=== PATIENT | female | born 1955 | race Caucasian/White ===

== ENCOUNTER 2017-06-10 12:46 | Inpatient (IN) | payer MEDICARE, MEDICAID ==
[2017-06-10 13:24] LABS: % BASOPHILS 0.3 % (0.0-2.0); % EOSINOPHILS 0.3 % (0.0-5.0); % LYMPHOCYTES 15.9 % (20.0-50.0); % MONOCYTES 6.5 % (2.0-10.0); HEMATOCRIT 45.1 % (41.0-60); HEMOGLOBIN 15.2 gm/dL (12-16); MEAN CELL VOLUME 88.8 fl (81-100); MEAN CORPUSCULAR HEMOGLOBIN 29.9 pg (27.0-31.0); MEAN CORPUSCULAR HGB CONC 33.7 pg (28.0-36.0); MEAN PLATELET VOLUME 7.8 fl; PLATELET COUNT 277 Th/cmm (150-400); RED BLOOD COUNT 5.08 Mil/cmm (3.80-5.10)
[2017-06-10 13:33] LABS: WHITE BLOOD COUNT 6.4 Th/cmm (4.8-10.8)
[2017-06-10 13:45] LABS: AMYLASE SERUM 26 U/L (29-103); LIPASE 6 U/L (11-82)
[2017-06-10 13:47] LABS: ALB/GLOB RATIO 1.3 (1.0-1.8); ANION GAP 13.8 (7.0-16.0); BILIRUBIN,TOTAL 0.8 mg/dL (0.3-1.0); CALCIUM SERUM 10.2 mg/dL (8.6-10.3); CARBON DIOXIDE 22.4 mEq/L (21.0-31.0); CREATININE - SERUM 1.5 mg/dL (0.6-1.2); POTASSIUM SERUM 4.2 mEq/L (3.5-5.1)
[2017-06-10] MEDS ORDERED: Haloperidol Lactate 5 mg/mL 1mL Vial IM STA (13:47)
[2017-06-10] MEDS ORDERED: Haloperidol Lactate 5 mg/mL 1mL Vial ONE ×2 (13:48→15:31)
--- NOTE | 2017-06-10 14:02 | Diagnostic Imaging Report ---
CHEST X-RAY: AP view INDICATION: Fatigue, nausea and vomiting COMPARISON: Chest x-ray on 08/03/2015 FINDINGS: There is elevation of the right hemidiaphragm limiting evaluation right lung base. Left basal subsegmental atelectasis versus scarring is noted. No focal consolidation or effusions. Mild cardiomegaly is noted. Gas-filled stomach is seen along left upper quadrant. Degenerative changes of the spine are noted. IMPRESSION: Left basal subsegmental atelectasis versus scarring. No focal consolidation identified. Mild cardiomegaly.
--- NOTE | 2017-06-10 14:03 | Diagnostic Imaging Report ---
KUB single view HISTORY: Nausea and vomiting COMPARISON: CT abdomen and pelvis on 07/27/2015 and small bowel follow-through procedure on 07/30/2015 FINDINGS: Distended loops of bowel are noted including multiple distended small bowel loops. There is positive gas within the distal colon. Distended stomach is noted. IMPRESSION: Multiple distended small bowel loops and distended stomach. Findings may be due to small bowel obstruction. Clinical correlation and follow-up is recommended.
--- NOTE | 2017-06-10 14:29 | ED Physician Chart ---
ED Chief Complaint/HPI - Patient Information Date Seen:: 06/10/17 Time Seen:: 13:00 Chief Complaint:: Nausea and vomiting History of Present Illness:: 62 yo female who is a long-term resident with schizoaffective disorder with psychosis, developed nausea and vomiting for 2 days. She was reported to have abdominal pain with minimal ileostomy output. She was brought to the ER for further evaluation. The patient was screaming and getting out of bed in the ER. The patient has history of SBO treated with colectomy and ileostomy. Allergies:: Allergies Allergy/AdvReac Type Severity Reaction Status Date / Time meperidine [From Demerol] Allergy Verified 06/10/17 13:04 Vitals:: Vital Signs - 8 hr 06/10/17 13:05 Temp 98.8 F HR 83 RR 17 BP 140/77 O2 Sat % 94 ED Review of Systems - Review of Systems General/Constitutional: No fever, No chills Skin: No skin lesions Head: No headache Eyes: No loss of vision Neck: No neck pain Cardio Vascular: No chest pain Pulmonary: No SOB GI: Nausea, Vomiting Musculoskeletal: No bone or joint pain Psychiatric: Auditory hallucination ED Past Medical History - Past Medical History Past Medical History: Other (Schizoaffective with psychosis, Diverticulitis, SBO ) Social History: Non Smoker, No Alcohol, No Drug Use Surgical History: other (S/P colectomy & ileostomy) Family Medical History - Family Member Mother History Unknown: Yes Ethnicity: Unknown Living Status: Still Living Hx Family Cancer: (unknown) ED Physical Exam - Physical Examination General/Constitutional: Awake, Alert Other Gen/Cons comments:: yelling and screaming, not following command Head: Atraumatic Eyes: PERRL, EOMI Skin: No skin lesions Neck: Full ROM w/o pain Respiratory: Clear to Auscultation Cardio Vascular: RRR, No murmur, gallop, rubs, NL S1 S2 Other GI comments:: Distended, hypoactive bowel sound Extremities: No tenderness or effusion Other Neuro/Psych comments:: altered insight ED Labs/Radiology/EKG Results - Lab Results Results: Laboratory Tests 06/10/17 06/10/17 06/10/17 13:19 13:19 13:19 WBC 6.4 D RBC 5.08 Hgb 15.2 Hct 45.1 MCV 88.8 MCH 29.9 MCHC Differential 33.7 RDW 13.0 Plt Count 277 MPV 7.8 Neutrophils % 77.0 Lymphocytes % 15.9 L Monocytes % 6.5 Eosinophils % 0.3 Basophils % 0.3 Sodium 133 L Potassium 4.2 Chloride 101 Carbon Dioxide 22.4 Anion Gap 13.8 BUN 36 H Creatinine 1.5 H Est GFR ( Amer) 45.6 Est GFR (Non-Af Amer) 37.6 BUN/Creatinine Ratio 24.0 Glucose 156 H Calcium 10.2 Total Bilirubin 0.8 AST 25 ALT 23 Alkaline Phosphatase 76 Troponin I B-Natriuretic Peptide 22.8 Total Protein 7.9 Albumin 4.5 Globulin 3.4 Albumin/Globulin Ratio 1.3 Amylase Lipase 06/10/17 06/10/17 13:19 13:19 WBC RBC Hgb Hct MCV MCH MCHC Differential RDW Plt Count MPV Neutrophils % Lymphocytes % Monocytes % Eosinophils % Basophils % Sodium Potassium Chloride Carbon Dioxide Anion Gap BUN Creatinine Est GFR ( Amer) Est GFR (Non-Af Amer) BUN/Creatinine Ratio Glucose Calcium Total Bilirubin AST ALT Alkaline Phosphatase Troponin I < 0.01 L B-Natriuretic Peptide Total Protein Albumin Globulin Albumin/Globulin Ratio Amylase 26 L Lipase 6 L - Radiology Results Results: KUB: SBO ED Assessment - Assessment General Assessment: 62 yo female has nausea and vomiting due to small bowel obstruction. She is dehydrated. She has schizoaffective disorder with psychosis. Critical Care Time: 45 min Excludes all billable procedures: Yes This condition life threatening/high prob of deterioration: No ED Septic Shock - . Is Septic Shock (SBP<90, OR Lactate>4 mmol\L) present?: No - <6hrs of presentation: Vital Signs: Vital Signs - 8 hr 06/10/17 13:05 Temp 98.8 F HR 83 RR 17 BP 140/77 O2 Sat % 94 ED Reassessment (Disposition) - Reassessment Reassessment Condition:: Improved - Patient Disposition Discharge/Transfer:: Acute Care w/in this hosp Admitting Psych Physician:: Ganga Richards ED Discharge Plan - Patient Disposition Admit/Discharge/Transfer: Other Care w/in this hosp Condition at Disposition: Stable
[2017-06-10] MEDS ORDERED: Lactulose 10 Gm/15 mL 30mL UDC PO PRN (14:58)
[2017-06-10] MEDS ORDERED: Magnesium Hydroxide (MOM) 30 mL UDC PO PRN (14:58)
[2017-06-10] MEDS ORDERED: Hydrocodone/APAP 5mg/325mg Tab PO PRN (14:58)
[2017-06-10] MEDS ORDERED: Ipratropium Neb 0.5 mg/2.5 mL UD IH PRN (15:01)
[2017-06-10] MEDS ORDERED: Albuterol Nebulizer 2.5mg/3mL HHN PRN (15:01)
[2017-06-10] MEDS ORDERED: Morphine Sulfate 2 mg/mL 1mL Syr IVP PRN (15:01)
[2017-06-10] MEDS ORDERED: Maalox 30 mL Cup PO PRN (15:02)
[2017-06-10] MEDS ORDERED: D5-0.45NS 1,000 ML IV SCH (15:15)
[2017-06-10] MEDS ORDERED: Haloperidol Lactate 5 mg/mL 1mL Vial IM ONE (15:32)
--- NOTE | 2017-06-10 15:45 | History & Physical ---
ADMIT DATE: 06/10/2017 CHIEF COMPLAINT: Abdominal pain, intractable vomiting. HISTORY OF PRESENT ILLNESS: This is a 62-year-old female with history of morbid obesity, schizoaffective disorder, GERD, chronic constipation, hypertension, was admitted from nursing facility secondary to intractable vomiting and nausea. The patient had episode of fall yesterday on the floor. The patient is a poor historian. Denies chest pain, shortness of breath at this time. PAST MEDICAL HISTORY: As mentioned in the history of present illness. PAST SURGICAL HISTORY: Status post colostomy secondary to bowel obstruction in the past. ALLERGIES: MEPERIDINE. MEDICATIONS: Zofran, omeprazole, Nuedexta, ____, Colace, Centuria, lactulose, lidocaine patch, ____, midodrine, multivitamin. FAMILY HISTORY: Noncontributory. SOCIAL HISTORY: The patient lives in [facility]. The patient requiring 24-hour total care. Nonsmoker, nondrinker. REVIEW OF SYSTEMS: This is limited secondary to the patient's current mental state. We will try to obtain more detailed review of systems at a later date by talking to family members; ____ [phone]. Also we will try to get information from nursing staff at [facility] at [phone]. PHYSICAL EXAMINATION: VITAL SIGNS: Blood pressure 140/77, respirations 17, pulse 94, temperature 98.4. GENERAL: Elderly female, morbidly obese. NECK: Supple. No mass. LUNGS: Equal breath sounds, few rhonchi. HEART: Regular rate and rhythm without appreciable murmurs. ABDOMEN: Soft, globular. Positive colostomy. EXTREMITIES: Positive excoriation. NEUROLOGIC: Limited. LABORATORY DATA: WBC 6.4, hemoglobin 15, platelets 277. Sodium 133, potassium 4.2, BUN 36, creatinine 1.5, glucose 156. Troponin 0.01. Lipase 26 and 6 respectively. X-rays are pending. ASSESSMENT AND PLAN: Abdominal pain, intractable vomiting, possible small-bowel obstruction, acute renal failure, hyponatremia, morbid obesity, schizoaffective disorder, status post fall, constipation, and hypertension. We will start patient on IV fluids. We will correct patient's electrolyte abnormalities. We will check the hemoglobin A1c. We will perform CT abdomen and pelvis without contrast. We will refer the patient to GI. Continue with current care with followup consult and recommendations. JOB# [id number]
[2017-06-10] MEDS: Lidocaine 5% Patch TD SCH (18:08)
[2017-06-10] MEDS ORDERED: Diatrizoate Meglumine/Diatri 30 mL Sol ONE (18:24)
[2017-06-10] MEDS: D5-0.9%NS 1,000 ML IV SCH (19:00)
[2017-06-10] MEDS: Dextromethorphan/Quinidine 20mg/10mg Cap PO SCH (22:15)
--- NOTE | 2017-06-10 22:46 | Consultation ---
DATE OF CONSULTATION: 06/10/2017 REASON FOR CONSULTATION: Abdominal pain with vomiting. HISTORY OF PRESENT ILLNESS: This consult was obtained through the courtesy of Dr. Richards for this 62-year-old who has schizoaffective disorder, morbid obesity, GERD, hypertension, and a history of bowel obstruction, status post colostomy, presenting to the hospital because of abdominal pain and persistent vomiting. When she came in she had an x-ray, which showed possible obstruction. The patient was admitted. A GI consult was called in for further recommendations. The patient is not offering any insight into her condition. She is communicative and responsive, but is not able to answer any questions. PAST MEDICAL HISTORY: Obesity, schizoaffective disorder, GERD, constipation, and hypertension. PAST SURGICAL HISTORY: Colostomy. SOCIAL HISTORY: Nonsmoker, nonalcoholic, and no IV drug abuser. FAMILY HISTORY: Noncontributory. REVIEW OF SYSTEMS: Unobtainable. ALLERGIES: Meperidine. MEDICATIONS: The patient is on [place], Maalox, albuterol, valium, Colace, Atrovent, lactulose, lidocaine, mag hydroxide , midodrine, morphine, Theragran, Zofran and Protonix. PHYSICAL EXAMINATION: GENERAL: The patient is awake and responsive. VITAL SIGNS: Blood pressure is 126/57, heart rate 85, respiratory rate 18, temperature is 98.2. HEAD AND NECK: Pupils reactive to light. Extraocular muscles could not be tested. Oral cavity, no lesion. NECK: Supple. No jugular venous distention. No carotid bruit or lymph nodes. CHEST: Good respiratory movements. LUNGS: Clear to auscultation. CARDIOVASCULAR: Regular rate and rhythm. No murmur or gallop. ABDOMEN: Soft, distended, mildly tender. Decreased bowel sounds. Abdomen also showed the colostomy bag in the right upper extremity. EXTREMITIES: No edema. CENTRAL NERVOUS SYSTEM: Grossly nonfocal. LABORATORY DATA: CBC was unremarkable. Chemistry showed BUN and creatinine are 36 and 1.5, lipase 6. KUB showed distended loops of small bowel. IMPRESSION: A 62-year-old with multiple medical problems, now with possible bowel obstruction. ASSESSMENT AND PLAN: Abdominal distention, rule out bowel obstruction, whether partial or complete versus ileus due to adhesions. RECOMMENDATIONS: 1. Keep the patient n.p.o. 2. IV fluids. 3. Small-bowel follow through. It seems that the patient already has received a CT scan, so we will have to wait for the results. If not, then will do a small-bowel follow through, then further recommendations to follow. Other medical problems such as schizoaffective disorder, obesity, hypertension, etc., are as per Dr. Richards. Thank you, Dr. Richards, for allowing me to participate in the care of the patient. If you have any further questions, please let me know. JOB# [id number] MTDD
[2017-06-11 05:44] LABS: URINE BILIRUBIN SMALL (NEGATIVE); URINE BLOOD MODERATE (NEGATIVE); URINE GLUCOSE (UA) NEGATIVE (NEGATIVE); URINE KETONE TRACE mg/dL (NEGATIVE); URINE PROTEIN 100 mg/dL (NEGATIVE); URINE UROBILINOGEN 0.2 E.U./dL (0.2 - 1.0)
[2017-06-11 05:54] LABS: URINE COLOR ORANGE
[2017-06-11 05:57] LABS: URINE BACTERIA MANY /hpf (NONE SEEN); URINE EPITHELIAL CELLS FEW /lpf (FEW)
[2017-06-11 06:12] LABS: % BASOPHILS 0.1 % (0.0-2.0); % EOSINOPHILS 0.4 % (0.0-5.0); % LYMPHOCYTES 17.6 % (20.0-50.0); % MONOCYTES 10.4 % (2.0-10.0); % NEUTROPHILS 71.5 % (40.0-80.0); HEMATOCRIT 43.4 % (41.0-60); HEMOGLOBIN 14.5 gm/dL (12-16); MEAN CELL VOLUME 87.7 fl (81-100); MEAN CORPUSCULAR HEMOGLOBIN 29.3 pg (27.0-31.0); MEAN CORPUSCULAR HGB CONC 33.4 pg (28.0-36.0); MEAN PLATELET VOLUME 7.8 fl; NEUTROPHILE ABSOLUTE 4.5 Th/cmm (1.8-8.0); PLATELET COUNT 272 Th/cmm (150-400); RED BLOOD COUNT 4.94 Mil/cmm (3.80-5.10); WHITE BLOOD COUNT 6.2 Th/cmm (4.8-10.8)
[2017-06-11 06:23] LABS: ANION GAP 11.9 (7.0-16.0); BUN/CREATININE RATIO 26.9; CALCIUM SERUM 9.6 mg/dL (8.6-10.3); CREATININE - SERUM 1.3 mg/dL (0.6-1.2); MAGNESIUM 2.4 mg/dL (1.9-2.7); POTASSIUM SERUM 3.9 mEq/L (3.5-5.1)
[2017-06-11 07:03] LABS: TSH 4.22 uIU/ml (0.34-5.60)
[2017-06-11] MEDS: D5-0.9%NS 1,000 ML IV SCH ×2 (08:04→20:42)
[2017-06-11] MEDS ORDERED: Diatrizoate Meglumine/Diatri 30 mL Sol PO ONE ×2 (09:00→10:00)
--- NOTE | 2017-06-11 09:09 | Diagnostic Imaging Report ---
CHEST X-RAY: AP view INDICATION: NG tube placement COMPARISON: 06/10/2017 FINDINGS: NG tube is visualized to the stomach with distal tip not well visualized. The tip may be within the proximal stomach. The gaseous distention of the stomach is noted. There is elevation of the right hemidiaphragm. No focal consolidation identified. Increased bibasilar lung markings are noted. Heart size is normal. IMPRESSION: NG tube visualized the proximal stomach. The tip may be at the proximal stomach. Gaseous distended stomach is also noted. Bibasal atelectatic changes with no focal consolidation identified.
[2017-06-11] MEDS: Multivitamin Tab PO SCH (09:39)
[2017-06-11] MEDS: Dextromethorphan/Quinidine 20mg/10mg Cap PO SCH ×2 (09:39→21:00)
[2017-06-11] MEDS: Lidocaine 5% Patch TD SCH (09:39)
--- NOTE | 2017-06-11 11:19 | Diagnostic Imaging Report ---
Exam: Chest x-ray HISTORY: NG tube placement. Findings: Portable examination of chest at 1100 hours reviewed. The study demonstrates NG tube passes stomach. Right basilar atelectasis is noted. IMPRESSION: NG tube in the stomach.
--- NOTE | 2017-06-11 14:01 | Internal Medicine Prog Note ---
Internal Medicine Subjective - Subjective Service Date: 06/11/17 Patient seen and examined:: with staff Patient is:: awake, confused Per staff patient has:: tolerating meds Internal Medicine Objective - Results Result Diagrams: 06/11/17 05:30 06/11/17 05:30 Recent Labs: Laboratory Last Values WBC 6.2 Th/cmm (4.8-10.8) 06/11/17 05:30 RBC 4.94 Mil/cmm (3.80-5.10) 06/11/17 05:30 Hgb 14.5 gm/dL (12-16) 06/11/17 05:30 Hct 43.4 % (41.0-60) 06/11/17 05:30 MCV 87.7 fl (81-100) 06/11/17 05:30 MCH 29.3 pg (27.0-31.0) 06/11/17 05:30 MCHC Differential 33.4 pg (28.0-36.0) 06/11/17 05:30 RDW 13.0 % (11.5-20.0) 06/11/17 05:30 Plt Count 272 Th/cmm (150-400) 06/11/17 05:30 MPV 7.8 fl 06/11/17 05:30 Neutrophils % 71.5 % (40.0-80.0) 06/11/17 05:30 Lymphocytes % 17.6 % (20.0-50.0) L 06/11/17 05:30 Monocytes % 10.4 % (2.0-10.0) H 06/11/17 05:30 Eosinophils % 0.4 % (0.0-5.0) 06/11/17 05:30 Basophils % 0.1 % (0.0-2.0) 06/11/17 05:30 Sodium 138 mEq/L (136-145) 06/11/17 05:30 Potassium 3.9 mEq/L (3.5-5.1) 06/11/17 05:30 Chloride 104 mEq/L (98-107) 06/11/17 05:30 Carbon Dioxide 26.0 mEq/L (21.0-31.0) 06/11/17 05:30 Anion Gap 11.9 (7.0-16.0) 06/11/17 05:30 BUN 35 mg/dL (7-25) H 06/11/17 05:30 Creatinine 1.3 mg/dL (0.6-1.2) H 06/11/17 05:30 Est GFR ( Amer) 53.7 ml/min (>90) 06/11/17 05:30 Est GFR (Non-Af Amer) 44.4 ml/min 06/11/17 05:30 BUN/Creatinine Ratio 26.9 06/11/17 05:30 Glucose 156 mg/dL (70-105) H 06/11/17 05:30 Hemoglobin A1c % 6.0 % (4.0-6.0) 06/11/17 05:30 Calcium 9.6 mg/dL (8.6-10.3) 06/11/17 05:30 Magnesium 2.4 mg/dL (1.9-2.7) 06/11/17 05:30 Total Bilirubin 0.8 mg/dL (0.3-1.0) 06/10/17 13:19 AST 25 U/L (13-39) 06/10/17 13:19 ALT 23 U/L (7-52) 06/10/17 13:19 Alkaline Phosphatase 76 U/L (34-104) 06/10/17 13:19 Ammonia 50 umol/L (16-53) 06/11/17 05:30 Troponin I < 0.01 ng/mL (0.01-0.05) L 06/10/17 13:19 B-Natriuretic Peptide 22.8 pg/mL (5.0-100.0) 06/10/17 13:19 Total Protein 7.9 gm/dL (6.0-8.3) 06/10/17 13:19 Albumin 4.5 gm/dL (3.7-5.3) 06/10/17 13:19 Globulin 3.4 gm/dL 06/10/17 13:19 Albumin/Globulin Ratio 1.3 (1.0-1.8) 06/10/17 13:19 Amylase 26 U/L (29-103) L 06/10/17 13:19 Lipase 6 U/L (11-82) L 06/10/17 13:19 TSH 4.22 uIU/ml (0.34-5.60) 06/11/17 05:30 Urine Source CATH 06/11/17 05:30 Urine Color ORANGE 06/11/17 05:30 Urine Clarity HAZY (CLEAR) 06/11/17 05:30 Urine pH 6.0 (4.6 - 8.0) 06/11/17 05:30 Ur Specific [place] >= 1.030 (1.005-1.030) 06/11/17 05:30 Urine Protein 100 mg/dL (NEGATIVE) H 06/11/17 05:30 Urine Glucose (UA) NEGATIVE mg/dL (NEGATIVE) 06/11/17 05:30 Urine Ketones TRACE mg/dL (NEGATIVE) 06/11/17 05:30 Urine Blood MODERATE (NEGATIVE) H 06/11/17 05:30 Urine Nitrate POSITIVE (NEGATIVE) H 06/11/17 05:30 Urine Bilirubin SMALL (NEGATIVE) H 06/11/17 05:30 Urine Urobilinogen 0.2 E.U./dL (0.2 - 1.0) 06/11/17 05:30 Ur Leukocyte Esterase NEGATIVE (NEGATIVE) 06/11/17 05:30 Urine RBC 2-5 /hpf (0-5) 06/11/17 05:30 Urine WBC 10-25 /hpf (0-5) H 06/11/17 05:30 Ur Epithelial Cells FEW /lpf (FEW) 06/11/17 05:30 Urine Bacteria MANY /hpf (NONE SEEN) 06/11/17 05:30 - Physical Exam Vitals and I&O: Vital Signs Temp 98.2 F 06/11/17 08:00 Pulse 87 06/11/17 08:00 Resp 17 06/11/17 08:00 BP 122/67 06/11/17 08:00 Pulse Ox 92 06/11/17 08:00 Intake & Output 06/10/17 06/11/17 06/11/17 18:59 06:59 18:59 Intake Total 0 1000 Output Total 700 Balance -700 1000 Weight (lbs) 230 lb 9 oz Intake: Intake, IV Amount 1000 D5-0.9%Ns 1,000 ml @ 80 1000 mls/hr IV .[id number] CECILIA Rx #:[id number] Oral 0 Output: Gastric Drainage 700 Other: # Bowel Movements 0 Active Medications: Current Medications Acetaminophen/Hydrocodone Bitart (Arlee 5mg/325mg) 1 tab PO Q6H PRN PRN Reason: Pain (Moderate) Stop: 08/09/17 14:57 Al Hydrox/Mg Hydrox/Simethicone (Maalox) 30 ml PO Q6H PRN PRN Reason: Dyspepsia Stop: 08/09/17 15:01 Albuterol Sulfate (Albuterol 2.5mg/3ml Neb Ud) 2.5 mg HHN Q2HRT PRN PRN Reason: Shortness of Breath or Wheeze Stop: 08/09/17 15:00 Dextromethorphan/Quinidine (Nuedexta 20mg-10mg) 1 cap PO Q12HR [facility] Stop: 08/09/17 20:59 Last Admin: 06/11/17 09:39 Dose: Not Given Diazepam (Valium) 2 mg PO BID [facility] PRN Reason: Protocol Stop: 08/09/17 16:59 Last Admin: 06/11/17 09:39 Dose: Not Given Docusate Sodium (Colace) 100 mg PO BID [facility] Stop: 08/09/17 16:59 Last Admin: 06/11/17 09:39 Dose: Not Given Dextrose/Sodium Chloride (D5-0.9%Ns) 1,000 mls @ 100 mls/hr IV .Q10H [facility] Stop: 08/09/17 15:14 Ipratropium [place] (Atrovent Neb 0.5mg/2.5ml) 0.5 mg IH Q2HRT PRN PRN Reason: Shortness of Breath or Wheeze Stop: 08/09/17 15:00 Lactulose (Cephulac) 20 gm PO BID PRN PRN Reason: Constipation Stop: 08/09/17 14:57 Lidocaine (Lidoderm 5% Patch) 1 patch TD Q24HR@0900 [facility] Stop: 08/09/17 14:59 Last Admin: 06/11/17 09:39 Dose: Not Given Magnesium Hydroxide (Milk Of Magnesia) 30 ml PO HS PRN PRN Reason: Constipation Stop: 08/09/17 14:57 Midodrine (Proamatine) 10 mg PO TID [facility] Stop: 08/09/17 20:59 Last Admin: 06/11/17 09:39 Dose: Not Given Morphine Sulfate (Morphine) 2 mg IVP Q4H PRN PRN Reason: Pain (Severe) Stop: 08/09/17 15:00 Last Admin: 06/11/17 09:55 Dose: 2 mg Multivitamins/Vitamin C (Theragran) 1 tab PO DAILY [facility] Stop: 08/10/17 08:59 Last Admin: 06/11/17 09:39 Dose: Not Given Ondansetron HCl (Zofran) 4 mg IV Q8H PRN PRN Reason: Nausea / Vomiting Stop: 08/09/17 15:01 Last Admin: 06/10/17 18:57 Dose: 4 mg Pantoprazole Sodium (Protonix) 40 mg IVP BID [facility] Stop: 08/09/17 16:59 Last Admin: 06/11/17 09:39 Dose: Not Given Promethazine HCl (Phenergan) 25 mg IM Q8HR PRN PRN Reason: Nausea / Vomiting Stop: 08/10/17 12:52 General: weak, alert HEENT: NC/AT, PERRLA Neck: Supple Lungs: CTAB Cardiovascular: RRR, Normal S1, Normal S2, without murmur Abdomen: soft, non-tender, non-distended, positive bowel sound Extremities: excoriation Neurological: alert - Procedures Procedures: Procedures Procedure Code Date CONTINUOUS INVASIVE MECHANICAL VENTILATION =/>96 CONSEC HRS 96.72 01/08/15 EGD BIOPSY SINGLE/MULTIPLE 37436 07/27/15 EXCISION OF DUODENUM, ENDO, DIAGN [id number] 07/27/15 EXCISION OF STOMACH, PYLORUS, ENDO, DIAGN [id number] 07/27/15 GROUP PSYCHOTHERAPY 53027 08/02/15 GROUP PSYCHOTHERAPY [id number] 08/02/15 INSERT EMERGENCY AIRWAY 16320 01/08/15 INSERT ENDOTRACHEAL TUBE 96.04 01/08/15 INTRAOP COLON LAVAGE ADD-ON 90192 01/08/15 OPEN TOTAL INTRA-ABDOMINAL COLECTOMY 45.82 01/08/15 OTHER GROUP THERAPY 94.44 03/16/15 REMOVAL OF COLON 20842 01/08/15 TEMPORARY ILEOSTOMY 46.21 01/08/15 VENT MGMT INPAT INIT DAY 96124 01/08/15 VENT MGMT INPAT SUBQ DAY 67538 01/08/15 Internal Medicine Assmt/Plan - Assessment Assessment: abdominal pain intractable vomiting possible sbo acute renal failure hyponatremia morbid obesity schizoaffective s/p fall constipation - Plan Plan: continue ivf for hydration am labs monitor glucose fall precautions gi f/u continue current plan of care
[2017-06-11] MEDS ORDERED: VTE Chemical Prophylaxis Screen/Admission MC PRN (17:07)
--- NOTE | 2017-06-12 00:44 | Consultation ---
DATE OF CONSULTATION: Covering for Dr. Wick. IDENTIFYING INFORMATION: The patient is a 62-year-old female ____ who is a well-known case to me and Dr. Wick as he has multiple admissions to [facility]. She is confused, unable to make safe plan for self-care. She is unpredictable and impulsive. She was admitted because of abdominal pain, unable to participate in a conversation. She has a NG tube. She is unable to give the information about her sleep, appetite, suicide, homicide ideation or orientation. PAST PSYCHIATRIC HISTORY: Schizophrenia, bipolar disorder. MEDICAL HISTORY: Deferred to Dr. Richards. MEDICATIONS: See medication list. The staff is trying to get out of the computer and has been unsuccessful so far. We will get to it. The patient has been on Nuedexta. ALLERGIES: SHE IS ALLERGIC TO MEPERIDINE. She is not on any other psychotropic medications. FAMILY AND SOCIAL HISTORY: Unobtainable. MENTAL STATUS EXAMINATION: The patient is appropriately dressed, not very groomed. She has a NG tube. She was mumbling to herself, unable to make safe plan for self-care or participate in a meaningful conversation, ____ memory with a history of psychosis, unable to test her memory. Her insight and judgment is impaired. IMPRESSION: AXIS I: Psychosis, not otherwise specified. MEDICAL DIAGNOSIS: Refer to the medical doctor. I would recommend to continue Nuedexta and may transfer to [facility] when medically cleared. Thank you very much for allowing me to participate in the care of this most interesting lady. [facility]# [id number]
[2017-06-12 05:20] LABS: % BASOPHILS 0.5 % (0.0-2.0); % EOSINOPHILS 1.6 % (0.0-5.0); % LYMPHOCYTES 36.7 % (20.0-50.0); % MONOCYTES 8.7 % (2.0-10.0); % NEUTROPHILS 52.5 % (40.0-80.0); HEMATOCRIT 41.6 % (41.0-60); MEAN CELL VOLUME 88.3 fl (81-100); MEAN CORPUSCULAR HEMOGLOBIN 29.7 pg (27.0-31.0); MEAN CORPUSCULAR HGB CONC 33.6 pg (28.0-36.0); MEAN PLATELET VOLUME 7.7 fl; NEUTROPHILE ABSOLUTE 2.7 Th/cmm (1.8-8.0); PLATELET COUNT 259 Th/cmm (150-400); RED BLOOD COUNT 4.72 Mil/cmm (3.80-5.10); WHITE BLOOD COUNT 5.1 Th/cmm (4.8-10.8)
[2017-06-12 05:45] LABS: ALB/GLOB RATIO 1.2 (1.0-1.8); ALKALINE PHOSPHATASE 60 U/L (34-104); ANION GAP 9.9 (7.0-16.0); BILIRUBIN,TOTAL 0.6 mg/dL (0.3-1.0); BUN - UREA NITROGEN 31 mg/dL (7-25); BUN/CREATININE RATIO 28.2; CALCIUM SERUM 8.9 mg/dL (8.6-10.3); CARBON DIOXIDE 24.8 mEq/L (21.0-31.0); CHLORIDE 110 mEq/L (98-107); CREATININE - SERUM 1.1 mg/dL (0.6-1.2); GLUCOSE 128 mg/dL (70-105); MAGNESIUM 2.5 mg/dL (1.9-2.7); POTASSIUM SERUM 3.7 mEq/L (3.5-5.1); SGOT 18 U/L (13-39); SGPT/ALT 20 U/L (7-52); SODIUM SERUM 141 mEq/L (136-145)
--- NOTE | 2017-06-12 07:11 | Diagnostic Imaging Report ---
Exam: Small bowel follow-through. HISTORY: Small bowel obstruction. Findings: . The study demonstrates severely distended small bowel loops throughout the abdomen. NG tube in stomach Upon introduction of contrast material into the NG tube there is normal opacification of stomach. There is evidence. Progression of contrast material throughout distended small bowel loops with mild small bowel wall edema. The 6 hour interval film demonstrates progression of contrast material into the right colostomy. There is no evidence of small bowel obstruction. IMPRESSION: Distended small bowel loops throughout. There is no evidence for small bowel obstruction. The findings may related to paralytic ileus.
[2017-06-12] MEDS: D5-0.9%NS 1,000 ML IV SCH (07:12)
[2017-06-12] MEDS: Dextromethorphan/Quinidine 20mg/10mg Cap PO SCH ×2 (09:06→20:13)
[2017-06-12] MEDS: Multivitamin Tab PO SCH (09:06)
--- NOTE | 2017-06-12 11:24 | Internal Medicine Prog Note ---
Internal Medicine Subjective - Subjective Service Date: 06/12/17 Patient is:: awake, confused Per staff patient has:: tolerating meds Internal Medicine Objective - Results Result Diagrams: 06/12/17 05:05 06/12/17 05:05 Recent Labs: Laboratory Last Values WBC 5.1 Th/cmm (4.8-10.8) 06/12/17 05:05 RBC 4.72 Mil/cmm (3.80-5.10) 06/12/17 05:05 Hgb 14.0 gm/dL (12-16) 06/12/17 05:05 Hct 41.6 % (41.0-60) 06/12/17 05:05 MCV 88.3 fl (81-100) 06/12/17 05:05 MCH 29.7 pg (27.0-31.0) 06/12/17 05:05 MCHC Differential 33.6 pg (28.0-36.0) 06/12/17 05:05 RDW 13.0 % (11.5-20.0) 06/12/17 05:05 Plt Count 259 Th/cmm (150-400) 06/12/17 05:05 MPV 7.7 fl 06/12/17 05:05 Neutrophils % 52.5 % (40.0-80.0) 06/12/17 05:05 Lymphocytes % 36.7 % (20.0-50.0) 06/12/17 05:05 Monocytes % 8.7 % (2.0-10.0) 06/12/17 05:05 Eosinophils % 1.6 % (0.0-5.0) 06/12/17 05:05 Basophils % 0.5 % (0.0-2.0) 06/12/17 05:05 Sodium 141 mEq/L (136-145) 06/12/17 05:05 Potassium 3.7 mEq/L (3.5-5.1) 06/12/17 05:05 Chloride 110 mEq/L (98-107) H 06/12/17 05:05 Carbon Dioxide 24.8 mEq/L (21.0-31.0) 06/12/17 05:05 Anion Gap 9.9 (7.0-16.0) 06/12/17 05:05 BUN 31 mg/dL (7-25) H 06/12/17 05:05 Creatinine 1.1 mg/dL (0.6-1.2) 06/12/17 05:05 Est GFR ( Amer) > 60.0 ml/min (>90) 06/12/17 05:05 Est GFR (Non-Af Amer) 53.8 ml/min 06/12/17 05:05 BUN/Creatinine Ratio 28.2 06/12/17 05:05 Glucose 128 mg/dL (70-105) H 06/12/17 05:05 Hemoglobin A1c % 6.0 % (4.0-6.0) 06/11/17 05:30 Calcium 8.9 mg/dL (8.6-10.3) 06/12/17 05:05 Magnesium 2.5 mg/dL (1.9-2.7) 06/12/17 05:05 Total Bilirubin 0.6 mg/dL (0.3-1.0) 06/12/17 05:05 AST 18 U/L (13-39) 06/12/17 05:05 ALT 20 U/L (7-52) 06/12/17 05:05 Alkaline Phosphatase 60 U/L (34-104) 06/12/17 05:05 Ammonia 50 umol/L (16-53) 06/11/17 05:30 Troponin I < 0.01 ng/mL (0.01-0.05) L 06/10/17 13:19 B-Natriuretic Peptide 22.8 pg/mL (5.0-100.0) 06/10/17 13:19 Total Protein 6.7 gm/dL (6.0-8.3) 06/12/17 05:05 Albumin 3.7 gm/dL (3.7-5.3) 06/12/17 05:05 Globulin 3.0 gm/dL 06/12/17 05:05 Albumin/Globulin Ratio 1.2 (1.0-1.8) 06/12/17 05:05 Amylase 26 U/L (29-103) L 06/10/17 13:19 Lipase 6 U/L (11-82) L 06/10/17 13:19 TSH 4.22 uIU/ml (0.34-5.60) 06/11/17 05:30 Urine Source CATH 06/11/17 05:30 Urine Color ORANGE 06/11/17 05:30 Urine Clarity HAZY (CLEAR) 06/11/17 05:30 Urine pH 6.0 (4.6 - 8.0) 06/11/17 05:30 Ur Specific [place] >= 1.030 (1.005-1.030) 06/11/17 05:30 Urine Protein 100 mg/dL (NEGATIVE) H 06/11/17 05:30 Urine Glucose (UA) NEGATIVE mg/dL (NEGATIVE) 06/11/17 05:30 Urine Ketones TRACE mg/dL (NEGATIVE) 06/11/17 05:30 Urine Blood MODERATE (NEGATIVE) H 06/11/17 05:30 Urine Nitrate POSITIVE (NEGATIVE) H 06/11/17 05:30 Urine Bilirubin SMALL (NEGATIVE) H 06/11/17 05:30 Urine Urobilinogen 0.2 E.U./dL (0.2 - 1.0) 06/11/17 05:30 Ur Leukocyte Esterase NEGATIVE (NEGATIVE) 06/11/17 05:30 Urine RBC 2-5 /hpf (0-5) 06/11/17 05:30 Urine WBC 10-25 /hpf (0-5) H 06/11/17 05:30 Ur Epithelial Cells FEW /lpf (FEW) 06/11/17 05:30 Urine Bacteria MANY /hpf (NONE SEEN) 06/11/17 05:30 - Physical Exam Vitals and I&O: Vital Signs Temp 99.2 F 06/12/17 08:00 Pulse 76 06/12/17 08:00 Resp 18 06/12/17 08:00 BP 110/46 06/12/17 08:00 Pulse Ox 92 06/12/17 08:00 Intake & Output 06/11/17 06/12/17 06/12/17 18:59 06:59 18:59 Intake Total 1000 1000 Output Total 800 200 Balance 200 800 Weight (lbs) 230 lb 9 oz 230 lb Intake: Intake, IV Amount 1000 1000 D5-0.9%Ns 1,000 ml @ 100 1000 mls/hr IV .Q10H [facility] Rx#: [id number] D5-0.9%Ns 1,000 ml @ 80 1000 mls/hr IV .[id number] [facility] Rx #:[id number] Oral 0 Output: Stool 800 0 Emesis 200 Other: # Voids 4 Active Medications: Current Medications Acetaminophen/Hydrocodone Bitart ([place] 5mg/325mg) 1 tab PO Q6H PRN PRN Reason: Pain (Moderate) Stop: 08/09/17 14:57 Al Hydrox/Mg Hydrox/Simethicone (Maalox) 30 ml PO Q6H PRN PRN Reason: Dyspepsia Stop: 08/09/17 15:01 Albuterol Sulfate (Albuterol 2.5mg/3ml Neb Ud) 2.5 mg HHN Q2HRT PRN PRN Reason: Shortness of Breath or Wheeze Stop: 08/09/17 15:00 Dextromethorphan/Quinidine (Nuedexta 20mg-10mg) 1 cap PO Q12HR [facility] Stop: 08/09/17 20:59 Last Admin: 06/12/17 09:06 Dose: Not Given Diazepam (Valium) 2 mg PO BID [facility] PRN Reason: Protocol Stop: 08/09/17 16:59 Last Admin: 06/12/17 09:06 Dose: Not Given Docusate Sodium (Colace) 100 mg PO BID [facility] Stop: 08/09/17 16:59 Last Admin: 06/12/17 09:06 Dose: Not Given Dextrose/Sodium Chloride (D5-0.9%Ns) 1,000 mls @ 100 mls/hr IV .Q10H [facility] Stop: 08/09/17 15:14 Last Admin: 06/12/17 07:12 Dose: 100 mls/hr Ipratropium [place] (Atrovent Neb 0.5mg/2.5ml) 0.5 mg IH Q2HRT PRN PRN Reason: Shortness of Breath or Wheeze Stop: 08/09/17 15:00 Lactulose (Cephulac) 20 gm PO BID PRN PRN Reason: Constipation Stop: 08/09/17 14:57 Lidocaine (Lidoderm 5% Patch) 1 patch TD Q24HR@0900 [facility] Stop: 08/09/17 14:59 Last Admin: 06/11/17 09:39 Dose: Not Given Magnesium Hydroxide (Milk Of Magnesia) 30 ml PO HS PRN PRN Reason: Constipation Stop: 08/09/17 14:57 Midodrine (Proamatine) 10 mg PO TID [facility] Stop: 08/09/17 20:59 Last Admin: 06/12/17 09:06 Dose: Not Given Miscellaneous (Vte Chemical Prophylaxis Screen/ Admission) 1 ea [facility] PRN PRN PRN Reason: PROTOCOL Stop: 08/10/17 17:06 Morphine Sulfate (Morphine) 2 mg IVP Q4H PRN PRN Reason: Pain (Severe) Stop: 08/09/17 15:00 Last Admin: 06/11/17 09:55 Dose: 2 mg Multivitamins/Vitamin C (Theragran) 1 tab PO DAILY [facility] Stop: 08/10/17 08:59 Last Admin: 06/12/17 09:06 Dose: Not Given Ondansetron HCl (Zofran) 4 mg IV Q8H PRN PRN Reason: Nausea / Vomiting Stop: 08/09/17 15:01 Last Admin: 06/10/17 18:57 Dose: 4 mg Pantoprazole Sodium (Protonix) 40 mg IVP BID [facility] Stop: 08/09/17 16:59 Last Admin: 06/12/17 09:06 Dose: Not Given Promethazine HCl (Phenergan) 25 mg IM Q8HR PRN PRN Reason: Nausea / Vomiting Stop: 08/10/17 12:52 General: weak, alert HEENT: NC/AT, PERRLA Neck: Supple Lungs: CTAB Cardiovascular: RRR, Normal S1, Normal S2, without murmur Abdomen: soft, non-tender, non-distended, positive bowel sound Extremities: excoriation Neurological: alert - Procedures Procedures: Procedures Procedure Code Date CONTINUOUS INVASIVE MECHANICAL VENTILATION =/>96 CONSEC HRS 96.72 01/08/15 EGD BIOPSY SINGLE/MULTIPLE 42031 07/27/15 EXCISION OF DUODENUM, ENDO, DIAGN [id number] 07/27/15 EXCISION OF STOMACH, PYLORUS, ENDO, DIAGN [id number] 07/27/15 GROUP PSYCHOTHERAPY 06290 08/02/15 GROUP PSYCHOTHERAPY [id number] 08/02/15 INSERT EMERGENCY AIRWAY 57361 01/08/15 INSERT ENDOTRACHEAL TUBE 96.04 01/08/15 INTRAOP COLON LAVAGE ADD-ON 83908 01/08/15 OPEN TOTAL INTRA-ABDOMINAL COLECTOMY 45.82 01/08/15 OTHER GROUP THERAPY 94.44 03/16/15 REMOVAL OF COLON 38216 01/08/15 TEMPORARY ILEOSTOMY 46.21 01/08/15 VENT MGMT INPAT INIT DAY 01/08/15 VENT MGMT INPAT SUBQ DAY 01/08/15 Internal Medicine Assmt/Plan - Assessment Assessment: abdominal pain intractable vomiting possible sbo acute renal failure hyponatremia morbid obesity schizoaffective s/p fall constipation - Plan Plan: continue ivf for hydration am labs monitor glucose fall precautions continue current plan of care
[2017-06-12] MEDS: Lidocaine 5% Patch TD SCH (12:31)
[2017-06-12 14:17] LABS: FOLIC ACID >20.0 ng/mL (>3.0)
[2017-06-12] MEDS ORDERED: D5-0.9%NS 1,000 ML IV SCH (15:44)
[2017-06-12] MEDS ORDERED: cefTRIAXone 1 GM in Sodium Chloride 0.9% 50 ML IV SCH (17:00)
[2017-06-13 05:48] LABS: % BASOPHILS 0.4 % (0.0-2.0); % EOSINOPHILS 1.8 % (0.0-5.0); % MONOCYTES 7.5 % (2.0-10.0); % NEUTROPHILS 61.3 % (40.0-80.0); HEMATOCRIT 41.8 % (41.0-60); HEMOGLOBIN 13.9 gm/dL (12-16); MEAN CELL VOLUME 88.8 fl (81-100); MEAN CORPUSCULAR HEMOGLOBIN 29.5 pg (27.0-31.0); MEAN CORPUSCULAR HGB CONC 33.2 pg (28.0-36.0); NEUTROPHILE ABSOLUTE 3.9 Th/cmm (1.8-8.0); PLATELET COUNT 267 Th/cmm (150-400); RED BLOOD COUNT 4.71 Mil/cmm (3.80-5.10); RED CELL DISTRIBUTION WIDTH 12.5 % (11.5-20.0)
[2017-06-13 05:58] LABS: WHITE BLOOD COUNT 6.4 Th/cmm (4.8-10.8)
[2017-06-13 06:10] LABS: ANION GAP 9.6 (7.0-16.0); BUN - UREA NITROGEN 21 mg/dL (7-25); CALCIUM SERUM 8.9 mg/dL (8.6-10.3); CHLORIDE 113 mEq/L (98-107); GLUCOSE 109 mg/dL (70-105); POTASSIUM SERUM 3.6 mEq/L (3.5-5.1); SODIUM SERUM 144 mEq/L (136-145)
[2017-06-13] MEDS: Dextromethorphan/Quinidine 20mg/10mg Cap PO SCH (09:05)
[2017-06-13] MEDS: Multivitamin Tab PO SCH (09:05)
--- NOTE | 2017-06-13 14:19 | Consultation ---
DATE OF CONSULTATION: SUBJECTIVE: Chart reviewed and patient interviewed. Also discussed the patient's condition with the staff and reviewed records and labs. The patient continued to be confused and restless and easily agitated. The patient also is in irritable and in angry mood. The patient also still needs lots of redirections. Otherwise, the patient is compliant with taking her medications with no side effects of medications. ASSESSMENT: The patient is still psychotic and is still agitated, and needs lots of redirections. TREATMENT PLAN: We will continue monitoring her behavior and her condition closely. Also, start the patient on Seroquel and we will adjust the dose. The patient also is a candidate for [facility]. JOB# [id number]
--- NOTE | 2017-06-13 14:20 | Discharge Summary ---
DATE OF DISCHARGE: 06/13/2017 CHIEF COMPLAINT: Abdominal pain, intractable vomiting. FINAL DIAGNOSES: Abdominal pain, intractable vomiting, small-bowel obstruction, which was resolved, urinary tract infection, acute renal failure, hyponatremia, morbidly obese, schizoaffective disorder, status post fall once, patient with hypertension. HISTORY: This is a 62-year-old female with history of mild obesity, schizoaffective disorder, previous bowel obstruction status post colostomy, hypertension, was admitted from nursing facility secondary to intractable vomiting and diarrhea and intractable nausea and vomiting. The patient also had an episode of fall. The patient admitted for further management. PHYSICAL EXAMINATION: VITAL SIGNS: Blood pressure 137/66, respirations 19, pulse 64, temperature 99.6. GENERAL: Elderly female, morbidly obese. NECK: Supple. No mass. LUNGS: Equal breath sounds, few rhonchi. HEART: Regular rate and rhythm without systolic ejection murmur. ABDOMEN: Soft, nontender. EXTREMITIES: Positive excoriations. NEUROLOGIC: Limited, positive colostomy. HOSPITAL COURSE: The patient was admitted to medical floor. Continued on IV antibiotic and IV hydration. Electrolytes were corrected. Patient's urine grew E. coli. The patient's antibiotic switched to oral. The patient cleared for discharge to [facility] to address the declining mental status. The patient's ____ by a psychiatrist. DISCHARGE INSTRUCTIONS: The patient to continue on p.o. antibiotic under the service of Dr. Wick. JOB# [id number]
[2017-06-13] MEDS ORDERED: Sulfamethoxazole/TMP 800/160mg Tab PO SCH (17:00)
[2017-06-14] MEDS ORDERED: Pantoprazole 40 mg EC Tab PO SCH (09:00)
== END 2017-06-13 13:33 | DRG 682 ==
LOC: ER 12:46 → MSI 13:52
PROVIDERS: ADMIT Internal Medicine; ATTEND Internal Medicine
DX: N17.9 Acute kidney failure, unspecified (principal); G93.41 Metabolic encephalopathy; E87.1 Hypo-osmolality and hyponatremia; E66.01 Morbid (severe) obesity due to excess calories; N39.0 Urinary tract infection, site not specified; I10 Essential (primary) hypertension; R14.0 Abdominal distension (gaseous); F25.9 Schizoaffective disorder, unspecified; K59.00 Constipation, unspecified; F29 Unspecified psychosis not due to a substance or known physiological condition; E86.0 Dehydration; K21.9 Gastro-esophageal reflux disease without esophagitis; W18.30XA Fall on same level, unspecified, initial encounter; Y93.89 Activity, other specified; Y92.89 Other specified places as the place of occurrence of the external cause; Y99.8 Other external cause status; B96.20 Unspecified Escherichia coli [E. coli] as the cause of diseases classified elsewhere; Z88.8 Allergy status to other drugs, medicaments and biological substances; Z90.49 Acquired absence of other specified parts of digestive tract; Z68.33 Body mass index [BMI] 33.0-33.9, adult; Z93.2 Ileostomy status
CPT/HCPCS: 36415-UA; 71010-TC; 74000-TC; 74250-TC; 80048-TC; 80053-TC; 81001-TC; 82140-TC; 82150-TC; 82607-90; 82746-90; 83036-90; 83690-TC; 83735-TC; 83880-TC; 84443-TC; 84484-TC; 85025-TC; 87086-90; 93005; 96374; C9113; J0696; J1630; J2060; J2270; J2405; J7042; Z7502; Z7610

== ENCOUNTER 2017-06-13 13:35 | Inpatient (IN) | payer MEDICARE, MEDICAID ==
[2017-06-13 15:53] VITALS: BP 155/75
[2017-06-13] MEDS ORDERED: Maalox 30 mL Cup PO PRN ×2 (15:55)
[2017-06-13] MEDS ORDERED: Magnesium Hydroxide (MOM) 30 mL UDC PO PRN ×2 (15:55)
[2017-06-13] MEDS ORDERED: Haloperidol Lactate 5 mg/mL 1mL Vial ONE ×2 (16:07)
[2017-06-13] MEDS ORDERED: Haloperidol Lactate 5 mg/mL 1mL Vial IM ONE ×2 (16:10)
[2017-06-13] MEDS ORDERED: Albuterol Nebulizer 2.5mg/3mL HHN PRN ×2 (16:15)
[2017-06-13] MEDS ORDERED: Lactulose 10 Gm/15 mL 30mL UDC PO PRN ×2 (16:16)
[2017-06-13] MEDS ORDERED: Ipratropium Neb 0.5 mg/2.5 mL UD HHN PRN ×2 (16:16)
[2017-06-13] MEDS ORDERED: Hydrocodone/APAP 5mg/325mg Tab PO PRN ×2 (16:16)
[2017-06-13] MEDS: Sulfamethoxazole/TMP 800/160mg Tab PO SCH ×2 (17:29)
[2017-06-13] MEDS: Dextromethorphan/Quinidine 20mg/10mg Cap PO SCH ×2 (20:49)
[2017-06-14] MEDS: Dextromethorphan/Quinidine 20mg/10mg Cap PO SCH ×4 (08:22→21:22)
[2017-06-14] MEDS: Sulfamethoxazole/TMP 800/160mg Tab PO SCH ×4 (08:22→16:38)
[2017-06-14] MEDS: Multivitamin Tab PO SCH ×2 (08:22)
[2017-06-14] MEDS ORDERED: Haloperidol Lactate 5 mg/mL 1mL Vial ONE ×2 (10:32)
[2017-06-14] MEDS ORDERED: Haloperidol Lactate 5 mg/mL 1mL Vial IM STA ×2 (10:32)
[2017-06-14] MEDS ORDERED: Magnesium Hydroxide (MOM) 30 mL UDC PO PRN ×2 (12:55)
[2017-06-14] MEDS ORDERED: Maalox 30 mL Cup PO PRN ×2 (12:55)
[2017-06-14] MEDS ORDERED: Albuterol Nebulizer 2.5mg/3mL HHN PRN ×2 (12:55)
--- NOTE | 2017-06-14 12:58 | Internal Medicine Prog Note ---
Internal Medicine Subjective - Subjective Patient seen and examined:: with staff, chart reviewed Patient is:: awake, verbal, interactive Per staff patient has:: no adverse event, poor appetite, agitated, noncompliant , tolerating meds Internal Medicine Objective - Physical Exam Vitals and I&O: Vital Signs Temp 97.5 F 06/14/17 07:12 Pulse 68 06/14/17 07:12 Resp 18 06/14/17 07:12 BP 116/75 06/14/17 07:12 Pulse Ox 98 06/14/17 07:12 Intake & Output 06/13/17 06/14/17 06/14/17 18:59 06:59 18:59 Intake Total 400 120 Balance 400 120 Weight (lbs) 100.244 kg Intake: Oral 400 120 Other: # Voids 1 3 Stool Characteristics Soft Active Medications: Current Medications Acetaminophen (Tylenol) 650 mg PO Q6H PRN PRN Reason: Mild Pain / Temp above 100 Stop: 08/12/17 15:54 Acetaminophen (Tylenol) 650 mg PO Q6H PRN PRN Reason: fever Stop: 08/13/17 12:54 Acetaminophen/Hydrocodone Bitart ([place] 5mg/325mg) 1 tab PO Q6H PRN PRN Reason: Pain (Moderate) Stop: 08/12/17 16:15 Al Hydrox/Mg Hydrox/Simethicone (Maalox) 30 ml PO Q4HR PRN PRN Reason: GI DISTRESS Stop: 08/12/17 15:54 Al Hydrox/Mg Hydrox/Simethicone (Maalox) 30 ml PO Q6H PRN PRN Reason: Dyspepsia Stop: 08/13/17 12:54 Albuterol Sulfate (Albuterol 2.5mg/3ml Neb Ud) 2.5 mg HHN Q2HRT PRN PRN Reason: Shortness of Breath or Wheeze Stop: 08/12/17 16:14 Albuterol Sulfate (Albuterol 2.5mg/3ml Neb Ud) 2.5 mg HHN Q2HRT PRN PRN Reason: Shortness of Breath or Wheeze Stop: 08/13/17 12:54 Dextromethorphan/Quinidine (Nuedexta 20mg-10mg) 1 cap PO Q12HR [facility] Stop: 08/12/17 20:59 Last Admin: 06/14/17 08:22 Dose: 1 cap Diazepam (Valium) 2 mg PO BID [facility] PRN Reason: Protocol Stop: 08/13/17 16:59 Docusate Sodium (Colace) 100 mg PO BID [facility] Stop: 08/12/17 16:59 Last Admin: 06/14/17 08:22 Dose: 100 mg Ipratropium [place] (Atrovent Neb 0.5mg/2.5ml) 0.5 mg HHN Q2HRT PRN PRN Reason: Shortness of Breath or Wheeze Stop: 08/12/17 16:15 Lactulose (Cephulac) 20 gm PO BID PRN PRN Reason: Constipation Stop: 08/12/17 16:15 Lidocaine (Lidoderm 5% Patch) 1 patch TD Q24HR@0900 [facility] Stop: 08/13/17 08:59 Lorazepam (Ativan) 0.5 mg PO Q4HR PRN; Protocol PRN Reason: Anxiety Stop: 07/13/17 15:54 Last Admin: 06/14/17 08:23 Dose: 0.5 mg Magnesium Hydroxide (Milk Of Magnesia) 30 ml PO HS PRN PRN Reason: Constipation Magnesium Hydroxide (Milk Of Magnesia) 30 ml PO HS PRN PRN Reason: Constipation Stop: 08/13/17 12:54 Midodrine (Proamatine) 10 mg PO TID [facility] Stop: 08/12/17 20:59 Last Admin: 06/14/17 08:23 Dose: 10 mg Mineral Oil (Mineral Oil 30 Ml) 30 ml PO BID [facility] Stop: 08/12/17 16:59 Last Admin: 06/13/17 17:30 Dose: 30 ml Multivitamins/Vitamin C (Theragran) 1 tab PO DAILY [facility] Stop: 08/13/17 08:59 Last Admin: 06/14/17 08:22 Dose: 1 tab Multivitamins/Vitamin C (Theragran) 1 tab PO DAILY [facility] Stop: 08/14/17 08:59 Quetiapine Fumarate (Seroquel) 25 mg PO TID [facility] PRN Reason: Protocol Stop: 08/12/17 20:59 Last Admin: 06/14/17 08:23 Dose: 25 mg Trimethoprim/Sulfamethoxazole (Bactrim Ds) 1 tab PO BID [facility] Stop: 06/18/17 16:59 Last Admin: 06/14/17 08:22 Dose: 1 tab Zolpidem Tartrate (Ambien) 5 mg PO HS PRN PRN Reason: Insomnia Stop: 08/12/17 15:54 General: demented, obese, appears older HEENT: NC/AT, PERRLA, EOMI Neck: Supple, No JVD, No LAD Lungs: CTAB Cardiovascular: RRR, Normal S1, Normal S2, without murmur Abdomen: soft, non-tender, globular Extremities: excoriation, contracture Neurological: no change, disorganized, bedbound - Procedures Procedures: Procedures Procedure Code Date CONTINUOUS INVASIVE MECHANICAL VENTILATION =/>96 CONSEC HRS 96.72 01/08/15 EGD BIOPSY SINGLE/MULTIPLE 54762 07/27/15 EXCISION OF DUODENUM, ENDO, DIAGN [id number] 07/27/15 EXCISION OF STOMACH, PYLORUS, ENDO, DIAGN [id number] 07/27/15 GROUP PSYCHOTHERAPY 79297 08/02/15 GROUP PSYCHOTHERAPY [id number] 08/02/15 INSERT EMERGENCY AIRWAY 06391 01/08/15 INSERT ENDOTRACHEAL TUBE 96.04 01/08/15 INTRAOP COLON LAVAGE ADD-ON 47268 01/08/15 OPEN TOTAL INTRA-ABDOMINAL COLECTOMY 45.82 01/08/15 OTHER GROUP THERAPY 94.44 03/16/15 REMOVAL OF COLON 20544 01/08/15 TEMPORARY ILEOSTOMY 46.21 01/08/15 VENT MGMT INPAT INIT DAY 84545 01/08/15 VENT MGMT INPAT SUBQ DAY 91247 01/08/15 Internal Medicine Assmt/Plan - Assessment Assessment: abdominal pain intractable vomiting possible sbo acute renal failure hyponatremia morbid obesity schizoaffective s/p fall constipation - Plan Plan: - Plan Plan: continue ivf for hydration am labs monitor glucose fall precautions continue current plan of care
--- NOTE | 2017-06-14 12:58 | Internal Medicine Prog Note ---
Internal Medicine Subjective - Subjective Patient seen and examined:: with staff, chart reviewed Patient is:: awake, verbal, interactive Per staff patient has:: no adverse event, poor appetite, agitated, noncompliant , tolerating meds Internal Medicine Objective - Physical Exam Vitals and I&O: Vital Signs Temp 97.5 F 06/14/17 07:12 Pulse 68 06/14/17 07:12 Resp 18 06/14/17 07:12 BP 116/75 06/14/17 07:12 Pulse Ox 98 06/14/17 07:12 Intake & Output 06/13/17 06/14/17 06/14/17 18:59 06:59 18:59 Intake Total 400 120 Balance 400 120 Weight (lbs) 100.244 kg Intake: Oral 400 120 Other: # Voids 1 3 Stool Characteristics Soft Active Medications: Current Medications Acetaminophen (Tylenol) 650 mg PO Q6H PRN PRN Reason: Mild Pain / Temp above 100 Stop: 08/12/17 15:54 Acetaminophen (Tylenol) 650 mg PO Q6H PRN PRN Reason: fever Stop: 08/13/17 12:54 Acetaminophen/Hydrocodone Bitart ([place] 5mg/325mg) 1 tab PO Q6H PRN PRN Reason: Pain (Moderate) Stop: 08/12/17 16:15 Al Hydrox/Mg Hydrox/Simethicone (Maalox) 30 ml PO Q4HR PRN PRN Reason: GI DISTRESS Stop: 08/12/17 15:54 Al Hydrox/Mg Hydrox/Simethicone (Maalox) 30 ml PO Q6H PRN PRN Reason: Dyspepsia Stop: 08/13/17 12:54 Albuterol Sulfate (Albuterol 2.5mg/3ml Neb Ud) 2.5 mg HHN Q2HRT PRN PRN Reason: Shortness of Breath or Wheeze Stop: 08/12/17 16:14 Albuterol Sulfate (Albuterol 2.5mg/3ml Neb Ud) 2.5 mg HHN Q2HRT PRN PRN Reason: Shortness of Breath or Wheeze Stop: 08/13/17 12:54 Dextromethorphan/Quinidine (Nuedexta 20mg-10mg) 1 cap PO Q12HR [facility] Stop: 08/12/17 20:59 Last Admin: 06/14/17 08:22 Dose: 1 cap Diazepam (Valium) 2 mg PO BID [facility]IA PRN Reason: Protocol Stop: 08/13/17 16:59 Docusate Sodium (Colace) 100 mg PO BID [facility] Stop: 08/12/17 16:59 Last Admin: 06/14/17 08:22 Dose: 100 mg Ipratropium [place] (Atrovent Neb 0.5mg/2.5ml) 0.5 mg HHN Q2HRT PRN PRN Reason: Shortness of Breath or Wheeze Stop: 08/12/17 16:15 Lactulose (Cephulac) 20 gm PO BID PRN PRN Reason: Constipation Stop: 08/12/17 16:15 Lidocaine (Lidoderm 5% Patch) 1 patch TD Q24HR@0900 [facility] Stop: 08/13/17 08:59 Lorazepam (Ativan) 0.5 mg PO Q4HR PRN; Protocol PRN Reason: Anxiety Stop: 07/13/17 15:54 Last Admin: 06/14/17 08:23 Dose: 0.5 mg Magnesium Hydroxide (Milk Of Magnesia) 30 ml PO HS PRN PRN Reason: Constipation Magnesium Hydroxide (Milk Of Magnesia) 30 ml PO HS PRN PRN Reason: Constipation Stop: 08/13/17 12:54 Midodrine (Proamatine) 10 mg PO TID [facility] Stop: 08/12/17 20:59 Last Admin: 06/14/17 08:23 Dose: 10 mg Mineral Oil (Mineral Oil 30 Ml) 30 ml PO BID [facility] Stop: 08/12/17 16:59 Last Admin: 06/13/17 17:30 Dose: 30 ml Multivitamins/Vitamin C (Theragran) 1 tab PO DAILY [facility] Stop: 08/13/17 08:59 Last Admin: 06/14/17 08:22 Dose: 1 tab Multivitamins/Vitamin C (Theragran) 1 tab PO DAILY [facility] Stop: 08/14/17 08:59 Quetiapine Fumarate (Seroquel) 25 mg PO TID [facility]IA PRN Reason: Protocol Stop: 08/12/17 20:59 Last Admin: 06/14/17 08:23 Dose: 25 mg Trimethoprim/Sulfamethoxazole (Bactrim Ds) 1 tab PO BID [facility] Stop: 06/18/17 16:59 Last Admin: 06/14/17 08:22 Dose: 1 tab Zolpidem Tartrate (Ambien) 5 mg PO HS PRN PRN Reason: Insomnia Stop: 08/12/17 15:54 General: demented, obese, appears older HEENT: NC/AT, PERRLA, EOMI Neck: Supple, No JVD, No LAD Lungs: CTAB Cardiovascular: RRR, Normal S1, Normal S2, without murmur Abdomen: soft, non-tender, globular Extremities: excoriation, contracture Neurological: no change, disorganized, bedbound - Procedures Procedures: Procedures Procedure Code Date CONTINUOUS INVASIVE MECHANICAL VENTILATION =/>96 CONSEC HRS 96.72 01/08/15 EGD BIOPSY SINGLE/MULTIPLE 31483 07/27/15 EXCISION OF DUODENUM, ENDO, DIAGN [id number] 07/27/15 EXCISION OF STOMACH, PYLORUS, ENDO, DIAGN [id number] 07/27/15 GROUP PSYCHOTHERAPY 69420 08/02/15 GROUP PSYCHOTHERAPY [id number] 08/02/15 INSERT EMERGENCY AIRWAY 27452 01/08/15 INSERT ENDOTRACHEAL TUBE 96.04 01/08/15 INTRAOP COLON LAVAGE ADD-ON 00631 01/08/15 OPEN TOTAL INTRA-ABDOMINAL COLECTOMY 45.82 01/08/15 OTHER GROUP THERAPY 94.44 03/16/15 REMOVAL OF COLON 05762 01/08/15 TEMPORARY ILEOSTOMY 46.21 01/08/15 VENT MGMT INPAT INIT DAY 34720 01/08/15 VENT MGMT INPAT SUBQ DAY 27779 01/08/15 Internal Medicine Assmt/Plan - Assessment Assessment: abdominal pain intractable vomiting possible sbo acute renal failure hyponatremia morbid obesity schizoaffective s/p fall constipation - Plan Plan: - Plan Plan: continue ivf for hydration am labs monitor glucose fall precautions continue current plan of care
--- NOTE | 2017-06-14 12:58 | Internal Medicine Prog Note ---
Internal Medicine Subjective - Subjective Patient seen and examined:: with staff, chart reviewed Patient is:: awake, verbal, interactive Per staff patient has:: no adverse event, poor appetite, agitated, noncompliant , tolerating meds Internal Medicine Objective - Physical Exam Vitals and I&O: Vital Signs Temp 97.5 F 06/14/17 07:12 Pulse 68 06/14/17 07:12 Resp 18 06/14/17 07:12 BP 116/75 06/14/17 07:12 Pulse Ox 98 06/14/17 07:12 Intake & Output 06/13/17 06/14/17 06/14/17 18:59 06:59 18:59 Intake Total 400 120 Balance 400 120 Weight (lbs) 100.244 kg Intake: Oral 400 120 Other: # Voids 1 3 Stool Characteristics Soft Active Medications: Current Medications Acetaminophen (Tylenol) 650 mg PO Q6H PRN PRN Reason: Mild Pain / Temp above 100 Stop: 08/12/17 15:54 Acetaminophen (Tylenol) 650 mg PO Q6H PRN PRN Reason: fever Stop: 08/13/17 12:54 Acetaminophen/Hydrocodone Bitart ([place] 5mg/325mg) 1 tab PO Q6H PRN PRN Reason: Pain (Moderate) Stop: 08/12/17 16:15 Al Hydrox/Mg Hydrox/Simethicone (Maalox) 30 ml PO Q4HR PRN PRN Reason: GI DISTRESS Stop: 08/12/17 15:54 Al Hydrox/Mg Hydrox/Simethicone (Maalox) 30 ml PO Q6H PRN PRN Reason: Dyspepsia Stop: 08/13/17 12:54 Albuterol Sulfate (Albuterol 2.5mg/3ml Neb Ud) 2.5 mg HHN Q2HRT PRN PRN Reason: Shortness of Breath or Wheeze Stop: 08/12/17 16:14 Albuterol Sulfate (Albuterol 2.5mg/3ml Neb Ud) 2.5 mg HHN Q2HRT PRN PRN Reason: Shortness of Breath or Wheeze Stop: 08/13/17 12:54 Dextromethorphan/Quinidine (Nuedexta 20mg-10mg) 1 cap PO Q12HR [facility] Stop: 08/12/17 20:59 Last Admin: 06/14/17 08:22 Dose: 1 cap Diazepam (Valium) 2 mg PO BID [facility]IA PRN Reason: Protocol Stop: 08/13/17 16:59 Docusate Sodium (Colace) 100 mg PO BID [facility] Stop: 08/12/17 16:59 Last Admin: 06/14/17 08:22 Dose: 100 mg Ipratropium [place] (Atrovent Neb 0.5mg/2.5ml) 0.5 mg HHN Q2HRT PRN PRN Reason: Shortness of Breath or Wheeze Stop: 08/12/17 16:15 Lactulose (Cephulac) 20 gm PO BID PRN PRN Reason: Constipation Stop: 08/12/17 16:15 Lidocaine (Lidoderm 5% Patch) 1 patch TD Q24HR@0900 [facility] Stop: 08/13/17 08:59 Lorazepam (Ativan) 0.5 mg PO Q4HR PRN; Protocol PRN Reason: Anxiety Stop: 07/13/17 15:54 Last Admin: 06/14/17 08:23 Dose: 0.5 mg Magnesium Hydroxide (Milk Of Magnesia) 30 ml PO HS PRN PRN Reason: Constipation Magnesium Hydroxide (Milk Of Magnesia) 30 ml PO HS PRN PRN Reason: Constipation Stop: 08/13/17 12:54 Midodrine (Proamatine) 10 mg PO TID [facility] Stop: 08/12/17 20:59 Last Admin: 06/14/17 08:23 Dose: 10 mg Mineral Oil (Mineral Oil 30 Ml) 30 ml PO BID [facility] Stop: 08/12/17 16:59 Last Admin: 06/13/17 17:30 Dose: 30 ml Multivitamins/Vitamin C (Theragran) 1 tab PO DAILY [facility] Stop: 08/13/17 08:59 Last Admin: 06/14/17 08:22 Dose: 1 tab Multivitamins/Vitamin C (Theragran) 1 tab PO DAILY [facility] Stop: 08/14/17 08:59 Quetiapine Fumarate (Seroquel) 25 mg PO TID [facility] PRN Reason: Protocol Stop: 08/12/17 20:59 Last Admin: 06/14/17 08:23 Dose: 25 mg Trimethoprim/Sulfamethoxazole (Bactrim Ds) 1 tab PO BID [facility] Stop: 06/18/17 16:59 Last Admin: 06/14/17 08:22 Dose: 1 tab Zolpidem Tartrate (Ambien) 5 mg PO HS PRN PRN Reason: Insomnia Stop: 08/12/17 15:54 General: demented, obese, appears older HEENT: NC/AT, PERRLA, EOMI Neck: Supple, No JVD, No LAD Lungs: CTAB Cardiovascular: RRR, Normal S1, Normal S2, without murmur Abdomen: soft, non-tender, globular Extremities: excoriation, contracture Neurological: no change, disorganized, bedbound - Procedures Procedures: Procedures Procedure Code Date CONTINUOUS INVASIVE MECHANICAL VENTILATION =/>96 CONSEC HRS 96.72 01/08/15 EGD BIOPSY SINGLE/MULTIPLE 93635 07/27/15 EXCISION OF DUODENUM, ENDO, DIAGN [id number] 07/27/15 EXCISION OF STOMACH, PYLORUS, ENDO, DIAGN [id number] 07/27/15 GROUP PSYCHOTHERAPY 54752 08/02/15 GROUP PSYCHOTHERAPY [id number] 08/02/15 INSERT EMERGENCY AIRWAY 28803 01/08/15 INSERT ENDOTRACHEAL TUBE 96.04 01/08/15 INTRAOP COLON LAVAGE ADD-ON 01744 01/08/15 OPEN TOTAL INTRA-ABDOMINAL COLECTOMY 45.82 01/08/15 OTHER GROUP THERAPY 94.44 03/16/15 REMOVAL OF COLON 35125 01/08/15 TEMPORARY ILEOSTOMY 46.21 01/08/15 VENT MGMT INPAT INIT DAY 62346 01/08/15 VENT MGMT INPAT SUBQ DAY 07974 01/08/15 Internal Medicine Assmt/Plan - Assessment Assessment: abdominal pain intractable vomiting possible sbo acute renal failure hyponatremia morbid obesity schizoaffective s/p fall constipation - Plan Plan: - Plan Plan: continue ivf for hydration am labs monitor glucose fall precautions continue current plan of care
[2017-06-14] MEDS: Lidocaine 5% Patch TD SCH ×2 (13:59)
[2017-06-14] MEDS ORDERED: Probiotic Screen MC PRN ×2 (14:04)
[2017-06-15] MEDS: Sulfamethoxazole/TMP 800/160mg Tab PO SCH ×4 (08:04→16:47)
[2017-06-15] MEDS: Multivitamin Tab PO SCH ×2 (08:05)
[2017-06-15] MEDS: Dextromethorphan/Quinidine 20mg/10mg Cap PO SCH ×4 (08:06→20:59)
[2017-06-15] MEDS ORDERED: Multivitamin Tab PO SCH ×2 (09:00)
[2017-06-15] MEDS: Lactobacillus Rhamnosus 10 Billion CFU Capsule PO SCH ×2 (09:47)
[2017-06-15] MEDS: Lidocaine 5% Patch TD SCH ×2 (09:47)
--- NOTE | 2017-06-15 15:27 | Internal Medicine Prog Note ---
Internal Medicine Subjective - Subjective Service Date: 06/15/17 Patient is:: awake, verbal, interactive Per staff patient has:: no adverse event, poor appetite, agitated, noncompliant , tolerating meds Internal Medicine Objective - Physical Exam Vitals and I&O: Vital Signs Temp 98.1 F 06/15/17 14:00 Pulse 79 06/15/17 14:00 Resp 20 06/15/17 14:00 BP 122/76 06/15/17 14:00 Pulse Ox 96 06/15/17 14:00 Intake & Output 06/14/17 06/15/17 06/15/17 18:59 06:59 18:59 Intake Total 120 Balance 120 Intake: Oral 120 Other: # Voids 3 3 # Bowel Movements 0 Stool Characteristics Soft Soft Active Medications: Current Medications Acetaminophen (Tylenol) 650 mg PO Q6H PRN PRN Reason: Mild Pain / Temp above 100 Stop: 08/12/17 15:54 Acetaminophen/Hydrocodone Bitart ([place] 5mg/325mg) 1 tab PO Q6H PRN PRN Reason: Pain (Moderate) Stop: 08/12/17 16:15 Al Hydrox/Mg Hydrox/Simethicone (Maalox) 30 ml PO Q4HR PRN PRN Reason: GI DISTRESS Stop: 08/12/17 15:54 Albuterol Sulfate (Albuterol 2.5mg/3ml Neb Ud) 2.5 mg HHN Q2HRT PRN PRN Reason: Shortness of Breath or Wheeze Stop: 08/12/17 16:14 Dextromethorphan/Quinidine (Nuedexta 20mg-10mg) 1 cap PO Q12HR CECILIA Stop: 08/12/17 20:59 Last Admin: 06/15/17 08:06 Dose: 1 cap Diazepam (Valium) 2 mg PO BID CECILIA PRN Reason: Protocol Stop: 08/13/17 16:59 Last Admin: 06/15/17 08:06 Dose: 2 mg Diphenhydramine HCl (Benadryl) 50 mg PO BID PRN PRN Reason: Agitation Stop: 08/13/17 14:34 Docusate Sodium (Colace) 100 mg PO BID CECILIA Stop: 08/12/17 16:59 Last Admin: 06/15/17 08:06 Dose: 100 mg Haloperidol (Haldol) 5 mg PO BID PRN; Protocol PRN Reason: Agitation Stop: 08/13/17 16:59 Ipratropium [place] (Atrovent Neb 0.5mg/2.5ml) 0.5 mg HHN Q2HRT PRN PRN Reason: Shortness of Breath or Wheeze Stop: 08/12/17 16:15 Lactobacillus Rhamnosus (Culturelle) 1 each PO DAILY CECILIA Stop: 08/14/17 08:59 Last Admin: 06/15/17 09:47 Dose: 1 each Lactulose (Cephulac) 20 gm PO BID PRN PRN Reason: Constipation Stop: 08/12/17 16:15 Last Admin: 06/15/17 08:04 Dose: 20 gm Lidocaine (Lidoderm 5% Patch) 1 patch TD Q24HR@0900 CECILIA Stop: 08/13/17 08:59 Last Admin: 06/15/17 09:47 Dose: 1 patch Lorazepam (Ativan) 2 mg PO BID PRN; Protocol PRN Reason: Agitation Stop: 08/13/17 14:32 Magnesium Hydroxide (Milk Of Magnesia) 30 ml PO HS PRN PRN Reason: Constipation Midodrine (Proamatine) 10 mg PO TID CECILIA Stop: 08/12/17 20:59 Last Admin: 06/15/17 10:20 Dose: 10 mg Mineral Oil (Mineral Oil 30 Ml) 30 ml PO BID CECILIA Stop: 08/12/17 16:59 Last Admin: 06/15/17 09:47 Dose: 30 ml Miscellaneous (Probiotic Screen) 1 ea MC PRN PRN PRN Reason: PROTOCOL Stop: 08/13/17 14:03 Multivitamins/Vitamin C (Theragran) 1 tab PO DAILY CECILIA Stop: 08/13/17 08:59 Last Admin: 06/15/17 08:05 Dose: 1 tab Quetiapine Fumarate (Seroquel) 25 mg PO BID CECILIA PRN Reason: Protocol Stop: 08/14/17 08:59 Quetiapine Fumarate (Seroquel) 75 mg PO HS CECILIA PRN Reason: Protocol Stop: 08/14/17 20:59 Trimethoprim/Sulfamethoxazole (Bactrim Ds) 1 tab PO BID CECILIA Stop: 06/18/17 16:59 Last Admin: 06/15/17 08:04 Dose: 1 tab Zolpidem Tartrate (Ambien) 5 mg PO HS PRN PRN Reason: Insomnia Stop: 08/12/17 15:54 Last Admin: 06/14/17 21:22 Dose: 5 mg General: demented, obese, appears older HEENT: NC/AT, PERRLA, EOMI Neck: Supple, No JVD, No LAD Lungs: CTAB Cardiovascular: RRR, Normal S1, Normal S2, without murmur Abdomen: soft, non-tender, globular Extremities: excoriation, contracture Neurological: no change, disorganized, bedbound - Procedures Procedures: Procedures Procedure Code Date CONTINUOUS INVASIVE MECHANICAL VENTILATION =/>96 CONSEC HRS 96.72 01/08/15 EGD BIOPSY SINGLE/MULTIPLE 79032 07/27/15 EXCISION OF DUODENUM, ENDO, DIAGN [id number] 07/27/15 EXCISION OF STOMACH, PYLORUS, ENDO, DIAGN [id number] 07/27/15 GROUP PSYCHOTHERAPY 57735 08/02/15 GROUP PSYCHOTHERAPY [id number] 08/02/15 INSERT EMERGENCY AIRWAY 46166 01/08/15 INSERT ENDOTRACHEAL TUBE 96.04 01/08/15 INTRAOP COLON LAVAGE ADD-ON 09032 01/08/15 OPEN TOTAL INTRA-ABDOMINAL COLECTOMY 45.82 01/08/15 OTHER GROUP THERAPY 94.44 03/16/15 REMOVAL OF COLON 03453 01/08/15 TEMPORARY ILEOSTOMY 46.21 01/08/15 VENT MGMT INPAT INIT DAY 13416 01/08/15 VENT MGMT INPAT SUBQ DAY 49900 01/08/15 Internal Medicine Assmt/Plan - Assessment Assessment: abdominal pain intractable vomiting possible sbo acute renal failure hyponatremia morbid obesity schizoaffective s/p fall constipation - Plan Plan: prn laxatives fall precautions daily stool softner increase fluid intake continue current plan of care
--- NOTE | 2017-06-15 15:27 | Internal Medicine Prog Note ---
Internal Medicine Subjective - Subjective Service Date: 06/15/17 Patient is:: awake, verbal, interactive Per staff patient has:: no adverse event, poor appetite, agitated, noncompliant , tolerating meds Internal Medicine Objective - Physical Exam Vitals and I&O: Vital Signs Temp 98.1 F 06/15/17 14:00 Pulse 79 06/15/17 14:00 Resp 20 06/15/17 14:00 BP 122/76 06/15/17 14:00 Pulse Ox 96 06/15/17 14:00 Intake & Output 06/14/17 06/15/17 06/15/17 18:59 06:59 18:59 Intake Total 120 Balance 120 Intake: Oral 120 Other: # Voids 3 3 # Bowel Movements 0 Stool Characteristics Soft Soft Active Medications: Current Medications Acetaminophen (Tylenol) 650 mg PO Q6H PRN PRN Reason: Mild Pain / Temp above 100 Stop: 08/12/17 15:54 Acetaminophen/Hydrocodone Bitart ([place] 5mg/325mg) 1 tab PO Q6H PRN PRN Reason: Pain (Moderate) Stop: 08/12/17 16:15 Al Hydrox/Mg Hydrox/Simethicone (Maalox) 30 ml PO Q4HR PRN PRN Reason: GI DISTRESS Stop: 08/12/17 15:54 Albuterol Sulfate (Albuterol 2.5mg/3ml Neb Ud) 2.5 mg HHN Q2HRT PRN PRN Reason: Shortness of Breath or Wheeze Stop: 08/12/17 16:14 Dextromethorphan/Quinidine (Nuedexta 20mg-10mg) 1 cap PO Q12HR CECILIA Stop: 08/12/17 20:59 Last Admin: 06/15/17 08:06 Dose: 1 cap Diazepam (Valium) 2 mg PO BID CECILIA PRN Reason: Protocol Stop: 08/13/17 16:59 Last Admin: 06/15/17 08:06 Dose: 2 mg Diphenhydramine HCl (Benadryl) 50 mg PO BID PRN PRN Reason: Agitation Stop: 08/13/17 14:34 Docusate Sodium (Colace) 100 mg PO BID CECILIA Stop: 08/12/17 16:59 Last Admin: 06/15/17 08:06 Dose: 100 mg Haloperidol (Haldol) 5 mg PO BID PRN; Protocol PRN Reason: Agitation Stop: 08/13/17 16:59 Ipratropium [place] (Atrovent Neb 0.5mg/2.5ml) 0.5 mg HHN Q2HRT PRN PRN Reason: Shortness of Breath or Wheeze Stop: 08/12/17 16:15 Lactobacillus Rhamnosus (Culturelle) 1 each PO DAILY CECILIA Stop: 08/14/17 08:59 Last Admin: 06/15/17 09:47 Dose: 1 each Lactulose (Cephulac) 20 gm PO BID PRN PRN Reason: Constipation Stop: 08/12/17 16:15 Last Admin: 06/15/17 08:04 Dose: 20 gm Lidocaine (Lidoderm 5% Patch) 1 patch TD Q24HR@0900 CECILIA Stop: 08/13/17 08:59 Last Admin: 06/15/17 09:47 Dose: 1 patch Lorazepam (Ativan) 2 mg PO BID PRN; Protocol PRN Reason: Agitation Stop: 08/13/17 14:32 Magnesium Hydroxide (Milk Of Magnesia) 30 ml PO HS PRN PRN Reason: Constipation Midodrine (Proamatine) 10 mg PO TID CECILIA Stop: 08/12/17 20:59 Last Admin: 06/15/17 10:20 Dose: 10 mg Mineral Oil (Mineral Oil 30 Ml) 30 ml PO BID CECILIA Stop: 08/12/17 16:59 Last Admin: 06/15/17 09:47 Dose: 30 ml Miscellaneous (Probiotic Screen) 1 ea MC PRN PRN PRN Reason: PROTOCOL Stop: 08/13/17 14:03 Multivitamins/Vitamin C (Theragran) 1 tab PO DAILY CECILIA Stop: 08/13/17 08:59 Last Admin: 06/15/17 08:05 Dose: 1 tab Quetiapine Fumarate (Seroquel) 25 mg PO BID CECILIA PRN Reason: Protocol Stop: 08/14/17 08:59 Quetiapine Fumarate (Seroquel) 75 mg PO HS CECILIA PRN Reason: Protocol Stop: 08/14/17 20:59 Trimethoprim/Sulfamethoxazole (Bactrim Ds) 1 tab PO BID CECILIA Stop: 06/18/17 16:59 Last Admin: 06/15/17 08:04 Dose: 1 tab Zolpidem Tartrate (Ambien) 5 mg PO HS PRN PRN Reason: Insomnia Stop: 08/12/17 15:54 Last Admin: 06/14/17 21:22 Dose: 5 mg General: demented, obese, appears older HEENT: NC/AT, PERRLA, EOMI Neck: Supple, No JVD, No LAD Lungs: CTAB Cardiovascular: RRR, Normal S1, Normal S2, without murmur Abdomen: soft, non-tender, globular Extremities: excoriation, contracture Neurological: no change, disorganized, bedbound - Procedures Procedures: Procedures Procedure Code Date CONTINUOUS INVASIVE MECHANICAL VENTILATION =/>96 CONSEC HRS 96.72 01/08/15 EGD BIOPSY SINGLE/MULTIPLE 99802 07/27/15 EXCISION OF DUODENUM, ENDO, DIAGN [id number] 07/27/15 EXCISION OF STOMACH, PYLORUS, ENDO, DIAGN [id number] 07/27/15 GROUP PSYCHOTHERAPY 07799 08/02/15 GROUP PSYCHOTHERAPY [id number] 08/02/15 INSERT EMERGENCY AIRWAY 66392 01/08/15 INSERT ENDOTRACHEAL TUBE 96.04 01/08/15 INTRAOP COLON LAVAGE ADD-ON 30276 01/08/15 OPEN TOTAL INTRA-ABDOMINAL COLECTOMY 45.82 01/08/15 OTHER GROUP THERAPY 94.44 03/16/15 REMOVAL OF COLON 31103 01/08/15 TEMPORARY ILEOSTOMY 46.21 01/08/15 VENT MGMT INPAT INIT DAY 12493 01/08/15 VENT MGMT INPAT SUBQ DAY 63836 01/08/15 Internal Medicine Assmt/Plan - Assessment Assessment: abdominal pain intractable vomiting possible sbo acute renal failure hyponatremia morbid obesity schizoaffective s/p fall constipation - Plan Plan: prn laxatives fall precautions daily stool softner increase fluid intake continue current plan of care
--- NOTE | 2017-06-15 15:27 | Internal Medicine Prog Note ---
Internal Medicine Subjective - Subjective Service Date: 06/15/17 Patient is:: awake, verbal, interactive Per staff patient has:: no adverse event, poor appetite, agitated, noncompliant , tolerating meds Internal Medicine Objective - Physical Exam Vitals and I&O: Vital Signs Temp 98.1 F 06/15/17 14:00 Pulse 79 06/15/17 14:00 Resp 20 06/15/17 14:00 BP 122/76 06/15/17 14:00 Pulse Ox 96 06/15/17 14:00 Intake & Output 06/14/17 06/15/17 06/15/17 18:59 06:59 18:59 Intake Total 120 Balance 120 Intake: Oral 120 Other: # Voids 3 3 # Bowel Movements 0 Stool Characteristics Soft Soft Active Medications: Current Medications Acetaminophen (Tylenol) 650 mg PO Q6H PRN PRN Reason: Mild Pain / Temp above 100 Stop: 08/12/17 15:54 Acetaminophen/Hydrocodone Bitart ([place] 5mg/325mg) 1 tab PO Q6H PRN PRN Reason: Pain (Moderate) Stop: 08/12/17 16:15 Al Hydrox/Mg Hydrox/Simethicone (Maalox) 30 ml PO Q4HR PRN PRN Reason: GI DISTRESS Stop: 08/12/17 15:54 Albuterol Sulfate (Albuterol 2.5mg/3ml Neb Ud) 2.5 mg HHN Q2HRT PRN PRN Reason: Shortness of Breath or Wheeze Stop: 08/12/17 16:14 Dextromethorphan/Quinidine (Nuedexta 20mg-10mg) 1 cap PO Q12HR CECILIA Stop: 08/12/17 20:59 Last Admin: 06/15/17 08:06 Dose: 1 cap Diazepam (Valium) 2 mg PO BID CECILIA PRN Reason: Protocol Stop: 08/13/17 16:59 Last Admin: 06/15/17 08:06 Dose: 2 mg Diphenhydramine HCl (Benadryl) 50 mg PO BID PRN PRN Reason: Agitation Stop: 08/13/17 14:34 Docusate Sodium (Colace) 100 mg PO BID CECILIA Stop: 08/12/17 16:59 Last Admin: 06/15/17 08:06 Dose: 100 mg Haloperidol (Haldol) 5 mg PO BID PRN; Protocol PRN Reason: Agitation Stop: 08/13/17 16:59 Ipratropium [place] (Atrovent Neb 0.5mg/2.5ml) 0.5 mg HHN Q2HRT PRN PRN Reason: Shortness of Breath or Wheeze Stop: 08/12/17 16:15 Lactobacillus Rhamnosus (Culturelle) 1 each PO DAILY CECILIA Stop: 08/14/17 08:59 Last Admin: 06/15/17 09:47 Dose: 1 each Lactulose (Cephulac) 20 gm PO BID PRN PRN Reason: Constipation Stop: 08/12/17 16:15 Last Admin: 06/15/17 08:04 Dose: 20 gm Lidocaine (Lidoderm 5% Patch) 1 patch TD Q24HR@0900 CECILIA Stop: 08/13/17 08:59 Last Admin: 06/15/17 09:47 Dose: 1 patch Lorazepam (Ativan) 2 mg PO BID PRN; Protocol PRN Reason: Agitation Stop: 08/13/17 14:32 Magnesium Hydroxide (Milk Of Magnesia) 30 ml PO HS PRN PRN Reason: Constipation Midodrine (Proamatine) 10 mg PO TID CECILIA Stop: 08/12/17 20:59 Last Admin: 06/15/17 10:20 Dose: 10 mg Mineral Oil (Mineral Oil 30 Ml) 30 ml PO BID CECILIA Stop: 08/12/17 16:59 Last Admin: 06/15/17 09:47 Dose: 30 ml Miscellaneous (Probiotic Screen) 1 ea MC PRN PRN PRN Reason: PROTOCOL Stop: 08/13/17 14:03 Multivitamins/Vitamin C (Theragran) 1 tab PO DAILY CECILIA Stop: 08/13/17 08:59 Last Admin: 06/15/17 08:05 Dose: 1 tab Quetiapine Fumarate (Seroquel) 25 mg PO BID CECILIA PRN Reason: Protocol Stop: 08/14/17 08:59 Quetiapine Fumarate (Seroquel) 75 mg PO HS CECILIA PRN Reason: Protocol Stop: 08/14/17 20:59 Trimethoprim/Sulfamethoxazole (Bactrim Ds) 1 tab PO BID CECILIA Stop: 06/18/17 16:59 Last Admin: 06/15/17 08:04 Dose: 1 tab Zolpidem Tartrate (Ambien) 5 mg PO HS PRN PRN Reason: Insomnia Stop: 08/12/17 15:54 Last Admin: 06/14/17 21:22 Dose: 5 mg General: demented, obese, appears older HEENT: NC/AT, PERRLA, EOMI Neck: Supple, No JVD, No LAD Lungs: CTAB Cardiovascular: RRR, Normal S1, Normal S2, without murmur Abdomen: soft, non-tender, globular Extremities: excoriation, contracture Neurological: no change, disorganized, bedbound - Procedures Procedures: Procedures Procedure Code Date CONTINUOUS INVASIVE MECHANICAL VENTILATION =/>96 CONSEC HRS 96.72 01/08/15 EGD BIOPSY SINGLE/MULTIPLE 07907 07/27/15 EXCISION OF DUODENUM, ENDO, DIAGN [id number] 07/27/15 EXCISION OF STOMACH, PYLORUS, ENDO, DIAGN [id number] 07/27/15 GROUP PSYCHOTHERAPY 22180 08/02/15 GROUP PSYCHOTHERAPY [id number] 08/02/15 INSERT EMERGENCY AIRWAY 68827 01/08/15 INSERT ENDOTRACHEAL TUBE 96.04 01/08/15 INTRAOP COLON LAVAGE ADD-ON 43267 01/08/15 OPEN TOTAL INTRA-ABDOMINAL COLECTOMY 45.82 01/08/15 OTHER GROUP THERAPY 94.44 03/16/15 REMOVAL OF COLON 98221 01/08/15 TEMPORARY ILEOSTOMY 46.21 01/08/15 VENT MGMT INPAT INIT DAY 55344 01/08/15 VENT MGMT INPAT SUBQ DAY 36626 01/08/15 Internal Medicine Assmt/Plan - Assessment Assessment: abdominal pain intractable vomiting possible sbo acute renal failure hyponatremia morbid obesity schizoaffective s/p fall constipation - Plan Plan: prn laxatives fall precautions daily stool softner increase fluid intake continue current plan of care
--- NOTE | 2017-06-15 18:53 | Psychosocial Evaluation ---
DATE OF SERVICE: Age: 62. Sex: Female. CHIEF COMPLAINT: Agitation and confusion. HISTORY OF PRESENT ILLNESS: The patient is a 62-year-old female who was admitted to the hospital because of increased agitation and irritability in the nursing facility where she lives. The patient was extremely angry and irritable and with the staff. The patient was admitted to the medical floor and after she was medically stable, patient was transferred to the hospital to continue her treatment. The patient was started on Seroquel 25 mg 3 times a day while on the medical floor. PAST PSYCHIATRIC HISTORY: History of dementia with psychosis. PAST MEDICAL HISTORY: As per Dr. Murillo. SOCIAL HISTORY: The patient lives in a nursing facility. No known alcohol or drug use. ALLERGIES: No known allergies. MENTAL STATUS EXAMINATION: The patient appears her stated age. Anxious. . Thought processes are with poverty of speech and with confusion. The patient did not answer question regarding hallucinations or delusions. She is actively responding. The patient did not answer questions regarding suicide or homicide. The patient is alert, but seems to be disoriented to time, place, person, and situation. Unable to assess her memory because the patient is agitated and not answering much of the questions. Poor insight and poor judgment. ASSESSMENT: PRIMARY DIAGNOSIS: Unspecified psychosis. SECONDARY DIAGNOSIS: Dementia, moderate to severe, with psychotic features. TREATMENT PLAN: We will monitor the patient's behavior and condition closely. We will work on behavioral modification. We will monitor psychotropic medications. ESTIMATED LENGTH OF STAY: 7-10 days. PATIENT'S STRENGTHS AND WEAKNESSES: The patient's strength is not clear at this time. Weaknesses is her ineffective coping and poor impulse control. AFTER DISCHARGE PLAN: The patient will return to the nursing facility with plans for outpatient treatment and follow up as an outpatient. CRITERIA FOR DISCHARGE: The patient will not be psychotic or agitated and will stabilize psychotropic medications and will establish outpatient treatment plans. [facility]# [id number]
--- NOTE | 2017-06-16 00:08 | Progress Notes ---
DATE: SUBJECTIVE: The patient seen, chart reviewed, discussed with staff. The patient remains confused, restless, agitated. I am familiar with this patient. She is coming from [facility], noted to be agitated and restless, trying to remove her colostomy, disorganized, nonsensical, severely mentally ill, and incapacitated. The patient mumbling, not saying anything. ASSESSMENT: The patient still psychotic, agitated, needs quite a bit of redirection, not safe for a lower level of care at this time. Medications were reviewed. No overt side effects noted. She may need an adjustment over the next few days. JOB# [id number]
--- NOTE | 2017-06-16 00:08 | Progress Notes ---
DATE: SUBJECTIVE: The patient seen, chart reviewed, discussed with staff. The patient remains confused, restless, agitated. I am familiar with this patient. She is coming from [facility], noted to be agitated and restless, trying to remove her colostomy, disorganized, nonsensical, severely mentally ill, and incapacitated. The patient mumbling, not saying anything. ASSESSMENT: The patient still psychotic, agitated, needs quite a bit of redirection, not safe for a lower level of care at this time. Medications were reviewed. No overt side effects noted. She may need an adjustment over the next few days. JOB# [id number]
--- NOTE | 2017-06-16 00:08 | Progress Notes ---
DATE: SUBJECTIVE: The patient seen, chart reviewed, discussed with staff. The patient remains confused, restless, agitated. I am familiar with this patient. She is coming from [facility], noted to be agitated and restless, trying to remove her colostomy, disorganized, nonsensical, severely mentally ill, and incapacitated. The patient mumbling, not saying anything. ASSESSMENT: The patient still psychotic, agitated, needs quite a bit of redirection, not safe for a lower level of care at this time. Medications were reviewed. No overt side effects noted. She may need an adjustment over the next few days. JOB# [id number]
[2017-06-16] MEDS: Dextromethorphan/Quinidine 20mg/10mg Cap PO SCH ×4 (09:29→20:50)
[2017-06-16] MEDS: Lactobacillus Rhamnosus 10 Billion CFU Capsule PO SCH ×2 (09:29)
[2017-06-16] MEDS: Sulfamethoxazole/TMP 800/160mg Tab PO SCH ×4 (09:30→16:09)
[2017-06-16] MEDS: Multivitamin Tab PO SCH ×2 (09:30)
[2017-06-16] MEDS: Lidocaine 5% Patch TD SCH ×2 (09:40)
--- NOTE | 2017-06-16 13:10 | Internal Medicine Prog Note ---
Internal Medicine Subjective - Subjective Service Date: 06/16/17 Patient is:: awake, verbal, interactive Per staff patient has:: no adverse event, poor appetite, agitated, noncompliant , tolerating meds Internal Medicine Objective - Physical Exam Vitals and I&O: Vital Signs Temp 98.8 F 06/16/17 06:40 Pulse 81 06/16/17 07:00 Resp 12 06/16/17 07:00 BP 119/65 06/16/17 06:40 Pulse Ox 94 06/16/17 07:00 Intake & Output 06/15/17 06/16/17 06/16/17 18:59 06:59 18:59 Intake Total 1200 120 Balance 1200 120 Intake: Oral 1200 120 Other: # Voids 1 # Bowel Movements 1 Stool Characteristics Soft Soft Active Medications: Current Medications Acetaminophen (Tylenol) 650 mg PO Q6H PRN PRN Reason: Mild Pain / Temp above 100 Stop: 08/12/17 15:54 Acetaminophen/Hydrocodone Bitart ([place] 5mg/325mg) 1 tab PO Q6H PRN PRN Reason: Pain (Moderate) Stop: 08/12/17 16:15 Al Hydrox/Mg Hydrox/Simethicone (Maalox) 30 ml PO Q4HR PRN PRN Reason: GI DISTRESS Stop: 08/12/17 15:54 Albuterol Sulfate (Albuterol 2.5mg/3ml Neb Ud) 2.5 mg HHN Q2HRT PRN PRN Reason: Shortness of Breath or Wheeze Stop: 08/12/17 16:14 Dextromethorphan/Quinidine (Nuedexta 20mg-10mg) 1 cap PO Q12HR CECILIA Stop: 08/12/17 20:59 Last Admin: 06/16/17 09:29 Dose: 1 cap Diazepam (Valium) 2 mg PO BID CECILIA PRN Reason: Protocol Stop: 08/13/17 16:59 Last Admin: 06/16/17 09:30 Dose: 2 mg Diphenhydramine HCl (Benadryl) 50 mg PO BID PRN PRN Reason: Agitation Stop: 08/13/17 14:34 Last Admin: 06/16/17 09:29 Dose: 50 mg Docusate Sodium (Colace) 100 mg PO BID CECILIA Stop: 08/12/17 16:59 Last Admin: 06/16/17 09:30 Dose: 100 mg Haloperidol (Haldol) 5 mg PO BID PRN; Protocol PRN Reason: Agitation Stop: 08/13/17 16:59 Last Admin: 06/16/17 09:30 Dose: 5 mg Ipratropium [place] (Atrovent Neb 0.5mg/2.5ml) 0.5 mg HHN Q2HRT PRN PRN Reason: Shortness of Breath or Wheeze Stop: 08/12/17 16:15 Lactobacillus Rhamnosus (Culturelle) 1 each PO DAILY CECILIA Stop: 08/14/17 08:59 Last Admin: 06/16/17 09:29 Dose: 1 each Lactulose (Cephulac) 20 gm PO BID PRN PRN Reason: Constipation Stop: 08/12/17 16:15 Last Admin: 06/15/17 08:04 Dose: 20 gm Lidocaine (Lidoderm 5% Patch) 1 patch TD Q24HR@0900 CECILIA Stop: 08/13/17 08:59 Last Admin: 06/16/17 09:40 Dose: 1 patch Lorazepam (Ativan) 2 mg PO BID PRN; Protocol PRN Reason: Agitation Stop: 08/13/17 14:32 Last Admin: 06/16/17 09:30 Dose: 2 mg Magnesium Hydroxide (Milk Of Magnesia) 30 ml PO HS PRN PRN Reason: Constipation Midodrine (Proamatine) 10 mg PO TID CECILIA Stop: 08/12/17 20:59 Last Admin: 06/16/17 09:30 Dose: 10 mg Mineral Oil (Mineral Oil 30 Ml) 30 ml PO BID CECILIA Stop: 08/12/17 16:59 Last Admin: 06/16/17 09:40 Dose: 30 ml Miscellaneous (Probiotic Screen) 1 ea MC PRN PRN PRN Reason: PROTOCOL Stop: 08/13/17 14:03 Multivitamins/Vitamin C (Theragran) 1 tab PO DAILY CECILIA Stop: 08/13/17 08:59 Last Admin: 06/16/17 09:30 Dose: 1 tab Quetiapine Fumarate (Seroquel) 25 mg PO BID CECILIA PRN Reason: Protocol Stop: 08/14/17 08:59 Last Admin: 06/16/17 09:30 Dose: 25 mg Quetiapine Fumarate (Seroquel) 75 mg PO HS CECILIA PRN Reason: Protocol Stop: 08/14/17 20:59 Last Admin: 06/15/17 21:00 Dose: 75 mg Trimethoprim/Sulfamethoxazole (Bactrim Ds) 1 tab PO BID CECILIA Stop: 06/18/17 16:59 Last Admin: 06/16/17 09:30 Dose: 1 tab Zolpidem Tartrate (Ambien) 5 mg PO HS PRN PRN Reason: Insomnia Stop: 08/12/17 15:54 Last Admin: 06/14/17 21:22 Dose: 5 mg General: demented, obese, appears older HEENT: NC/AT, PERRLA, EOMI Neck: Supple, No JVD, No LAD Lungs: CTAB Cardiovascular: RRR, Normal S1, Normal S2, without murmur Abdomen: soft, non-tender, globular Extremities: excoriation, contracture Neurological: no change, disorganized, bedbound - Procedures Procedures: Procedures Procedure Code Date CONTINUOUS INVASIVE MECHANICAL VENTILATION =/>96 CONSEC HRS 96.72 01/08/15 EGD BIOPSY SINGLE/MULTIPLE 58848 07/27/15 EXCISION OF DUODENUM, ENDO, DIAGN [id number] 07/27/15 EXCISION OF STOMACH, PYLORUS, ENDO, DIAGN [id number] 07/27/15 GROUP PSYCHOTHERAPY 98314 08/02/15 GROUP PSYCHOTHERAPY [id number] 08/02/15 INSERT EMERGENCY AIRWAY 33583 01/08/15 INSERT ENDOTRACHEAL TUBE 96.04 01/08/15 INTRAOP COLON LAVAGE ADD-ON 77728 01/08/15 OPEN TOTAL INTRA-ABDOMINAL COLECTOMY 45.82 01/08/15 OTHER GROUP THERAPY 94.44 03/16/15 REMOVAL OF COLON 57698 01/08/15 TEMPORARY ILEOSTOMY 46.21 01/08/15 VENT MGMT INPAT INIT DAY 42562 01/08/15 VENT MGMT INPAT SUBQ DAY 07293 01/08/15 Internal Medicine Assmt/Plan - Assessment Assessment: abdominal pain intractable vomiting possible sbo acute renal failure hyponatremia morbid obesity schizoaffective s/p fall constipation - Plan Plan: prn laxatives fall precautions daily stool softner increase fluid intake continue current plan of care
--- NOTE | 2017-06-16 13:10 | Internal Medicine Prog Note ---
Internal Medicine Subjective - Subjective Service Date: 06/16/17 Patient is:: awake, verbal, interactive Per staff patient has:: no adverse event, poor appetite, agitated, noncompliant , tolerating meds Internal Medicine Objective - Physical Exam Vitals and I&O: Vital Signs Temp 98.8 F 06/16/17 06:40 Pulse 81 06/16/17 07:00 Resp 12 06/16/17 07:00 BP 119/65 06/16/17 06:40 Pulse Ox 94 06/16/17 07:00 Intake & Output 06/15/17 06/16/17 06/16/17 18:59 06:59 18:59 Intake Total 1200 120 Balance 1200 120 Intake: Oral 1200 120 Other: # Voids 1 # Bowel Movements 1 Stool Characteristics Soft Soft Active Medications: Current Medications Acetaminophen (Tylenol) 650 mg PO Q6H PRN PRN Reason: Mild Pain / Temp above 100 Stop: 08/12/17 15:54 Acetaminophen/Hydrocodone Bitart ([place] 5mg/325mg) 1 tab PO Q6H PRN PRN Reason: Pain (Moderate) Stop: 08/12/17 16:15 Al Hydrox/Mg Hydrox/Simethicone (Maalox) 30 ml PO Q4HR PRN PRN Reason: GI DISTRESS Stop: 08/12/17 15:54 Albuterol Sulfate (Albuterol 2.5mg/3ml Neb Ud) 2.5 mg HHN Q2HRT PRN PRN Reason: Shortness of Breath or Wheeze Stop: 08/12/17 16:14 Dextromethorphan/Quinidine (Nuedexta 20mg-10mg) 1 cap PO Q12HR CECILIA Stop: 08/12/17 20:59 Last Admin: 06/16/17 09:29 Dose: 1 cap Diazepam (Valium) 2 mg PO BID CECILIA PRN Reason: Protocol Stop: 08/13/17 16:59 Last Admin: 06/16/17 09:30 Dose: 2 mg Diphenhydramine HCl (Benadryl) 50 mg PO BID PRN PRN Reason: Agitation Stop: 08/13/17 14:34 Last Admin: 06/16/17 09:29 Dose: 50 mg Docusate Sodium (Colace) 100 mg PO BID CECILIA Stop: 08/12/17 16:59 Last Admin: 06/16/17 09:30 Dose: 100 mg Haloperidol (Haldol) 5 mg PO BID PRN; Protocol PRN Reason: Agitation Stop: 08/13/17 16:59 Last Admin: 06/16/17 09:30 Dose: 5 mg Ipratropium [place] (Atrovent Neb 0.5mg/2.5ml) 0.5 mg HHN Q2HRT PRN PRN Reason: Shortness of Breath or Wheeze Stop: 08/12/17 16:15 Lactobacillus Rhamnosus (Culturelle) 1 each PO DAILY CECILIA Stop: 08/14/17 08:59 Last Admin: 06/16/17 09:29 Dose: 1 each Lactulose (Cephulac) 20 gm PO BID PRN PRN Reason: Constipation Stop: 08/12/17 16:15 Last Admin: 06/15/17 08:04 Dose: 20 gm Lidocaine (Lidoderm 5% Patch) 1 patch TD Q24HR@0900 CECILIA Stop: 08/13/17 08:59 Last Admin: 06/16/17 09:40 Dose: 1 patch Lorazepam (Ativan) 2 mg PO BID PRN; Protocol PRN Reason: Agitation Stop: 08/13/17 14:32 Last Admin: 06/16/17 09:30 Dose: 2 mg Magnesium Hydroxide (Milk Of Magnesia) 30 ml PO HS PRN PRN Reason: Constipation Midodrine (Proamatine) 10 mg PO TID CECILIA Stop: 08/12/17 20:59 Last Admin: 06/16/17 09:30 Dose: 10 mg Mineral Oil (Mineral Oil 30 Ml) 30 ml PO BID CECILIA Stop: 08/12/17 16:59 Last Admin: 06/16/17 09:40 Dose: 30 ml Miscellaneous (Probiotic Screen) 1 ea MC PRN PRN PRN Reason: PROTOCOL Stop: 08/13/17 14:03 Multivitamins/Vitamin C (Theragran) 1 tab PO DAILY CECILIA Stop: 08/13/17 08:59 Last Admin: 06/16/17 09:30 Dose: 1 tab Quetiapine Fumarate (Seroquel) 25 mg PO BID CECILIA PRN Reason: Protocol Stop: 08/14/17 08:59 Last Admin: 06/16/17 09:30 Dose: 25 mg Quetiapine Fumarate (Seroquel) 75 mg PO HS CECILIA PRN Reason: Protocol Stop: 08/14/17 20:59 Last Admin: 06/15/17 21:00 Dose: 75 mg Trimethoprim/Sulfamethoxazole (Bactrim Ds) 1 tab PO BID CECILIA Stop: 06/18/17 16:59 Last Admin: 06/16/17 09:30 Dose: 1 tab Zolpidem Tartrate (Ambien) 5 mg PO HS PRN PRN Reason: Insomnia Stop: 08/12/17 15:54 Last Admin: 06/14/17 21:22 Dose: 5 mg General: demented, obese, appears older HEENT: NC/AT, PERRLA, EOMI Neck: Supple, No JVD, No LAD Lungs: CTAB Cardiovascular: RRR, Normal S1, Normal S2, without murmur Abdomen: soft, non-tender, globular Extremities: excoriation, contracture Neurological: no change, disorganized, bedbound - Procedures Procedures: Procedures Procedure Code Date CONTINUOUS INVASIVE MECHANICAL VENTILATION =/>96 CONSEC HRS 96.72 01/08/15 EGD BIOPSY SINGLE/MULTIPLE 26343 07/27/15 EXCISION OF DUODENUM, ENDO, DIAGN [id number] 07/27/15 EXCISION OF STOMACH, PYLORUS, ENDO, DIAGN [id number] 07/27/15 GROUP PSYCHOTHERAPY 80245 08/02/15 GROUP PSYCHOTHERAPY [id number] 08/02/15 INSERT EMERGENCY AIRWAY 82755 01/08/15 INSERT ENDOTRACHEAL TUBE 96.04 01/08/15 INTRAOP COLON LAVAGE ADD-ON 84502 01/08/15 OPEN TOTAL INTRA-ABDOMINAL COLECTOMY 45.82 01/08/15 OTHER GROUP THERAPY 94.44 03/16/15 REMOVAL OF COLON 13169 01/08/15 TEMPORARY ILEOSTOMY 46.21 01/08/15 VENT MGMT INPAT INIT DAY 01247 01/08/15 VENT MGMT INPAT SUBQ DAY 62833 01/08/15 Internal Medicine Assmt/Plan - Assessment Assessment: abdominal pain intractable vomiting possible sbo acute renal failure hyponatremia morbid obesity schizoaffective s/p fall constipation - Plan Plan: prn laxatives fall precautions daily stool softner increase fluid intake continue current plan of care
--- NOTE | 2017-06-16 13:10 | Internal Medicine Prog Note ---
Internal Medicine Subjective - Subjective Service Date: 06/16/17 Patient is:: awake, verbal, interactive Per staff patient has:: no adverse event, poor appetite, agitated, noncompliant , tolerating meds Internal Medicine Objective - Physical Exam Vitals and I&O: Vital Signs Temp 98.8 F 06/16/17 06:40 Pulse 81 06/16/17 07:00 Resp 12 06/16/17 07:00 BP 119/65 06/16/17 06:40 Pulse Ox 94 06/16/17 07:00 Intake & Output 06/15/17 06/16/17 06/16/17 18:59 06:59 18:59 Intake Total 1200 120 Balance 1200 120 Intake: Oral 1200 120 Other: # Voids 1 # Bowel Movements 1 Stool Characteristics Soft Soft Active Medications: Current Medications Acetaminophen (Tylenol) 650 mg PO Q6H PRN PRN Reason: Mild Pain / Temp above 100 Stop: 08/12/17 15:54 Acetaminophen/Hydrocodone Bitart ([place] 5mg/325mg) 1 tab PO Q6H PRN PRN Reason: Pain (Moderate) Stop: 08/12/17 16:15 Al Hydrox/Mg Hydrox/Simethicone (Maalox) 30 ml PO Q4HR PRN PRN Reason: GI DISTRESS Stop: 08/12/17 15:54 Albuterol Sulfate (Albuterol 2.5mg/3ml Neb Ud) 2.5 mg HHN Q2HRT PRN PRN Reason: Shortness of Breath or Wheeze Stop: 08/12/17 16:14 Dextromethorphan/Quinidine (Nuedexta 20mg-10mg) 1 cap PO Q12HR CECILIA Stop: 08/12/17 20:59 Last Admin: 06/16/17 09:29 Dose: 1 cap Diazepam (Valium) 2 mg PO BID CECILIA PRN Reason: Protocol Stop: 08/13/17 16:59 Last Admin: 06/16/17 09:30 Dose: 2 mg Diphenhydramine HCl (Benadryl) 50 mg PO BID PRN PRN Reason: Agitation Stop: 08/13/17 14:34 Last Admin: 06/16/17 09:29 Dose: 50 mg Docusate Sodium (Colace) 100 mg PO BID CECILIA Stop: 08/12/17 16:59 Last Admin: 06/16/17 09:30 Dose: 100 mg Haloperidol (Haldol) 5 mg PO BID PRN; Protocol PRN Reason: Agitation Stop: 08/13/17 16:59 Last Admin: 06/16/17 09:30 Dose: 5 mg Ipratropium [place] (Atrovent Neb 0.5mg/2.5ml) 0.5 mg HHN Q2HRT PRN PRN Reason: Shortness of Breath or Wheeze Stop: 08/12/17 16:15 Lactobacillus Rhamnosus (Culturelle) 1 each PO DAILY CECILIA Stop: 08/14/17 08:59 Last Admin: 06/16/17 09:29 Dose: 1 each Lactulose (Cephulac) 20 gm PO BID PRN PRN Reason: Constipation Stop: 08/12/17 16:15 Last Admin: 06/15/17 08:04 Dose: 20 gm Lidocaine (Lidoderm 5% Patch) 1 patch TD Q24HR@0900 CECILIA Stop: 08/13/17 08:59 Last Admin: 06/16/17 09:40 Dose: 1 patch Lorazepam (Ativan) 2 mg PO BID PRN; Protocol PRN Reason: Agitation Stop: 08/13/17 14:32 Last Admin: 06/16/17 09:30 Dose: 2 mg Magnesium Hydroxide (Milk Of Magnesia) 30 ml PO HS PRN PRN Reason: Constipation Midodrine (Proamatine) 10 mg PO TID CECILIA Stop: 08/12/17 20:59 Last Admin: 06/16/17 09:30 Dose: 10 mg Mineral Oil (Mineral Oil 30 Ml) 30 ml PO BID CECILIA Stop: 08/12/17 16:59 Last Admin: 06/16/17 09:40 Dose: 30 ml Miscellaneous (Probiotic Screen) 1 ea MC PRN PRN PRN Reason: PROTOCOL Stop: 08/13/17 14:03 Multivitamins/Vitamin C (Theragran) 1 tab PO DAILY CECILIA Stop: 08/13/17 08:59 Last Admin: 06/16/17 09:30 Dose: 1 tab Quetiapine Fumarate (Seroquel) 25 mg PO BID CECILIA PRN Reason: Protocol Stop: 08/14/17 08:59 Last Admin: 06/16/17 09:30 Dose: 25 mg Quetiapine Fumarate (Seroquel) 75 mg PO HS CECILIA PRN Reason: Protocol Stop: 08/14/17 20:59 Last Admin: 06/15/17 21:00 Dose: 75 mg Trimethoprim/Sulfamethoxazole (Bactrim Ds) 1 tab PO BID CECILIA Stop: 06/18/17 16:59 Last Admin: 06/16/17 09:30 Dose: 1 tab Zolpidem Tartrate (Ambien) 5 mg PO HS PRN PRN Reason: Insomnia Stop: 08/12/17 15:54 Last Admin: 06/14/17 21:22 Dose: 5 mg General: demented, obese, appears older HEENT: NC/AT, PERRLA, EOMI Neck: Supple, No JVD, No LAD Lungs: CTAB Cardiovascular: RRR, Normal S1, Normal S2, without murmur Abdomen: soft, non-tender, globular Extremities: excoriation, contracture Neurological: no change, disorganized, bedbound - Procedures Procedures: Procedures Procedure Code Date CONTINUOUS INVASIVE MECHANICAL VENTILATION =/>96 CONSEC HRS 96.72 01/08/15 EGD BIOPSY SINGLE/MULTIPLE 14816 07/27/15 EXCISION OF DUODENUM, ENDO, DIAGN [id number] 07/27/15 EXCISION OF STOMACH, PYLORUS, ENDO, DIAGN [id number] 07/27/15 GROUP PSYCHOTHERAPY 86798 08/02/15 GROUP PSYCHOTHERAPY [id number] 08/02/15 INSERT EMERGENCY AIRWAY 18317 01/08/15 INSERT ENDOTRACHEAL TUBE 96.04 01/08/15 INTRAOP COLON LAVAGE ADD-ON 32906 01/08/15 OPEN TOTAL INTRA-ABDOMINAL COLECTOMY 45.82 01/08/15 OTHER GROUP THERAPY 94.44 03/16/15 REMOVAL OF COLON 77168 01/08/15 TEMPORARY ILEOSTOMY 46.21 01/08/15 VENT MGMT INPAT INIT DAY 39684 01/08/15 VENT MGMT INPAT SUBQ DAY 77540 01/08/15 Internal Medicine Assmt/Plan - Assessment Assessment: abdominal pain intractable vomiting possible sbo acute renal failure hyponatremia morbid obesity schizoaffective s/p fall constipation - Plan Plan: prn laxatives fall precautions daily stool softner increase fluid intake continue current plan of care
[2017-06-17] MEDS: Lidocaine 5% Patch TD SCH ×2 (09:26)
[2017-06-17] MEDS: Multivitamin Tab PO SCH ×2 (09:27)
[2017-06-17] MEDS: Sulfamethoxazole/TMP 800/160mg Tab PO SCH ×4 (09:27→16:38)
[2017-06-17] MEDS: Dextromethorphan/Quinidine 20mg/10mg Cap PO SCH ×4 (09:27→20:56)
[2017-06-17] MEDS: Lactobacillus Rhamnosus 10 Billion CFU Capsule PO SCH ×2 (09:28)
--- NOTE | 2017-06-17 12:10 | Progress Notes ---
DATE: 06/16/2017 SUBJECTIVE: The patient was seen, chart reviewed, discussed with staff. The patient remains confused in a Tanya chair, still aggressive, agitated, trying to remove her colostomy and mittens, nonsensical, impoverished. Thought processes, mumbling, psychotic. Medications were noted. ASSESSMENT: The patient remains psychotic, agitated, still needing quite a lot of redirection in a Tanya chair. PLAN: We will continue to monitor. Titrate medications as tolerated. JOB# [id number]
--- NOTE | 2017-06-17 12:54 | Internal Medicine Prog Note ---
Internal Medicine Subjective - Subjective Service Date: 06/17/17 Patient is:: awake, verbal, interactive Per staff patient has:: no adverse event, poor appetite, agitated, noncompliant , tolerating meds Internal Medicine Objective - Physical Exam Vitals and I&O: Vital Signs Temp 97.8 F 06/17/17 06:13 Pulse 80 06/17/17 07:12 Resp 16 06/17/17 10:42 BP 135/53 06/17/17 06:13 Pulse Ox 97 06/17/17 07:12 Intake & Output 06/16/17 06/17/17 06/17/17 18:59 06:59 18:59 Intake Total 900 180 Output Total 400 Balance 500 180 Intake: Oral 900 180 Output: Stool 400 Other: # Voids 2 1 # Bowel Movements 0 Stool Characteristics Soft Soft Soft Active Medications: Current Medications Acetaminophen (Tylenol) 650 mg PO Q6H PRN PRN Reason: Mild Pain / Temp above 100 Stop: 08/12/17 15:54 Acetaminophen/Hydrocodone Bitart ([place] 5mg/325mg) 1 tab PO Q6H PRN PRN Reason: Pain (Moderate) Stop: 08/12/17 16:15 Al Hydrox/Mg Hydrox/Simethicone (Maalox) 30 ml PO Q4HR PRN PRN Reason: GI DISTRESS Stop: 08/12/17 15:54 Albuterol Sulfate (Albuterol 2.5mg/3ml Neb Ud) 2.5 mg HHN Q2HRT PRN PRN Reason: Shortness of Breath or Wheeze Stop: 08/12/17 16:14 Dextromethorphan/Quinidine (Nuedexta 20mg-10mg) 1 cap PO Q12HR CECILIA Stop: 08/12/17 20:59 Last Admin: 06/17/17 09:27 Dose: 1 cap Diazepam (Valium) 2 mg PO BID CECILIA PRN Reason: Protocol Stop: 08/13/17 16:59 Last Admin: 06/17/17 09:27 Dose: 2 mg Diphenhydramine HCl (Benadryl) 50 mg PO BID PRN PRN Reason: Agitation Stop: 08/13/17 14:34 Last Admin: 06/16/17 16:09 Dose: 50 mg Docusate Sodium (Colace) 100 mg PO BID CECILIA Stop: 08/12/17 16:59 Last Admin: 06/17/17 09:28 Dose: 100 mg Haloperidol (Haldol) 5 mg PO BID PRN; Protocol PRN Reason: Agitation Stop: 08/13/17 16:59 Last Admin: 06/17/17 09:28 Dose: 5 mg Ipratropium [place] (Atrovent Neb 0.5mg/2.5ml) 0.5 mg HHN Q2HRT PRN PRN Reason: Shortness of Breath or Wheeze Stop: 08/12/17 16:15 Lactobacillus Rhamnosus (Culturelle) 1 each PO DAILY CECILIA Stop: 08/14/17 08:59 Last Admin: 06/17/17 09:28 Dose: 1 each Lactulose (Cephulac) 20 gm PO BID PRN PRN Reason: Constipation Stop: 08/12/17 16:15 Last Admin: 06/15/17 08:04 Dose: 20 gm Lidocaine (Lidoderm 5% Patch) 1 patch TD Q24HR@0900 CECILIA Stop: 08/13/17 08:59 Last Admin: 06/17/17 09:26 Dose: 1 patch Lorazepam (Ativan) 2 mg PO BID PRN; Protocol PRN Reason: Agitation Stop: 08/13/17 14:32 Last Admin: 06/17/17 09:27 Dose: 2 mg Magnesium Hydroxide (Milk Of Magnesia) 30 ml PO HS PRN PRN Reason: Constipation Midodrine (Proamatine) 10 mg PO TID CECILIA Stop: 08/12/17 20:59 Last Admin: 06/17/17 09:27 Dose: 10 mg Mineral Oil (Mineral Oil 30 Ml) 30 ml PO BID CECILIA Stop: 08/12/17 16:59 Last Admin: 06/17/17 09:27 Dose: 30 ml Miscellaneous (Probiotic Screen) 1 ea MC PRN PRN PRN Reason: PROTOCOL Stop: 08/13/17 14:03 Multivitamins/Vitamin C (Theragran) 1 tab PO DAILY CECILIA Stop: 08/13/17 08:59 Last Admin: 06/17/17 09:27 Dose: 1 tab Quetiapine Fumarate (Seroquel) 25 mg PO BID CECILIA PRN Reason: Protocol Stop: 08/14/17 08:59 Last Admin: 06/17/17 09:27 Dose: 25 mg Quetiapine Fumarate (Seroquel) 75 mg PO HS CECILIA PRN Reason: Protocol Stop: 08/14/17 20:59 Last Admin: 06/16/17 20:51 Dose: 75 mg Trimethoprim/Sulfamethoxazole (Bactrim Ds) 1 tab PO BID CECILIA Stop: 06/18/17 16:59 Last Admin: 06/17/17 09:27 Dose: 1 tab Zolpidem Tartrate (Ambien) 5 mg PO HS PRN PRN Reason: Insomnia Stop: 08/12/17 15:54 Last Admin: 06/14/17 21:22 Dose: 5 mg General: demented, obese, appears older HEENT: NC/AT, PERRLA, EOMI Neck: Supple, No JVD, No LAD Lungs: CTAB Cardiovascular: RRR, Normal S1, Normal S2, without murmur Abdomen: soft, non-tender, globular Extremities: excoriation, contracture Neurological: no change, disorganized, bedbound - Procedures Procedures: Procedures Procedure Code Date CONTINUOUS INVASIVE MECHANICAL VENTILATION =/>96 CONSEC HRS 96.72 01/08/15 EGD BIOPSY SINGLE/MULTIPLE 56376 07/27/15 EXCISION OF DUODENUM, ENDO, DIAGN [id number] 07/27/15 EXCISION OF STOMACH, PYLORUS, ENDO, DIAGN [id number] 07/27/15 GROUP PSYCHOTHERAPY 81259 08/02/15 GROUP PSYCHOTHERAPY [id number] 08/02/15 INSERT EMERGENCY AIRWAY 05524 01/08/15 INSERT ENDOTRACHEAL TUBE 96.04 01/08/15 INTRAOP COLON LAV[place] ADD-ON 40919 01/08/15 OPEN TOTAL INTRA-ABDOMINAL COLECTOMY 45.82 01/08/15 OTHER GROUP THERAPY 94.44 03/16/15 REMOVAL OF COLON 46210 01/08/15 TEMPORARY ILEOSTOMY 46.21 01/08/15 VENT MGMT INPAT INIT DAY 92646 01/08/15 VENT MGMT INPAT SUBQ DAY 44835 01/08/15 Internal Medicine Assmt/Plan - Assessment Assessment: abdominal pain intractable vomiting possible sbo acute renal failure hyponatremia morbid obesity schizoaffective s/p fall constipation - Plan Plan: prn laxatives fall precautions daily stool softner increase fluid intake continue current plan of care
--- NOTE | 2017-06-17 12:54 | Internal Medicine Prog Note ---
Internal Medicine Subjective - Subjective Service Date: 06/17/17 Patient is:: awake, verbal, interactive Per staff patient has:: no adverse event, poor appetite, agitated, noncompliant , tolerating meds Internal Medicine Objective - Physical Exam Vitals and I&O: Vital Signs Temp 97.8 F 06/17/17 06:13 Pulse 80 06/17/17 07:12 Resp 16 06/17/17 10:42 BP 135/53 06/17/17 06:13 Pulse Ox 97 06/17/17 07:12 Intake & Output 06/16/17 06/17/17 06/17/17 18:59 06:59 18:59 Intake Total 900 180 Output Total 400 Balance 500 180 Intake: Oral 900 180 Output: Stool 400 Other: # Voids 2 1 # Bowel Movements 0 Stool Characteristics Soft Soft Soft Active Medications: Current Medications Acetaminophen (Tylenol) 650 mg PO Q6H PRN PRN Reason: Mild Pain / Temp above 100 Stop: 08/12/17 15:54 Acetaminophen/Hydrocodone Bitart ([place] 5mg/325mg) 1 tab PO Q6H PRN PRN Reason: Pain (Moderate) Stop: 08/12/17 16:15 Al Hydrox/Mg Hydrox/Simethicone (Maalox) 30 ml PO Q4HR PRN PRN Reason: GI DISTRESS Stop: 08/12/17 15:54 Albuterol Sulfate (Albuterol 2.5mg/3ml Neb Ud) 2.5 mg HHN Q2HRT PRN PRN Reason: Shortness of Breath or Wheeze Stop: 08/12/17 16:14 Dextromethorphan/Quinidine (Nuedexta 20mg-10mg) 1 cap PO Q12HR CECILIA Stop: 08/12/17 20:59 Last Admin: 06/17/17 09:27 Dose: 1 cap Diazepam (Valium) 2 mg PO BID CECILIA PRN Reason: Protocol Stop: 08/13/17 16:59 Last Admin: 06/17/17 09:27 Dose: 2 mg Diphenhydramine HCl (Benadryl) 50 mg PO BID PRN PRN Reason: Agitation Stop: 08/13/17 14:34 Last Admin: 06/16/17 16:09 Dose: 50 mg Docusate Sodium (Colace) 100 mg PO BID CECILIA Stop: 08/12/17 16:59 Last Admin: 06/17/17 09:28 Dose: 100 mg Haloperidol (Haldol) 5 mg PO BID PRN; Protocol PRN Reason: Agitation Stop: 08/13/17 16:59 Last Admin: 06/17/17 09:28 Dose: 5 mg Ipratropium [place] (Atrovent Neb 0.5mg/2.5ml) 0.5 mg HHN Q2HRT PRN PRN Reason: Shortness of Breath or Wheeze Stop: 08/12/17 16:15 Lactobacillus Rhamnosus (Culturelle) 1 each PO DAILY CECILIA Stop: 08/14/17 08:59 Last Admin: 06/17/17 09:28 Dose: 1 each Lactulose (Cephulac) 20 gm PO BID PRN PRN Reason: Constipation Stop: 08/12/17 16:15 Last Admin: 06/15/17 08:04 Dose: 20 gm Lidocaine (Lidoderm 5% Patch) 1 patch TD Q24HR@0900 CECILIA Stop: 08/13/17 08:59 Last Admin: 06/17/17 09:26 Dose: 1 patch Lorazepam (Ativan) 2 mg PO BID PRN; Protocol PRN Reason: Agitation Stop: 08/13/17 14:32 Last Admin: 06/17/17 09:27 Dose: 2 mg Magnesium Hydroxide (Milk Of Magnesia) 30 ml PO HS PRN PRN Reason: Constipation Midodrine (Proamatine) 10 mg PO TID CECILIA Stop: 08/12/17 20:59 Last Admin: 06/17/17 09:27 Dose: 10 mg Mineral Oil (Mineral Oil 30 Ml) 30 ml PO BID CECILIA Stop: 08/12/17 16:59 Last Admin: 06/17/17 09:27 Dose: 30 ml Miscellaneous (Probiotic Screen) 1 ea MC PRN PRN PRN Reason: PROTOCOL Stop: 08/13/17 14:03 Multivitamins/Vitamin C (Theragran) 1 tab PO DAILY CECILIA Stop: 08/13/17 08:59 Last Admin: 06/17/17 09:27 Dose: 1 tab Quetiapine Fumarate (Seroquel) 25 mg PO BID CECILIA PRN Reason: Protocol Stop: 08/14/17 08:59 Last Admin: 06/17/17 09:27 Dose: 25 mg Quetiapine Fumarate (Seroquel) 75 mg PO HS CECILIA PRN Reason: Protocol Stop: 08/14/17 20:59 Last Admin: 06/16/17 20:51 Dose: 75 mg Trimethoprim/Sulfamethoxazole (Bactrim Ds) 1 tab PO BID CECILIA Stop: 06/18/17 16:59 Last Admin: 06/17/17 09:27 Dose: 1 tab Zolpidem Tartrate (Ambien) 5 mg PO HS PRN PRN Reason: Insomnia Stop: 08/12/17 15:54 Last Admin: 06/14/17 21:22 Dose: 5 mg General: demented, obese, appears older HEENT: NC/AT, PERRLA, EOMI Neck: Supple, No JVD, No LAD Lungs: CTAB Cardiovascular: RRR, Normal S1, Normal S2, without murmur Abdomen: soft, non-tender, globular Extremities: excoriation, contracture Neurological: no change, disorganized, bedbound - Procedures Procedures: Procedures Procedure Code Date CONTINUOUS INVASIVE MECHANICAL VENTILATION =/>96 CONSEC HRS 96.72 01/08/15 EGD BIOPSY SINGLE/MULTIPLE 11226 07/27/15 EXCISION OF DUODENUM, ENDO, DIAGN [id number] 07/27/15 EXCISION OF STOMACH, PYLORUS, ENDO, DIAGN [id number] 07/27/15 GROUP PSYCHOTHERAPY 81051 08/02/15 GROUP PSYCHOTHERAPY [id number] 08/02/15 INSERT EMERGENCY AIRWAY 72837 01/08/15 INSERT ENDOTRACHEAL TUBE 96.04 01/08/15 INTRAOP COLON LAVAGE ADD-ON 61162 01/08/15 OPEN TOTAL INTRA-ABDOMINAL COLECTOMY 45.82 01/08/15 OTHER GROUP THERAPY 94.44 03/16/15 REMOVAL OF COLON 54507 01/08/15 TEMPORARY ILEOSTOMY 46.21 01/08/15 VENT MGMT INPAT INIT DAY 64954 01/08/15 VENT MGMT INPAT SUBQ DAY 75872 01/08/15 Internal Medicine Assmt/Plan - Assessment Assessment: abdominal pain intractable vomiting possible sbo acute renal failure hyponatremia morbid obesity schizoaffective s/p fall constipation - Plan Plan: prn laxatives fall precautions daily stool softner increase fluid intake continue current plan of care
--- NOTE | 2017-06-17 12:54 | Internal Medicine Prog Note ---
Internal Medicine Subjective - Subjective Service Date: 06/17/17 Patient is:: awake, verbal, interactive Per staff patient has:: no adverse event, poor appetite, agitated, noncompliant , tolerating meds Internal Medicine Objective - Physical Exam Vitals and I&O: Vital Signs Temp 97.8 F 06/17/17 06:13 Pulse 80 06/17/17 07:12 Resp 16 06/17/17 10:42 BP 135/53 06/17/17 06:13 Pulse Ox 97 06/17/17 07:12 Intake & Output 06/16/17 06/17/17 06/17/17 18:59 06:59 18:59 Intake Total 900 180 Output Total 400 Balance 500 180 Intake: Oral 900 180 Output: Stool 400 Other: # Voids 2 1 # Bowel Movements 0 Stool Characteristics Soft Soft Soft Active Medications: Current Medications Acetaminophen (Tylenol) 650 mg PO Q6H PRN PRN Reason: Mild Pain / Temp above 100 Stop: 08/12/17 15:54 Acetaminophen/Hydrocodone Bitart ([place] 5mg/325mg) 1 tab PO Q6H PRN PRN Reason: Pain (Moderate) Stop: 08/12/17 16:15 Al Hydrox/Mg Hydrox/Simethicone (Maalox) 30 ml PO Q4HR PRN PRN Reason: GI DISTRESS Stop: 08/12/17 15:54 Albuterol Sulfate (Albuterol 2.5mg/3ml Neb Ud) 2.5 mg HHN Q2HRT PRN PRN Reason: Shortness of Breath or Wheeze Stop: 08/12/17 16:14 Dextromethorphan/Quinidine (Nuedexta 20mg-10mg) 1 cap PO Q12HR CECILIA Stop: 08/12/17 20:59 Last Admin: 06/17/17 09:27 Dose: 1 cap Diazepam (Valium) 2 mg PO BID CECILIA PRN Reason: Protocol Stop: 08/13/17 16:59 Last Admin: 06/17/17 09:27 Dose: 2 mg Diphenhydramine HCl (Benadryl) 50 mg PO BID PRN PRN Reason: Agitation Stop: 08/13/17 14:34 Last Admin: 06/16/17 16:09 Dose: 50 mg Docusate Sodium (Colace) 100 mg PO BID CECILIA Stop: 08/12/17 16:59 Last Admin: 06/17/17 09:28 Dose: 100 mg Haloperidol (Haldol) 5 mg PO BID PRN; Protocol PRN Reason: Agitation Stop: 08/13/17 16:59 Last Admin: 06/17/17 09:28 Dose: 5 mg Ipratropium [place] (Atrovent Neb 0.5mg/2.5ml) 0.5 mg HHN Q2HRT PRN PRN Reason: Shortness of Breath or Wheeze Stop: 08/12/17 16:15 Lactobacillus Rhamnosus (Culturelle) 1 each PO DAILY CECILIA Stop: 08/14/17 08:59 Last Admin: 06/17/17 09:28 Dose: 1 each Lactulose (Cephulac) 20 gm PO BID PRN PRN Reason: Constipation Stop: 08/12/17 16:15 Last Admin: 06/15/17 08:04 Dose: 20 gm Lidocaine (Lidoderm 5% Patch) 1 patch TD Q24HR@0900 CECILIA Stop: 08/13/17 08:59 Last Admin: 06/17/17 09:26 Dose: 1 patch Lorazepam (Ativan) 2 mg PO BID PRN; Protocol PRN Reason: Agitation Stop: 08/13/17 14:32 Last Admin: 06/17/17 09:27 Dose: 2 mg Magnesium Hydroxide (Milk Of Magnesia) 30 ml PO HS PRN PRN Reason: Constipation Midodrine (Proamatine) 10 mg PO TID CECILIA Stop: 08/12/17 20:59 Last Admin: 06/17/17 09:27 Dose: 10 mg Mineral Oil (Mineral Oil 30 Ml) 30 ml PO BID CECILIA Stop: 08/12/17 16:59 Last Admin: 06/17/17 09:27 Dose: 30 ml Miscellaneous (Probiotic Screen) 1 ea MC PRN PRN PRN Reason: PROTOCOL Stop: 08/13/17 14:03 Multivitamins/Vitamin C (Theragran) 1 tab PO DAILY CECILIA Stop: 08/13/17 08:59 Last Admin: 06/17/17 09:27 Dose: 1 tab Quetiapine Fumarate (Seroquel) 25 mg PO BID CECILIA PRN Reason: Protocol Stop: 08/14/17 08:59 Last Admin: 06/17/17 09:27 Dose: 25 mg Quetiapine Fumarate (Seroquel) 75 mg PO HS CECILIA PRN Reason: Protocol Stop: 08/14/17 20:59 Last Admin: 06/16/17 20:51 Dose: 75 mg Trimethoprim/Sulfamethoxazole (Bactrim Ds) 1 tab PO BID CECILIA Stop: 06/18/17 16:59 Last Admin: 06/17/17 09:27 Dose: 1 tab Zolpidem Tartrate (Ambien) 5 mg PO HS PRN PRN Reason: Insomnia Stop: 08/12/17 15:54 Last Admin: 06/14/17 21:22 Dose: 5 mg General: demented, obese, appears older HEENT: NC/AT, PERRLA, EOMI Neck: Supple, No JVD, No LAD Lungs: CTAB Cardiovascular: RRR, Normal S1, Normal S2, without murmur Abdomen: soft, non-tender, globular Extremities: excoriation, contracture Neurological: no change, disorganized, bedbound - Procedures Procedures: Procedures Procedure Code Date CONTINUOUS INVASIVE MECHANICAL VENTILATION =/>96 CONSEC HRS 96.72 01/08/15 EGD BIOPSY SINGLE/MULTIPLE 27158 07/27/15 EXCISION OF DUODENUM, ENDO, DIAGN [id number] 07/27/15 EXCISION OF STOMACH, PYLORUS, ENDO, DIAGN [id number] 07/27/15 GROUP PSYCHOTHERAPY 40911 08/02/15 GROUP PSYCHOTHERAPY [id number] 08/02/15 INSERT EMERGENCY AIRWAY 98305 01/08/15 INSERT ENDOTRACHEAL TUBE 96.04 01/08/15 INTRAOP COLON LAVAGE ADD-ON 71348 01/08/15 OPEN TOTAL INTRA-ABDOMINAL COLECTOMY 45.82 01/08/15 OTHER GROUP THERAPY 94.44 03/16/15 REMOVAL OF COLON 43377 01/08/15 TEMPORARY ILEOSTOMY 46.21 01/08/15 VENT MGMT INPAT INIT DAY 82481 01/08/15 VENT MGMT INPAT SUBQ DAY 01609 01/08/15 Internal Medicine Assmt/Plan - Assessment Assessment: abdominal pain intractable vomiting possible sbo acute renal failure hyponatremia morbid obesity schizoaffective s/p fall constipation - Plan Plan: prn laxatives fall precautions daily stool softner increase fluid intake continue current plan of care
[2017-06-18] MEDS: Sulfamethoxazole/TMP 800/160mg Tab PO SCH ×2 (08:29)
[2017-06-18] MEDS: Lactobacillus Rhamnosus 10 Billion CFU Capsule PO SCH ×2 (08:29)
[2017-06-18] MEDS: Multivitamin Tab PO SCH ×2 (08:29)
[2017-06-18] MEDS: Lidocaine 5% Patch TD SCH ×2 (08:30)
[2017-06-18] MEDS: Dextromethorphan/Quinidine 20mg/10mg Cap PO SCH ×4 (08:30→20:41)
--- NOTE | 2017-06-18 12:58 | Internal Medicine Prog Note ---
Internal Medicine Subjective - Subjective Service Date: 06/18/17 Patient is:: awake, verbal, interactive Per staff patient has:: no adverse event, poor appetite, agitated, noncompliant , tolerating meds Internal Medicine Objective - Physical Exam Vitals and I&O: Vital Signs Temp 97.8 F 06/18/17 05:47 Pulse 83 06/18/17 07:30 Resp 18 06/18/17 07:30 BP 111/57 06/18/17 05:47 Pulse Ox 95 06/18/17 07:30 Intake & Output 06/17/17 06/18/17 06/18/17 18:59 06:59 18:59 Intake Total 180 Balance 180 Intake: Oral 180 Other: # Voids 1 # Bowel Movements 1 Stool Characteristics Soft Soft Active Medications: Current Medications Acetaminophen (Tylenol) 650 mg PO Q6H PRN PRN Reason: Mild Pain / Temp above 100 Stop: 08/12/17 15:54 Acetaminophen/Hydrocodone Bitart ([place] 5mg/325mg) 1 tab PO Q6H PRN PRN Reason: Pain (Moderate) Stop: 08/12/17 16:15 Al Hydrox/Mg Hydrox/Simethicone (Maalox) 30 ml PO Q4HR PRN PRN Reason: GI DISTRESS Stop: 08/12/17 15:54 Albuterol Sulfate (Albuterol 2.5mg/3ml Neb Ud) 2.5 mg HHN Q2HRT PRN PRN Reason: Shortness of Breath or Wheeze Stop: 08/12/17 16:14 Dextromethorphan/Quinidine (Nuedexta 20mg-10mg) 1 cap PO Q12HR CECILIA Stop: 08/12/17 20:59 Last Admin: 06/18/17 08:30 Dose: 1 cap Diazepam (Valium) 2 mg PO BID CECILIA PRN Reason: Protocol Stop: 08/13/17 16:59 Last Admin: 06/18/17 08:29 Dose: 2 mg Diphenhydramine HCl (Benadryl) 50 mg PO BID PRN PRN Reason: Agitation Stop: 08/13/17 14:34 Last Admin: 06/18/17 09:50 Dose: 50 mg Docusate Sodium (Colace) 100 mg PO BID CECILIA Stop: 08/12/17 16:59 Last Admin: 06/18/17 08:29 Dose: 100 mg Haloperidol (Haldol) 5 mg PO BID PRN; Protocol PRN Reason: Agitation Stop: 08/13/17 16:59 Last Admin: 06/18/17 09:50 Dose: 5 mg Ipratropium [place] (Atrovent Neb 0.5mg/2.5ml) 0.5 mg HHN Q2HRT PRN PRN Reason: Shortness of Breath or Wheeze Stop: 08/12/17 16:15 Lactobacillus Rhamnosus (Culturelle) 1 each PO DAILY CECILIA Stop: 08/14/17 08:59 Last Admin: 06/18/17 08:29 Dose: 1 each Lactulose (Cephulac) 20 gm PO BID PRN PRN Reason: Constipation Stop: 08/12/17 16:15 Last Admin: 06/15/17 08:04 Dose: 20 gm Lidocaine (Lidoderm 5% Patch) 1 patch TD Q24HR@0900 CECILIA Stop: 08/13/17 08:59 Last Admin: 06/18/17 08:30 Dose: 1 patch Lorazepam (Ativan) 2 mg PO BID PRN; Protocol PRN Reason: Agitation Stop: 08/13/17 14:32 Last Admin: 06/18/17 09:50 Dose: 2 mg Magnesium Hydroxide (Milk Of Magnesia) 30 ml PO HS PRN PRN Reason: Constipation Midodrine (Proamatine) 10 mg PO TID CECILIA Stop: 08/12/17 20:59 Last Admin: 06/18/17 08:29 Dose: 10 mg Mineral Oil (Mineral Oil 30 Ml) 30 ml PO BID CECILIA Stop: 08/12/17 16:59 Last Admin: 06/18/17 08:32 Dose: 30 ml Miscellaneous (Probiotic Screen) 1 ea MC PRN PRN PRN Reason: PROTOCOL Stop: 08/13/17 14:03 Multivitamins/Vitamin C (Theragran) 1 tab PO DAILY CECILIA Stop: 08/13/17 08:59 Last Admin: 06/18/17 08:29 Dose: 1 tab Quetiapine Fumarate (Seroquel) 25 mg PO BID CECILIA PRN Reason: Protocol Stop: 08/14/17 08:59 Last Admin: 06/18/17 08:29 Dose: 25 mg Quetiapine Fumarate (Seroquel) 100 mg PO HS CECILIA PRN Reason: Protocol Stop: 08/14/17 20:59 Trimethoprim/Sulfamethoxazole (Bactrim Ds) 1 tab PO BID CECILIA Stop: 06/18/17 16:59 Last Admin: 06/18/17 08:29 Dose: 1 tab Zolpidem Tartrate (Ambien) 5 mg PO HS PRN PRN Reason: Insomnia Stop: 08/12/17 15:54 Last Admin: 06/14/17 21:22 Dose: 5 mg General: demented, obese, appears older HEENT: NC/AT, PERRLA, EOMI Neck: Supple, No JVD, No LAD Lungs: CTAB Cardiovascular: RRR, Normal S1, Normal S2, without murmur Abdomen: soft, non-tender, globular Extremities: excoriation, contracture Neurological: no change, disorganized, bedbound - Procedures Procedures: Procedures Procedure Code Date CONTINUOUS INVASIVE MECHANICAL VENTILATION =/>96 CONSEC HRS 96.72 01/08/15 EGD BIOPSY SINGLE/MULTIPLE 59177 07/27/15 EXCISION OF DUODENUM, ENDO, DIAGN [id number] 07/27/15 EXCISION OF STOMACH, PYLORUS, ENDO, DIAGN [id number] 07/27/15 GROUP PSYCHOTHERAPY 55712 08/02/15 GROUP PSYCHOTHERAPY [id number] 08/02/15 INSERT EMERGENCY AIRWAY 00386 01/08/15 INSERT ENDOTRACHEAL TUBE 96.04 01/08/15 INTRAOP COLON LAVAGE ADD-ON 48406 01/08/15 OPEN TOTAL INTRA-ABDOMINAL COLECTOMY 45.82 01/08/15 OTHER GROUP THERAPY 94.44 03/16/15 REMOVAL OF COLON 31025 01/08/15 TEMPORARY ILEOSTOMY 46.21 01/08/15 VENT MGMT INPAT INIT DAY 50810 01/08/15 VENT MGMT INPAT SUBQ DAY 06216 01/08/15 Internal Medicine Assmt/Plan - Assessment Assessment: abdominal pain intractable vomiting possible sbo acute renal failure hyponatremia morbid obesity schizoaffective s/p fall constipation - Plan Plan: prn laxatives fall precautions daily stool softner increase fluid intake continue current plan of care
--- NOTE | 2017-06-18 12:58 | Internal Medicine Prog Note ---
Internal Medicine Subjective - Subjective Service Date: 06/18/17 Patient is:: awake, verbal, interactive Per staff patient has:: no adverse event, poor appetite, agitated, noncompliant , tolerating meds Internal Medicine Objective - Physical Exam Vitals and I&O: Vital Signs Temp 97.8 F 06/18/17 05:47 Pulse 83 06/18/17 07:30 Resp 18 06/18/17 07:30 BP 111/57 06/18/17 05:47 Pulse Ox 95 06/18/17 07:30 Intake & Output 06/17/17 06/18/17 06/18/17 18:59 06:59 18:59 Intake Total 180 Balance 180 Intake: Oral 180 Other: # Voids 1 # Bowel Movements 1 Stool Characteristics Soft Soft Active Medications: Current Medications Acetaminophen (Tylenol) 650 mg PO Q6H PRN PRN Reason: Mild Pain / Temp above 100 Stop: 08/12/17 15:54 Acetaminophen/Hydrocodone Bitart ([place] 5mg/325mg) 1 tab PO Q6H PRN PRN Reason: Pain (Moderate) Stop: 08/12/17 16:15 Al Hydrox/Mg Hydrox/Simethicone (Maalox) 30 ml PO Q4HR PRN PRN Reason: GI DISTRESS Stop: 08/12/17 15:54 Albuterol Sulfate (Albuterol 2.5mg/3ml Neb Ud) 2.5 mg HHN Q2HRT PRN PRN Reason: Shortness of Breath or Wheeze Stop: 08/12/17 16:14 Dextromethorphan/Quinidine (Nuedexta 20mg-10mg) 1 cap PO Q12HR CECILIA Stop: 08/12/17 20:59 Last Admin: 06/18/17 08:30 Dose: 1 cap Diazepam (Valium) 2 mg PO BID CECILIA PRN Reason: Protocol Stop: 08/13/17 16:59 Last Admin: 06/18/17 08:29 Dose: 2 mg Diphenhydramine HCl (Benadryl) 50 mg PO BID PRN PRN Reason: Agitation Stop: 08/13/17 14:34 Last Admin: 06/18/17 09:50 Dose: 50 mg Docusate Sodium (Colace) 100 mg PO BID CECILIA Stop: 08/12/17 16:59 Last Admin: 06/18/17 08:29 Dose: 100 mg Haloperidol (Haldol) 5 mg PO BID PRN; Protocol PRN Reason: Agitation Stop: 08/13/17 16:59 Last Admin: 06/18/17 09:50 Dose: 5 mg Ipratropium [place] (Atrovent Neb 0.5mg/2.5ml) 0.5 mg HHN Q2HRT PRN PRN Reason: Shortness of Breath or Wheeze Stop: 08/12/17 16:15 Lactobacillus Rhamnosus (Culturelle) 1 each PO DAILY CECILIA Stop: 08/14/17 08:59 Last Admin: 06/18/17 08:29 Dose: 1 each Lactulose (Cephulac) 20 gm PO BID PRN PRN Reason: Constipation Stop: 08/12/17 16:15 Last Admin: 06/15/17 08:04 Dose: 20 gm Lidocaine (Lidoderm 5% Patch) 1 patch TD Q24HR@0900 CECILIA Stop: 08/13/17 08:59 Last Admin: 06/18/17 08:30 Dose: 1 patch Lorazepam (Ativan) 2 mg PO BID PRN; Protocol PRN Reason: Agitation Stop: 08/13/17 14:32 Last Admin: 06/18/17 09:50 Dose: 2 mg Magnesium Hydroxide (Milk Of Magnesia) 30 ml PO HS PRN PRN Reason: Constipation Midodrine (Proamatine) 10 mg PO TID CECILIA Stop: 08/12/17 20:59 Last Admin: 06/18/17 08:29 Dose: 10 mg Mineral Oil (Mineral Oil 30 Ml) 30 ml PO BID CECILIA Stop: 08/12/17 16:59 Last Admin: 06/18/17 08:32 Dose: 30 ml Miscellaneous (Probiotic Screen) 1 ea MC PRN PRN PRN Reason: PROTOCOL Stop: 08/13/17 14:03 Multivitamins/Vitamin C (Theragran) 1 tab PO DAILY CECILIA Stop: 08/13/17 08:59 Last Admin: 06/18/17 08:29 Dose: 1 tab Quetiapine Fumarate (Seroquel) 25 mg PO BID CECILIA PRN Reason: Protocol Stop: 08/14/17 08:59 Last Admin: 06/18/17 08:29 Dose: 25 mg Quetiapine Fumarate (Seroquel) 100 mg PO HS CECILIA PRN Reason: Protocol Stop: 08/14/17 20:59 Trimethoprim/Sulfamethoxazole (Bactrim Ds) 1 tab PO BID CECILIA Stop: 06/18/17 16:59 Last Admin: 06/18/17 08:29 Dose: 1 tab Zolpidem Tartrate (Ambien) 5 mg PO HS PRN PRN Reason: Insomnia Stop: 08/12/17 15:54 Last Admin: 06/14/17 21:22 Dose: 5 mg General: demented, obese, appears older HEENT: NC/AT, PERRLA, EOMI Neck: Supple, No JVD, No LAD Lungs: CTAB Cardiovascular: RRR, Normal S1, Normal S2, without murmur Abdomen: soft, non-tender, globular Extremities: excoriation, contracture Neurological: no change, disorganized, bedbound - Procedures Procedures: Procedures Procedure Code Date CONTINUOUS INVASIVE MECHANICAL VENTILATION =/>96 CONSEC HRS 96.72 01/08/15 EGD BIOPSY SINGLE/MULTIPLE 58424 07/27/15 EXCISION OF DUODENUM, ENDO, DIAGN [id number] 07/27/15 EXCISION OF STOMACH, PYLORUS, ENDO, DIAGN [id number] 07/27/15 GROUP PSYCHOTHERAPY 02456 08/02/15 GROUP PSYCHOTHERAPY [id number] 08/02/15 INSERT EMERGENCY AIRWAY 93234 01/08/15 INSERT ENDOTRACHEAL TUBE 96.04 01/08/15 INTRAOP COLON LAVAGE ADD-ON 91480 01/08/15 OPEN TOTAL INTRA-ABDOMINAL COLECTOMY 45.82 01/08/15 OTHER GROUP THERAPY 94.44 03/16/15 REMOVAL OF COLON 54925 01/08/15 TEMPORARY ILEOSTOMY 46.21 01/08/15 VENT MGMT INPAT INIT DAY 31606 01/08/15 VENT MGMT INPAT SUBQ DAY 70448 01/08/15 Internal Medicine Assmt/Plan - Assessment Assessment: abdominal pain intractable vomiting possible sbo acute renal failure hyponatremia morbid obesity schizoaffective s/p fall constipation - Plan Plan: prn laxatives fall precautions daily stool softner increase fluid intake continue current plan of care
--- NOTE | 2017-06-18 12:58 | Internal Medicine Prog Note ---
Internal Medicine Subjective - Subjective Service Date: 06/18/17 Patient is:: awake, verbal, interactive Per staff patient has:: no adverse event, poor appetite, agitated, noncompliant , tolerating meds Internal Medicine Objective - Physical Exam Vitals and I&O: Vital Signs Temp 97.8 F 06/18/17 05:47 Pulse 83 06/18/17 07:30 Resp 18 06/18/17 07:30 BP 111/57 06/18/17 05:47 Pulse Ox 95 06/18/17 07:30 Intake & Output 06/17/17 06/18/17 06/18/17 18:59 06:59 18:59 Intake Total 180 Balance 180 Intake: Oral 180 Other: # Voids 1 # Bowel Movements 1 Stool Characteristics Soft Soft Active Medications: Current Medications Acetaminophen (Tylenol) 650 mg PO Q6H PRN PRN Reason: Mild Pain / Temp above 100 Stop: 08/12/17 15:54 Acetaminophen/Hydrocodone Bitart ([place] 5mg/325mg) 1 tab PO Q6H PRN PRN Reason: Pain (Moderate) Stop: 08/12/17 16:15 Al Hydrox/Mg Hydrox/Simethicone (Maalox) 30 ml PO Q4HR PRN PRN Reason: GI DISTRESS Stop: 08/12/17 15:54 Albuterol Sulfate (Albuterol 2.5mg/3ml Neb Ud) 2.5 mg HHN Q2HRT PRN PRN Reason: Shortness of Breath or Wheeze Stop: 08/12/17 16:14 Dextromethorphan/Quinidine (Nuedexta 20mg-10mg) 1 cap PO Q12HR CECILIA Stop: 08/12/17 20:59 Last Admin: 06/18/17 08:30 Dose: 1 cap Diazepam (Valium) 2 mg PO BID CECILIA PRN Reason: Protocol Stop: 08/13/17 16:59 Last Admin: 06/18/17 08:29 Dose: 2 mg Diphenhydramine HCl (Benadryl) 50 mg PO BID PRN PRN Reason: Agitation Stop: 08/13/17 14:34 Last Admin: 06/18/17 09:50 Dose: 50 mg Docusate Sodium (Colace) 100 mg PO BID CECILIA Stop: 08/12/17 16:59 Last Admin: 06/18/17 08:29 Dose: 100 mg Haloperidol (Haldol) 5 mg PO BID PRN; Protocol PRN Reason: Agitation Stop: 08/13/17 16:59 Last Admin: 06/18/17 09:50 Dose: 5 mg Ipratropium [place] (Atrovent Neb 0.5mg/2.5ml) 0.5 mg HHN Q2HRT PRN PRN Reason: Shortness of Breath or Wheeze Stop: 08/12/17 16:15 Lactobacillus Rhamnosus (Culturelle) 1 each PO DAILY CECILIA Stop: 08/14/17 08:59 Last Admin: 06/18/17 08:29 Dose: 1 each Lactulose (Cephulac) 20 gm PO BID PRN PRN Reason: Constipation Stop: 08/12/17 16:15 Last Admin: 06/15/17 08:04 Dose: 20 gm Lidocaine (Lidoderm 5% Patch) 1 patch TD Q24HR@0900 CECILIA Stop: 08/13/17 08:59 Last Admin: 06/18/17 08:30 Dose: 1 patch Lorazepam (Ativan) 2 mg PO BID PRN; Protocol PRN Reason: Agitation Stop: 08/13/17 14:32 Last Admin: 06/18/17 09:50 Dose: 2 mg Magnesium Hydroxide (Milk Of Magnesia) 30 ml PO HS PRN PRN Reason: Constipation Midodrine (Proamatine) 10 mg PO TID CECILIA Stop: 08/12/17 20:59 Last Admin: 06/18/17 08:29 Dose: 10 mg Mineral Oil (Mineral Oil 30 Ml) 30 ml PO BID CECILIA Stop: 08/12/17 16:59 Last Admin: 06/18/17 08:32 Dose: 30 ml Miscellaneous (Probiotic Screen) 1 ea MC PRN PRN PRN Reason: PROTOCOL Stop: 08/13/17 14:03 Multivitamins/Vitamin C (Theragran) 1 tab PO DAILY CECILIA Stop: 08/13/17 08:59 Last Admin: 06/18/17 08:29 Dose: 1 tab Quetiapine Fumarate (Seroquel) 25 mg PO BID CECILIA PRN Reason: Protocol Stop: 08/14/17 08:59 Last Admin: 06/18/17 08:29 Dose: 25 mg Quetiapine Fumarate (Seroquel) 100 mg PO HS CECILIA PRN Reason: Protocol Stop: 08/14/17 20:59 Trimethoprim/Sulfamethoxazole (Bactrim Ds) 1 tab PO BID CECILIA Stop: 06/18/17 16:59 Last Admin: 06/18/17 08:29 Dose: 1 tab Zolpidem Tartrate (Ambien) 5 mg PO HS PRN PRN Reason: Insomnia Stop: 08/12/17 15:54 Last Admin: 06/14/17 21:22 Dose: 5 mg General: demented, obese, appears older HEENT: NC/AT, PERRLA, EOMI Neck: Supple, No JVD, No LAD Lungs: CTAB Cardiovascular: RRR, Normal S1, Normal S2, without murmur Abdomen: soft, non-tender, globular Extremities: excoriation, contracture Neurological: no change, disorganized, bedbound - Procedures Procedures: Procedures Procedure Code Date CONTINUOUS INVASIVE MECHANICAL VENTILATION =/>96 CONSEC HRS 96.72 01/08/15 EGD BIOPSY SINGLE/MULTIPLE 19882 07/27/15 EXCISION OF DUODENUM, ENDO, DIAGN [id number] 07/27/15 EXCISION OF STOMACH, PYLORUS, ENDO, DIAGN [id number] 07/27/15 GROUP PSYCHOTHERAPY 52096 08/02/15 GROUP PSYCHOTHERAPY [id number] 08/02/15 INSERT EMERGENCY AIRWAY 23763 01/08/15 INSERT ENDOTRACHEAL TUBE 96.04 01/08/15 INTRAOP COLON LAVAGE ADD-ON 13261 01/08/15 OPEN TOTAL INTRA-ABDOMINAL COLECTOMY 45.82 01/08/15 OTHER GROUP THERAPY 94.44 03/16/15 REMOVAL OF COLON 74270 01/08/15 TEMPORARY ILEOSTOMY 46.21 01/08/15 VENT MGMT INPAT INIT DAY 47973 01/08/15 VENT MGMT INPAT SUBQ DAY 15898 01/08/15 Internal Medicine Assmt/Plan - Assessment Assessment: abdominal pain intractable vomiting possible sbo acute renal failure hyponatremia morbid obesity schizoaffective s/p fall constipation - Plan Plan: prn laxatives fall precautions daily stool softner increase fluid intake continue current plan of care
--- NOTE | 2017-06-18 19:02 | Progress Notes ---
DATE: SUBJECTIVE: Chart reviewed and the patient interviewed. Also, discussed the patient's condition with the staff and reviewed records and labs. The patient is still confused and agitated. The patient also is still in angry and in irritable mood. She also is still feeling restless and she is still demanding. The patient also is still trying to grab anything she can get ahold of. Otherwise, the patient is compliant with taking her medications. ASSESSMENT: The patient is still psychotic and still can be dangerous to others. TREATMENT PLAN: We will continue to monitor her behavior and her condition closely. Also, continue to work on her poor impulse control and her agitation and adjusting psychotropic medications. JOB# [id number]
--- NOTE | 2017-06-19 03:42 | Progress Notes ---
DATE: SUBJECTIVE: Chart reviewed and the patient interviewed. Also discussed the patient's condition with the staff and reviewed records and labs. The patient continued to be confused and agitated. The patient also is still trying to pull her colostomy tube and she is still having mittens on her hands. She also is still having difficulty following any of the staff directions although seems to be slightly easier to redirect her. She also is still restless and she is still in angry mood and she needs close monitoring. On the other hand, the patient is compliant with taking her medications with no side effects of medications. ASSESSMENT: The patient is still agitated and psychotic and danger to self. TREATMENT PLAN: We will continue monitoring her behavior closely. Also we would increase Seroquel to 25 mg twice a day and 100 mg at bedtime. Also continue to monitor her irritability and her agitation closely. Also we will continue to consider decreasing the diazepam that she is taking. JOB# [id number]
[2017-06-19] MEDS: Multivitamin Tab PO SCH ×2 (10:42)
[2017-06-19] MEDS: Dextromethorphan/Quinidine 20mg/10mg Cap PO SCH ×6 (10:42→21:36)
[2017-06-19] MEDS: Lactobacillus Rhamnosus 10 Billion CFU Capsule PO SCH ×2 (10:42)
[2017-06-19] MEDS: Lidocaine 5% Patch TD SCH ×2 (11:10)
--- NOTE | 2017-06-19 12:15 | Internal Medicine Prog Note ---
Internal Medicine Subjective - Subjective Service Date: 06/19/17 Patient is:: awake, verbal, interactive Per staff patient has:: no adverse event, poor appetite, agitated, noncompliant , tolerating meds Internal Medicine Objective - Physical Exam Vitals and I&O: Vital Signs Temp 98.2 F 06/19/17 06:00 Pulse 81 06/19/17 07:10 Resp 18 06/19/17 07:10 BP 155/66 06/19/17 06:00 Pulse Ox 96 06/19/17 07:10 Intake & Output 06/18/17 06/19/17 06/19/17 18:59 06:59 18:59 Intake Total 800 Balance 800 Intake: Oral 800 Other: # Voids 3 # Bowel Movements 1 Stool Characteristics Soft Soft Liquid Liquid Active Medications: Current Medications Acetaminophen (Tylenol) 650 mg PO Q6H PRN PRN Reason: Mild Pain / Temp above 100 Stop: 08/12/17 15:54 Acetaminophen/Hydrocodone Bitart ([place] 5mg/325mg) 1 tab PO Q6H PRN PRN Reason: Pain (Moderate) Stop: 08/12/17 16:15 Al Hydrox/Mg Hydrox/Simethicone (Maalox) 30 ml PO Q4HR PRN PRN Reason: GI DISTRESS Stop: 08/12/17 15:54 Albuterol Sulfate (Albuterol 2.5mg/3ml Neb Ud) 2.5 mg HHN Q2HRT PRN PRN Reason: Shortness of Breath or Wheeze Stop: 08/12/17 16:14 Dextromethorphan/Quinidine (Nuedexta 20mg-10mg) 1 cap PO Q12HR CECILIA Stop: 08/12/17 20:59 Last Admin: 06/19/17 10:42 Dose: 1 cap Diazepam (Valium) 2 mg PO BID CECILIA PRN Reason: Protocol Stop: 08/13/17 16:59 Last Admin: 06/19/17 10:42 Dose: 2 mg Diphenhydramine HCl (Benadryl) 50 mg PO BID PRN PRN Reason: Agitation Stop: 08/13/17 14:34 Last Admin: 06/18/17 20:41 Dose: 50 mg Docusate Sodium (Colace) 100 mg PO BID CECILIA Stop: 08/12/17 16:59 Last Admin: 06/19/17 10:42 Dose: Not Given Haloperidol (Haldol) 5 mg PO BID PRN; Protocol PRN Reason: Agitation Stop: 08/13/17 16:59 Last Admin: 06/18/17 09:50 Dose: 5 mg Ipratropium [place] (Atrovent Neb 0.5mg/2.5ml) 0.5 mg HHN Q2HRT PRN PRN Reason: Shortness of Breath or Wheeze Stop: 08/12/17 16:15 Lactobacillus Rhamnosus (Culturelle) 1 each PO DAILY CECILIA Stop: 08/14/17 08:59 Last Admin: 06/19/17 10:42 Dose: 1 each Lactulose (Cephulac) 20 gm PO BID PRN PRN Reason: Constipation Stop: 08/12/17 16:15 Last Admin: 06/15/17 08:04 Dose: 20 gm Lidocaine (Lidoderm 5% Patch) 1 patch TD Q24HR@0900 CECILIA Stop: 08/13/17 08:59 Last Admin: 06/19/17 11:10 Dose: 1 patch Lorazepam (Ativan) 2 mg PO BID PRN; Protocol PRN Reason: Agitation Stop: 08/13/17 14:32 Last Admin: 06/18/17 20:41 Dose: 2 mg Magnesium Hydroxide (Milk Of Magnesia) 30 ml PO HS PRN PRN Reason: Constipation Midodrine (Proamatine) 10 mg PO TID CECILIA Stop: 08/12/17 20:59 Last Admin: 06/19/17 10:42 Dose: Not Given Mineral Oil (Mineral Oil 30 Ml) 30 ml PO BID CECILIA Stop: 08/12/17 16:59 Last Admin: 06/19/17 11:11 Dose: 30 ml Miscellaneous (Probiotic Screen) 1 ea MC PRN PRN PRN Reason: PROTOCOL Stop: 08/13/17 14:03 Multivitamins/Vitamin C (Theragran) 1 tab PO DAILY CECILIA Stop: 08/13/17 08:59 Last Admin: 06/19/17 10:42 Dose: 1 tab Quetiapine Fumarate (Seroquel) 25 mg PO BID CECILIA PRN Reason: Protocol Stop: 08/14/17 08:59 Last Admin: 06/19/17 10:41 Dose: 25 mg Quetiapine Fumarate (Seroquel) 100 mg PO HS CECILIA PRN Reason: Protocol Stop: 08/14/17 20:59 Last Admin: 06/18/17 20:41 Dose: 100 mg Zolpidem Tartrate (Ambien) 5 mg PO HS PRN PRN Reason: Insomnia Stop: 08/12/17 15:54 Last Admin: 06/14/17 21:22 Dose: 5 mg General: demented, obese, appears older HEENT: NC/AT, PERRLA, EOMI Neck: Supple, No JVD, No LAD Lungs: CTAB Cardiovascular: RRR, Normal S1, Normal S2, without murmur Abdomen: soft, non-tender, globular Extremities: excoriation, contracture Neurological: no change, disorganized, bedbound - Procedures Procedures: Procedures Procedure Code Date CONTINUOUS INVASIVE MECHANICAL VENTILATION =/>96 CONSEC HRS 96.72 01/08/15 EGD BIOPSY SINGLE/MULTIPLE 01435 07/27/15 EXCISION OF DUODENUM, ENDO, DIAGN [id number] 07/27/15 EXCISION OF STOMACH, PYLORUS, ENDO, DIAGN [id number] 07/27/15 GROUP PSYCHOTHERAPY 99172 08/02/15 GROUP PSYCHOTHERAPY [id number] 08/02/15 INSERT EMERGENCY AIRWAY 50447 01/08/15 INSERT ENDOTRACHEAL TUBE 96.04 01/08/15 INTRAOP COLON LAVAGE ADD-ON 35917 01/08/15 OPEN TOTAL INTRA-ABDOMINAL COLECTOMY 45.82 01/08/15 OTHER GROUP THERAPY 94.44 03/16/15 REMOVAL OF COLON 20207 01/08/15 TEMPORARY ILEOSTOMY 46.21 01/08/15 VENT MGMT INPAT INIT DAY 21267 01/08/15 VENT MGMT INPAT SUBQ DAY 73718 01/08/15 Internal Medicine Assmt/Plan - Assessment Assessment: abdominal pain-resolved intractable vomiting-resolved possible sbo- on prn laxatives acute renal failure hyponatremia morbid obesity schizoaffective s/p fall constipation-improved - Plan Plan: prn laxatives fall precautions daily stool softner increase fluid intake continue current plan of care Nutritional Asmnt/Malnutr-PDOC - Dietary Evaluation Malnutrition Findings (Please click <Entered> for more info): Nutritional Asmnt/Malnutrition Start: 06/18/17 14: 08 Text: Status: Complete Freq: Document 06/18/17 14:08 [email or web address] (Rec: 06/18/17 14:12 [email or web address]) Nutritional Asmnt/Malnutrition Patient General Information Nutritional Screening Moderate Risk Screening Diagnosis psychosis Pertinent Medical Hx/Surgical Hx HLD, dementia Subjective Information Pt is A&O x 1. Per nursing has poor PO intake, but has been eating 75-100% of meals. Reports of constipation but pt has 2 BMs yesterday, 06/17, has bowel regimen ordered. Current Diet Order/ Nutrition Support fat controlled (50 gm) Patient / S.O Not Indicated Pertinent Medications colace, lactulose, culturelle, MOM, mineral oil, MVI Pertinent Labs no labs this admit. Labs from 06/13 WNL Nutritional Hx/Data Height 5 ft 4 in Height (Calculated Centimeters) 162.6 Current Weight (lbs) 221 lb Weight (Calculated Kilograms) 100.2 Weight (Calculated Grams) 123059.9 [place] Body Weight 140 lbs % [place] Body Weight 158 Weight Status Obese GI Symptoms GI Symptoms Constipation Food Allergies No Usual diet at home unable to obtain Skin Integrity/Comment: intact, caitlin: 16, no edema Current %PO Good (75-100%) Estimated Nutritional Goals BEE in Kcals: Adj wt of IBW Calories/Kcals/Kg 25-30 Kcals Calculated 0595-3223 kcals (maintenace) Protein: Adj wt of IBW Protein g/k Protein Calculated 73 g Fluid: ml 1131-7201 mL (1 mL/kcal) Nutritional Problem No current Nutrition Prob Problem n/a Etiology n/a Signs/Symptoms: n/a Malnutrition Alert Protein-Calorie Malnutrition N/A Is there a minimum of two criteria No selected? Query Text:Check all the applicable criteria. A minimum of two criteria are recommended for diagnosis of either severe or non-severe malnutrition. Malnutrition Related to Morbid Obesity Malnutrition related to morbid obesity No Intervention/Recommendation Comments 1. Change diet to regular as low fat diet not therapeutically beneficial for patient. Expected Outcomes/Goals Expected Outcomes/Goals goals: PO intake>75%, wt maintenance, labs: WNL, skin to remain intact, pt to have BM every 1-2 days
--- NOTE | 2017-06-19 12:15 | Internal Medicine Prog Note ---
Internal Medicine Subjective - Subjective Service Date: 06/19/17 Patient is:: awake, verbal, interactive Per staff patient has:: no adverse event, poor appetite, agitated, noncompliant , tolerating meds Internal Medicine Objective - Physical Exam Vitals and I&O: Vital Signs Temp 98.2 F 06/19/17 06:00 Pulse 81 06/19/17 07:10 Resp 18 06/19/17 07:10 BP 155/66 06/19/17 06:00 Pulse Ox 96 06/19/17 07:10 Intake & Output 06/18/17 06/19/17 06/19/17 18:59 06:59 18:59 Intake Total 800 Balance 800 Intake: Oral 800 Other: # Voids 3 # Bowel Movements 1 Stool Characteristics Soft Soft Liquid Liquid Active Medications: Current Medications Acetaminophen (Tylenol) 650 mg PO Q6H PRN PRN Reason: Mild Pain / Temp above 100 Stop: 08/12/17 15:54 Acetaminophen/Hydrocodone Bitart ([place] 5mg/325mg) 1 tab PO Q6H PRN PRN Reason: Pain (Moderate) Stop: 08/12/17 16:15 Al Hydrox/Mg Hydrox/Simethicone (Maalox) 30 ml PO Q4HR PRN PRN Reason: GI DISTRESS Stop: 08/12/17 15:54 Albuterol Sulfate (Albuterol 2.5mg/3ml Neb Ud) 2.5 mg HHN Q2HRT PRN PRN Reason: Shortness of Breath or Wheeze Stop: 08/12/17 16:14 Dextromethorphan/Quinidine (Nuedexta 20mg-10mg) 1 cap PO Q12HR CECILIA Stop: 08/12/17 20:59 Last Admin: 06/19/17 10:42 Dose: 1 cap Diazepam (Valium) 2 mg PO BID CECILIA PRN Reason: Protocol Stop: 08/13/17 16:59 Last Admin: 06/19/17 10:42 Dose: 2 mg Diphenhydramine HCl (Benadryl) 50 mg PO BID PRN PRN Reason: Agitation Stop: 08/13/17 14:34 Last Admin: 06/18/17 20:41 Dose: 50 mg Docusate Sodium (Colace) 100 mg PO BID CECILIA Stop: 08/12/17 16:59 Last Admin: 06/19/17 10:42 Dose: Not Given Haloperidol (Haldol) 5 mg PO BID PRN; Protocol PRN Reason: Agitation Stop: 08/13/17 16:59 Last Admin: 06/18/17 09:50 Dose: 5 mg Ipratropium [place] (Atrovent Neb 0.5mg/2.5ml) 0.5 mg HHN Q2HRT PRN PRN Reason: Shortness of Breath or Wheeze Stop: 08/12/17 16:15 Lactobacillus Rhamnosus (Culturelle) 1 each PO DAILY CECILIA Stop: 08/14/17 08:59 Last Admin: 06/19/17 10:42 Dose: 1 each Lactulose (Cephulac) 20 gm PO BID PRN PRN Reason: Constipation Stop: 08/12/17 16:15 Last Admin: 06/15/17 08:04 Dose: 20 gm Lidocaine (Lidoderm 5% Patch) 1 patch TD Q24HR@0900 CECILIA Stop: 08/13/17 08:59 Last Admin: 06/19/17 11:10 Dose: 1 patch Lorazepam (Ativan) 2 mg PO BID PRN; Protocol PRN Reason: Agitation Stop: 08/13/17 14:32 Last Admin: 06/18/17 20:41 Dose: 2 mg Magnesium Hydroxide (Milk Of Magnesia) 30 ml PO HS PRN PRN Reason: Constipation Midodrine (Proamatine) 10 mg PO TID CECILIA Stop: 08/12/17 20:59 Last Admin: 06/19/17 10:42 Dose: Not Given Mineral Oil (Mineral Oil 30 Ml) 30 ml PO BID CECILIA Stop: 08/12/17 16:59 Last Admin: 06/19/17 11:11 Dose: 30 ml Miscellaneous (Probiotic Screen) 1 ea MC PRN PRN PRN Reason: PROTOCOL Stop: 08/13/17 14:03 Multivitamins/Vitamin C (Theragran) 1 tab PO DAILY CECILIA Stop: 08/13/17 08:59 Last Admin: 06/19/17 10:42 Dose: 1 tab Quetiapine Fumarate (Seroquel) 25 mg PO BID CECILIA PRN Reason: Protocol Stop: 08/14/17 08:59 Last Admin: 06/19/17 10:41 Dose: 25 mg Quetiapine Fumarate (Seroquel) 100 mg PO HS CECILIA PRN Reason: Protocol Stop: 08/14/17 20:59 Last Admin: 06/18/17 20:41 Dose: 100 mg Zolpidem Tartrate (Ambien) 5 mg PO HS PRN PRN Reason: Insomnia Stop: 08/12/17 15:54 Last Admin: 06/14/17 21:22 Dose: 5 mg General: demented, obese, appears older HEENT: NC/AT, PERRLA, EOMI Neck: Supple, No JVD, No LAD Lungs: CTAB Cardiovascular: RRR, Normal S1, Normal S2, without murmur Abdomen: soft, non-tender, globular Extremities: excoriation, contracture Neurological: no change, disorganized, bedbound - Procedures Procedures: Procedures Procedure Code Date CONTINUOUS INVASIVE MECHANICAL VENTILATION =/>96 CONSEC HRS 96.72 01/08/15 EGD BIOPSY SINGLE/MULTIPLE 79562 07/27/15 EXCISION OF DUODENUM, ENDO, DIAGN [id number] 07/27/15 EXCISION OF STOMACH, PYLORUS, ENDO, DIAGN [id number] 07/27/15 GROUP PSYCHOTHERAPY 58263 08/02/15 GROUP PSYCHOTHERAPY [id number] 08/02/15 INSERT EMERGENCY AIRWAY 10341 01/08/15 INSERT ENDOTRACHEAL TUBE 96.04 01/08/15 INTRAOP COLON LAVAGE ADD-ON 53311 01/08/15 OPEN TOTAL INTRA-ABDOMINAL COLECTOMY 45.82 01/08/15 OTHER GROUP THERAPY 94.44 03/16/15 REMOVAL OF COLON 42646 01/08/15 TEMPORARY ILEOSTOMY 46.21 01/08/15 VENT MGMT INPAT INIT DAY 66529 01/08/15 VENT MGMT INPAT SUBQ DAY 31373 01/08/15 Internal Medicine Assmt/Plan - Assessment Assessment: abdominal pain-resolved intractable vomiting-resolved possible sbo- on prn laxatives acute renal failure hyponatremia morbid obesity schizoaffective s/p fall constipation-improved - Plan Plan: prn laxatives fall precautions daily stool softner increase fluid intake continue current plan of care Nutritional Asmnt/Malnutr-PDOC - Dietary Evaluation Malnutrition Findings (Please click <Entered> for more info): Nutritional Asmnt/Malnutrition Start: 06/18/17 14: 08 Text: Status: Complete Freq: Document 06/18/17 14:08 [email or web address] (Rec: 06/18/17 14:12 [email or web address]) Nutritional Asmnt/Malnutrition Patient General Information Nutritional Screening Moderate Risk Screening Diagnosis psychosis Pertinent Medical Hx/Surgical Hx HLD, dementia Subjective Information Pt is A&O x 1. Per nursing has poor PO intake, but has been eating 75-100% of meals. Reports of constipation but pt has 2 BMs yesterday, 06/17, has bowel regimen ordered. Current Diet Order/ Nutrition Support fat controlled (50 gm) Patient / S.O Not Indicated Pertinent Medications colace, lactulose, culturelle, MOM, mineral oil, MVI Pertinent Labs no labs this admit. Labs from 06/13 WNL Nutritional Hx/Data Height 5 ft 4 in Height (Calculated Centimeters) 162.6 Current Weight (lbs) 221 lb Weight (Calculated Kilograms) 100.2 Weight (Calculated Grams) 352238.9 [place] Body Weight 140 lbs % [place] Body Weight 158 Weight Status Obese GI Symptoms GI Symptoms Constipation Food Allergies No Usual diet at home unable to obtain Skin Integrity/Comment: intact, caitlin: 16, no edema Current %PO Good (75-100%) Estimated Nutritional Goals BEE in Kcals: Adj wt of IBW Calories/Kcals/Kg 25-30 Kcals Calculated 8257-8569 kcals (maintenace) Protein: Adj wt of IBW Protein g/k Protein Calculated 73 g Fluid: ml 5555-4757 mL (1 mL/kcal) Nutritional Problem No current Nutrition Prob Problem n/a Etiology n/a Signs/Symptoms: n/a Malnutrition Alert Protein-Calorie Malnutrition N/A Is there a minimum of two criteria No selected? Query Text:Check all the applicable criteria. A minimum of two criteria are recommended for diagnosis of either severe or non-severe malnutrition. Malnutrition Related to Morbid Obesity Malnutrition related to morbid obesity No Intervention/Recommendation Comments 1. Change diet to regular as low fat diet not therapeutically beneficial for patient. Expected Outcomes/Goals Expected Outcomes/Goals goals: PO intake>75%, wt maintenance, labs: WNL, skin to remain intact, pt to have BM every 1-2 days
--- NOTE | 2017-06-19 12:15 | Internal Medicine Prog Note ---
Internal Medicine Subjective - Subjective Service Date: 06/19/17 Patient is:: awake, verbal, interactive Per staff patient has:: no adverse event, poor appetite, agitated, noncompliant , tolerating meds Internal Medicine Objective - Physical Exam Vitals and I&O: Vital Signs Temp 98.2 F 06/19/17 06:00 Pulse 81 06/19/17 07:10 Resp 18 06/19/17 07:10 BP 155/66 06/19/17 06:00 Pulse Ox 96 06/19/17 07:10 Intake & Output 06/18/17 06/19/17 06/19/17 18:59 06:59 18:59 Intake Total 800 Balance 800 Intake: Oral 800 Other: # Voids 3 # Bowel Movements 1 Stool Characteristics Soft Soft Liquid Liquid Active Medications: Current Medications Acetaminophen (Tylenol) 650 mg PO Q6H PRN PRN Reason: Mild Pain / Temp above 100 Stop: 08/12/17 15:54 Acetaminophen/Hydrocodone Bitart ([place] 5mg/325mg) 1 tab PO Q6H PRN PRN Reason: Pain (Moderate) Stop: 08/12/17 16:15 Al Hydrox/Mg Hydrox/Simethicone (Maalox) 30 ml PO Q4HR PRN PRN Reason: GI DISTRESS Stop: 08/12/17 15:54 Albuterol Sulfate (Albuterol 2.5mg/3ml Neb Ud) 2.5 mg HHN Q2HRT PRN PRN Reason: Shortness of Breath or Wheeze Stop: 08/12/17 16:14 Dextromethorphan/Quinidine (Nuedexta 20mg-10mg) 1 cap PO Q12HR CECILIA Stop: 08/12/17 20:59 Last Admin: 06/19/17 10:42 Dose: 1 cap Diazepam (Valium) 2 mg PO BID CECILIA PRN Reason: Protocol Stop: 08/13/17 16:59 Last Admin: 06/19/17 10:42 Dose: 2 mg Diphenhydramine HCl (Benadryl) 50 mg PO BID PRN PRN Reason: Agitation Stop: 08/13/17 14:34 Last Admin: 06/18/17 20:41 Dose: 50 mg Docusate Sodium (Colace) 100 mg PO BID CECILIA Stop: 08/12/17 16:59 Last Admin: 06/19/17 10:42 Dose: Not Given Haloperidol (Haldol) 5 mg PO BID PRN; Protocol PRN Reason: Agitation Stop: 08/13/17 16:59 Last Admin: 06/18/17 09:50 Dose: 5 mg Ipratropium [place] (Atrovent Neb 0.5mg/2.5ml) 0.5 mg HHN Q2HRT PRN PRN Reason: Shortness of Breath or Wheeze Stop: 08/12/17 16:15 Lactobacillus Rhamnosus (Culturelle) 1 each PO DAILY CECILIA Stop: 08/14/17 08:59 Last Admin: 06/19/17 10:42 Dose: 1 each Lactulose (Cephulac) 20 gm PO BID PRN PRN Reason: Constipation Stop: 08/12/17 16:15 Last Admin: 06/15/17 08:04 Dose: 20 gm Lidocaine (Lidoderm 5% Patch) 1 patch TD Q24HR@0900 CECILIA Stop: 08/13/17 08:59 Last Admin: 06/19/17 11:10 Dose: 1 patch Lorazepam (Ativan) 2 mg PO BID PRN; Protocol PRN Reason: Agitation Stop: 08/13/17 14:32 Last Admin: 06/18/17 20:41 Dose: 2 mg Magnesium Hydroxide (Milk Of Magnesia) 30 ml PO HS PRN PRN Reason: Constipation Midodrine (Proamatine) 10 mg PO TID CECILIA Stop: 08/12/17 20:59 Last Admin: 06/19/17 10:42 Dose: Not Given Mineral Oil (Mineral Oil 30 Ml) 30 ml PO BID CECILIA Stop: 08/12/17 16:59 Last Admin: 06/19/17 11:11 Dose: 30 ml Miscellaneous (Probiotic Screen) 1 ea MC PRN PRN PRN Reason: PROTOCOL Stop: 08/13/17 14:03 Multivitamins/Vitamin C (Theragran) 1 tab PO DAILY CECILIA Stop: 08/13/17 08:59 Last Admin: 06/19/17 10:42 Dose: 1 tab Quetiapine Fumarate (Seroquel) 25 mg PO BID CECILIA PRN Reason: Protocol Stop: 08/14/17 08:59 Last Admin: 06/19/17 10:41 Dose: 25 mg Quetiapine Fumarate (Seroquel) 100 mg PO HS CECILIA PRN Reason: Protocol Stop: 08/14/17 20:59 Last Admin: 06/18/17 20:41 Dose: 100 mg Zolpidem Tartrate (Ambien) 5 mg PO HS PRN PRN Reason: Insomnia Stop: 08/12/17 15:54 Last Admin: 06/14/17 21:22 Dose: 5 mg General: demented, obese, appears older HEENT: NC/AT, PERRLA, EOMI Neck: Supple, No JVD, No LAD Lungs: CTAB Cardiovascular: RRR, Normal S1, Normal S2, without murmur Abdomen: soft, non-tender, globular Extremities: excoriation, contracture Neurological: no change, disorganized, bedbound - Procedures Procedures: Procedures Procedure Code Date CONTINUOUS INVASIVE MECHANICAL VENTILATION =/>96 CONSEC HRS 96.72 01/08/15 EGD BIOPSY SINGLE/MULTIPLE 11992 07/27/15 EXCISION OF DUODENUM, ENDO, DIAGN [id number] 07/27/15 EXCISION OF STOMACH, PYLORUS, ENDO, DIAGN [id number] 07/27/15 GROUP PSYCHOTHERAPY 78670 08/02/15 GROUP PSYCHOTHERAPY [id number] 08/02/15 INSERT EMERGENCY AIRWAY 09581 01/08/15 INSERT ENDOTRACHEAL TUBE 96.04 01/08/15 INTRAOP COLON LAVAGE ADD-ON 86160 01/08/15 OPEN TOTAL INTRA-ABDOMINAL COLECTOMY 45.82 01/08/15 OTHER GROUP THERAPY 94.44 03/16/15 REMOVAL OF COLON 27924 01/08/15 TEMPORARY ILEOSTOMY 46.21 01/08/15 VENT MGMT INPAT INIT DAY 29266 01/08/15 VENT MGMT INPAT SUBQ DAY 76911 01/08/15 Internal Medicine Assmt/Plan - Assessment Assessment: abdominal pain-resolved intractable vomiting-resolved possible sbo- on prn laxatives acute renal failure hyponatremia morbid obesity schizoaffective s/p fall constipation-improved - Plan Plan: prn laxatives fall precautions daily stool softner increase fluid intake continue current plan of care Nutritional Asmnt/Malnutr-PDOC - Dietary Evaluation Malnutrition Findings (Please click <Entered> for more info): Nutritional Asmnt/Malnutrition Start: 06/18/17 14: 08 Text: Status: Complete Freq: Document 06/18/17 14:08 [email or web address] (Rec: 06/18/17 14:12 [email or web address]) Nutritional Asmnt/Malnutrition Patient General Information Nutritional Screening Moderate Risk Screening Diagnosis psychosis Pertinent Medical Hx/Surgical Hx HLD, dementia Subjective Information Pt is A&O x 1. Per nursing has poor PO intake, but has been eating 75-100% of meals. Reports of constipation but pt has 2 BMs yesterday, 06/17, has bowel regimen ordered. Current Diet Order/ Nutrition Support fat controlled (50 gm) Patient / S.O Not Indicated Pertinent Medications colace, lactulose, culturelle, MOM, mineral oil, MVI Pertinent Labs no labs this admit. Labs from 06/13 WNL Nutritional Hx/Data Height 5 ft 4 in Height (Calculated Centimeters) 162.6 Current Weight (lbs) 221 lb Weight (Calculated Kilograms) 100.2 Weight (Calculated Grams) 356344.9 [place] Body Weight 140 lbs % [place] Body Weight 158 Weight Status Obese GI Symptoms GI Symptoms Constipation Food Allergies No Usual diet at home unable to obtain Skin Integrity/Comment: intact, caitlin: 16, no edema Current %PO Good (75-100%) Estimated Nutritional Goals BEE in Kcals: Adj wt of IBW Calories/Kcals/Kg 25-30 Kcals Calculated 4413-6951 kcals (maintenace) Protein: Adj wt of IBW Protein g/k Protein Calculated 73 g Fluid: ml 9691-7142 mL (1 mL/kcal) Nutritional Problem No current Nutrition Prob Problem n/a Etiology n/a Signs/Symptoms: n/a Malnutrition Alert Protein-Calorie Malnutrition N/A Is there a minimum of two criteria No selected? Query Text:Check all the applicable criteria. A minimum of two criteria are recommended for diagnosis of either severe or non-severe malnutrition. Malnutrition Related to Morbid Obesity Malnutrition related to morbid obesity No Intervention/Recommendation Comments 1. Change diet to regular as low fat diet not therapeutically beneficial for patient. Expected Outcomes/Goals Expected Outcomes/Goals goals: PO intake>75%, wt maintenance, labs: WNL, skin to remain intact, pt to have BM every 1-2 days
--- NOTE | 2017-06-20 06:10 | Progress Notes ---
DATE: 06/19/2017 SUBJECTIVE: Chart reviewed and the patient interviewed. Also discussed the patient's condition with the staff and reviewed records and labs. The patient is still easily agitated and she still needs monitored but closely. The patient also needs lots of redirection. The patient also still needs to be monitored closely, especially that she is still resisting taking medications, but she does take her medications. The patient also seems to be calmer than before. Otherwise, no side effects of medications. ASSESSMENT: The patient is still psychotic and confused. TREATMENT PLAN: We will continue monitoring her behavior and her condition closely. Also, continue Seroquel in a dose of 25 mg twice a day and 100 mg at bedtime and we will continue to follow up closely. [facility]# [id number]
[2017-06-20] MEDS: Lidocaine 5% Patch TD SCH ×2 (08:08)
[2017-06-20] MEDS: Multivitamin Tab PO SCH ×2 (08:09)
[2017-06-20] MEDS: Lactobacillus Rhamnosus 10 Billion CFU Capsule PO SCH ×2 (08:10)
[2017-06-20] MEDS: Dextromethorphan/Quinidine 20mg/10mg Cap PO SCH ×4 (08:10→20:28)
--- NOTE | 2017-06-20 11:18 | Internal Medicine Prog Note ---
Internal Medicine Subjective - Subjective Service Date: 06/20/17 Patient is:: awake, verbal, interactive Per staff patient has:: no adverse event, poor appetite, agitated, noncompliant , tolerating meds Internal Medicine Objective - Physical Exam Vitals and I&O: Vital Signs Temp 97.6 F 06/20/17 06:27 Pulse 69 06/20/17 06:27 Resp 18 06/20/17 06:27 BP 108/67 06/20/17 06:27 Pulse Ox 97 06/20/17 06:27 Intake & Output 06/19/17 06/20/17 06/20/17 18:59 06:59 18:59 Intake Total 1200 120 Balance 1200 120 Intake: Oral 1200 120 Other: # Voids 3 # Bowel Movements 1 Stool Characteristics Soft Soft Soft Liquid Liquid Liquid Active Medications: Current Medications Acetaminophen (Tylenol) 650 mg PO Q6H PRN PRN Reason: Mild Pain / Temp above 100 Stop: 08/12/17 15:54 Acetaminophen/Hydrocodone Bitart ([place] 5mg/325mg) 1 tab PO Q6H PRN PRN Reason: Pain (Moderate) Stop: 08/12/17 16:15 Al Hydrox/Mg Hydrox/Simethicone (Maalox) 30 ml PO Q4HR PRN PRN Reason: GI DISTRESS Stop: 08/12/17 15:54 Albuterol Sulfate (Albuterol 2.5mg/3ml Neb Ud) 2.5 mg HHN Q2HRT PRN PRN Reason: Shortness of Breath or Wheeze Stop: 08/12/17 16:14 Dextromethorphan/Quinidine (Nuedexta 20mg-10mg) 1 cap PO Q12HR CECILIA Stop: 08/12/17 20:59 Last Admin: 06/20/17 08:10 Dose: 1 cap Diazepam (Valium) 2 mg PO BID CECILIA PRN Reason: Protocol Stop: 08/13/17 16:59 Last Admin: 06/20/17 08:10 Dose: 2 mg Diphenhydramine HCl (Benadryl) 50 mg PO BID PRN PRN Reason: Agitation Stop: 08/13/17 14:34 Last Admin: 06/20/17 08:10 Dose: 50 mg Docusate Sodium (Colace) 100 mg PO BID CECILIA Stop: 08/12/17 16:59 Last Admin: 06/20/17 08:10 Dose: 100 mg Haloperidol (Haldol) 5 mg PO BID PRN; Protocol PRN Reason: Agitation Stop: 08/13/17 16:59 Last Admin: 06/20/17 08:09 Dose: 5 mg Ipratropium [place] (Atrovent Neb 0.5mg/2.5ml) 0.5 mg HHN Q2HRT PRN PRN Reason: Shortness of Breath or Wheeze Stop: 08/12/17 16:15 Lactobacillus Rhamnosus (Culturelle) 1 each PO DAILY CECILIA Stop: 08/14/17 08:59 Last Admin: 06/20/17 08:10 Dose: 1 each Lactulose (Cephulac) 20 gm PO BID PRN PRN Reason: Constipation Stop: 08/12/17 16:15 Last Admin: 06/15/17 08:04 Dose: 20 gm Lidocaine (Lidoderm 5% Patch) 1 patch TD Q24HR@0900 CECILIA Stop: 08/13/17 08:59 Last Admin: 06/20/17 08:08 Dose: 1 patch Lorazepam (Ativan) 2 mg PO BID PRN; Protocol PRN Reason: Agitation Stop: 08/13/17 14:32 Last Admin: 06/20/17 08:09 Dose: 2 mg Magnesium Hydroxide (Milk Of Magnesia) 30 ml PO HS PRN PRN Reason: Constipation Midodrine (Proamatine) 10 mg PO TID CECILIA Stop: 08/12/17 20:59 Last Admin: 06/20/17 08:09 Dose: 10 mg Mineral Oil (Mineral Oil 30 Ml) 30 ml PO BID CECILIA Stop: 08/12/17 16:59 Last Admin: 06/20/17 08:08 Dose: 30 ml Miscellaneous (Probiotic Screen) 1 ea MC PRN PRN PRN Reason: PROTOCOL Stop: 08/13/17 14:03 Multivitamins/Vitamin C (Theragran) 1 tab PO DAILY CECILIA Stop: 08/13/17 08:59 Last Admin: 06/20/17 08:09 Dose: 1 tab Quetiapine Fumarate (Seroquel) 25 mg PO BID CECILIA PRN Reason: Protocol Stop: 08/14/17 08:59 Last Admin: 06/20/17 08:09 Dose: 25 mg Quetiapine Fumarate (Seroquel) 100 mg PO HS CECILAI PRN Reason: Protocol Stop: 08/14/17 20:59 Last Admin: 06/19/17 21:44 Dose: Not Given Zolpidem Tartrate (Ambien) 5 mg PO HS PRN PRN Reason: Insomnia Stop: 08/12/17 15:54 Last Admin: 06/14/17 21:22 Dose: 5 mg General: demented, obese, appears older HEENT: NC/AT, PERRLA, EOMI Neck: Supple, No JVD, No LAD Lungs: CTAB Cardiovascular: RRR, Normal S1, Normal S2, without murmur Abdomen: soft, non-tender, globular Extremities: excoriation, contracture Neurological: no change, disorganized, bedbound - Procedures Procedures: Procedures Procedure Code Date CONTINUOUS INVASIVE MECHANICAL VENTILATION =/>96 CONSEC HRS 96.72 01/08/15 EGD BIOPSY SINGLE/MULTIPLE 71836 07/27/15 EXCISION OF DUODENUM, ENDO, DIAGN [id number] 07/27/15 EXCISION OF STOMACH, PYLORUS, ENDO, DIAGN [id number] 07/27/15 GROUP PSYCHOTHERAPY 84045 08/02/15 GROUP PSYCHOTHERAPY [id number] 08/02/15 INSERT EMERGENCY AIRWAY 14409 01/08/15 INSERT ENDOTRACHEAL TUBE 96.04 01/08/15 INTRAOP COLON LAVAGE ADD-ON 27019 01/08/15 OPEN TOTAL INTRA-ABDOMINAL COLECTOMY 45.82 01/08/15 OTHER GROUP THERAPY 94.44 03/16/15 REMOVAL OF COLON 42937 01/08/15 TEMPORARY ILEOSTOMY 46.21 01/08/15 VENT MGMT INPAT INIT DAY 20369 01/08/15 VENT MGMT INPAT SUBQ DAY 12461 01/08/15 Internal Medicine Assmt/Plan - Assessment Assessment: abdominal pain-resolved intractable vomiting-resolved possible sbo- on prn laxatives acute renal failure hyponatremia morbid obesity schizoaffective s/p fall constipation-improved - Plan Plan: prn laxatives fall precautions daily stool softner increase fluid intake continue current plan of care Nutritional Asmnt/Malnutr-PDOC - Dietary Evaluation Malnutrition Findings (Please click <Entered> for more info): Nutritional Asmnt/Malnutrition Start: 06/18/17 14: 08 Text: Status: Complete Freq: Document 06/18/17 14:08 [email or web address] (Rec: 06/18/17 14:12 [email or web address]) Nutritional Asmnt/Malnutrition Patient General Information Nutritional Screening Moderate Risk Screening Diagnosis psychosis Pertinent Medical Hx/Surgical Hx HLD, dementia Subjective Information Pt is A&O x 1. Per nursing has poor PO intake, but has been eating 75-100% of meals. Reports of constipation but pt has 2 BMs yesterday, 06/17, has bowel regimen ordered. Current Diet Order/ Nutrition Support fat controlled (50 gm) Patient / S.O Not Indicated Pertinent Medications colace, lactulose, culturelle, MOM, mineral oil, MVI Pertinent Labs no labs this admit. Labs from 06/13 WNL Nutritional Hx/Data Height 5 ft 4 in Height (Calculated Centimeters) 162.6 Current Weight (lbs) 221 lb Weight (Calculated Kilograms) 100.2 Weight (Calculated Grams) 864950.9 [place] Body Weight 140 lbs % [place] Body Weight 158 Weight Status Obese GI Symptoms GI Symptoms Constipation Food Allergies No Usual diet at home unable to obtain Skin Integrity/Comment: intact, caitlin: 16, no edema Current %PO Good (75-100%) Estimated Nutritional Goals BEE in Kcals: Adj wt of IBW Calories/Kcals/Kg 25-30 Kcals Calculated 1974-0796 kcals (maintenace) Protein: Adj wt of IBW Protein g/k Protein Calculated 73 g Fluid: ml 6484-8881 mL (1 mL/kcal) Nutritional Problem No current Nutrition Prob Problem n/a Etiology n/a Signs/Symptoms: n/a Malnutrition Alert Protein-Calorie Malnutrition N/A Is there a minimum of two criteria No selected? Query Text:Check all the applicable criteria. A minimum of two criteria are recommended for diagnosis of either severe or non-severe malnutrition. Malnutrition Related to Morbid Obesity Malnutrition related to morbid obesity No Intervention/Recommendation Comments 1. Change diet to regular as low fat diet not therapeutically beneficial for patient. Expected Outcomes/Goals Expected Outcomes/Goals goals: PO intake>75%, wt maintenance, labs: WNL, skin to remain intact, pt to have BM every 1-2 days
--- NOTE | 2017-06-20 11:18 | Internal Medicine Prog Note ---
Internal Medicine Subjective - Subjective Service Date: 06/20/17 Patient is:: awake, verbal, interactive Per staff patient has:: no adverse event, poor appetite, agitated, noncompliant , tolerating meds Internal Medicine Objective - Physical Exam Vitals and I&O: Vital Signs Temp 97.6 F 06/20/17 06:27 Pulse 69 06/20/17 06:27 Resp 18 06/20/17 06:27 BP 108/67 06/20/17 06:27 Pulse Ox 97 06/20/17 06:27 Intake & Output 06/19/17 06/20/17 06/20/17 18:59 06:59 18:59 Intake Total 1200 120 Balance 1200 120 Intake: Oral 1200 120 Other: # Voids 3 # Bowel Movements 1 Stool Characteristics Soft Soft Soft Liquid Liquid Liquid Active Medications: Current Medications Acetaminophen (Tylenol) 650 mg PO Q6H PRN PRN Reason: Mild Pain / Temp above 100 Stop: 08/12/17 15:54 Acetaminophen/Hydrocodone Bitart ([place] 5mg/325mg) 1 tab PO Q6H PRN PRN Reason: Pain (Moderate) Stop: 08/12/17 16:15 Al Hydrox/Mg Hydrox/Simethicone (Maalox) 30 ml PO Q4HR PRN PRN Reason: GI DISTRESS Stop: 08/12/17 15:54 Albuterol Sulfate (Albuterol 2.5mg/3ml Neb Ud) 2.5 mg HHN Q2HRT PRN PRN Reason: Shortness of Breath or Wheeze Stop: 08/12/17 16:14 Dextromethorphan/Quinidine (Nuedexta 20mg-10mg) 1 cap PO Q12HR CECILIA Stop: 08/12/17 20:59 Last Admin: 06/20/17 08:10 Dose: 1 cap Diazepam (Valium) 2 mg PO BID CECILIA PRN Reason: Protocol Stop: 08/13/17 16:59 Last Admin: 06/20/17 08:10 Dose: 2 mg Diphenhydramine HCl (Benadryl) 50 mg PO BID PRN PRN Reason: Agitation Stop: 08/13/17 14:34 Last Admin: 06/20/17 08:10 Dose: 50 mg Docusate Sodium (Colace) 100 mg PO BID CECILIA Stop: 08/12/17 16:59 Last Admin: 06/20/17 08:10 Dose: 100 mg Haloperidol (Haldol) 5 mg PO BID PRN; Protocol PRN Reason: Agitation Stop: 08/13/17 16:59 Last Admin: 06/20/17 08:09 Dose: 5 mg Ipratropium [place] (Atrovent Neb 0.5mg/2.5ml) 0.5 mg HHN Q2HRT PRN PRN Reason: Shortness of Breath or Wheeze Stop: 08/12/17 16:15 Lactobacillus Rhamnosus (Culturelle) 1 each PO DAILY CECILIA Stop: 08/14/17 08:59 Last Admin: 06/20/17 08:10 Dose: 1 each Lactulose (Cephulac) 20 gm PO BID PRN PRN Reason: Constipation Stop: 08/12/17 16:15 Last Admin: 06/15/17 08:04 Dose: 20 gm Lidocaine (Lidoderm 5% Patch) 1 patch TD Q24HR@0900 CECILIA Stop: 08/13/17 08:59 Last Admin: 06/20/17 08:08 Dose: 1 patch Lorazepam (Ativan) 2 mg PO BID PRN; Protocol PRN Reason: Agitation Stop: 08/13/17 14:32 Last Admin: 06/20/17 08:09 Dose: 2 mg Magnesium Hydroxide (Milk Of Magnesia) 30 ml PO HS PRN PRN Reason: Constipation Midodrine (Proamatine) 10 mg PO TID CECILIA Stop: 08/12/17 20:59 Last Admin: 06/20/17 08:09 Dose: 10 mg Mineral Oil (Mineral Oil 30 Ml) 30 ml PO BID CECILIA Stop: 08/12/17 16:59 Last Admin: 06/20/17 08:08 Dose: 30 ml Miscellaneous (Probiotic Screen) 1 ea MC PRN PRN PRN Reason: PROTOCOL Stop: 08/13/17 14:03 Multivitamins/Vitamin C (Theragran) 1 tab PO DAILY CECILIA Stop: 08/13/17 08:59 Last Admin: 06/20/17 08:09 Dose: 1 tab Quetiapine Fumarate (Seroquel) 25 mg PO BID CECILIA PRN Reason: Protocol Stop: 08/14/17 08:59 Last Admin: 06/20/17 08:09 Dose: 25 mg Quetiapine Fumarate (Seroquel) 100 mg PO HS CECILIA PRN Reason: Protocol Stop: 08/14/17 20:59 Last Admin: 06/19/17 21:44 Dose: Not Given Zolpidem Tartrate (Ambien) 5 mg PO HS PRN PRN Reason: Insomnia Stop: 08/12/17 15:54 Last Admin: 06/14/17 21:22 Dose: 5 mg General: demented, obese, appears older HEENT: NC/AT, PERRLA, EOMI Neck: Supple, No JVD, No LAD Lungs: CTAB Cardiovascular: RRR, Normal S1, Normal S2, without murmur Abdomen: soft, non-tender, globular Extremities: excoriation, contracture Neurological: no change, disorganized, bedbound - Procedures Procedures: Procedures Procedure Code Date CONTINUOUS INVASIVE MECHANICAL VENTILATION =/>96 CONSEC HRS 96.72 01/08/15 EGD BIOPSY SINGLE/MULTIPLE 69260 07/27/15 EXCISION OF DUODENUM, ENDO, DIAGN [id number] 07/27/15 EXCISION OF STOMACH, PYLORUS, ENDO, DIAGN [id number] 07/27/15 GROUP PSYCHOTHERAPY 25186 08/02/15 GROUP PSYCHOTHERAPY [id number] 08/02/15 INSERT EMERGENCY AIRWAY 38029 01/08/15 INSERT ENDOTRACHEAL TUBE 96.04 01/08/15 INTRAOP COLON LAV[place] ADD-ON 81214 01/08/15 OPEN TOTAL INTRA-ABDOMINAL COLECTOMY 45.82 01/08/15 OTHER GROUP THERAPY 94.44 03/16/15 REMOVAL OF COLON 40218 01/08/15 TEMPORARY ILEOSTOMY 46.21 01/08/15 VENT MGMT INPAT INIT DAY 60079 01/08/15 VENT MGMT INPAT SUBQ DAY 08280 01/08/15 Internal Medicine Assmt/Plan - Assessment Assessment: abdominal pain-resolved intractable vomiting-resolved possible sbo- on prn laxatives acute renal failure hyponatremia morbid obesity schizoaffective s/p fall constipation-improved - Plan Plan: prn laxatives fall precautions daily stool softner increase fluid intake continue current plan of care Nutritional Asmnt/Malnutr-PDOC - Dietary Evaluation Malnutrition Findings (Please click <Entered> for more info): Nutritional Asmnt/Malnutrition Start: 06/18/17 14: 08 Text: Status: Complete Freq: Document 06/18/17 14:08 [email or web address] (Rec: 06/18/17 14:12 [email or web address]) Nutritional Asmnt/Malnutrition Patient General Information Nutritional Screening Moderate Risk Screening Diagnosis psychosis Pertinent Medical Hx/Surgical Hx HLD, dementia Subjective Information Pt is A&O x 1. Per nursing has poor PO intake, but has been eating 75-100% of meals. Reports of constipation but pt has 2 BMs yesterday, 06/17, has bowel regimen ordered. Current Diet Order/ Nutrition Support fat controlled (50 gm) Patient / S.O Not Indicated Pertinent Medications colace, lactulose, culturelle, MOM, mineral oil, MVI Pertinent Labs no labs this admit. Labs from 06/13 WNL Nutritional Hx/Data Height 5 ft 4 in Height (Calculated Centimeters) 162.6 Current Weight (lbs) 221 lb Weight (Calculated Kilograms) 100.2 Weight (Calculated Grams) 664794.9 [place] Body Weight 140 lbs % [place] Body Weight 158 Weight Status Obese GI Symptoms GI Symptoms Constipation Food Allergies No Usual diet at home unable to obtain Skin Integrity/Comment: intact, caitlin: 16, no edema Current %PO Good (75-100%) Estimated Nutritional Goals BEE in Kcals: Adj wt of IBW Calories/Kcals/Kg 25-30 Kcals Calculated 2595-8220 kcals (maintenace) Protein: Adj wt of IBW Protein g/k Protein Calculated 73 g Fluid: ml 4547-5977 mL (1 mL/kcal) Nutritional Problem No current Nutrition Prob Problem n/a Etiology n/a Signs/Symptoms: n/a Malnutrition Alert Protein-Calorie Malnutrition N/A Is there a minimum of two criteria No selected? Query Text:Check all the applicable criteria. A minimum of two criteria are recommended for diagnosis of either severe or non-severe malnutrition. Malnutrition Related to Morbid Obesity Malnutrition related to morbid obesity No Intervention/Recommendation Comments 1. Change diet to regular as low fat diet not therapeutically beneficial for patient. Expected Outcomes/Goals Expected Outcomes/Goals goals: PO intake>75%, wt maintenance, labs: WNL, skin to remain intact, pt to have BM every 1-2 days
--- NOTE | 2017-06-20 11:18 | Internal Medicine Prog Note ---
Internal Medicine Subjective - Subjective Service Date: 06/20/17 Patient is:: awake, verbal, interactive Per staff patient has:: no adverse event, poor appetite, agitated, noncompliant , tolerating meds Internal Medicine Objective - Physical Exam Vitals and I&O: Vital Signs Temp 97.6 F 06/20/17 06:27 Pulse 69 06/20/17 06:27 Resp 18 06/20/17 06:27 BP 108/67 06/20/17 06:27 Pulse Ox 97 06/20/17 06:27 Intake & Output 06/19/17 06/20/17 06/20/17 18:59 06:59 18:59 Intake Total 1200 120 Balance 1200 120 Intake: Oral 1200 120 Other: # Voids 3 # Bowel Movements 1 Stool Characteristics Soft Soft Soft Liquid Liquid Liquid Active Medications: Current Medications Acetaminophen (Tylenol) 650 mg PO Q6H PRN PRN Reason: Mild Pain / Temp above 100 Stop: 08/12/17 15:54 Acetaminophen/Hydrocodone Bitart ([place] 5mg/325mg) 1 tab PO Q6H PRN PRN Reason: Pain (Moderate) Stop: 08/12/17 16:15 Al Hydrox/Mg Hydrox/Simethicone (Maalox) 30 ml PO Q4HR PRN PRN Reason: GI DISTRESS Stop: 08/12/17 15:54 Albuterol Sulfate (Albuterol 2.5mg/3ml Neb Ud) 2.5 mg HHN Q2HRT PRN PRN Reason: Shortness of Breath or Wheeze Stop: 08/12/17 16:14 Dextromethorphan/Quinidine (Nuedexta 20mg-10mg) 1 cap PO Q12HR CECILIA Stop: 08/12/17 20:59 Last Admin: 06/20/17 08:10 Dose: 1 cap Diazepam (Valium) 2 mg PO BID CECILIA PRN Reason: Protocol Stop: 08/13/17 16:59 Last Admin: 06/20/17 08:10 Dose: 2 mg Diphenhydramine HCl (Benadryl) 50 mg PO BID PRN PRN Reason: Agitation Stop: 08/13/17 14:34 Last Admin: 06/20/17 08:10 Dose: 50 mg Docusate Sodium (Colace) 100 mg PO BID CECILIA Stop: 08/12/17 16:59 Last Admin: 06/20/17 08:10 Dose: 100 mg Haloperidol (Haldol) 5 mg PO BID PRN; Protocol PRN Reason: Agitation Stop: 08/13/17 16:59 Last Admin: 06/20/17 08:09 Dose: 5 mg Ipratropium [place] (Atrovent Neb 0.5mg/2.5ml) 0.5 mg HHN Q2HRT PRN PRN Reason: Shortness of Breath or Wheeze Stop: 08/12/17 16:15 Lactobacillus Rhamnosus (Culturelle) 1 each PO DAILY CECILIA Stop: 08/14/17 08:59 Last Admin: 06/20/17 08:10 Dose: 1 each Lactulose (Cephulac) 20 gm PO BID PRN PRN Reason: Constipation Stop: 08/12/17 16:15 Last Admin: 06/15/17 08:04 Dose: 20 gm Lidocaine (Lidoderm 5% Patch) 1 patch TD Q24HR@0900 CECILIA Stop: 08/13/17 08:59 Last Admin: 06/20/17 08:08 Dose: 1 patch Lorazepam (Ativan) 2 mg PO BID PRN; Protocol PRN Reason: Agitation Stop: 08/13/17 14:32 Last Admin: 06/20/17 08:09 Dose: 2 mg Magnesium Hydroxide (Milk Of Magnesia) 30 ml PO HS PRN PRN Reason: Constipation Midodrine (Proamatine) 10 mg PO TID CECILIA Stop: 08/12/17 20:59 Last Admin: 06/20/17 08:09 Dose: 10 mg Mineral Oil (Mineral Oil 30 Ml) 30 ml PO BID CECILIA Stop: 08/12/17 16:59 Last Admin: 06/20/17 08:08 Dose: 30 ml Miscellaneous (Probiotic Screen) 1 ea MC PRN PRN PRN Reason: PROTOCOL Stop: 08/13/17 14:03 Multivitamins/Vitamin C (Theragran) 1 tab PO DAILY CECILIA Stop: 08/13/17 08:59 Last Admin: 06/20/17 08:09 Dose: 1 tab Quetiapine Fumarate (Seroquel) 25 mg PO BID CECILIA PRN Reason: Protocol Stop: 08/14/17 08:59 Last Admin: 06/20/17 08:09 Dose: 25 mg Quetiapine Fumarate (Seroquel) 100 mg PO HS CECILIA PRN Reason: Protocol Stop: 08/14/17 20:59 Last Admin: 06/19/17 21:44 Dose: Not Given Zolpidem Tartrate (Ambien) 5 mg PO HS PRN PRN Reason: Insomnia Stop: 08/12/17 15:54 Last Admin: 06/14/17 21:22 Dose: 5 mg General: demented, obese, appears older HEENT: NC/AT, PERRLA, EOMI Neck: Supple, No JVD, No LAD Lungs: CTAB Cardiovascular: RRR, Normal S1, Normal S2, without murmur Abdomen: soft, non-tender, globular Extremities: excoriation, contracture Neurological: no change, disorganized, bedbound - Procedures Procedures: Procedures Procedure Code Date CONTINUOUS INVASIVE MECHANICAL VENTILATION =/>96 CONSEC HRS 96.72 01/08/15 EGD BIOPSY SINGLE/MULTIPLE 98214 07/27/15 EXCISION OF DUODENUM, ENDO, DIAGN [id number] 07/27/15 EXCISION OF STOMACH, PYLORUS, ENDO, DIAGN [id number] 07/27/15 GROUP PSYCHOTHERAPY 17318 08/02/15 GROUP PSYCHOTHERAPY [id number] 08/02/15 INSERT EMERGENCY AIRWAY 70687 01/08/15 INSERT ENDOTRACHEAL TUBE 96.04 01/08/15 INTRAOP COLON LAVAGE ADD-ON 31922 01/08/15 OPEN TOTAL INTRA-ABDOMINAL COLECTOMY 45.82 01/08/15 OTHER GROUP THERAPY 94.44 03/16/15 REMOVAL OF COLON 62767 01/08/15 TEMPORARY ILEOSTOMY 46.21 01/08/15 VENT MGMT INPAT INIT DAY 53783 01/08/15 VENT MGMT INPAT SUBQ DAY 00678 01/08/15 Internal Medicine Assmt/Plan - Assessment Assessment: abdominal pain-resolved intractable vomiting-resolved possible sbo- on prn laxatives acute renal failure hyponatremia morbid obesity schizoaffective s/p fall constipation-improved - Plan Plan: prn laxatives fall precautions daily stool softner increase fluid intake continue current plan of care Nutritional Asmnt/Malnutr-PDOC - Dietary Evaluation Malnutrition Findings (Please click <Entered> for more info): Nutritional Asmnt/Malnutrition Start: 06/18/17 14: 08 Text: Status: Complete Freq: Document 06/18/17 14:08 [email or web address] (Rec: 06/18/17 14:12 [email or web address]) Nutritional Asmnt/Malnutrition Patient General Information Nutritional Screening Moderate Risk Screening Diagnosis psychosis Pertinent Medical Hx/Surgical Hx HLD, dementia Subjective Information Pt is A&O x 1. Per nursing has poor PO intake, but has been eating 75-100% of meals. Reports of constipation but pt has 2 BMs yesterday, 06/17, has bowel regimen ordered. Current Diet Order/ Nutrition Support fat controlled (50 gm) Patient / S.O Not Indicated Pertinent Medications colace, lactulose, culturelle, MOM, mineral oil, MVI Pertinent Labs no labs this admit. Labs from 06/13 WNL Nutritional Hx/Data Height 5 ft 4 in Height (Calculated Centimeters) 162.6 Current Weight (lbs) 221 lb Weight (Calculated Kilograms) 100.2 Weight (Calculated Grams) 331510.9 [place] Body Weight 140 lbs % [place] Body Weight 158 Weight Status Obese GI Symptoms GI Symptoms Constipation Food Allergies No Usual diet at home unable to obtain Skin Integrity/Comment: intact, caitlin: 16, no edema Current %PO Good (75-100%) Estimated Nutritional Goals BEE in Kcals: Adj wt of IBW Calories/Kcals/Kg 25-30 Kcals Calculated 1280-5264 kcals (maintenace) Protein: Adj wt of IBW Protein g/k Protein Calculated 73 g Fluid: ml 0064-4296 mL (1 mL/kcal) Nutritional Problem No current Nutrition Prob Problem n/a Etiology n/a Signs/Symptoms: n/a Malnutrition Alert Protein-Calorie Malnutrition N/A Is there a minimum of two criteria No selected? Query Text:Check all the applicable criteria. A minimum of two criteria are recommended for diagnosis of either severe or non-severe malnutrition. Malnutrition Related to Morbid Obesity Malnutrition related to morbid obesity No Intervention/Recommendation Comments 1. Change diet to regular as low fat diet not therapeutically beneficial for patient. Expected Outcomes/Goals Expected Outcomes/Goals goals: PO intake>75%, wt maintenance, labs: WNL, skin to remain intact, pt to have BM every 1-2 days
[2017-06-21] MEDS: Multivitamin Tab PO SCH ×2 (09:07)
[2017-06-21] MEDS: Lactobacillus Rhamnosus 10 Billion CFU Capsule PO SCH ×2 (09:07)
[2017-06-21] MEDS: Dextromethorphan/Quinidine 20mg/10mg Cap PO SCH ×4 (09:07→21:18)
[2017-06-21] MEDS: Lidocaine 5% Patch TD SCH ×2 (09:08)
--- NOTE | 2017-06-21 11:38 | Internal Medicine Prog Note ---
Internal Medicine Subjective - Subjective Service Date: 06/21/17 Patient is:: awake, verbal, interactive Per staff patient has:: no adverse event, poor appetite, agitated, noncompliant , tolerating meds Internal Medicine Objective - Physical Exam Vitals and I&O: Vital Signs Temp 97.8 F 06/21/17 00:36 Pulse 93 06/21/17 07:28 Resp 18 06/21/17 07:28 BP 137/74 06/21/17 00:36 Pulse Ox 95 06/21/17 07:28 Intake & Output 06/20/17 06/21/17 06/21/17 18:59 06:59 18:59 Intake Total 1100 Output Total 1 Balance 1099 Intake: Oral 1100 Output: Stool 1 Other: # Voids 3 Stool Characteristics Soft Soft Liquid Active Medications: Current Medications Acetaminophen (Tylenol) 650 mg PO Q6H PRN PRN Reason: Mild Pain / Temp above 100 Stop: 08/12/17 15:54 Acetaminophen/Hydrocodone Bitart ([place] 5mg/325mg) 1 tab PO Q6H PRN PRN Reason: Pain (Moderate) Stop: 08/12/17 16:15 Al Hydrox/Mg Hydrox/Simethicone (Maalox) 30 ml PO Q4HR PRN PRN Reason: GI DISTRESS Stop: 08/12/17 15:54 Albuterol Sulfate (Albuterol 2.5mg/3ml Neb Ud) 2.5 mg HHN Q2HRT PRN PRN Reason: Shortness of Breath or Wheeze Stop: 08/12/17 16:14 Dextromethorphan/Quinidine (Nuedexta 20mg-10mg) 1 cap PO Q12HR CECILIA Stop: 08/12/17 20:59 Last Admin: 06/21/17 09:07 Dose: 1 cap Diazepam (Valium) 2 mg PO BID CECILIA PRN Reason: Protocol Stop: 08/13/17 16:59 Last Admin: 06/21/17 09:07 Dose: 2 mg Diphenhydramine HCl (Benadryl) 50 mg PO BID PRN PRN Reason: Agitation Stop: 08/13/17 14:34 Last Admin: 06/21/17 10:09 Dose: 50 mg Docusate Sodium (Colace) 100 mg PO BID CECILIA Stop: 08/12/17 16:59 Last Admin: 06/21/17 09:07 Dose: 100 mg Haloperidol (Haldol) 5 mg PO BID PRN; Protocol PRN Reason: Agitation Stop: 08/13/17 16:59 Last Admin: 06/21/17 10:09 Dose: 5 mg Ipratropium [place] (Atrovent Neb 0.5mg/2.5ml) 0.5 mg HHN Q2HRT PRN PRN Reason: Shortness of Breath or Wheeze Stop: 08/12/17 16:15 Lactobacillus Rhamnosus (Culturelle) 1 each PO DAILY CECILIA Stop: 08/14/17 08:59 Last Admin: 06/21/17 09:07 Dose: 1 each Lactulose (Cephulac) 20 gm PO BID PRN PRN Reason: Constipation Stop: 08/12/17 16:15 Last Admin: 06/15/17 08:04 Dose: 20 gm Lidocaine (Lidoderm 5% Patch) 1 patch TD Q24HR@0900 CECILIA Stop: 08/13/17 08:59 Last Admin: 06/21/17 09:08 Dose: 1 patch Lorazepam (Ativan) 2 mg PO BID PRN; Protocol PRN Reason: Agitation Stop: 08/13/17 14:32 Last Admin: 06/21/17 10:09 Dose: 2 mg Magnesium Hydroxide (Milk Of Magnesia) 30 ml PO HS PRN PRN Reason: Constipation Midodrine (Proamatine) 10 mg PO TID CECILIA Stop: 08/12/17 20:59 Last Admin: 06/21/17 09:08 Dose: 10 mg Mineral Oil (Mineral Oil 30 Ml) 30 ml PO BID CECILIA Stop: 08/12/17 16:59 Last Admin: 06/21/17 09:12 Dose: 30 ml Miscellaneous (Probiotic Screen) 1 ea MC PRN PRN PRN Reason: PROTOCOL Stop: 08/13/17 14:03 Multivitamins/Vitamin C (Theragran) 1 tab PO DAILY CECILIA Stop: 08/13/17 08:59 Last Admin: 06/21/17 09:07 Dose: 1 tab Quetiapine Fumarate (Seroquel) 25 mg PO BID CECILIA PRN Reason: Protocol Stop: 08/14/17 08:59 Last Admin: 06/21/17 09:07 Dose: 25 mg Quetiapine Fumarate (Seroquel) 100 mg PO HS CECILIA PRN Reason: Protocol Stop: 08/14/17 20:59 Last Admin: 06/20/17 20:28 Dose: 100 mg Zolpidem Tartrate (Ambien) 5 mg PO HS PRN PRN Reason: Insomnia Stop: 08/12/17 15:54 Last Admin: 06/14/17 21:22 Dose: 5 mg General: demented, obese, appears older HEENT: NC/AT, PERRLA, EOMI Neck: Supple, No JVD, No LAD Lungs: CTAB Cardiovascular: RRR, Normal S1, Normal S2, without murmur Abdomen: soft, non-tender, globular Extremities: excoriation, contracture Neurological: no change, disorganized, bedbound - Procedures Procedures: Procedures Procedure Code Date CONTINUOUS INVASIVE MECHANICAL VENTILATION =/>96 CONSEC HRS 96.72 01/08/15 EGD BIOPSY SINGLE/MULTIPLE 23609 07/27/15 EXCISION OF DUODENUM, ENDO, DIAGN [id number] 07/27/15 EXCISION OF STOMACH, PYLORUS, ENDO, DIAGN [id number] 07/27/15 GROUP PSYCHOTHERAPY 51416 08/02/15 GROUP PSYCHOTHERAPY [id number] 08/02/15 INSERT EMERGENCY AIRWAY 28930 01/08/15 INSERT ENDOTRACHEAL TUBE 96.04 01/08/15 INTRAOP COLON LAVAGE ADD-ON 14730 01/08/15 OPEN TOTAL INTRA-ABDOMINAL COLECTOMY 45.82 01/08/15 OTHER GROUP THERAPY 94.44 03/16/15 REMOVAL OF COLON 81687 01/08/15 TEMPORARY ILEOSTOMY 46.21 01/08/15 VENT MGMT INPAT INIT DAY 75917 01/08/15 VENT MGMT INPAT SUBQ DAY 76080 01/08/15 Internal Medicine Assmt/Plan - Assessment Assessment: abdominal pain-resolved intractable vomiting-resolved possible sbo- on prn laxatives acute renal failure hyponatremia morbid obesity schizoaffective s/p fall constipation-improved - Plan Plan: prn laxatives fall precautions daily stool softner increase fluid intake continue current plan of care Nutritional Asmnt/Malnutr-PDOC - Dietary Evaluation Malnutrition Findings (Please click <Entered> for more info): Nutritional Asmnt/Malnutrition Start: 06/18/17 14: 08 Text: Status: Complete Freq: Document 06/18/17 14:08 [email or web address] (Rec: 06/18/17 14:12 [email or web address]) Nutritional Asmnt/Malnutrition Patient General Information Nutritional Screening Moderate Risk Diagnosis psychosis Pertinent Medical Hx/Surgical Hx HLD, dementia Subjective Information Pt is A&O x 1. Per nursing has poor PO intake, but has been eating 75-100% of meals. Reports of constipation but pt has 2 BMs yesterday, 06/17, has bowel regimen ordered. Current Diet Order/ Nutrition Support fat controlled (50 gm) Patient / S.O Not Indicated Pertinent Medications colace, lactulose, culturelle, MOM, mineral oil, MVI Pertinent Labs no labs this admit. Labs from 06/13 WNL Nutritional Hx/Data Height 5 ft 4 in Height (Calculated Centimeters) 162.6 Current Weight (lbs) 221 lb Weight (Calculated Kilograms) 100.2 Weight (Calculated Grams) 043893.9 [place] Body Weight 140 lbs % [place] Body Weight 158 Weight Status Obese GI Symptoms GI Symptoms Constipation Food Allergies No Usual diet at home unable to obtain Skin Integrity/Comment: intact, caitlin: 16, no edema Current %PO Good (75-100%) Estimated Nutritional Goals BEE in Kcals: Adj wt of IBW Calories/Kcals/Kg 25-30 Kcals Calculated 1746-6397 kcals (maintenace) Protein: Adj wt of IBW Protein g/k Protein Calculated 73 g Fluid: ml 0938-4381 mL (1 mL/kcal) Nutritional Problem No current Nutrition Prob Problem n/a Etiology n/a Signs/Symptoms: n/a Malnutrition Alert Protein-Calorie Malnutrition N/A Is there a minimum of two criteria No selected? Query Text:Check all the applicable criteria. A minimum of two criteria are recommended for diagnosis of either severe or non-severe malnutrition. Malnutrition Related to Morbid Obesity Malnutrition related to morbid obesity No Intervention/Recommendation Comments 1. Change diet to regular as low fat diet not therapeutically beneficial for patient. Expected Outcomes/Goals Expected Outcomes/Goals goals: PO intake>75%, wt maintenance, labs: WNL, skin to remain intact, pt to have BM every 1-2 days
--- NOTE | 2017-06-21 11:38 | Internal Medicine Prog Note ---
Internal Medicine Subjective - Subjective Service Date: 06/21/17 Patient is:: awake, verbal, interactive Per staff patient has:: no adverse event, poor appetite, agitated, noncompliant , tolerating meds Internal Medicine Objective - Physical Exam Vitals and I&O: Vital Signs Temp 97.8 F 06/21/17 00:36 Pulse 93 06/21/17 07:28 Resp 18 06/21/17 07:28 BP 137/74 06/21/17 00:36 Pulse Ox 95 06/21/17 07:28 Intake & Output 06/20/17 06/21/17 06/21/17 18:59 06:59 18:59 Intake Total 1100 Output Total 1 Balance 1099 Intake: Oral 1100 Output: Stool 1 Other: # Voids 3 Stool Characteristics Soft Soft Liquid Active Medications: Current Medications Acetaminophen (Tylenol) 650 mg PO Q6H PRN PRN Reason: Mild Pain / Temp above 100 Stop: 08/12/17 15:54 Acetaminophen/Hydrocodone Bitart ([place] 5mg/325mg) 1 tab PO Q6H PRN PRN Reason: Pain (Moderate) Stop: 08/12/17 16:15 Al Hydrox/Mg Hydrox/Simethicone (Maalox) 30 ml PO Q4HR PRN PRN Reason: GI DISTRESS Stop: 08/12/17 15:54 Albuterol Sulfate (Albuterol 2.5mg/3ml Neb Ud) 2.5 mg HHN Q2HRT PRN PRN Reason: Shortness of Breath or Wheeze Stop: 08/12/17 16:14 Dextromethorphan/Quinidine (Nuedexta 20mg-10mg) 1 cap PO Q12HR CECILIA Stop: 08/12/17 20:59 Last Admin: 06/21/17 09:07 Dose: 1 cap Diazepam (Valium) 2 mg PO BID CECILIA PRN Reason: Protocol Stop: 08/13/17 16:59 Last Admin: 06/21/17 09:07 Dose: 2 mg Diphenhydramine HCl (Benadryl) 50 mg PO BID PRN PRN Reason: Agitation Stop: 08/13/17 14:34 Last Admin: 06/21/17 10:09 Dose: 50 mg Docusate Sodium (Colace) 100 mg PO BID CECILIA Stop: 08/12/17 16:59 Last Admin: 06/21/17 09:07 Dose: 100 mg Haloperidol (Haldol) 5 mg PO BID PRN; Protocol PRN Reason: Agitation Stop: 08/13/17 16:59 Last Admin: 06/21/17 10:09 Dose: 5 mg Ipratropium [place] (Atrovent Neb 0.5mg/2.5ml) 0.5 mg HHN Q2HRT PRN PRN Reason: Shortness of Breath or Wheeze Stop: 08/12/17 16:15 Lactobacillus Rhamnosus (Culturelle) 1 each PO DAILY CECILIA Stop: 08/14/17 08:59 Last Admin: 06/21/17 09:07 Dose: 1 each Lactulose (Cephulac) 20 gm PO BID PRN PRN Reason: Constipation Stop: 08/12/17 16:15 Last Admin: 06/15/17 08:04 Dose: 20 gm Lidocaine (Lidoderm 5% Patch) 1 patch TD Q24HR@0900 CECILIA Stop: 08/13/17 08:59 Last Admin: 06/21/17 09:08 Dose: 1 patch Lorazepam (Ativan) 2 mg PO BID PRN; Protocol PRN Reason: Agitation Stop: 08/13/17 14:32 Last Admin: 06/21/17 10:09 Dose: 2 mg Magnesium Hydroxide (Milk Of Magnesia) 30 ml PO HS PRN PRN Reason: Constipation Midodrine (Proamatine) 10 mg PO TID CECILIA Stop: 08/12/17 20:59 Last Admin: 06/21/17 09:08 Dose: 10 mg Mineral Oil (Mineral Oil 30 Ml) 30 ml PO BID CECILIA Stop: 08/12/17 16:59 Last Admin: 06/21/17 09:12 Dose: 30 ml Miscellaneous (Probiotic Screen) 1 ea MC PRN PRN PRN Reason: PROTOCOL Stop: 08/13/17 14:03 Multivitamins/Vitamin C (Theragran) 1 tab PO DAILY CECILIA Stop: 08/13/17 08:59 Last Admin: 06/21/17 09:07 Dose: 1 tab Quetiapine Fumarate (Seroquel) 25 mg PO BID CECILIA PRN Reason: Protocol Stop: 08/14/17 08:59 Last Admin: 06/21/17 09:07 Dose: 25 mg Quetiapine Fumarate (Seroquel) 100 mg PO HS CECILIA PRN Reason: Protocol Stop: 08/14/17 20:59 Last Admin: 06/20/17 20:28 Dose: 100 mg Zolpidem Tartrate (Ambien) 5 mg PO HS PRN PRN Reason: Insomnia Stop: 08/12/17 15:54 Last Admin: 06/14/17 21:22 Dose: 5 mg General: demented, obese, appears older HEENT: NC/AT, PERRLA, EOMI Neck: Supple, No JVD, No LAD Lungs: CTAB Cardiovascular: RRR, Normal S1, Normal S2, without murmur Abdomen: soft, non-tender, globular Extremities: excoriation, contracture Neurological: no change, disorganized, bedbound - Procedures Procedures: Procedures Procedure Code Date CONTINUOUS INVASIVE MECHANICAL VENTILATION =/>96 CONSEC HRS 96.72 01/08/15 EGD BIOPSY SINGLE/MULTIPLE 26398 07/27/15 EXCISION OF DUODENUM, ENDO, DIAGN [id number] 07/27/15 EXCISION OF STOMACH, PYLORUS, ENDO, DIAGN [id number] 07/27/15 GROUP PSYCHOTHERAPY 95667 08/02/15 GROUP PSYCHOTHERAPY [id number] 08/02/15 INSERT EMERGENCY AIRWAY 52564 01/08/15 INSERT ENDOTRACHEAL TUBE 96.04 01/08/15 INTRAOP COLON LAVAGE ADD-ON 21722 01/08/15 OPEN TOTAL INTRA-ABDOMINAL COLECTOMY 45.82 01/08/15 OTHER GROUP THERAPY 94.44 03/16/15 REMOVAL OF COLON 96414 01/08/15 TEMPORARY ILEOSTOMY 46.21 01/08/15 VENT MGMT INPAT INIT DAY 98151 01/08/15 VENT MGMT INPAT SUBQ DAY 95895 01/08/15 Internal Medicine Assmt/Plan - Assessment Assessment: abdominal pain-resolved intractable vomiting-resolved possible sbo- on prn laxatives acute renal failure hyponatremia morbid obesity schizoaffective s/p fall constipation-improved - Plan Plan: prn laxatives fall precautions daily stool softner increase fluid intake continue current plan of care Nutritional Asmnt/Malnutr-PDOC - Dietary Evaluation Malnutrition Findings (Please click <Entered> for more info): Nutritional Asmnt/Malnutrition Start: 06/18/17 14: 08 Text: Status: Complete Freq: Document 06/18/17 14:08 [email or web address] (Rec: 06/18/17 14:12 [email or web address]) Nutritional Asmnt/Malnutrition Patient General Information Nutritional Screening Moderate Risk Diagnosis psychosis Pertinent Medical Hx/Surgical Hx HLD, dementia Subjective Information Pt is A&O x 1. Per nursing has poor PO intake, but has been eating 75-100% of meals. Reports of constipation but pt has 2 BMs yesterday, 06/17, has bowel regimen ordered. Current Diet Order/ Nutrition Support fat controlled (50 gm) Patient / S.O Not Indicated Pertinent Medications colace, lactulose, culturelle, MOM, mineral oil, MVI Pertinent Labs no labs this admit. Labs from 06/13 WNL Nutritional Hx/Data Height 5 ft 4 in Height (Calculated Centimeters) 162.6 Current Weight (lbs) 221 lb Weight (Calculated Kilograms) 100.2 Weight (Calculated Grams) 044298.9 [place] Body Weight 140 lbs % [place] Body Weight 158 Weight Status Obese GI Symptoms GI Symptoms Constipation Food Allergies No Usual diet at home unable to obtain Skin Integrity/Comment: intact, caitlin: 16, no edema Current %PO Good (75-100%) Estimated Nutritional Goals BEE in Kcals: Adj wt of IBW Calories/Kcals/Kg 25-30 Kcals Calculated 6135-6895 kcals (maintenace) Protein: Adj wt of IBW Protein g/k Protein Calculated 73 g Fluid: ml 0089-2599 mL (1 mL/kcal) Nutritional Problem No current Nutrition Prob Problem n/a Etiology n/a Signs/Symptoms: n/a Malnutrition Alert Protein-Calorie Malnutrition N/A Is there a minimum of two criteria No selected? Query Text:Check all the applicable criteria. A minimum of two criteria are recommended for diagnosis of either severe or non-severe malnutrition. Malnutrition Related to Morbid Obesity Malnutrition related to morbid obesity No Intervention/Recommendation Comments 1. Change diet to regular as low fat diet not therapeutically beneficial for patient. Expected Outcomes/Goals Expected Outcomes/Goals goals: PO intake>75%, wt maintenance, labs: WNL, skin to remain intact, pt to have BM every 1-2 days
--- NOTE | 2017-06-21 11:38 | Internal Medicine Prog Note ---
Internal Medicine Subjective - Subjective Service Date: 06/21/17 Patient is:: awake, verbal, interactive Per staff patient has:: no adverse event, poor appetite, agitated, noncompliant , tolerating meds Internal Medicine Objective - Physical Exam Vitals and I&O: Vital Signs Temp 97.8 F 06/21/17 00:36 Pulse 93 06/21/17 07:28 Resp 18 06/21/17 07:28 BP 137/74 06/21/17 00:36 Pulse Ox 95 06/21/17 07:28 Intake & Output 06/20/17 06/21/17 06/21/17 18:59 06:59 18:59 Intake Total 1100 Output Total 1 Balance 1099 Intake: Oral 1100 Output: Stool 1 Other: # Voids 3 Stool Characteristics Soft Soft Liquid Active Medications: Current Medications Acetaminophen (Tylenol) 650 mg PO Q6H PRN PRN Reason: Mild Pain / Temp above 100 Stop: 08/12/17 15:54 Acetaminophen/Hydrocodone Bitart ([place] 5mg/325mg) 1 tab PO Q6H PRN PRN Reason: Pain (Moderate) Stop: 08/12/17 16:15 Al Hydrox/Mg Hydrox/Simethicone (Maalox) 30 ml PO Q4HR PRN PRN Reason: GI DISTRESS Stop: 08/12/17 15:54 Albuterol Sulfate (Albuterol 2.5mg/3ml Neb Ud) 2.5 mg HHN Q2HRT PRN PRN Reason: Shortness of Breath or Wheeze Stop: 08/12/17 16:14 Dextromethorphan/Quinidine (Nuedexta 20mg-10mg) 1 cap PO Q12HR CECILIA Stop: 08/12/17 20:59 Last Admin: 06/21/17 09:07 Dose: 1 cap Diazepam (Valium) 2 mg PO BID CECILIA PRN Reason: Protocol Stop: 08/13/17 16:59 Last Admin: 06/21/17 09:07 Dose: 2 mg Diphenhydramine HCl (Benadryl) 50 mg PO BID PRN PRN Reason: Agitation Stop: 08/13/17 14:34 Last Admin: 06/21/17 10:09 Dose: 50 mg Docusate Sodium (Colace) 100 mg PO BID CECILIA Stop: 08/12/17 16:59 Last Admin: 06/21/17 09:07 Dose: 100 mg Haloperidol (Haldol) 5 mg PO BID PRN; Protocol PRN Reason: Agitation Stop: 08/13/17 16:59 Last Admin: 06/21/17 10:09 Dose: 5 mg Ipratropium [place] (Atrovent Neb 0.5mg/2.5ml) 0.5 mg HHN Q2HRT PRN PRN Reason: Shortness of Breath or Wheeze Stop: 08/12/17 16:15 Lactobacillus Rhamnosus (Culturelle) 1 each PO DAILY CECILIA Stop: 08/14/17 08:59 Last Admin: 06/21/17 09:07 Dose: 1 each Lactulose (Cephulac) 20 gm PO BID PRN PRN Reason: Constipation Stop: 08/12/17 16:15 Last Admin: 06/15/17 08:04 Dose: 20 gm Lidocaine (Lidoderm 5% Patch) 1 patch TD Q24HR@0900 CECILIA Stop: 08/13/17 08:59 Last Admin: 06/21/17 09:08 Dose: 1 patch Lorazepam (Ativan) 2 mg PO BID PRN; Protocol PRN Reason: Agitation Stop: 08/13/17 14:32 Last Admin: 06/21/17 10:09 Dose: 2 mg Magnesium Hydroxide (Milk Of Magnesia) 30 ml PO HS PRN PRN Reason: Constipation Midodrine (Proamatine) 10 mg PO TID CECILIA Stop: 08/12/17 20:59 Last Admin: 06/21/17 09:08 Dose: 10 mg Mineral Oil (Mineral Oil 30 Ml) 30 ml PO BID CECILIA Stop: 08/12/17 16:59 Last Admin: 06/21/17 09:12 Dose: 30 ml Miscellaneous (Probiotic Screen) 1 ea MC PRN PRN PRN Reason: PROTOCOL Stop: 08/13/17 14:03 Multivitamins/Vitamin C (Theragran) 1 tab PO DAILY CECILIA Stop: 08/13/17 08:59 Last Admin: 06/21/17 09:07 Dose: 1 tab Quetiapine Fumarate (Seroquel) 25 mg PO BID CECILIA PRN Reason: Protocol Stop: 08/14/17 08:59 Last Admin: 06/21/17 09:07 Dose: 25 mg Quetiapine Fumarate (Seroquel) 100 mg PO HS CECILIA PRN Reason: Protocol Stop: 08/14/17 20:59 Last Admin: 06/20/17 20:28 Dose: 100 mg Zolpidem Tartrate (Ambien) 5 mg PO HS PRN PRN Reason: Insomnia Stop: 08/12/17 15:54 Last Admin: 06/14/17 21:22 Dose: 5 mg General: demented, obese, appears older HEENT: NC/AT, PERRLA, EOMI Neck: Supple, No JVD, No LAD Lungs: CTAB Cardiovascular: RRR, Normal S1, Normal S2, without murmur Abdomen: soft, non-tender, globular Extremities: excoriation, contracture Neurological: no change, disorganized, bedbound - Procedures Procedures: Procedures Procedure Code Date CONTINUOUS INVASIVE MECHANICAL VENTILATION =/>96 CONSEC HRS 96.72 01/08/15 EGD BIOPSY SINGLE/MULTIPLE 62465 07/27/15 EXCISION OF DUODENUM, ENDO, DIAGN [id number] 07/27/15 EXCISION OF STOMACH, PYLORUS, ENDO, DIAGN [id number] 07/27/15 GROUP PSYCHOTHERAPY 58723 08/02/15 GROUP PSYCHOTHERAPY [id number] 08/02/15 INSERT EMERGENCY AIRWAY 60490 01/08/15 INSERT ENDOTRACHEAL TUBE 96.04 01/08/15 INTRAOP COLON LAVAGE ADD-ON 59154 01/08/15 OPEN TOTAL INTRA-ABDOMINAL COLECTOMY 45.82 01/08/15 OTHER GROUP THERAPY 94.44 03/16/15 REMOVAL OF COLON 44948 01/08/15 TEMPORARY ILEOSTOMY 46.21 01/08/15 VENT MGMT INPAT INIT DAY 99665 01/08/15 VENT MGMT INPAT SUBQ DAY 30486 01/08/15 Internal Medicine Assmt/Plan - Assessment Assessment: abdominal pain-resolved intractable vomiting-resolved possible sbo- on prn laxatives acute renal failure hyponatremia morbid obesity schizoaffective s/p fall constipation-improved - Plan Plan: prn laxatives fall precautions daily stool softner increase fluid intake continue current plan of care Nutritional Asmnt/Malnutr-PDOC - Dietary Evaluation Malnutrition Findings (Please click <Entered> for more info): Nutritional Asmnt/Malnutrition Start: 06/18/17 14: 08 Text: Status: Complete Freq: Document 06/18/17 14:08 [email or web address] (Rec: 06/18/17 14:12 [email or web address]) Nutritional Asmnt/Malnutrition Patient General Information Nutritional Screening Moderate Risk Diagnosis psychosis Pertinent Medical Hx/Surgical Hx HLD, dementia Subjective Information Pt is A&O x 1. Per nursing has poor PO intake, but has been eating 75-100% of meals. Reports of constipation but pt has 2 BMs yesterday, 06/17, has bowel regimen ordered. Current Diet Order/ Nutrition Support fat controlled (50 gm) Patient / S.O Not Indicated Pertinent Medications colace, lactulose, culturelle, MOM, mineral oil, MVI Pertinent Labs no labs this admit. Labs from 06/13 WNL Nutritional Hx/Data Height 5 ft 4 in Height (Calculated Centimeters) 162.6 Current Weight (lbs) 221 lb Weight (Calculated Kilograms) 100.2 Weight (Calculated Grams) 761466.9 [place] Body Weight 140 lbs % [place] Body Weight 158 Weight Status Obese GI Symptoms GI Symptoms Constipation Food Allergies No Usual diet at home unable to obtain Skin Integrity/Comment: intact, caitlin: 16, no edema Current %PO Good (75-100%) Estimated Nutritional Goals BEE in Kcals: Adj wt of IBW Calories/Kcals/Kg 25-30 Kcals Calculated 2950-7498 kcals (maintenace) Protein: Adj wt of IBW Protein g/k Protein Calculated 73 g Fluid: ml 2324-1034 mL (1 mL/kcal) Nutritional Problem No current Nutrition Prob Problem n/a Etiology n/a Signs/Symptoms: n/a Malnutrition Alert Protein-Calorie Malnutrition N/A Is there a minimum of two criteria No selected? Query Text:Check all the applicable criteria. A minimum of two criteria are recommended for diagnosis of either severe or non-severe malnutrition. Malnutrition Related to Morbid Obesity Malnutrition related to morbid obesity No Intervention/Recommendation Comments 1. Change diet to regular as low fat diet not therapeutically beneficial for patient. Expected Outcomes/Goals Expected Outcomes/Goals goals: PO intake>75%, wt maintenance, labs: WNL, skin to remain intact, pt to have BM every 1-2 days
--- NOTE | 2017-06-21 16:09 | Progress Notes ---
DATE: 06/20/2017 SUBJECTIVE: Chart reviewed and the patient interviewed. Also discussed the patient's condition with the staff and reviewed records and labs. The patient is still having episodes of agitation and aggressive behavior. She also is still trying to pull the colostomy tube. The patient also is confused and has difficulty following any of staff directions and she gets agitated when staff tries to redirect her. She also seems to be preoccupied. Otherwise, the patient continued to comply with taking her medications. ASSESSMENT: The patient is still agitated and considered to be gravely disabled. AFTER TREATMENT PLAN: We will continue monitoring her behavior and her condition closely. Also, continue to work on her agitation and adjusting psychotropic medications. JOB# [id number]
[2017-06-22] MEDS: Multivitamin Tab PO SCH ×2 (09:00)
[2017-06-22] MEDS: Dextromethorphan/Quinidine 20mg/10mg Cap PO SCH ×4 (09:00→20:38)
[2017-06-22] MEDS: Lactobacillus Rhamnosus 10 Billion CFU Capsule PO SCH ×2 (09:01)
[2017-06-22] MEDS: Lidocaine 5% Patch TD SCH ×2 (09:02)
--- NOTE | 2017-06-22 19:51 | Internal Medicine Prog Note ---
Internal Medicine Subjective - Subjective Patient seen and examined:: with staff, chart reviewed Patient is:: awake, verbal, interactive Per staff patient has:: no adverse event, poor appetite, agitated, noncompliant , tolerating meds Internal Medicine Objective - Physical Exam Vitals and I&O: Vital Signs Temp 98.2 F 06/22/17 14:00 Pulse 75 06/22/17 19:36 Resp 17 06/22/17 19:36 BP 122/66 06/22/17 14:00 Pulse Ox 97 06/22/17 19:36 Intake & Output 06/22/17 06/22/17 06/23/17 06:59 18:59 05:59 Intake Total 120 800 Balance 120 800 Intake: Oral 120 800 Other: # Voids 1 3 # Bowel Movements 0 Stool Characteristics Soft Active Medications: Current Medications Acetaminophen (Tylenol) 650 mg PO Q6H PRN PRN Reason: Mild Pain / Temp above 100 Stop: 08/12/17 15:54 Acetaminophen/Hydrocodone Bitart ([place] 5mg/325mg) 1 tab PO Q6H PRN PRN Reason: Pain (Moderate) Stop: 08/12/17 16:15 Al Hydrox/Mg Hydrox/Simethicone (Maalox) 30 ml PO Q4HR PRN PRN Reason: GI DISTRESS Stop: 08/12/17 15:54 Albuterol Sulfate (Albuterol 2.5mg/3ml Neb Ud) 2.5 mg HHN Q2HRT PRN PRN Reason: Shortness of Breath or Wheeze Stop: 08/12/17 16:14 Dextromethorphan/Quinidine (Nuedexta 20mg-10mg) 1 cap PO Q12HR CECILIA Stop: 08/12/17 20:59 Last Admin: 06/22/17 09:00 Dose: 1 cap Diazepam (Valium) 2 mg PO BID CECILIA PRN Reason: Protocol Stop: 08/13/17 16:59 Last Admin: 06/22/17 16:14 Dose: 2 mg Diphenhydramine HCl (Benadryl) 50 mg PO BID PRN PRN Reason: Agitation Stop: 08/13/17 14:34 Last Admin: 06/22/17 16:13 Dose: 50 mg Docusate Sodium (Colace) 100 mg PO BID CECILIA Stop: 08/12/17 16:59 Last Admin: 06/22/17 16:14 Dose: 100 mg Haloperidol (Haldol) 5 mg PO BID PRN; Protocol PRN Reason: Agitation Stop: 08/13/17 16:59 Last Admin: 06/22/17 16:14 Dose: 5 mg Ipratropium [place] (Atrovent Neb 0.5mg/2.5ml) 0.5 mg HHN Q2HRT PRN PRN Reason: Shortness of Breath or Wheeze Stop: 08/12/17 16:15 Lactobacillus Rhamnosus (Culturelle) 1 each PO DAILY CECILIA Stop: 08/14/17 08:59 Last Admin: 06/22/17 09:01 Dose: 1 each Lactulose (Cephulac) 20 gm PO BID PRN PRN Reason: Constipation Stop: 08/12/17 16:15 Last Admin: 06/15/17 08:04 Dose: 20 gm Lidocaine (Lidoderm 5% Patch) 1 patch TD Q24HR@0900 CECILIA Stop: 08/13/17 08:59 Last Admin: 06/22/17 09:02 Dose: 1 patch Lorazepam (Ativan) 2 mg PO BID PRN; Protocol PRN Reason: Agitation Stop: 08/13/17 14:32 Last Admin: 06/22/17 16:14 Dose: 2 mg Magnesium Hydroxide (Milk Of Magnesia) 30 ml PO HS PRN PRN Reason: Constipation Midodrine (Proamatine) 10 mg PO TID CECILIA Stop: 08/12/17 20:59 Last Admin: 06/22/17 15:03 Dose: 10 mg Mineral Oil (Mineral Oil 30 Ml) 30 ml PO BID CECILIA Stop: 08/12/17 16:59 Last Admin: 06/22/17 16:15 Dose: 30 ml Miscellaneous (Probiotic Screen) 1 ea MC PRN PRN PRN Reason: PROTOCOL Stop: 08/13/17 14:03 Multivitamins/Vitamin C (Theragran) 1 tab PO DAILY CECILIA Stop: 08/13/17 08:59 Last Admin: 06/22/17 09:00 Dose: 1 tab Quetiapine Fumarate (Seroquel) 25 mg PO BID CECILIA PRN Reason: Protocol Stop: 08/14/17 08:59 Last Admin: 06/22/17 16:14 Dose: 25 mg Quetiapine Fumarate (Seroquel) 100 mg PO HS CECILIA PRN Reason: Protocol Stop: 08/14/17 20:59 Last Admin: 06/21/17 21:19 Dose: 100 mg Zolpidem Tartrate (Ambien) 5 mg PO HS PRN PRN Reason: Insomnia Stop: 08/12/17 15:54 Last Admin: 06/21/17 22:18 Dose: 5 mg General: demented, obese, appears older HEENT: NC/AT, PERRLA, EOMI Neck: Supple, No JVD, No LAD Lungs: CTAB Cardiovascular: RRR, Normal S1, Normal S2, without murmur Abdomen: soft, non-tender, globular Extremities: excoriation, contracture Neurological: no change, disorganized, bedbound - Procedures Procedures: Procedures Procedure Code Date CONTINUOUS INVASIVE MECHANICAL VENTILATION =/>96 CONSEC HRS 96.72 01/08/15 EGD BIOPSY SINGLE/MULTIPLE 81563 07/27/15 EXCISION OF DUODENUM, ENDO, DIAGN [id number] 07/27/15 EXCISION OF STOMACH, PYLORUS, ENDO, DIAGN [id number] 07/27/15 GROUP PSYCHOTHERAPY 85997 08/02/15 GROUP PSYCHOTHERAPY [id number] 08/02/15 INSERT EMERGENCY AIRWAY 53815 01/08/15 INSERT ENDOTRACHEAL TUBE 96.04 01/08/15 INTRAOP COLON LAVAGE ADD-ON 31331 01/08/15 OPEN TOTAL INTRA-ABDOMINAL COLECTOMY 45.82 01/08/15 OTHER GROUP THERAPY 94.44 03/16/15 REMOVAL OF COLON 29032 01/08/15 TEMPORARY ILEOSTOMY 46.21 01/08/15 VENT MGMT INPAT INIT DAY 20376 01/08/15 VENT MGMT INPAT SUBQ DAY 50622 01/08/15 Internal Medicine Assmt/Plan - Assessment Assessment: abdominal pain intractable vomiting possible sbo acute renal failure hyponatremia morbid obesity schizoaffective s/p fall constipation - Plan Plan: - Plan Plan: continue ivf for hydration am labs monitor glucose fall precautions continue current plan of care Nutritional Asmnt/Malnutr-PDOC - Dietary Evaluation Malnutrition Findings (Please click <Entered> for more info): Nutritional Asmnt/Malnutrition Start: 06/18/17 14: 08 Text: Status: Complete Freq: Document 06/18/17 14:08 [email or web address] (Rec: 06/18/17 14:12 [email or web address]) Nutritional Asmnt/Malnutrition Patient General Information Nutritional Screening Moderate Risk Diagnosis psychosis Pertinent Medical Hx/Surgical Hx HLD, dementia Subjective Information Pt is A&O x 1. Per nursing has poor PO intake, but has been eating 75-100% of meals. Reports of constipation but pt has 2 BMs yesterday, 06/17, has bowel regimen ordered. Current Diet Order/ Nutrition Support fat controlled (50 gm) Patient / S.O Not Indicated Pertinent Medications colace, lactulose, culturelle, MOM, mineral oil, MVI Pertinent Labs no labs this admit. Labs from 06/13 WNL Nutritional Hx/Data Height 1.63 m Height (Calculated Centimeters) 162.6 Current Weight (lbs) 100.244 kg Weight (Calculated Kilograms) 100.2 Weight (Calculated Grams) 944270.9 [place] Body Weight 140 lbs % [place] Body Weight 158 Weight Status Obese GI Symptoms GI Symptoms Constipation Food Allergies No Usual diet at home unable to obtain Skin Integrity/Comment: intact, caitlin: 16, no edema Current %PO Good (75-100%) Estimated Nutritional Goals BEE in Kcals: Adj wt of IBW Calories/Kcals/Kg 25-30 Kcals Calculated 3341-2992 kcals (maintenace) Protein: Adj wt of IBW Protein g/k Protein Calculated 73 g Fluid: ml 0068-6430 mL (1 mL/kcal) Nutritional Problem No current Nutrition Prob Problem n/a Etiology n/a Signs/Symptoms: n/a Malnutrition Alert Protein-Calorie Malnutrition N/A Is there a minimum of two criteria No selected? Query Text:Check all the applicable criteria. A minimum of two criteria are recommended for diagnosis of either severe or non-severe malnutrition. Malnutrition Related to Morbid Obesity Malnutrition related to morbid obesity No Intervention/Recommendation Comments 1. Change diet to regular as low fat diet not therapeutically beneficial for patient. Expected Outcomes/Goals Expected Outcomes/Goals goals: PO intake>75%, wt maintenance, labs: WNL, skin to remain intact, pt to have BM every 1-2 days
--- NOTE | 2017-06-22 19:51 | Internal Medicine Prog Note ---
Internal Medicine Subjective - Subjective Patient seen and examined:: with staff, chart reviewed Patient is:: awake, verbal, interactive Per staff patient has:: no adverse event, poor appetite, agitated, noncompliant , tolerating meds Internal Medicine Objective - Physical Exam Vitals and I&O: Vital Signs Temp 98.2 F 06/22/17 14:00 Pulse 75 06/22/17 19:36 Resp 17 06/22/17 19:36 BP 122/66 06/22/17 14:00 Pulse Ox 97 06/22/17 19:36 Intake & Output 06/22/17 06/22/17 06/23/17 06:59 18:59 05:59 Intake Total 120 800 Balance 120 800 Intake: Oral 120 800 Other: # Voids 1 3 # Bowel Movements 0 Stool Characteristics Soft Active Medications: Current Medications Acetaminophen (Tylenol) 650 mg PO Q6H PRN PRN Reason: Mild Pain / Temp above 100 Stop: 08/12/17 15:54 Acetaminophen/Hydrocodone Bitart ([place] 5mg/325mg) 1 tab PO Q6H PRN PRN Reason: Pain (Moderate) Stop: 08/12/17 16:15 Al Hydrox/Mg Hydrox/Simethicone (Maalox) 30 ml PO Q4HR PRN PRN Reason: GI DISTRESS Stop: 08/12/17 15:54 Albuterol Sulfate (Albuterol 2.5mg/3ml Neb Ud) 2.5 mg HHN Q2HRT PRN PRN Reason: Shortness of Breath or Wheeze Stop: 08/12/17 16:14 Dextromethorphan/Quinidine (Nuedexta 20mg-10mg) 1 cap PO Q12HR CECILIA Stop: 08/12/17 20:59 Last Admin: 06/22/17 09:00 Dose: 1 cap Diazepam (Valium) 2 mg PO BID CECILIA PRN Reason: Protocol Stop: 08/13/17 16:59 Last Admin: 06/22/17 16:14 Dose: 2 mg Diphenhydramine HCl (Benadryl) 50 mg PO BID PRN PRN Reason: Agitation Stop: 08/13/17 14:34 Last Admin: 06/22/17 16:13 Dose: 50 mg Docusate Sodium (Colace) 100 mg PO BID CECILIA Stop: 08/12/17 16:59 Last Admin: 06/22/17 16:14 Dose: 100 mg Haloperidol (Haldol) 5 mg PO BID PRN; Protocol PRN Reason: Agitation Stop: 08/13/17 16:59 Last Admin: 06/22/17 16:14 Dose: 5 mg Ipratropium [place] (Atrovent Neb 0.5mg/2.5ml) 0.5 mg HHN Q2HRT PRN PRN Reason: Shortness of Breath or Wheeze Stop: 08/12/17 16:15 Lactobacillus Rhamnosus (Culturelle) 1 each PO DAILY CECILIA Stop: 08/14/17 08:59 Last Admin: 06/22/17 09:01 Dose: 1 each Lactulose (Cephulac) 20 gm PO BID PRN PRN Reason: Constipation Stop: 08/12/17 16:15 Last Admin: 06/15/17 08:04 Dose: 20 gm Lidocaine (Lidoderm 5% Patch) 1 patch TD Q24HR@0900 CECILIA Stop: 08/13/17 08:59 Last Admin: 06/22/17 09:02 Dose: 1 patch Lorazepam (Ativan) 2 mg PO BID PRN; Protocol PRN Reason: Agitation Stop: 08/13/17 14:32 Last Admin: 06/22/17 16:14 Dose: 2 mg Magnesium Hydroxide (Milk Of Magnesia) 30 ml PO HS PRN PRN Reason: Constipation Midodrine (Proamatine) 10 mg PO TID CECILIA Stop: 08/12/17 20:59 Last Admin: 06/22/17 15:03 Dose: 10 mg Mineral Oil (Mineral Oil 30 Ml) 30 ml PO BID CECILIA Stop: 08/12/17 16:59 Last Admin: 06/22/17 16:15 Dose: 30 ml Miscellaneous (Probiotic Screen) 1 ea MC PRN PRN PRN Reason: PROTOCOL Stop: 08/13/17 14:03 Multivitamins/Vitamin C (Theragran) 1 tab PO DAILY CECILIA Stop: 08/13/17 08:59 Last Admin: 06/22/17 09:00 Dose: 1 tab Quetiapine Fumarate (Seroquel) 25 mg PO BID CECILIA PRN Reason: Protocol Stop: 08/14/17 08:59 Last Admin: 06/22/17 16:14 Dose: 25 mg Quetiapine Fumarate (Seroquel) 100 mg PO HS CECILIA PRN Reason: Protocol Stop: 08/14/17 20:59 Last Admin: 06/21/17 21:19 Dose: 100 mg Zolpidem Tartrate (Ambien) 5 mg PO HS PRN PRN Reason: Insomnia Stop: 08/12/17 15:54 Last Admin: 06/21/17 22:18 Dose: 5 mg General: demented, obese, appears older HEENT: NC/AT, PERRLA, EOMI Neck: Supple, No JVD, No LAD Lungs: CTAB Cardiovascular: RRR, Normal S1, Normal S2, without murmur Abdomen: soft, non-tender, globular Extremities: excoriation, contracture Neurological: no change, disorganized, bedbound - Procedures Procedures: Procedures Procedure Code Date CONTINUOUS INVASIVE MECHANICAL VENTILATION =/>96 CONSEC HRS 96.72 01/08/15 EGD BIOPSY SINGLE/MULTIPLE 34549 07/27/15 EXCISION OF DUODENUM, ENDO, DIAGN [id number] 07/27/15 EXCISION OF STOMACH, PYLORUS, ENDO, DIAGN [id number] 07/27/15 GROUP PSYCHOTHERAPY 88165 08/02/15 GROUP PSYCHOTHERAPY GZHZZZZ 08/02/15 INSERT EMERGENCY AIRWAY 99059 01/08/15 INSERT ENDOTRACHEAL TUBE 96.04 01/08/15 INTRAOP COLON LAVAGE ADD-ON 91422 01/08/15 OPEN TOTAL INTRA-ABDOMINAL COLECTOMY 45.82 01/08/15 OTHER GROUP THERAPY 94.44 03/16/15 REMOVAL OF COLON 31787 01/08/15 TEMPORARY ILEOSTOMY 46.21 01/08/15 VENT MGMT INPAT INIT DAY 79678 01/08/15 VENT MGMT INPAT SUBQ DAY 58497 01/08/15 Internal Medicine Assmt/Plan - Assessment Assessment: abdominal pain intractable vomiting possible sbo acute renal failure hyponatremia morbid obesity schizoaffective s/p fall constipation - Plan Plan: - Plan Plan: continue ivf for hydration am labs monitor glucose fall precautions continue current plan of care Nutritional Asmnt/Malnutr-PDOC - Dietary Evaluation Malnutrition Findings (Please click <Entered> for more info): Nutritional Asmnt/Malnutrition Start: 06/18/17 14: 08 Text: Status: Complete Freq: Document 06/18/17 14:08 [email or web address] (Rec: 06/18/17 14:12 [email or web address]) Nutritional Asmnt/Malnutrition Patient General Information Nutritional Screening Moderate Risk Diagnosis psychosis Pertinent Medical Hx/Surgical Hx HLD, dementia Subjective Information Pt is A&O x 1. Per nursing has poor PO intake, but has been eating 75-100% of meals. Reports of constipation but pt has 2 BMs yesterday, 06/17, has bowel regimen ordered. Current Diet Order/ Nutrition Support fat controlled (50 gm) Patient / S.O Not Indicated Pertinent Medications colace, lactulose, culturelle, MOM, mineral oil, MVI Pertinent Labs no labs this admit. Labs from 06/13 WNL Nutritional Hx/Data Height 1.63 m Height (Calculated Centimeters) 162.6 Current Weight (lbs) 100.244 kg Weight (Calculated Kilograms) 100.2 Weight (Calculated Grams) 035109.9 [place] Body Weight 140 lbs % [place] Body Weight 158 Weight Status Obese GI Symptoms GI Symptoms Constipation Food Allergies No Usual diet at home unable to obtain Skin Integrity/Comment: intact, caitlin: 16, no edema Current %PO Good (75-100%) Estimated Nutritional Goals BEE in Kcals: Adj wt of IBW Calories/Kcals/Kg 25-30 Kcals Calculated 0065-6595 kcals (maintenace) Protein: Adj wt of IBW Protein g/k Protein Calculated 73 g Fluid: ml 0776-0425 mL (1 mL/kcal) Nutritional Problem No current Nutrition Prob Problem n/a Etiology n/a Signs/Symptoms: n/a Malnutrition Alert Protein-Calorie Malnutrition N/A Is there a minimum of two criteria No selected? Query Text:Check all the applicable criteria. A minimum of two criteria are recommended for diagnosis of either severe or non-severe malnutrition. Malnutrition Related to Morbid Obesity Malnutrition related to morbid obesity No Intervention/Recommendation Comments 1. Change diet to regular as low fat diet not therapeutically beneficial for patient. Expected Outcomes/Goals Expected Outcomes/Goals goals: PO intake>75%, wt maintenance, labs: WNL, skin to remain intact, pt to have BM every 1-2 days
--- NOTE | 2017-06-22 19:51 | Internal Medicine Prog Note ---
Internal Medicine Subjective - Subjective Patient seen and examined:: with staff, chart reviewed Patient is:: awake, verbal, interactive Per staff patient has:: no adverse event, poor appetite, agitated, noncompliant , tolerating meds Internal Medicine Objective - Physical Exam Vitals and I&O: Vital Signs Temp 98.2 F 06/22/17 14:00 Pulse 75 06/22/17 19:36 Resp 17 06/22/17 19:36 BP 122/66 06/22/17 14:00 Pulse Ox 97 06/22/17 19:36 Intake & Output 06/22/17 06/22/17 06/23/17 06:59 18:59 05:59 Intake Total 120 800 Balance 120 800 Intake: Oral 120 800 Other: # Voids 1 3 # Bowel Movements 0 Stool Characteristics Soft Active Medications: Current Medications Acetaminophen (Tylenol) 650 mg PO Q6H PRN PRN Reason: Mild Pain / Temp above 100 Stop: 08/12/17 15:54 Acetaminophen/Hydrocodone Bitart ([place] 5mg/325mg) 1 tab PO Q6H PRN PRN Reason: Pain (Moderate) Stop: 08/12/17 16:15 Al Hydrox/Mg Hydrox/Simethicone (Maalox) 30 ml PO Q4HR PRN PRN Reason: GI DISTRESS Stop: 08/12/17 15:54 Albuterol Sulfate (Albuterol 2.5mg/3ml Neb Ud) 2.5 mg HHN Q2HRT PRN PRN Reason: Shortness of Breath or Wheeze Stop: 08/12/17 16:14 Dextromethorphan/Quinidine (Nuedexta 20mg-10mg) 1 cap PO Q12HR CECILIA Stop: 08/12/17 20:59 Last Admin: 06/22/17 09:00 Dose: 1 cap Diazepam (Valium) 2 mg PO BID CECILIA PRN Reason: Protocol Stop: 08/13/17 16:59 Last Admin: 06/22/17 16:14 Dose: 2 mg Diphenhydramine HCl (Benadryl) 50 mg PO BID PRN PRN Reason: Agitation Stop: 08/13/17 14:34 Last Admin: 06/22/17 16:13 Dose: 50 mg Docusate Sodium (Colace) 100 mg PO BID CECILIA Stop: 08/12/17 16:59 Last Admin: 06/22/17 16:14 Dose: 100 mg Haloperidol (Haldol) 5 mg PO BID PRN; Protocol PRN Reason: Agitation Stop: 08/13/17 16:59 Last Admin: 06/22/17 16:14 Dose: 5 mg Ipratropium [place] (Atrovent Neb 0.5mg/2.5ml) 0.5 mg HHN Q2HRT PRN PRN Reason: Shortness of Breath or Wheeze Stop: 08/12/17 16:15 Lactobacillus Rhamnosus (Culturelle) 1 each PO DAILY CECILIA Stop: 08/14/17 08:59 Last Admin: 06/22/17 09:01 Dose: 1 each Lactulose (Cephulac) 20 gm PO BID PRN PRN Reason: Constipation Stop: 08/12/17 16:15 Last Admin: 06/15/17 08:04 Dose: 20 gm Lidocaine (Lidoderm 5% Patch) 1 patch TD Q24HR@0900 CECILIA Stop: 08/13/17 08:59 Last Admin: 06/22/17 09:02 Dose: 1 patch Lorazepam (Ativan) 2 mg PO BID PRN; Protocol PRN Reason: Agitation Stop: 08/13/17 14:32 Last Admin: 06/22/17 16:14 Dose: 2 mg Magnesium Hydroxide (Milk Of Magnesia) 30 ml PO HS PRN PRN Reason: Constipation Midodrine (Proamatine) 10 mg PO TID CECILIA Stop: 08/12/17 20:59 Last Admin: 06/22/17 15:03 Dose: 10 mg Mineral Oil (Mineral Oil 30 Ml) 30 ml PO BID CECILIA Stop: 08/12/17 16:59 Last Admin: 06/22/17 16:15 Dose: 30 ml Miscellaneous (Probiotic Screen) 1 ea MC PRN PRN PRN Reason: PROTOCOL Stop: 08/13/17 14:03 Multivitamins/Vitamin C (Theragran) 1 tab PO DAILY CECILIA Stop: 08/13/17 08:59 Last Admin: 06/22/17 09:00 Dose: 1 tab Quetiapine Fumarate (Seroquel) 25 mg PO BID CECILIA PRN Reason: Protocol Stop: 08/14/17 08:59 Last Admin: 06/22/17 16:14 Dose: 25 mg Quetiapine Fumarate (Seroquel) 100 mg PO HS CECILIA PRN Reason: Protocol Stop: 08/14/17 20:59 Last Admin: 06/21/17 21:19 Dose: 100 mg Zolpidem Tartrate (Ambien) 5 mg PO HS PRN PRN Reason: Insomnia Stop: 08/12/17 15:54 Last Admin: 06/21/17 22:18 Dose: 5 mg General: demented, obese, appears older HEENT: NC/AT, PERRLA, EOMI Neck: Supple, No JVD, No LAD Lungs: CTAB Cardiovascular: RRR, Normal S1, Normal S2, without murmur Abdomen: soft, non-tender, globular Extremities: excoriation, contracture Neurological: no change, disorganized, bedbound - Procedures Procedures: Procedures Procedure Code Date CONTINUOUS INVASIVE MECHANICAL VENTILATION =/>96 CONSEC HRS 96.72 01/08/15 EGD BIOPSY SINGLE/MULTIPLE 06309 07/27/15 EXCISION OF DUODENUM, ENDO, DIAGN [id number] 07/27/15 EXCISION OF STOMACH, PYLORUS, ENDO, DIAGN [id number] 07/27/15 GROUP PSYCHOTHERAPY 56197 08/02/15 GROUP PSYCHOTHERAPY [id number] 08/02/15 INSERT EMERGENCY AIRWAY 57733 01/08/15 INSERT ENDOTRACHEAL TUBE 96.04 01/08/15 INTRAOP COLON LAVAGE ADD-ON 90896 01/08/15 OPEN TOTAL INTRA-ABDOMINAL COLECTOMY 45.82 01/08/15 OTHER GROUP THERAPY 94.44 03/16/15 REMOVAL OF COLON 51142 01/08/15 TEMPORARY ILEOSTOMY 46.21 01/08/15 VENT MGMT INPAT INIT DAY 92541 01/08/15 VENT MGMT INPAT SUBQ DAY 63300 01/08/15 Internal Medicine Assmt/Plan - Assessment Assessment: abdominal pain intractable vomiting possible sbo acute renal failure hyponatremia morbid obesity schizoaffective s/p fall constipation - Plan Plan: - Plan Plan: continue ivf for hydration am labs monitor glucose fall precautions continue current plan of care Nutritional Asmnt/Malnutr-PDOC - Dietary Evaluation Malnutrition Findings (Please click <Entered> for more info): Nutritional Asmnt/Malnutrition Start: 06/18/17 14: 08 Text: Status: Complete Freq: Document 06/18/17 14:08 [email or web address] (Rec: 06/18/17 14:12 [email or web address]) Nutritional Asmnt/Malnutrition Patient General Information Nutritional Screening Moderate Risk Diagnosis psychosis Pertinent Medical Hx/Surgical Hx HLD, dementia Subjective Information Pt is A&O x 1. Per nursing has poor PO intake, but has been eating 75-100% of meals. Reports of constipation but pt has 2 BMs yesterday, 06/17, has bowel regimen ordered. Current Diet Order/ Nutrition Support fat controlled (50 gm) Patient / S.O Not Indicated Pertinent Medications colace, lactulose, culturelle, MOM, mineral oil, MVI Pertinent Labs no labs this admit. Labs from 06/13 WNL Nutritional Hx/Data Height 1.63 m Height (Calculated Centimeters) 162.6 Current Weight (lbs) 100.244 kg Weight (Calculated Kilograms) 100.2 Weight (Calculated Grams) 527023.9 [place] Body Weight 140 lbs % [place] Body Weight 158 Weight Status Obese GI Symptoms GI Symptoms Constipation Food Allergies No Usual diet at home unable to obtain Skin Integrity/Comment: intact, caitlin: 16, no edema Current %PO Good (75-100%) Estimated Nutritional Goals BEE in Kcals: Adj wt of IBW Calories/Kcals/Kg 25-30 Kcals Calculated 3126-6271 kcals (maintenace) Protein: Adj wt of IBW Protein g/k Protein Calculated 73 g Fluid: ml 2545-2142 mL (1 mL/kcal) Nutritional Problem No current Nutrition Prob Problem n/a Etiology n/a Signs/Symptoms: n/a Malnutrition Alert Protein-Calorie Malnutrition N/A Is there a minimum of two criteria No selected? Query Text:Check all the applicable criteria. A minimum of two criteria are recommended for diagnosis of either severe or non-severe malnutrition. Malnutrition Related to Morbid Obesity Malnutrition related to morbid obesity No Intervention/Recommendation Comments 1. Change diet to regular as low fat diet not therapeutically beneficial for patient. Expected Outcomes/Goals Expected Outcomes/Goals goals: PO intake>75%, wt maintenance, labs: WNL, skin to remain intact, pt to have BM every 1-2 days
[2017-06-23] MEDS: Multivitamin Tab PO SCH ×2 (08:52)
[2017-06-23] MEDS: Lactobacillus Rhamnosus 10 Billion CFU Capsule PO SCH ×2 (08:53)
[2017-06-23] MEDS: Dextromethorphan/Quinidine 20mg/10mg Cap PO SCH ×4 (08:53→20:20)
[2017-06-23] MEDS: Lidocaine 5% Patch TD SCH ×2 (08:54)
--- NOTE | 2017-06-23 11:31 | Progress Notes ---
DATE: SUBJECTIVE: Chart reviewed and the patient interviewed. Also discussed the patient's condition with the staff and reviewed records and labs. The patient is still easily agitated and she is still trying to pull colonoscopy tube. She also is still needs lots of redirections and still have episodes of fighting with staff while helping her with her ADLs. She also needs prompt directions. Otherwise, the patient is compliant with taking Seroquel and no side effects of Seroquel. ASSESSMENT: The patient is still agitated and in irritable mood and needs close observation and close monitoring. TREATMENT PLAN: We will continue to monitor her behavior and her condition closely. Also, continue adjusting psychotropic medications and followup. JOB# [id number]
--- NOTE | 2017-06-23 18:06 | Consultation ---
DATE OF CONSULTATION: 06/22/2017 The patient was evaluated. The patient's chart reviewed. This is Dr. Bocanegra covering for Dr. Wick. Overnight, nursing staff reported the patient continues to perseverate about removing her colonoscopy, needing a lot of redirection in regard to the removal of the colonoscopy. Today on [id number] evaluation, the patient is seen at baseline, presents still easily disorganized, easily agitated, and attempting to move her colonoscopy. On upper extremity, soft mittens are reduced. She continues to be disorganized. MENTAL STATUS EXAMINATION: Disorganized, irritable, attempting to remove colonoscopy, which is extremely self-injurious behavior to the patient. ASSESSMENT AND PLAN: The patient continues to be preoccupied, disorganized, and disengaged and removing her colonoscopy putting herself at high injurious, she is unable to formulate a safe plan outside of a structured environment. We will continue monitoring and evaluate. We will continue with her primary psychiatrist treatment plan and goals, which includes Valium at 10 mg p.o. b.i.d. to reduce anxiety and Haldol ____ p.r.n. to augment the current dosages of the Seroquel 25 mg p.o. b.i.d. and 100 mg at bedtime of the Seroquel. JOB# [id number]
--- NOTE | 2017-06-23 18:06 | Consultation ---
DATE OF CONSULTATION: 06/22/2017 The patient was evaluated. The patient's chart reviewed. This is Dr. Bocanegra covering for Dr. Wick. Overnight, nursing staff reported the patient continues to perseverate about removing her colonoscopy, needing a lot of redirection in regard to the removal of the colonoscopy. Today on [id number] evaluation, the patient is seen at baseline, presents still easily disorganized, easily agitated, and attempting to move her colonoscopy. On upper extremity, soft mittens are reduced. She continues to be disorganized. MENTAL STATUS EXAMINATION: Disorganized, irritable, attempting to remove colonoscopy, which is extremely self-injurious behavior to the patient. ASSESSMENT AND PLAN: The patient continues to be preoccupied, disorganized, and disengaged and removing her colonoscopy putting herself at high injurious, she is unable to formulate a safe plan outside of a structured environment. We will continue monitoring and evaluate. We will continue with her primary psychiatrist treatment plan and goals, which includes Valium at 10 mg p.o. b.i.d. to reduce anxiety and Haldol ____ p.r.n. to augment the current dosages of the Seroquel 25 mg p.o. b.i.d. and 100 mg at bedtime of the Seroquel. JOB# [id number]
--- NOTE | 2017-06-23 18:06 | Consultation ---
DATE OF CONSULTATION: 06/22/2017 The patient was evaluated. The patient's chart reviewed. This is Dr. Bocanegra covering for Dr. Wick. Overnight, nursing staff reported the patient continues to perseverate about removing her colonoscopy, needing a lot of redirection in regard to the removal of the colonoscopy. Today on [id number] evaluation, the patient is seen at baseline, presents still easily disorganized, easily agitated, and attempting to move her colonoscopy. On upper extremity, soft mittens are reduced. She continues to be disorganized. MENTAL STATUS EXAMINATION: Disorganized, irritable, attempting to remove colonoscopy, which is extremely self-injurious behavior to the patient. ASSESSMENT AND PLAN: The patient continues to be preoccupied, disorganized, and disengaged and removing her colonoscopy putting herself at high injurious, she is unable to formulate a safe plan outside of a structured environment. We will continue monitoring and evaluate. We will continue with her primary psychiatrist treatment plan and goals, which includes Valium at 10 mg p.o. b.i.d. to reduce anxiety and Haldol ____ p.r.n. to augment the current dosages of the Seroquel 25 mg p.o. b.i.d. and 100 mg at bedtime of the Seroquel. JOB# [id number]
--- NOTE | 2017-06-23 20:58 | Internal Medicine Prog Note ---
Internal Medicine Subjective - Subjective Patient seen and examined:: with staff, chart reviewed Patient is:: awake, verbal, interactive Per staff patient has:: no adverse event, poor appetite, agitated, noncompliant , tolerating meds Internal Medicine Objective - Physical Exam Vitals and I&O: Vital Signs Temp 98.0 F 06/23/17 19:56 Pulse 101 06/23/17 19:56 Resp 18 06/23/17 19:56 BP 134/73 06/23/17 19:56 Pulse Ox 96 06/23/17 19:56 Intake & Output 06/23/17 06/23/17 06/24/17 06:59 18:59 06:59 Intake Total 900 60 Balance 900 60 Intake: Oral 900 60 Other: # Voids 3 1 # Bowel Movements 0 1 Stool Characteristics Active Medications: Current Medications Acetaminophen (Tylenol) 650 mg PO Q6H PRN PRN Reason: Mild Pain / Temp above 100 Stop: 08/12/17 15:54 Acetaminophen/Hydrocodone Bitart ([place] 5mg/325mg) 1 tab PO Q6H PRN PRN Reason: Pain (Moderate) Stop: 08/12/17 16:15 Al Hydrox/Mg Hydrox/Simethicone (Maalox) 30 ml PO Q4HR PRN PRN Reason: GI DISTRESS Stop: 08/12/17 15:54 Albuterol Sulfate (Albuterol 2.5mg/3ml Neb Ud) 2.5 mg HHN Q2HRT PRN PRN Reason: Shortness of Breath or Wheeze Stop: 08/12/17 16:14 Dextromethorphan/Quinidine (Nuedexta 20mg-10mg) 1 cap PO Q12HR CECILIA Stop: 08/12/17 20:59 Last Admin: 06/23/17 20:20 Dose: 1 cap Diazepam (Valium) 2 mg PO BID CECILIA PRN Reason: Protocol Stop: 08/13/17 16:59 Last Admin: 06/23/17 16:34 Dose: 2 mg Diphenhydramine HCl (Benadryl) 50 mg PO BID PRN PRN Reason: Agitation Stop: 08/13/17 14:34 Last Admin: 06/23/17 20:20 Dose: 50 mg Docusate Sodium (Colace) 100 mg PO BID CECILIA Stop: 08/12/17 16:59 Last Admin: 06/23/17 16:34 Dose: 100 mg Haloperidol (Haldol) 5 mg PO BID PRN; Protocol PRN Reason: Agitation Stop: 08/13/17 16:59 Last Admin: 06/23/17 20:20 Dose: 5 mg Ipratropium [place] (Atrovent Neb 0.5mg/2.5ml) 0.5 mg HHN Q2HRT PRN PRN Reason: Shortness of Breath or Wheeze Stop: 08/12/17 16:15 Lactobacillus Rhamnosus (Culturelle) 1 each PO DAILY CECILIA Stop: 08/14/17 08:59 Last Admin: 06/23/17 08:53 Dose: 1 each Lactulose (Cephulac) 20 gm PO BID PRN PRN Reason: Constipation Stop: 08/12/17 16:15 Last Admin: 06/15/17 08:04 Dose: 20 gm Lidocaine (Lidoderm 5% Patch) 1 patch TD Q24HR@0900 CECILIA Stop: 08/13/17 08:59 Last Admin: 06/23/17 08:54 Dose: 1 patch Lorazepam (Ativan) 2 mg PO BID PRN; Protocol PRN Reason: Agitation Stop: 08/13/17 14:32 Last Admin: 06/23/17 20:21 Dose: 2 mg Magnesium Hydroxide (Milk Of Magnesia) 30 ml PO HS PRN PRN Reason: Constipation Midodrine (Proamatine) 10 mg PO TID CECILIA Stop: 08/12/17 20:59 Last Admin: 06/23/17 20:21 Dose: 10 mg Mineral Oil (Mineral Oil 30 Ml) 30 ml PO BID CECILIA Stop: 08/12/17 16:59 Last Admin: 06/23/17 09:16 Dose: 30 ml Miscellaneous (Probiotic Screen) 1 ea MC PRN PRN PRN Reason: PROTOCOL Stop: 08/13/17 14:03 Multivitamins/Vitamin C (Theragran) 1 tab PO DAILY CECILIA Stop: 08/13/17 08:59 Last Admin: 06/23/17 08:52 Dose: 1 tab Quetiapine Fumarate (Seroquel) 25 mg PO BID CECILIA PRN Reason: Protocol Stop: 08/14/17 08:59 Last Admin: 06/23/17 16:34 Dose: 25 mg Quetiapine Fumarate (Seroquel) 100 mg PO HS CECILIA PRN Reason: Protocol Stop: 08/14/17 20:59 Last Admin: 06/23/17 20:20 Dose: 100 mg Zolpidem Tartrate (Ambien) 5 mg PO HS PRN PRN Reason: Insomnia Stop: 08/12/17 15:54 Last Admin: 06/22/17 20:39 Dose: 5 mg General: demented, obese, appears older HEENT: NC/AT, PERRLA, EOMI Neck: Supple, No JVD, No LAD Lungs: CTAB Cardiovascular: RRR, Normal S1, Normal S2, without murmur Abdomen: soft, non-tender, globular Extremities: excoriation, contracture Neurological: no change, disorganized, bedbound - Procedures Procedures: Procedures Procedure Code Date CONTINUOUS INVASIVE MECHANICAL VENTILATION =/>96 CONSEC HRS 96.72 01/08/15 EGD BIOPSY SINGLE/MULTIPLE 08105 07/27/15 EXCISION OF DUODENUM, ENDO, DIAGN [id number] 07/27/15 EXCISION OF STOMACH, PYLORUS, ENDO, DIAGN [id number] 07/27/15 GROUP PSYCHOTHERAPY 14851 08/02/15 GROUP PSYCHOTHERAPY [id number] 08/02/15 INSERT EMERGENCY AIRWAY 76054 01/08/15 INSERT ENDOTRACHEAL TUBE 96.04 01/08/15 INTRAOP COLON LAVAGE ADD-ON 19912 01/08/15 OPEN TOTAL INTRA-ABDOMINAL COLECTOMY 45.82 01/08/15 OTHER GROUP THERAPY 94.44 03/16/15 REMOVAL OF COLON 29707 01/08/15 TEMPORARY ILEOSTOMY 46.21 01/08/15 VENT MGMT INPAT INIT DAY 90761 01/08/15 VENT MGMT INPAT SUBQ DAY 19367 01/08/15 Internal Medicine Assmt/Plan - Assessment Assessment: abdominal pain intractable vomiting possible sbo acute renal failure hyponatremia morbid obesity schizoaffective s/p fall constipation - Plan Plan: - Plan Plan: continue ivf for hydration am labs monitor glucose fall precautions continue current plan of care Nutritional Asmnt/Malnutr-PDOC - Dietary Evaluation Malnutrition Findings (Please click <Entered> for more info): Nutritional Asmnt/Malnutrition Start: 06/18/17 14: 08 Text: Status: Complete Freq: Document 06/18/17 14:08 [email or web address] (Rec: 06/18/17 14:12 [email or web address]) Nutritional Asmnt/Malnutrition Patient General Information Nutritional Screening Moderate Risk Diagnosis psychosis Pertinent Medical Hx/Surgical Hx HLD, dementia Subjective Information Pt is A&O x 1. Per nursing has poor PO intake, but has been eating 75-100% of meals. Reports of constipation but pt has 2 BMs yesterday, 06/17, has bowel regimen ordered. Current Diet Order/ Nutrition Support fat controlled (50 gm) Patient / S.O Not Indicated Pertinent Medications colace, lactulose, culturelle, MOM, mineral oil, MVI Pertinent Labs no labs this admit. Labs from 06/13 WNL Nutritional Hx/Data Height 1.63 m Height (Calculated Centimeters) 162.6 Current Weight (lbs) 100.244 kg Weight (Calculated Kilograms) 100.2 Weight (Calculated Grams) 151923.9 [place] Body Weight 140 lbs % [place] Body Weight 158 Weight Status Obese GI Symptoms GI Symptoms Constipation Food Allergies No Usual diet at home unable to obtain Skin Integrity/Comment: intact, caitlin: 16, no edema Current %PO Good (75-100%) Estimated Nutritional Goals BEE in Kcals: Adj wt of IBW Calories/Kcals/Kg 25-30 Kcals Calculated 4008-4122 kcals (maintenace) Protein: Adj wt of IBW Protein g/k Protein Calculated 73 g Fluid: ml 5639-0945 mL (1 mL/kcal) Nutritional Problem No current Nutrition Prob Problem n/a Etiology n/a Signs/Symptoms: n/a Malnutrition Alert Protein-Calorie Malnutrition N/A Is there a minimum of two criteria No selected? Query Text:Check all the applicable criteria. A minimum of two criteria are recommended for diagnosis of either severe or non-severe malnutrition. Malnutrition Related to Morbid Obesity Malnutrition related to morbid obesity No Intervention/Recommendation Comments 1. Change diet to regular as low fat diet not therapeutically beneficial for patient. Expected Outcomes/Goals Expected Outcomes/Goals goals: PO intake>75%, wt maintenance, labs: WNL, skin to remain intact, pt to have BM every 1-2 days
--- NOTE | 2017-06-23 20:58 | Internal Medicine Prog Note ---
Internal Medicine Subjective - Subjective Patient seen and examined:: with staff, chart reviewed Patient is:: awake, verbal, interactive Per staff patient has:: no adverse event, poor appetite, agitated, noncompliant , tolerating meds Internal Medicine Objective - Physical Exam Vitals and I&O: Vital Signs Temp 98.0 F 06/23/17 19:56 Pulse 101 06/23/17 19:56 Resp 18 06/23/17 19:56 BP 134/73 06/23/17 19:56 Pulse Ox 96 06/23/17 19:56 Intake & Output 06/23/17 06/23/17 06/24/17 06:59 18:59 06:59 Intake Total 900 60 Balance 900 60 Intake: Oral 900 60 Other: # Voids 3 1 # Bowel Movements 0 1 Stool Characteristics Active Medications: Current Medications Acetaminophen (Tylenol) 650 mg PO Q6H PRN PRN Reason: Mild Pain / Temp above 100 Stop: 08/12/17 15:54 Acetaminophen/Hydrocodone Bitart ([place] 5mg/325mg) 1 tab PO Q6H PRN PRN Reason: Pain (Moderate) Stop: 08/12/17 16:15 Al Hydrox/Mg Hydrox/Simethicone (Maalox) 30 ml PO Q4HR PRN PRN Reason: GI DISTRESS Stop: 08/12/17 15:54 Albuterol Sulfate (Albuterol 2.5mg/3ml Neb Ud) 2.5 mg HHN Q2HRT PRN PRN Reason: Shortness of Breath or Wheeze Stop: 08/12/17 16:14 Dextromethorphan/Quinidine (Nuedexta 20mg-10mg) 1 cap PO Q12HR CECILIA Stop: 08/12/17 20:59 Last Admin: 06/23/17 20:20 Dose: 1 cap Diazepam (Valium) 2 mg PO BID CECILIA PRN Reason: Protocol Stop: 08/13/17 16:59 Last Admin: 06/23/17 16:34 Dose: 2 mg Diphenhydramine HCl (Benadryl) 50 mg PO BID PRN PRN Reason: Agitation Stop: 08/13/17 14:34 Last Admin: 06/23/17 20:20 Dose: 50 mg Docusate Sodium (Colace) 100 mg PO BID CECILIA Stop: 08/12/17 16:59 Last Admin: 06/23/17 16:34 Dose: 100 mg Haloperidol (Haldol) 5 mg PO BID PRN; Protocol PRN Reason: Agitation Stop: 08/13/17 16:59 Last Admin: 06/23/17 20:20 Dose: 5 mg Ipratropium [place] (Atrovent Neb 0.5mg/2.5ml) 0.5 mg HHN Q2HRT PRN PRN Reason: Shortness of Breath or Wheeze Stop: 08/12/17 16:15 Lactobacillus Rhamnosus (Culturelle) 1 each PO DAILY CECILIA Stop: 08/14/17 08:59 Last Admin: 06/23/17 08:53 Dose: 1 each Lactulose (Cephulac) 20 gm PO BID PRN PRN Reason: Constipation Stop: 08/12/17 16:15 Last Admin: 06/15/17 08:04 Dose: 20 gm Lidocaine (Lidoderm 5% Patch) 1 patch TD Q24HR@0900 CECILIA Stop: 08/13/17 08:59 Last Admin: 06/23/17 08:54 Dose: 1 patch Lorazepam (Ativan) 2 mg PO BID PRN; Protocol PRN Reason: Agitation Stop: 08/13/17 14:32 Last Admin: 06/23/17 20:21 Dose: 2 mg Magnesium Hydroxide (Milk Of Magnesia) 30 ml PO HS PRN PRN Reason: Constipation Midodrine (Proamatine) 10 mg PO TID CECILIA Stop: 08/12/17 20:59 Last Admin: 06/23/17 20:21 Dose: 10 mg Mineral Oil (Mineral Oil 30 Ml) 30 ml PO BID CECILIA Stop: 08/12/17 16:59 Last Admin: 06/23/17 09:16 Dose: 30 ml Miscellaneous (Probiotic Screen) 1 ea MC PRN PRN PRN Reason: PROTOCOL Stop: 08/13/17 14:03 Multivitamins/Vitamin C (Theragran) 1 tab PO DAILY CECILIA Stop: 08/13/17 08:59 Last Admin: 06/23/17 08:52 Dose: 1 tab Quetiapine Fumarate (Seroquel) 25 mg PO BID CECILIA PRN Reason: Protocol Stop: 08/14/17 08:59 Last Admin: 06/23/17 16:34 Dose: 25 mg Quetiapine Fumarate (Seroquel) 100 mg PO HS CECILIA PRN Reason: Protocol Stop: 08/14/17 20:59 Last Admin: 06/23/17 20:20 Dose: 100 mg Zolpidem Tartrate (Ambien) 5 mg PO HS PRN PRN Reason: Insomnia Stop: 08/12/17 15:54 Last Admin: 06/22/17 20:39 Dose: 5 mg General: demented, obese, appears older HEENT: NC/AT, PERRLA, EOMI Neck: Supple, No JVD, No LAD Lungs: CTAB Cardiovascular: RRR, Normal S1, Normal S2, without murmur Abdomen: soft, non-tender, globular Extremities: excoriation, contracture Neurological: no change, disorganized, bedbound - Procedures Procedures: Procedures Procedure Code Date CONTINUOUS INVASIVE MECHANICAL VENTILATION =/>96 CONSEC HRS 96.72 01/08/15 EGD BIOPSY SINGLE/MULTIPLE 47194 07/27/15 EXCISION OF DUODENUM, ENDO, DIAGN [id number] 07/27/15 EXCISION OF STOMACH, PYLORUS, ENDO, DIAGN [id number] 07/27/15 GROUP PSYCHOTHERAPY 29323 08/02/15 GROUP PSYCHOTHERAPY [id number] 08/02/15 INSERT EMERGENCY AIRWAY 80738 01/08/15 INSERT ENDOTRACHEAL TUBE 96.04 01/08/15 INTRAOP COLON LAVAGE ADD-ON 55517 01/08/15 OPEN TOTAL INTRA-ABDOMINAL COLECTOMY 45.82 01/08/15 OTHER GROUP THERAPY 94.44 03/16/15 REMOVAL OF COLON 96761 01/08/15 TEMPORARY ILEOSTOMY 46.21 01/08/15 VENT MGMT INPAT INIT DAY 84414 01/08/15 VENT MGMT INPAT SUBQ DAY 05413 01/08/15 Internal Medicine Assmt/Plan - Assessment Assessment: abdominal pain intractable vomiting possible sbo acute renal failure hyponatremia morbid obesity schizoaffective s/p fall constipation - Plan Plan: - Plan Plan: continue ivf for hydration am labs monitor glucose fall precautions continue current plan of care Nutritional Asmnt/Malnutr-PDOC - Dietary Evaluation Malnutrition Findings (Please click <Entered> for more info): Nutritional Asmnt/Malnutrition Start: 06/18/17 14: 08 Text: Status: Complete Freq: Document 06/18/17 14:08 [email or web address] (Rec: 06/18/17 14:12 [email or web address]) Nutritional Asmnt/Malnutrition Patient General Information Nutritional Screening Moderate Risk Diagnosis psychosis Pertinent Medical Hx/Surgical Hx HLD, dementia Subjective Information Pt is A&O x 1. Per nursing has poor PO intake, but has been eating 75-100% of meals. Reports of constipation but pt has 2 BMs yesterday, 06/17, has bowel regimen ordered. Current Diet Order/ Nutrition Support fat controlled (50 gm) Patient / S.O Not Indicated Pertinent Medications colace, lactulose, culturelle, MOM, mineral oil, MVI Pertinent Labs no labs this admit. Labs from 06/13 WNL Nutritional Hx/Data Height 1.63 m Height (Calculated Centimeters) 162.6 Current Weight (lbs) 100.244 kg Weight (Calculated Kilograms) 100.2 Weight (Calculated Grams) 670941.9 [place] Body Weight 140 lbs % [place] Body Weight 158 Weight Status Obese GI Symptoms GI Symptoms Constipation Food Allergies No Usual diet at home unable to obtain Skin Integrity/Comment: intact, caitlin: 16, no edema Current %PO Good (75-100%) Estimated Nutritional Goals BEE in Kcals: Adj wt of IBW Calories/Kcals/Kg 25-30 Kcals Calculated 9878-1842 kcals (maintenace) Protein: Adj wt of IBW Protein g/k Protein Calculated 73 g Fluid: ml 4543-3861 mL (1 mL/kcal) Nutritional Problem No current Nutrition Prob Problem n/a Etiology n/a Signs/Symptoms: n/a Malnutrition Alert Protein-Calorie Malnutrition N/A Is there a minimum of two criteria No selected? Query Text:Check all the applicable criteria. A minimum of two criteria are recommended for diagnosis of either severe or non-severe malnutrition. Malnutrition Related to Morbid Obesity Malnutrition related to morbid obesity No Intervention/Recommendation Comments 1. Change diet to regular as low fat diet not therapeutically beneficial for patient. Expected Outcomes/Goals Expected Outcomes/Goals goals: PO intake>75%, wt maintenance, labs: WNL, skin to remain intact, pt to have BM every 1-2 days
--- NOTE | 2017-06-23 20:58 | Internal Medicine Prog Note ---
Internal Medicine Subjective - Subjective Patient seen and examined:: with staff, chart reviewed Patient is:: awake, verbal, interactive Per staff patient has:: no adverse event, poor appetite, agitated, noncompliant , tolerating meds Internal Medicine Objective - Physical Exam Vitals and I&O: Vital Signs Temp 98.0 F 06/23/17 19:56 Pulse 101 06/23/17 19:56 Resp 18 06/23/17 19:56 BP 134/73 06/23/17 19:56 Pulse Ox 96 06/23/17 19:56 Intake & Output 06/23/17 06/23/17 06/24/17 06:59 18:59 06:59 Intake Total 900 60 Balance 900 60 Intake: Oral 900 60 Other: # Voids 3 1 # Bowel Movements 0 1 Stool Characteristics Active Medications: Current Medications Acetaminophen (Tylenol) 650 mg PO Q6H PRN PRN Reason: Mild Pain / Temp above 100 Stop: 08/12/17 15:54 Acetaminophen/Hydrocodone Bitart ([place] 5mg/325mg) 1 tab PO Q6H PRN PRN Reason: Pain (Moderate) Stop: 08/12/17 16:15 Al Hydrox/Mg Hydrox/Simethicone (Maalox) 30 ml PO Q4HR PRN PRN Reason: GI DISTRESS Stop: 08/12/17 15:54 Albuterol Sulfate (Albuterol 2.5mg/3ml Neb Ud) 2.5 mg HHN Q2HRT PRN PRN Reason: Shortness of Breath or Wheeze Stop: 08/12/17 16:14 Dextromethorphan/Quinidine (Nuedexta 20mg-10mg) 1 cap PO Q12HR CECILIA Stop: 08/12/17 20:59 Last Admin: 06/23/17 20:20 Dose: 1 cap Diazepam (Valium) 2 mg PO BID CECILIA PRN Reason: Protocol Stop: 08/13/17 16:59 Last Admin: 06/23/17 16:34 Dose: 2 mg Diphenhydramine HCl (Benadryl) 50 mg PO BID PRN PRN Reason: Agitation Stop: 08/13/17 14:34 Last Admin: 06/23/17 20:20 Dose: 50 mg Docusate Sodium (Colace) 100 mg PO BID CECILIA Stop: 08/12/17 16:59 Last Admin: 06/23/17 16:34 Dose: 100 mg Haloperidol (Haldol) 5 mg PO BID PRN; Protocol PRN Reason: Agitation Stop: 08/13/17 16:59 Last Admin: 06/23/17 20:20 Dose: 5 mg Ipratropium [place] (Atrovent Neb 0.5mg/2.5ml) 0.5 mg HHN Q2HRT PRN PRN Reason: Shortness of Breath or Wheeze Stop: 08/12/17 16:15 Lactobacillus Rhamnosus (Culturelle) 1 each PO DAILY CECILIA Stop: 08/14/17 08:59 Last Admin: 06/23/17 08:53 Dose: 1 each Lactulose (Cephulac) 20 gm PO BID PRN PRN Reason: Constipation Stop: 08/12/17 16:15 Last Admin: 06/15/17 08:04 Dose: 20 gm Lidocaine (Lidoderm 5% Patch) 1 patch TD Q24HR@0900 CECILIA Stop: 08/13/17 08:59 Last Admin: 06/23/17 08:54 Dose: 1 patch Lorazepam (Ativan) 2 mg PO BID PRN; Protocol PRN Reason: Agitation Stop: 08/13/17 14:32 Last Admin: 06/23/17 20:21 Dose: 2 mg Magnesium Hydroxide (Milk Of Magnesia) 30 ml PO HS PRN PRN Reason: Constipation Midodrine (Proamatine) 10 mg PO TID CECILIA Stop: 08/12/17 20:59 Last Admin: 06/23/17 20:21 Dose: 10 mg Mineral Oil (Mineral Oil 30 Ml) 30 ml PO BID CECILIA Stop: 08/12/17 16:59 Last Admin: 06/23/17 09:16 Dose: 30 ml Miscellaneous (Probiotic Screen) 1 ea MC PRN PRN PRN Reason: PROTOCOL Stop: 08/13/17 14:03 Multivitamins/Vitamin C (Theragran) 1 tab PO DAILY CECILIA Stop: 08/13/17 08:59 Last Admin: 06/23/17 08:52 Dose: 1 tab Quetiapine Fumarate (Seroquel) 25 mg PO BID CECILIA PRN Reason: Protocol Stop: 08/14/17 08:59 Last Admin: 06/23/17 16:34 Dose: 25 mg Quetiapine Fumarate (Seroquel) 100 mg PO HS CECILIA PRN Reason: Protocol Stop: 08/14/17 20:59 Last Admin: 06/23/17 20:20 Dose: 100 mg Zolpidem Tartrate (Ambien) 5 mg PO HS PRN PRN Reason: Insomnia Stop: 08/12/17 15:54 Last Admin: 06/22/17 20:39 Dose: 5 mg General: demented, obese, appears older HEENT: NC/AT, PERRLA, EOMI Neck: Supple, No JVD, No LAD Lungs: CTAB Cardiovascular: RRR, Normal S1, Normal S2, without murmur Abdomen: soft, non-tender, globular Extremities: excoriation, contracture Neurological: no change, disorganized, bedbound - Procedures Procedures: Procedures Procedure Code Date CONTINUOUS INVASIVE MECHANICAL VENTILATION =/>96 CONSEC HRS 96.72 01/08/15 EGD BIOPSY SINGLE/MULTIPLE 79793 07/27/15 EXCISION OF DUODENUM, ENDO, DIAGN [id number] 07/27/15 EXCISION OF STOMACH, PYLORUS, ENDO, DIAGN [id number] 07/27/15 GROUP PSYCHOTHERAPY 75452 08/02/15 GROUP PSYCHOTHERAPY [id number] 08/02/15 INSERT EMERGENCY AIRWAY 74062 01/08/15 INSERT ENDOTRACHEAL TUBE 96.04 01/08/15 INTRAOP COLON LAVAGE ADD-ON 46829 01/08/15 OPEN TOTAL INTRA-ABDOMINAL COLECTOMY 45.82 01/08/15 OTHER GROUP THERAPY 94.44 03/16/15 REMOVAL OF COLON 50992 01/08/15 TEMPORARY ILEOSTOMY 46.21 01/08/15 VENT MGMT INPAT INIT DAY 21106 01/08/15 VENT MGMT INPAT SUBQ DAY 10911 01/08/15 Internal Medicine Assmt/Plan - Assessment Assessment: abdominal pain intractable vomiting possible sbo acute renal failure hyponatremia morbid obesity schizoaffective s/p fall constipation - Plan Plan: - Plan Plan: continue ivf for hydration am labs monitor glucose fall precautions continue current plan of care Nutritional Asmnt/Malnutr-PDOC - Dietary Evaluation Malnutrition Findings (Please click <Entered> for more info): Nutritional Asmnt/Malnutrition Start: 06/18/17 14: 08 Text: Status: Complete Freq: Document 06/18/17 14:08 [email or web address] (Rec: 06/18/17 14:12 [email or web address]) Nutritional Asmnt/Malnutrition Patient General Information Nutritional Screening Moderate Risk Diagnosis psychosis Pertinent Medical Hx/Surgical Hx HLD, dementia Subjective Information Pt is A&O x 1. Per nursing has poor PO intake, but has been eating 75-100% of meals. Reports of constipation but pt has 2 BMs yesterday, 06/17, has bowel regimen ordered. Current Diet Order/ Nutrition Support fat controlled (50 gm) Patient / S.O Not Indicated Pertinent Medications colace, lactulose, culturelle, MOM, mineral oil, MVI Pertinent Labs no labs this admit. Labs from 06/13 WNL Nutritional Hx/Data Height 1.63 m Height (Calculated Centimeters) 162.6 Current Weight (lbs) 100.244 kg Weight (Calculated Kilograms) 100.2 Weight (Calculated Grams) 607472.9 [place] Body Weight 140 lbs % [place] Body Weight 158 Weight Status Obese GI Symptoms GI Symptoms Constipation Food Allergies No Usual diet at home unable to obtain Skin Integrity/Comment: intact, caitlin: 16, no edema Current %PO Good (75-100%) Estimated Nutritional Goals BEE in Kcals: Adj wt of IBW Calories/Kcals/Kg 25-30 Kcals Calculated 0654-4079 kcals (maintenace) Protein: Adj wt of IBW Protein g/k Protein Calculated 73 g Fluid: ml 0387-5808 mL (1 mL/kcal) Nutritional Problem No current Nutrition Prob Problem n/a Etiology n/a Signs/Symptoms: n/a Malnutrition Alert Protein-Calorie Malnutrition N/A Is there a minimum of two criteria No selected? Query Text:Check all the applicable criteria. A minimum of two criteria are recommended for diagnosis of either severe or non-severe malnutrition. Malnutrition Related to Morbid Obesity Malnutrition related to morbid obesity No Intervention/Recommendation Comments 1. Change diet to regular as low fat diet not therapeutically beneficial for patient. Expected Outcomes/Goals Expected Outcomes/Goals goals: PO intake>75%, wt maintenance, labs: WNL, skin to remain intact, pt to have BM every 1-2 days
[2017-06-24] MEDS: Lactobacillus Rhamnosus 10 Billion CFU Capsule PO SCH ×2 (08:05)
[2017-06-24] MEDS: Multivitamin Tab PO SCH ×2 (08:05)
[2017-06-24] MEDS: Dextromethorphan/Quinidine 20mg/10mg Cap PO SCH ×4 (08:06→20:19)
[2017-06-24] MEDS: Lidocaine 5% Patch TD SCH ×2 (08:06)
--- NOTE | 2017-06-24 10:34 | Progress Notes ---
DATE: SUBJECTIVE: The patient was seen and evaluated. The patient's chart reviewed. This is Dr. Bocanegra covering for Dr. Wick. Nursing staff reported that the patient needs a lot of redirection to prevent her from pulling her colonoscopy tube. Today on [id number] evaluation, the patient just smiles inappropriately, unable to fully engage in a conversation, she just smiles and observed to be responding. MENTAL STATUS EXAMINATION: Irritable, agitated, attempting to move her colonoscopy with extremely poor insight, judgment and impulse control. ASSESSMENT AND PLAN: A 62-year-old female, disorganized, psychotic, attempting to remove her colonoscopy tube putting herself at great risk; therefore, we will continue monitoring and evaluating, and continue with the current medication regimen. [facility]# [id number]
--- NOTE | 2017-06-24 10:34 | Progress Notes ---
DATE: SUBJECTIVE: The patient was seen and evaluated. The patient's chart reviewed. This is Dr. Bocanegra covering for Dr. Wick. Nursing staff reported that the patient needs a lot of redirection to prevent her from pulling her colonoscopy tube. Today on [id number] evaluation, the patient just smiles inappropriately, unable to fully engage in a conversation, she just smiles and observed to be responding. MENTAL STATUS EXAMINATION: Irritable, agitated, attempting to move her colonoscopy with extremely poor insight, judgment and impulse control. ASSESSMENT AND PLAN: A 62-year-old female, disorganized, psychotic, attempting to remove her colonoscopy tube putting herself at great risk; therefore, we will continue monitoring and evaluating, and continue with the current medication regimen. [facility]# [id number]
--- NOTE | 2017-06-24 10:34 | Progress Notes ---
DATE: SUBJECTIVE: The patient was seen and evaluated. The patient's chart reviewed. This is Dr. Bocanegra covering for Dr. Wick. Nursing staff reported that the patient needs a lot of redirection to prevent her from pulling her colonoscopy tube. Today on [id number] evaluation, the patient just smiles inappropriately, unable to fully engage in a conversation, she just smiles and observed to be responding. MENTAL STATUS EXAMINATION: Irritable, agitated, attempting to move her colonoscopy with extremely poor insight, judgment and impulse control. ASSESSMENT AND PLAN: A 62-year-old female, disorganized, psychotic, attempting to remove her colonoscopy tube putting herself at great risk; therefore, we will continue monitoring and evaluating, and continue with the current medication regimen. [facility]# [id number]
--- NOTE | 2017-06-24 12:56 | Internal Medicine Prog Note ---
Internal Medicine Subjective - Subjective Service Date: 06/24/17 Patient is:: awake, verbal, interactive Per staff patient has:: no adverse event, poor appetite, agitated, noncompliant , tolerating meds Internal Medicine Objective - Physical Exam Vitals and I&O: Vital Signs Temp 98.2 F 06/24/17 05:50 Pulse 76 06/24/17 11:32 Resp 20 06/24/17 11:32 BP 121/58 06/24/17 05:50 Pulse Ox 98 06/24/17 07:28 Intake & Output 06/23/17 06/24/17 06/24/17 18:59 06:59 18:59 Intake Total 900 60 Balance 900 60 Intake: Oral 900 60 Other: # Voids 3 3 # Bowel Movements 0 0 Stool Characteristics Soft Soft Liquid Active Medications: Current Medications Acetaminophen (Tylenol) 650 mg PO Q6H PRN PRN Reason: Mild Pain / Temp above 100 Stop: 08/12/17 15:54 Acetaminophen/Hydrocodone Bitart ([place] 5mg/325mg) 1 tab PO Q6H PRN PRN Reason: Pain (Moderate) Stop: 08/12/17 16:15 Al Hydrox/Mg Hydrox/Simethicone (Maalox) 30 ml PO Q4HR PRN PRN Reason: GI DISTRESS Stop: 08/12/17 15:54 Albuterol Sulfate (Albuterol 2.5mg/3ml Neb Ud) 2.5 mg HHN Q2HRT PRN PRN Reason: Shortness of Breath or Wheeze Stop: 08/12/17 16:14 Dextromethorphan/Quinidine (Nuedexta 20mg-10mg) 1 cap PO Q12HR CECILIA Stop: 08/12/17 20:59 Last Admin: 06/24/17 08:06 Dose: 1 cap Diazepam (Valium) 2 mg PO BID CECILIA PRN Reason: Protocol Stop: 08/13/17 16:59 Last Admin: 06/24/17 08:05 Dose: 2 mg Diphenhydramine HCl (Benadryl) 50 mg PO BID PRN PRN Reason: Agitation Stop: 08/13/17 14:34 Last Admin: 06/23/17 20:20 Dose: 50 mg Docusate Sodium (Colace) 100 mg PO BID CECILIA Stop: 08/12/17 16:59 Last Admin: 06/24/17 08:05 Dose: 100 mg Haloperidol (Haldol) 5 mg PO BID PRN; Protocol PRN Reason: Agitation Stop: 08/13/17 16:59 Last Admin: 06/23/17 20:20 Dose: 5 mg Ipratropium [place] (Atrovent Neb 0.5mg/2.5ml) 0.5 mg HHN Q2HRT PRN PRN Reason: Shortness of Breath or Wheeze Stop: 08/12/17 16:15 Lactobacillus Rhamnosus (Culturelle) 1 each PO DAILY CECILIA Stop: 08/14/17 08:59 Last Admin: 06/24/17 08:05 Dose: 1 each Lactulose (Cephulac) 20 gm PO BID PRN PRN Reason: Constipation Stop: 08/12/17 16:15 Last Admin: 06/15/17 08:04 Dose: 20 gm Lidocaine (Lidoderm 5% Patch) 1 patch TD Q24HR@0900 CECILIA Stop: 08/13/17 08:59 Last Admin: 06/24/17 08:06 Dose: 1 patch Lorazepam (Ativan) 2 mg PO BID PRN; Protocol PRN Reason: Agitation Stop: 08/13/17 14:32 Last Admin: 06/23/17 20:21 Dose: 2 mg Magnesium Hydroxide (Milk Of Magnesia) 30 ml PO HS PRN PRN Reason: Constipation Midodrine (Proamatine) 10 mg PO TID CECILIA Stop: 08/12/17 20:59 Last Admin: 06/24/17 08:05 Dose: 10 mg Mineral Oil (Mineral Oil 30 Ml) 30 ml PO BID CECILIA Stop: 08/12/17 16:59 Last Admin: 06/24/17 08:06 Dose: 30 ml Miscellaneous (Probiotic Screen) 1 ea MC PRN PRN PRN Reason: PROTOCOL Stop: 08/13/17 14:03 Multivitamins/Vitamin C (Theragran) 1 tab PO DAILY CECILIA Stop: 08/13/17 08:59 Last Admin: 06/24/17 08:05 Dose: 1 tab Quetiapine Fumarate (Seroquel) 100 mg PO HS CECILIA PRN Reason: Protocol Stop: 08/14/17 20:59 Last Admin: 06/23/17 20:20 Dose: 100 mg Quetiapine Fumarate (Seroquel) 37.5 mg PO BID CECILIA PRN Reason: Protocol Stop: 08/14/17 08:59 Last Admin: 06/24/17 08:05 Dose: 37.5 mg Zolpidem Tartrate (Ambien) 5 mg PO HS PRN PRN Reason: Insomnia Stop: 08/12/17 15:54 Last Admin: 06/22/17 20:39 Dose: 5 mg General: demented, obese, appears older HEENT: NC/AT, PERRLA, EOMI Neck: Supple, No JVD, No LAD Lungs: CTAB Cardiovascular: RRR, Normal S1, Normal S2, without murmur Abdomen: soft, non-tender, globular Extremities: excoriation, contracture Neurological: no change, disorganized, bedbound - Procedures Procedures: Procedures Procedure Code Date CONTINUOUS INVASIVE MECHANICAL VENTILATION =/>96 CONSEC HRS 96.72 01/08/15 EGD BIOPSY SINGLE/MULTIPLE 21202 07/27/15 EXCISION OF DUODENUM, ENDO, DIAGN [id number] 07/27/15 EXCISION OF STOMACH, PYLORUS, ENDO, DIAGN [id number] 07/27/15 GROUP PSYCHOTHERAPY 91396 08/02/15 GROUP PSYCHOTHERAPY [id number] 08/02/15 INSERT EMERGENCY AIRWAY 04688 01/08/15 INSERT ENDOTRACHEAL TUBE 96.04 01/08/15 INTRAOP COLON LAVAGE ADD-ON 38508 01/08/15 OPEN TOTAL INTRA-ABDOMINAL COLECTOMY 45.82 01/08/15 OTHER GROUP THERAPY 94.44 03/16/15 REMOVAL OF COLON 81546 01/08/15 TEMPORARY ILEOSTOMY 46.21 01/08/15 VENT MGMT INPAT INIT DAY 72228 01/08/15 VENT MGMT INPAT SUBQ DAY 27691 01/08/15 Internal Medicine Assmt/Plan - Assessment Assessment: abdominal pain-resolved intractable vomiting-resolved possible sbo- on prn laxatives acute renal failure hyponatremia morbid obesity schizoaffective s/p fall constipation-improved - Plan Plan: prn laxatives fall precautions daily stool softner increase fluid intake continue current plan of care Nutritional Asmnt/Malnutr-PDOC - Dietary Evaluation Malnutrition Findings (Please click <Entered> for more info): Nutritional Asmnt/Malnutrition Start: 06/18/17 14: 08 Text: Status: Complete Freq: Document 10/31/17 14:08 [email or web address] (Rec: 06/18/17 14:12 [email or web address]) Nutritional Asmnt/Malnutrition Patient General Information Nutritional Screening Moderate Risk Diagnosis psychosis Pertinent Medical Hx/Surgical Hx HLD, dementia Subjective Information Pt is A&O x 1. Per nursing has poor PO intake, but has been eating 75-100% of meals. Reports of constipation but pt has 2 BMs yesterday, 06/17, has bowel regimen ordered. Current Diet Order/ Nutrition Support fat controlled (50 gm) Patient / S.O Not Indicated Pertinent Medications colace, lactulose, culturelle, MOM, mineral oil, MVI Pertinent Labs no labs this admit. Labs from 06/13 WNL Nutritional Hx/Data Height 5 ft 4 in Height (Calculated Centimeters) 162.6 Current Weight (lbs) 221 lb Weight (Calculated Kilograms) 100.2 Weight (Calculated Grams) 445383.9 [place] Body Weight 140 lbs % [place] Body Weight 158 Weight Status Obese GI Symptoms GI Symptoms Constipation Food Allergies No Usual diet at home unable to obtain Skin Integrity/Comment: intact, caitlin: 16, no edema Current %PO Good (75-100%) Estimated Nutritional Goals BEE in Kcals: Adj wt of IBW Calories/Kcals/Kg 25-30 Kcals Calculated 3764-2051 kcals (maintenace) Protein: Adj wt of IBW Protein g/k Protein Calculated 73 g Fluid: ml 3896-5852 mL (1 mL/kcal) Nutritional Problem No current Nutrition Prob Problem n/a Etiology n/a Signs/Symptoms: n/a Malnutrition Alert Protein-Calorie Malnutrition N/A Is there a minimum of two criteria No selected? Query Text:Check all the applicable criteria. A minimum of two criteria are recommended for diagnosis of either severe or non-severe malnutrition. Malnutrition Related to Morbid Obesity Malnutrition related to morbid obesity No Intervention/Recommendation Comments 1. Change diet to regular as low fat diet not therapeutically beneficial for patient. Expected Outcomes/Goals Expected Outcomes/Goals goals: PO intake>75%, wt maintenance, labs: WNL, skin to remain intact, pt to have BM every 1-2 days
--- NOTE | 2017-06-24 12:56 | Internal Medicine Prog Note ---
Internal Medicine Subjective - Subjective Service Date: 06/24/17 Patient is:: awake, verbal, interactive Per staff patient has:: no adverse event, poor appetite, agitated, noncompliant , tolerating meds Internal Medicine Objective - Physical Exam Vitals and I&O: Vital Signs Temp 98.2 F 06/24/17 05:50 Pulse 76 06/24/17 11:32 Resp 20 06/24/17 11:32 BP 121/58 06/24/17 05:50 Pulse Ox 98 06/24/17 07:28 Intake & Output 06/23/17 06/24/17 06/24/17 18:59 06:59 18:59 Intake Total 900 60 Balance 900 60 Intake: Oral 900 60 Other: # Voids 3 3 # Bowel Movements 0 0 Stool Characteristics Soft Soft Liquid Active Medications: Current Medications Acetaminophen (Tylenol) 650 mg PO Q6H PRN PRN Reason: Mild Pain / Temp above 100 Stop: 08/12/17 15:54 Acetaminophen/Hydrocodone Bitart ([place] 5mg/325mg) 1 tab PO Q6H PRN PRN Reason: Pain (Moderate) Stop: 08/12/17 16:15 Al Hydrox/Mg Hydrox/Simethicone (Maalox) 30 ml PO Q4HR PRN PRN Reason: GI DISTRESS Stop: 08/12/17 15:54 Albuterol Sulfate (Albuterol 2.5mg/3ml Neb Ud) 2.5 mg HHN Q2HRT PRN PRN Reason: Shortness of Breath or Wheeze Stop: 08/12/17 16:14 Dextromethorphan/Quinidine (Nuedexta 20mg-10mg) 1 cap PO Q12HR CECILIA Stop: 08/12/17 20:59 Last Admin: 06/24/17 08:06 Dose: 1 cap Diazepam (Valium) 2 mg PO BID CECILIA PRN Reason: Protocol Stop: 08/13/17 16:59 Last Admin: 06/24/17 08:05 Dose: 2 mg Diphenhydramine HCl (Benadryl) 50 mg PO BID PRN PRN Reason: Agitation Stop: 08/13/17 14:34 Last Admin: 06/23/17 20:20 Dose: 50 mg Docusate Sodium (Colace) 100 mg PO BID CECILIA Stop: 08/12/17 16:59 Last Admin: 06/24/17 08:05 Dose: 100 mg Haloperidol (Haldol) 5 mg PO BID PRN; Protocol PRN Reason: Agitation Stop: 08/13/17 16:59 Last Admin: 06/23/17 20:20 Dose: 5 mg Ipratropium [place] (Atrovent Neb 0.5mg/2.5ml) 0.5 mg HHN Q2HRT PRN PRN Reason: Shortness of Breath or Wheeze Stop: 08/12/17 16:15 Lactobacillus Rhamnosus (Culturelle) 1 each PO DAILY CECILIA Stop: 08/14/17 08:59 Last Admin: 06/24/17 08:05 Dose: 1 each Lactulose (Cephulac) 20 gm PO BID PRN PRN Reason: Constipation Stop: 08/12/17 16:15 Last Admin: 06/15/17 08:04 Dose: 20 gm Lidocaine (Lidoderm 5% Patch) 1 patch TD Q24HR@0900 CECILIA Stop: 08/13/17 08:59 Last Admin: 06/24/17 08:06 Dose: 1 patch Lorazepam (Ativan) 2 mg PO BID PRN; Protocol PRN Reason: Agitation Stop: 08/13/17 14:32 Last Admin: 06/23/17 20:21 Dose: 2 mg Magnesium Hydroxide (Milk Of Magnesia) 30 ml PO HS PRN PRN Reason: Constipation Midodrine (Proamatine) 10 mg PO TID CECILIA Stop: 08/12/17 20:59 Last Admin: 06/24/17 08:05 Dose: 10 mg Mineral Oil (Mineral Oil 30 Ml) 30 ml PO BID CECILIA Stop: 08/12/17 16:59 Last Admin: 06/24/17 08:06 Dose: 30 ml Miscellaneous (Probiotic Screen) 1 ea MC PRN PRN PRN Reason: PROTOCOL Stop: 08/13/17 14:03 Multivitamins/Vitamin C (Theragran) 1 tab PO DAILY CECILIA Stop: 08/13/17 08:59 Last Admin: 06/24/17 08:05 Dose: 1 tab Quetiapine Fumarate (Seroquel) 100 mg PO HS CECILIA PRN Reason: Protocol Stop: 08/14/17 20:59 Last Admin: 06/23/17 20:20 Dose: 100 mg Quetiapine Fumarate (Seroquel) 37.5 mg PO BID CECILIA PRN Reason: Protocol Stop: 08/14/17 08:59 Last Admin: 06/24/17 08:05 Dose: 37.5 mg Zolpidem Tartrate (Ambien) 5 mg PO HS PRN PRN Reason: Insomnia Stop: 08/12/17 15:54 Last Admin: 06/22/17 20:39 Dose: 5 mg General: demented, obese, appears older HEENT: NC/AT, PERRLA, EOMI Neck: Supple, No JVD, No LAD Lungs: CTAB Cardiovascular: RRR, Normal S1, Normal S2, without murmur Abdomen: soft, non-tender, globular Extremities: excoriation, contracture Neurological: no change, disorganized, bedbound - Procedures Procedures: Procedures Procedure Code Date CONTINUOUS INVASIVE MECHANICAL VENTILATION =/>96 CONSEC HRS 96.72 01/08/15 EGD BIOPSY SINGLE/MULTIPLE 61707 07/27/15 EXCISION OF DUODENUM, ENDO, DIAGN [id number] 07/27/15 EXCISION OF STOMACH, PYLORUS, ENDO, DIAGN [id number] 07/27/15 GROUP PSYCHOTHERAPY 17619 08/02/15 GROUP PSYCHOTHERAPY [id number] 08/02/15 INSERT EMERGENCY AIRWAY 41072 01/08/15 INSERT ENDOTRACHEAL TUBE 96.04 01/08/15 INTRAOP COLON LAVAGE ADD-ON 29717 01/08/15 OPEN TOTAL INTRA-ABDOMINAL COLECTOMY 45.82 01/08/15 OTHER GROUP THERAPY 94.44 03/16/15 REMOVAL OF COLON 89548 01/08/15 TEMPORARY ILEOSTOMY 46.21 01/08/15 VENT MGMT INPAT INIT DAY 05101 01/08/15 VENT MGMT INPAT SUBQ DAY 56469 01/08/15 Internal Medicine Assmt/Plan - Assessment Assessment: abdominal pain-resolved intractable vomiting-resolved possible sbo- on prn laxatives acute renal failure hyponatremia morbid obesity schizoaffective s/p fall constipation-improved - Plan Plan: prn laxatives fall precautions daily stool softner increase fluid intake continue current plan of care Nutritional Asmnt/Malnutr-PDOC - Dietary Evaluation Malnutrition Findings (Please click <Entered> for more info): Nutritional Asmnt/Malnutrition Start: 06/18/17 14: 08 Text: Status: Complete Freq: Document 10/31/17 14:08 [email or web address] (Rec: 06/18/17 14:12 [email or web address]) Nutritional Asmnt/Malnutrition Patient General Information Nutritional Screening Moderate Risk Diagnosis psychosis Pertinent Medical Hx/Surgical Hx HLD, dementia Subjective Information Pt is A&O x 1. Per nursing has poor PO intake, but has been eating 75-100% of meals. Reports of constipation but pt has 2 BMs yesterday, 06/17, has bowel regimen ordered. Current Diet Order/ Nutrition Support fat controlled (50 gm) Patient / S.O Not Indicated Pertinent Medications colace, lactulose, culturelle, MOM, mineral oil, MVI Pertinent Labs no labs this admit. Labs from 06/13 WNL Nutritional Hx/Data Height 5 ft 4 in Height (Calculated Centimeters) 162.6 Current Weight (lbs) 221 lb Weight (Calculated Kilograms) 100.2 Weight (Calculated Grams) 407747.9 [place] Body Weight 140 lbs % [place] Body Weight 158 Weight Status Obese GI Symptoms GI Symptoms Constipation Food Allergies No Usual diet at home unable to obtain Skin Integrity/Comment: intact, caitlin: 16, no edema Current %PO Good (75-100%) Estimated Nutritional Goals BEE in Kcals: Adj wt of IBW Calories/Kcals/Kg 25-30 Kcals Calculated 1584-8750 kcals (maintenace) Protein: Adj wt of IBW Protein g/k Protein Calculated 73 g Fluid: ml 0508-4774 mL (1 mL/kcal) Nutritional Problem No current Nutrition Prob Problem n/a Etiology n/a Signs/Symptoms: n/a Malnutrition Alert Protein-Calorie Malnutrition N/A Is there a minimum of two criteria No selected? Query Text:Check all the applicable criteria. A minimum of two criteria are recommended for diagnosis of either severe or non-severe malnutrition. Malnutrition Related to Morbid Obesity Malnutrition related to morbid obesity No Intervention/Recommendation Comments 1. Change diet to regular as low fat diet not therapeutically beneficial for patient. Expected Outcomes/Goals Expected Outcomes/Goals goals: PO intake>75%, wt maintenance, labs: WNL, skin to remain intact, pt to have BM every 1-2 days
--- NOTE | 2017-06-24 12:56 | Internal Medicine Prog Note ---
Internal Medicine Subjective - Subjective Service Date: 06/24/17 Patient is:: awake, verbal, interactive Per staff patient has:: no adverse event, poor appetite, agitated, noncompliant , tolerating meds Internal Medicine Objective - Physical Exam Vitals and I&O: Vital Signs Temp 98.2 F 06/24/17 05:50 Pulse 76 06/24/17 11:32 Resp 20 06/24/17 11:32 BP 121/58 06/24/17 05:50 Pulse Ox 98 06/24/17 07:28 Intake & Output 06/23/17 06/24/17 06/24/17 18:59 06:59 18:59 Intake Total 900 60 Balance 900 60 Intake: Oral 900 60 Other: # Voids 3 3 # Bowel Movements 0 0 Stool Characteristics Soft Soft Liquid Active Medications: Current Medications Acetaminophen (Tylenol) 650 mg PO Q6H PRN PRN Reason: Mild Pain / Temp above 100 Stop: 08/12/17 15:54 Acetaminophen/Hydrocodone Bitart ([place] 5mg/325mg) 1 tab PO Q6H PRN PRN Reason: Pain (Moderate) Stop: 08/12/17 16:15 Al Hydrox/Mg Hydrox/Simethicone (Maalox) 30 ml PO Q4HR PRN PRN Reason: GI DISTRESS Stop: 08/12/17 15:54 Albuterol Sulfate (Albuterol 2.5mg/3ml Neb Ud) 2.5 mg HHN Q2HRT PRN PRN Reason: Shortness of Breath or Wheeze Stop: 08/12/17 16:14 Dextromethorphan/Quinidine (Nuedexta 20mg-10mg) 1 cap PO Q12HR CECILIA Stop: 08/12/17 20:59 Last Admin: 06/24/17 08:06 Dose: 1 cap Diazepam (Valium) 2 mg PO BID CECILIA PRN Reason: Protocol Stop: 08/13/17 16:59 Last Admin: 06/24/17 08:05 Dose: 2 mg Diphenhydramine HCl (Benadryl) 50 mg PO BID PRN PRN Reason: Agitation Stop: 08/13/17 14:34 Last Admin: 06/23/17 20:20 Dose: 50 mg Docusate Sodium (Colace) 100 mg PO BID CECILIA Stop: 08/12/17 16:59 Last Admin: 06/24/17 08:05 Dose: 100 mg Haloperidol (Haldol) 5 mg PO BID PRN; Protocol PRN Reason: Agitation Stop: 08/13/17 16:59 Last Admin: 06/23/17 20:20 Dose: 5 mg Ipratropium [place] (Atrovent Neb 0.5mg/2.5ml) 0.5 mg HHN Q2HRT PRN PRN Reason: Shortness of Breath or Wheeze Stop: 08/12/17 16:15 Lactobacillus Rhamnosus (Culturelle) 1 each PO DAILY CECILIA Stop: 08/14/17 08:59 Last Admin: 06/24/17 08:05 Dose: 1 each Lactulose (Cephulac) 20 gm PO BID PRN PRN Reason: Constipation Stop: 08/12/17 16:15 Last Admin: 06/15/17 08:04 Dose: 20 gm Lidocaine (Lidoderm 5% Patch) 1 patch TD Q24HR@0900 CECILIA Stop: 08/13/17 08:59 Last Admin: 06/24/17 08:06 Dose: 1 patch Lorazepam (Ativan) 2 mg PO BID PRN; Protocol PRN Reason: Agitation Stop: 08/13/17 14:32 Last Admin: 06/23/17 20:21 Dose: 2 mg Magnesium Hydroxide (Milk Of Magnesia) 30 ml PO HS PRN PRN Reason: Constipation Midodrine (Proamatine) 10 mg PO TID CECILIA Stop: 08/12/17 20:59 Last Admin: 06/24/17 08:05 Dose: 10 mg Mineral Oil (Mineral Oil 30 Ml) 30 ml PO BID CECILIA Stop: 08/12/17 16:59 Last Admin: 06/24/17 08:06 Dose: 30 ml Miscellaneous (Probiotic Screen) 1 ea MC PRN PRN PRN Reason: PROTOCOL Stop: 08/13/17 14:03 Multivitamins/Vitamin C (Theragran) 1 tab PO DAILY CECILIA Stop: 08/13/17 08:59 Last Admin: 06/24/17 08:05 Dose: 1 tab Quetiapine Fumarate (Seroquel) 100 mg PO HS CECILIA PRN Reason: Protocol Stop: 08/14/17 20:59 Last Admin: 06/23/17 20:20 Dose: 100 mg Quetiapine Fumarate (Seroquel) 37.5 mg PO BID CECILIA PRN Reason: Protocol Stop: 08/14/17 08:59 Last Admin: 06/24/17 08:05 Dose: 37.5 mg Zolpidem Tartrate (Ambien) 5 mg PO HS PRN PRN Reason: Insomnia Stop: 08/12/17 15:54 Last Admin: 06/22/17 20:39 Dose: 5 mg General: demented, obese, appears older HEENT: NC/AT, PERRLA, EOMI Neck: Supple, No JVD, No LAD Lungs: CTAB Cardiovascular: RRR, Normal S1, Normal S2, without murmur Abdomen: soft, non-tender, globular Extremities: excoriation, contracture Neurological: no change, disorganized, bedbound - Procedures Procedures: Procedures Procedure Code Date CONTINUOUS INVASIVE MECHANICAL VENTILATION =/>96 CONSEC HRS 96.72 01/08/15 EGD BIOPSY SINGLE/MULTIPLE 56022 07/27/15 EXCISION OF DUODENUM, ENDO, DIAGN [id number] 07/27/15 EXCISION OF STOMACH, PYLORUS, ENDO, DIAGN [id number] 07/27/15 GROUP PSYCHOTHERAPY 00594 08/02/15 GROUP PSYCHOTHERAPY [id number] 08/02/15 INSERT EMERGENCY AIRWAY 54814 01/08/15 INSERT ENDOTRACHEAL TUBE 96.04 01/08/15 INTRAOP COLON LAVAGE ADD-ON 14240 01/08/15 OPEN TOTAL INTRA-ABDOMINAL COLECTOMY 45.82 01/08/15 OTHER GROUP THERAPY 94.44 03/16/15 REMOVAL OF COLON 79968 01/08/15 TEMPORARY ILEOSTOMY 46.21 01/08/15 VENT MGMT INPAT INIT DAY 40533 01/08/15 VENT MGMT INPAT SUBQ DAY 32379 01/08/15 Internal Medicine Assmt/Plan - Assessment Assessment: abdominal pain-resolved intractable vomiting-resolved possible sbo- on prn laxatives acute renal failure hyponatremia morbid obesity schizoaffective s/p fall constipation-improved - Plan Plan: prn laxatives fall precautions daily stool softner increase fluid intake continue current plan of care Nutritional Asmnt/Malnutr-PDOC - Dietary Evaluation Malnutrition Findings (Please click <Entered> for more info): Nutritional Asmnt/Malnutrition Start: 06/18/17 14: 08 Text: Status: Complete Freq: Document 10/31/17 14:08 [email or web address] (Rec: 06/18/17 14:12 [email or web address]) Nutritional Asmnt/Malnutrition Patient General Information Nutritional Screening Moderate Risk Diagnosis psychosis Pertinent Medical Hx/Surgical Hx HLD, dementia Subjective Information Pt is A&O x 1. Per nursing has poor PO intake, but has been eating 75-100% of meals. Reports of constipation but pt has 2 BMs yesterday, 06/17, has bowel regimen ordered. Current Diet Order/ Nutrition Support fat controlled (50 gm) Patient / S.O Not Indicated Pertinent Medications colace, lactulose, culturelle, MOM, mineral oil, MVI Pertinent Labs no labs this admit. Labs from 06/13 WNL Nutritional Hx/Data Height 5 ft 4 in Height (Calculated Centimeters) 162.6 Current Weight (lbs) 221 lb Weight (Calculated Kilograms) 100.2 Weight (Calculated Grams) 286609.9 [place] Body Weight 140 lbs % [place] Body Weight 158 Weight Status Obese GI Symptoms GI Symptoms Constipation Food Allergies No Usual diet at home unable to obtain Skin Integrity/Comment: intact, caitlin: 16, no edema Current %PO Good (75-100%) Estimated Nutritional Goals BEE in Kcals: Adj wt of IBW Calories/Kcals/Kg 25-30 Kcals Calculated 9677-0870 kcals (maintenace) Protein: Adj wt of IBW Protein g/k Protein Calculated 73 g Fluid: ml 1484-0593 mL (1 mL/kcal) Nutritional Problem No current Nutrition Prob Problem n/a Etiology n/a Signs/Symptoms: n/a Malnutrition Alert Protein-Calorie Malnutrition N/A Is there a minimum of two criteria No selected? Query Text:Check all the applicable criteria. A minimum of two criteria are recommended for diagnosis of either severe or non-severe malnutrition. Malnutrition Related to Morbid Obesity Malnutrition related to morbid obesity No Intervention/Recommendation Comments 1. Change diet to regular as low fat diet not therapeutically beneficial for patient. Expected Outcomes/Goals Expected Outcomes/Goals goals: PO intake>75%, wt maintenance, labs: WNL, skin to remain intact, pt to have BM every 1-2 days
--- NOTE | 2017-06-25 07:30 | Progress Notes ---
DATE: SUBJECTIVE: Chart reviewed and the patient interviewed. Also discussed the patient's condition with the staff and reviewed records and labs. The patient is still easily agitated and she is still in irritable and angry mood. The patient also pulled the colostomy tube twice last night and staff had to replace it. The patient also still needs lots of redirections and she still has difficulty following any of staff directions. The patient also is still feeling hopeless and she is still in irritable and angry mood. Otherwise, the patient continued to comply with taking her medications with no side effects of medications. ASSESSMENT: The patient is still agitated and psychotic. TREATMENT PLAN: We will increase Seroquel to 37.5 mg twice a day and continue Seroquel 100 mg at bedtime. Also, continue to work on her agitation and irritability as well as placement issue and discharge plans. JOB# [id number]
[2017-06-25] MEDS: Dextromethorphan/Quinidine 20mg/10mg Cap PO SCH ×4 (08:39→20:52)
[2017-06-25] MEDS: Lactobacillus Rhamnosus 10 Billion CFU Capsule PO SCH ×2 (08:40)
[2017-06-25] MEDS: Lidocaine 5% Patch TD SCH ×2 (08:41)
[2017-06-25] MEDS: Multivitamin Tab PO SCH ×2 (08:41)
--- NOTE | 2017-06-25 11:29 | Internal Medicine Prog Note ---
Internal Medicine Subjective - Subjective Service Date: 06/25/17 Patient is:: awake, verbal, interactive Per staff patient has:: no adverse event, poor appetite, agitated, noncompliant , tolerating meds Internal Medicine Objective - Physical Exam Vitals and I&O: Vital Signs Temp 98.1 F 06/25/17 06:36 Pulse 80 06/25/17 07:48 Resp 16 06/25/17 07:48 BP 114/52 06/25/17 06:36 Pulse Ox 99 06/25/17 07:48 Intake & Output 06/24/17 06/25/17 06/25/17 18:59 06:59 18:59 Intake Total 180 Balance 180 Weight (lbs) 213 lb 8 oz Intake: Oral 180 Other: # Voids 1 # Bowel Movements 1 Stool Characteristics Soft Liquid Liquid Active Medications: Current Medications Acetaminophen (Tylenol) 650 mg PO Q6H PRN PRN Reason: Mild Pain / Temp above 100 Stop: 08/12/17 15:54 Last Admin: 06/25/17 08:39 Dose: 650 mg Acetaminophen/Hydrocodone Bitart ([place] 5mg/325mg) 1 tab PO Q6H PRN PRN Reason: Pain (Moderate) Stop: 08/12/17 16:15 Al Hydrox/Mg Hydrox/Simethicone (Maalox) 30 ml PO Q4HR PRN PRN Reason: GI DISTRESS Stop: 08/12/17 15:54 Albuterol Sulfate (Albuterol 2.5mg/3ml Neb Ud) 2.5 mg HHN Q2HRT PRN PRN Reason: Shortness of Breath or Wheeze Stop: 08/12/17 16:14 Dextromethorphan/Quinidine (Nuedexta 20mg-10mg) 1 cap PO Q12HR CECILIA Stop: 08/12/17 20:59 Last Admin: 06/25/17 08:39 Dose: 1 cap Diazepam (Valium) 2 mg PO BID CECILIA PRN Reason: Protocol Stop: 08/13/17 16:59 Last Admin: 06/25/17 08:41 Dose: 2 mg Diphenhydramine HCl (Benadryl) 50 mg PO BID PRN PRN Reason: Agitation Stop: 08/13/17 14:34 Last Admin: 06/23/17 20:20 Dose: 50 mg Docusate Sodium (Colace) 100 mg PO BID CECILIA Stop: 08/12/17 16:59 Last Admin: 06/24/17 08:05 Dose: 100 mg Haloperidol (Haldol) 5 mg PO BID PRN; Protocol PRN Reason: Agitation Stop: 08/13/17 16:59 Last Admin: 06/23/17 20:20 Dose: 5 mg Ipratropium [place] (Atrovent Neb 0.5mg/2.5ml) 0.5 mg HHN Q2HRT PRN PRN Reason: Shortness of Breath or Wheeze Stop: 08/12/17 16:15 Lactobacillus Rhamnosus (Culturelle) 1 each PO DAILY CECILIA Stop: 08/14/17 08:59 Last Admin: 06/25/17 08:40 Dose: 1 each Lactulose (Cephulac) 20 gm PO BID PRN PRN Reason: Constipation Stop: 08/12/17 16:15 Last Admin: 06/15/17 08:04 Dose: 20 gm Lidocaine (Lidoderm 5% Patch) 1 patch TD Q24HR@0900 CECILIA Stop: 08/13/17 08:59 Last Admin: 06/25/17 08:41 Dose: 1 patch Lorazepam (Ativan) 2 mg PO BID PRN; Protocol PRN Reason: Agitation Stop: 08/13/17 14:32 Last Admin: 06/23/17 20:21 Dose: 2 mg Magnesium Hydroxide (Milk Of Magnesia) 30 ml PO HS PRN PRN Reason: Constipation Midodrine (Proamatine) 10 mg PO TID CECILIA Stop: 08/12/17 20:59 Last Admin: 06/25/17 08:41 Dose: 10 mg Mineral Oil (Mineral Oil 30 Ml) 30 ml PO BID CECILIA Stop: 08/12/17 16:59 Last Admin: 06/25/17 08:43 Dose: 30 ml Miscellaneous (Probiotic Screen) 1 ea MC PRN PRN PRN Reason: PROTOCOL Stop: 08/13/17 14:03 Multivitamins/Vitamin C (Theragran) 1 tab PO DAILY CECILIA Stop: 08/13/17 08:59 Last Admin: 06/25/17 08:41 Dose: 1 tab Quetiapine Fumarate (Seroquel) 100 mg PO HS CECILIA PRN Reason: Protocol Stop: 08/14/17 20:59 Last Admin: 06/24/17 20:19 Dose: 100 mg Quetiapine Fumarate (Seroquel) 37.5 mg PO BID CECILIA PRN Reason: Protocol Stop: 08/14/17 08:59 Last Admin: 06/25/17 08:40 Dose: 37.5 mg Zolpidem Tartrate (Ambien) 5 mg PO HS PRN PRN Reason: Insomnia Stop: 08/12/17 15:54 Last Admin: 06/22/17 20:39 Dose: 5 mg General: demented, obese, appears older HEENT: NC/AT, PERRLA, EOMI Neck: Supple, No JVD, No LAD Lungs: CTAB Cardiovascular: RRR, Normal S1, Normal S2, without murmur Abdomen: soft, non-tender, globular Extremities: excoriation, contracture Neurological: no change, disorganized, bedbound - Procedures Procedures: Procedures Procedure Code Date CONTINUOUS INVASIVE MECHANICAL VENTILATION =/>96 CONSEC HRS 96.72 01/08/15 EGD BIOPSY SINGLE/MULTIPLE 11887 07/27/15 EXCISION OF DUODENUM, ENDO, DIAGN [id number] 07/27/15 EXCISION OF STOMACH, PYLORUS, ENDO, DIAGN [id number] 07/27/15 GROUP PSYCHOTHERAPY 68765 08/02/15 GROUP PSYCHOTHERAPY [id number] 08/02/15 INSERT EMERGENCY AIRWAY 57227 01/08/15 INSERT ENDOTRACHEAL TUBE 96.04 01/08/15 INTRAOP COLON LAVAGE ADD-ON 70268 01/08/15 OPEN TOTAL INTRA-ABDOMINAL COLECTOMY 45.82 01/08/15 OTHER GROUP THERAPY 94.44 03/16/15 REMOVAL OF COLON 83974 01/08/15 TEMPORARY ILEOSTOMY 46.21 01/08/15 VENT MGMT INPAT INIT DAY 92171 01/08/15 VENT MGMT INPAT SUBQ DAY 61838 01/08/15 Internal Medicine Assmt/Plan - Assessment Assessment: abdominal pain-resolved intractable vomiting-resolved possible sbo- on prn laxatives acute renal failure hyponatremia morbid obesity schizoaffective s/p fall constipation-improved - Plan Plan: prn laxatives fall precautions daily stool softner increase fluid intake continue current plan of care Nutritional Asmnt/Malnutr-PDOC - Dietary Evaluation Malnutrition Findings (Please click <Entered> for more info): Nutritional Asmnt/Malnutrition Start: 06/18/17 14: 08 Text: Status: Complete Freq: Document 06/18/17 14:08 [email or web address] (Rec: 06/18/17 14:12 [email or web address]) Nutritional Asmnt/Malnutrition Patient General Information Nutritional Screening Moderate Risk Diagnosis psychosis Pertinent Medical Hx/Surgical Hx HLD, dementia Subjective Information Pt is A&O x 1. Per nursing has poor PO intake, but has been eating 75-100% of meals. Reports of constipation but pt has 2 BMs yesterday, 06/17, has bowel regimen ordered. Current Diet Order/ Nutrition Support fat controlled (50 gm) Patient / S.O Not Indicated Pertinent Medications colace, lactulose, culturelle, MOM, mineral oil, MVI Pertinent Labs no labs this admit. Labs from 06/13 WNL Nutritional Hx/Data Height 5 ft 4 in Height (Calculated Centimeters) 162.6 Current Weight (lbs) 221 lb Weight (Calculated Kilograms) 100.2 Weight (Calculated Grams) 680774.9 [place] Body Weight 140 lbs % [place] Body Weight 158 Weight Status Obese GI Symptoms GI Symptoms Constipation Food Allergies No Usual diet at home unable to obtain Skin Integrity/Comment: intact, caitlin: 16, no edema Current %PO Good (75-100%) Estimated Nutritional Goals BEE in Kcals: Adj wt of IBW Calories/Kcals/Kg 25-30 Kcals Calculated 5271-7960 kcals (maintenace) Protein: Adj wt of IBW Protein g/k Protein Calculated 73 g Fluid: ml 2843-3097 mL (1 mL/kcal) Nutritional Problem No current Nutrition Prob Problem n/a Etiology n/a Signs/Symptoms: n/a Malnutrition Alert Protein-Calorie Malnutrition N/A Is there a minimum of two criteria No selected? Query Text:Check all the applicable criteria. A minimum of two criteria are recommended for diagnosis of either severe or non-severe malnutrition. Malnutrition Related to Morbid Obesity Malnutrition related to morbid obesity No Intervention/Recommendation Comments 1. Change diet to regular as low fat diet not therapeutically beneficial for patient. Expected Outcomes/Goals Expected Outcomes/Goals goals: PO intake>75%, wt maintenance, labs: WNL, skin to remain intact, pt to have BM every 1-2 days
--- NOTE | 2017-06-25 11:29 | Internal Medicine Prog Note ---
Internal Medicine Subjective - Subjective Service Date: 06/25/17 Patient is:: awake, verbal, interactive Per staff patient has:: no adverse event, poor appetite, agitated, noncompliant , tolerating meds Internal Medicine Objective - Physical Exam Vitals and I&O: Vital Signs Temp 98.1 F 06/25/17 06:36 Pulse 80 06/25/17 07:48 Resp 16 06/25/17 07:48 BP 114/52 06/25/17 06:36 Pulse Ox 99 06/25/17 07:48 Intake & Output 06/24/17 06/25/17 06/25/17 18:59 06:59 18:59 Intake Total 180 Balance 180 Weight (lbs) 213 lb 8 oz Intake: Oral 180 Other: # Voids 1 # Bowel Movements 1 Stool Characteristics Soft Liquid Liquid Active Medications: Current Medications Acetaminophen (Tylenol) 650 mg PO Q6H PRN PRN Reason: Mild Pain / Temp above 100 Stop: 08/12/17 15:54 Last Admin: 06/25/17 08:39 Dose: 650 mg Acetaminophen/Hydrocodone Bitart ([place] 5mg/325mg) 1 tab PO Q6H PRN PRN Reason: Pain (Moderate) Stop: 08/12/17 16:15 Al Hydrox/Mg Hydrox/Simethicone (Maalox) 30 ml PO Q4HR PRN PRN Reason: GI DISTRESS Stop: 08/12/17 15:54 Albuterol Sulfate (Albuterol 2.5mg/3ml Neb Ud) 2.5 mg HHN Q2HRT PRN PRN Reason: Shortness of Breath or Wheeze Stop: 08/12/17 16:14 Dextromethorphan/Quinidine (Nuedexta 20mg-10mg) 1 cap PO Q12HR CECILIA Stop: 08/12/17 20:59 Last Admin: 06/25/17 08:39 Dose: 1 cap Diazepam (Valium) 2 mg PO BID CECILIA PRN Reason: Protocol Stop: 08/13/17 16:59 Last Admin: 06/25/17 08:41 Dose: 2 mg Diphenhydramine HCl (Benadryl) 50 mg PO BID PRN PRN Reason: Agitation Stop: 08/13/17 14:34 Last Admin: 06/23/17 20:20 Dose: 50 mg Docusate Sodium (Colace) 100 mg PO BID CECILIA Stop: 08/12/17 16:59 Last Admin: 06/24/17 08:05 Dose: 100 mg Haloperidol (Haldol) 5 mg PO BID PRN; Protocol PRN Reason: Agitation Stop: 08/13/17 16:59 Last Admin: 06/23/17 20:20 Dose: 5 mg Ipratropium [place] (Atrovent Neb 0.5mg/2.5ml) 0.5 mg HHN Q2HRT PRN PRN Reason: Shortness of Breath or Wheeze Stop: 08/12/17 16:15 Lactobacillus Rhamnosus (Culturelle) 1 each PO DAILY CECILIA Stop: 08/14/17 08:59 Last Admin: 06/25/17 08:40 Dose: 1 each Lactulose (Cephulac) 20 gm PO BID PRN PRN Reason: Constipation Stop: 08/12/17 16:15 Last Admin: 06/15/17 08:04 Dose: 20 gm Lidocaine (Lidoderm 5% Patch) 1 patch TD Q24HR@0900 CECILIA Stop: 08/13/17 08:59 Last Admin: 06/25/17 08:41 Dose: 1 patch Lorazepam (Ativan) 2 mg PO BID PRN; Protocol PRN Reason: Agitation Stop: 08/13/17 14:32 Last Admin: 06/23/17 20:21 Dose: 2 mg Magnesium Hydroxide (Milk Of Magnesia) 30 ml PO HS PRN PRN Reason: Constipation Midodrine (Proamatine) 10 mg PO TID CECILIA Stop: 08/12/17 20:59 Last Admin: 06/25/17 08:41 Dose: 10 mg Mineral Oil (Mineral Oil 30 Ml) 30 ml PO BID CECILIA Stop: 08/12/17 16:59 Last Admin: 06/25/17 08:43 Dose: 30 ml Miscellaneous (Probiotic Screen) 1 ea MC PRN PRN PRN Reason: PROTOCOL Stop: 08/13/17 14:03 Multivitamins/Vitamin C (Theragran) 1 tab PO DAILY CECILIA Stop: 08/13/17 08:59 Last Admin: 06/25/17 08:41 Dose: 1 tab Quetiapine Fumarate (Seroquel) 100 mg PO HS CECILIA PRN Reason: Protocol Stop: 08/14/17 20:59 Last Admin: 06/24/17 20:19 Dose: 100 mg Quetiapine Fumarate (Seroquel) 37.5 mg PO BID CECILIA PRN Reason: Protocol Stop: 08/14/17 08:59 Last Admin: 06/25/17 08:40 Dose: 37.5 mg Zolpidem Tartrate (Ambien) 5 mg PO HS PRN PRN Reason: Insomnia Stop: 08/12/17 15:54 Last Admin: 06/22/17 20:39 Dose: 5 mg General: demented, obese, appears older HEENT: NC/AT, PERRLA, EOMI Neck: Supple, No JVD, No LAD Lungs: CTAB Cardiovascular: RRR, Normal S1, Normal S2, without murmur Abdomen: soft, non-tender, globular Extremities: excoriation, contracture Neurological: no change, disorganized, bedbound - Procedures Procedures: Procedures Procedure Code Date CONTINUOUS INVASIVE MECHANICAL VENTILATION =/>96 CONSEC HRS 96.72 01/08/15 EGD BIOPSY SINGLE/MULTIPLE 06883 07/27/15 EXCISION OF DUODENUM, ENDO, DIAGN [id number] 07/27/15 EXCISION OF STOMACH, PYLORUS, ENDO, DIAGN [id number] 07/27/15 GROUP PSYCHOTHERAPY 83246 08/02/15 GROUP PSYCHOTHERAPY [id number] 08/02/15 INSERT EMERGENCY AIRWAY 86415 01/08/15 INSERT ENDOTRACHEAL TUBE 96.04 01/08/15 INTRAOP COLON LAVAGE ADD-ON 26639 01/08/15 OPEN TOTAL INTRA-ABDOMINAL COLECTOMY 45.82 01/08/15 OTHER GROUP THERAPY 94.44 03/16/15 REMOVAL OF COLON 96098 01/08/15 TEMPORARY ILEOSTOMY 46.21 01/08/15 VENT MGMT INPAT INIT DAY 45759 01/08/15 VENT MGMT INPAT SUBQ DAY 39261 01/08/15 Internal Medicine Assmt/Plan - Assessment Assessment: abdominal pain-resolved intractable vomiting-resolved possible sbo- on prn laxatives acute renal failure hyponatremia morbid obesity schizoaffective s/p fall constipation-improved - Plan Plan: prn laxatives fall precautions daily stool softner increase fluid intake continue current plan of care Nutritional Asmnt/Malnutr-PDOC - Dietary Evaluation Malnutrition Findings (Please click <Entered> for more info): Nutritional Asmnt/Malnutrition Start: 06/18/17 14: 08 Text: Status: Complete Freq: Document 06/18/17 14:08 [email or web address] (Rec: 06/18/17 14:12 [email or web address]) Nutritional Asmnt/Malnutrition Patient General Information Nutritional Screening Moderate Risk Diagnosis psychosis Pertinent Medical Hx/Surgical Hx HLD, dementia Subjective Information Pt is A&O x 1. Per nursing has poor PO intake, but has been eating 75-100% of meals. Reports of constipation but pt has 2 BMs yesterday, 06/17, has bowel regimen ordered. Current Diet Order/ Nutrition Support fat controlled (50 gm) Patient / S.O Not Indicated Pertinent Medications colace, lactulose, culturelle, MOM, mineral oil, MVI Pertinent Labs no labs this admit. Labs from 06/13 WNL Nutritional Hx/Data Height 5 ft 4 in Height (Calculated Centimeters) 162.6 Current Weight (lbs) 221 lb Weight (Calculated Kilograms) 100.2 Weight (Calculated Grams) 928933.9 [place] Body Weight 140 lbs % [place] Body Weight 158 Weight Status Obese GI Symptoms GI Symptoms Constipation Food Allergies No Usual diet at home unable to obtain Skin Integrity/Comment: intact, caitlin: 16, no edema Current %PO Good (75-100%) Estimated Nutritional Goals BEE in Kcals: Adj wt of IBW Calories/Kcals/Kg 25-30 Kcals Calculated 1953-3536 kcals (maintenace) Protein: Adj wt of IBW Protein g/k Protein Calculated 73 g Fluid: ml 3225-8320 mL (1 mL/kcal) Nutritional Problem No current Nutrition Prob Problem n/a Etiology n/a Signs/Symptoms: n/a Malnutrition Alert Protein-Calorie Malnutrition N/A Is there a minimum of two criteria No selected? Query Text:Check all the applicable criteria. A minimum of two criteria are recommended for diagnosis of either severe or non-severe malnutrition. Malnutrition Related to Morbid Obesity Malnutrition related to morbid obesity No Intervention/Recommendation Comments 1. Change diet to regular as low fat diet not therapeutically beneficial for patient. Expected Outcomes/Goals Expected Outcomes/Goals goals: PO intake>75%, wt maintenance, labs: WNL, skin to remain intact, pt to have BM every 1-2 days
--- NOTE | 2017-06-25 11:29 | Internal Medicine Prog Note ---
Internal Medicine Subjective - Subjective Service Date: 06/25/17 Patient is:: awake, verbal, interactive Per staff patient has:: no adverse event, poor appetite, agitated, noncompliant , tolerating meds Internal Medicine Objective - Physical Exam Vitals and I&O: Vital Signs Temp 98.1 F 06/25/17 06:36 Pulse 80 06/25/17 07:48 Resp 16 06/25/17 07:48 BP 114/52 06/25/17 06:36 Pulse Ox 99 06/25/17 07:48 Intake & Output 06/24/17 06/25/17 06/25/17 18:59 06:59 18:59 Intake Total 180 Balance 180 Weight (lbs) 213 lb 8 oz Intake: Oral 180 Other: # Voids 1 # Bowel Movements 1 Stool Characteristics Soft Liquid Liquid Active Medications: Current Medications Acetaminophen (Tylenol) 650 mg PO Q6H PRN PRN Reason: Mild Pain / Temp above 100 Stop: 08/12/17 15:54 Last Admin: 06/25/17 08:39 Dose: 650 mg Acetaminophen/Hydrocodone Bitart ([place] 5mg/325mg) 1 tab PO Q6H PRN PRN Reason: Pain (Moderate) Stop: 08/12/17 16:15 Al Hydrox/Mg Hydrox/Simethicone (Maalox) 30 ml PO Q4HR PRN PRN Reason: GI DISTRESS Stop: 08/12/17 15:54 Albuterol Sulfate (Albuterol 2.5mg/3ml Neb Ud) 2.5 mg HHN Q2HRT PRN PRN Reason: Shortness of Breath or Wheeze Stop: 08/12/17 16:14 Dextromethorphan/Quinidine (Nuedexta 20mg-10mg) 1 cap PO Q12HR CECILIA Stop: 08/12/17 20:59 Last Admin: 06/25/17 08:39 Dose: 1 cap Diazepam (Valium) 2 mg PO BID CECILIA PRN Reason: Protocol Stop: 08/13/17 16:59 Last Admin: 06/25/17 08:41 Dose: 2 mg Diphenhydramine HCl (Benadryl) 50 mg PO BID PRN PRN Reason: Agitation Stop: 08/13/17 14:34 Last Admin: 06/23/17 20:20 Dose: 50 mg Docusate Sodium (Colace) 100 mg PO BID CECILIA Stop: 08/12/17 16:59 Last Admin: 06/24/17 08:05 Dose: 100 mg Haloperidol (Haldol) 5 mg PO BID PRN; Protocol PRN Reason: Agitation Stop: 08/13/17 16:59 Last Admin: 06/23/17 20:20 Dose: 5 mg Ipratropium [place] (Atrovent Neb 0.5mg/2.5ml) 0.5 mg HHN Q2HRT PRN PRN Reason: Shortness of Breath or Wheeze Stop: 08/12/17 16:15 Lactobacillus Rhamnosus (Culturelle) 1 each PO DAILY CECILIA Stop: 08/14/17 08:59 Last Admin: 06/25/17 08:40 Dose: 1 each Lactulose (Cephulac) 20 gm PO BID PRN PRN Reason: Constipation Stop: 08/12/17 16:15 Last Admin: 06/15/17 08:04 Dose: 20 gm Lidocaine (Lidoderm 5% Patch) 1 patch TD Q24HR@0900 CECILIA Stop: 08/13/17 08:59 Last Admin: 06/25/17 08:41 Dose: 1 patch Lorazepam (Ativan) 2 mg PO BID PRN; Protocol PRN Reason: Agitation Stop: 08/13/17 14:32 Last Admin: 06/23/17 20:21 Dose: 2 mg Magnesium Hydroxide (Milk Of Magnesia) 30 ml PO HS PRN PRN Reason: Constipation Midodrine (Proamatine) 10 mg PO TID CECILIA Stop: 08/12/17 20:59 Last Admin: 06/25/17 08:41 Dose: 10 mg Mineral Oil (Mineral Oil 30 Ml) 30 ml PO BID CECILIA Stop: 08/12/17 16:59 Last Admin: 06/25/17 08:43 Dose: 30 ml Miscellaneous (Probiotic Screen) 1 ea MC PRN PRN PRN Reason: PROTOCOL Stop: 08/13/17 14:03 Multivitamins/Vitamin C (Theragran) 1 tab PO DAILY CECILIA Stop: 08/13/17 08:59 Last Admin: 06/25/17 08:41 Dose: 1 tab Quetiapine Fumarate (Seroquel) 100 mg PO HS CECILIA PRN Reason: Protocol Stop: 08/14/17 20:59 Last Admin: 06/24/17 20:19 Dose: 100 mg Quetiapine Fumarate (Seroquel) 37.5 mg PO BID CECILIA PRN Reason: Protocol Stop: 08/14/17 08:59 Last Admin: 06/25/17 08:40 Dose: 37.5 mg Zolpidem Tartrate (Ambien) 5 mg PO HS PRN PRN Reason: Insomnia Stop: 08/12/17 15:54 Last Admin: 06/22/17 20:39 Dose: 5 mg General: demented, obese, appears older HEENT: NC/AT, PERRLA, EOMI Neck: Supple, No JVD, No LAD Lungs: CTAB Cardiovascular: RRR, Normal S1, Normal S2, without murmur Abdomen: soft, non-tender, globular Extremities: excoriation, contracture Neurological: no change, disorganized, bedbound - Procedures Procedures: Procedures Procedure Code Date CONTINUOUS INVASIVE MECHANICAL VENTILATION =/>96 CONSEC HRS 96.72 01/08/15 EGD BIOPSY SINGLE/MULTIPLE 60680 07/27/15 EXCISION OF DUODENUM, ENDO, DIAGN [id number] 07/27/15 EXCISION OF STOMACH, PYLORUS, ENDO, DIAGN [id number] 07/27/15 GROUP PSYCHOTHERAPY 54415 08/02/15 GROUP PSYCHOTHERAPY [id number] 08/02/15 INSERT EMERGENCY AIRWAY 62627 01/08/15 INSERT ENDOTRACHEAL TUBE 96.04 01/08/15 INTRAOP COLON LAVAGE ADD-ON 80345 01/08/15 OPEN TOTAL INTRA-ABDOMINAL COLECTOMY 45.82 01/08/15 OTHER GROUP THERAPY 94.44 03/16/15 REMOVAL OF COLON 85540 01/08/15 TEMPORARY ILEOSTOMY 46.21 01/08/15 VENT MGMT INPAT INIT DAY 13849 01/08/15 VENT MGMT INPAT SUBQ DAY 17986 01/08/15 Internal Medicine Assmt/Plan - Assessment Assessment: abdominal pain-resolved intractable vomiting-resolved possible sbo- on prn laxatives acute renal failure hyponatremia morbid obesity schizoaffective s/p fall constipation-improved - Plan Plan: prn laxatives fall precautions daily stool softner increase fluid intake continue current plan of care Nutritional Asmnt/Malnutr-PDOC - Dietary Evaluation Malnutrition Findings (Please click <Entered> for more info): Nutritional Asmnt/Malnutrition Start: 06/18/17 14: 08 Text: Status: Complete Freq: Document 06/18/17 14:08 [email or web address] (Rec: 06/18/17 14:12 [email or web address]) Nutritional Asmnt/Malnutrition Patient General Information Nutritional Screening Moderate Risk Diagnosis psychosis Pertinent Medical Hx/Surgical Hx HLD, dementia Subjective Information Pt is A&O x 1. Per nursing has poor PO intake, but has been eating 75-100% of meals. Reports of constipation but pt has 2 BMs yesterday, 06/17, has bowel regimen ordered. Current Diet Order/ Nutrition Support fat controlled (50 gm) Patient / S.O Not Indicated Pertinent Medications colace, lactulose, culturelle, MOM, mineral oil, MVI Pertinent Labs no labs this admit. Labs from 06/13 WNL Nutritional Hx/Data Height 5 ft 4 in Height (Calculated Centimeters) 162.6 Current Weight (lbs) 221 lb Weight (Calculated Kilograms) 100.2 Weight (Calculated Grams) 711350.9 [place] Body Weight 140 lbs % [place] Body Weight 158 Weight Status Obese GI Symptoms GI Symptoms Constipation Food Allergies No Usual diet at home unable to obtain Skin Integrity/Comment: intact, caitlin: 16, no edema Current %PO Good (75-100%) Estimated Nutritional Goals BEE in Kcals: Adj wt of IBW Calories/Kcals/Kg 25-30 Kcals Calculated 9390-8562 kcals (maintenace) Protein: Adj wt of IBW Protein g/k Protein Calculated 73 g Fluid: ml 3995-9603 mL (1 mL/kcal) Nutritional Problem No current Nutrition Prob Problem n/a Etiology n/a Signs/Symptoms: n/a Malnutrition Alert Protein-Calorie Malnutrition N/A Is there a minimum of two criteria No selected? Query Text:Check all the applicable criteria. A minimum of two criteria are recommended for diagnosis of either severe or non-severe malnutrition. Malnutrition Related to Morbid Obesity Malnutrition related to morbid obesity No Intervention/Recommendation Comments 1. Change diet to regular as low fat diet not therapeutically beneficial for patient. Expected Outcomes/Goals Expected Outcomes/Goals goals: PO intake>75%, wt maintenance, labs: WNL, skin to remain intact, pt to have BM every 1-2 days
--- NOTE | 2017-06-26 05:29 | Progress Notes ---
DATE: Chart reviewed and the patient interviewed. Also discussed the patient's condition with the staff and reviewed records and labs. The patient seems to be calmer for the first time, she did not pull her colostomy tube last night. The patient also seems to be slightly easier to redirect her. She also is still confused and has episodes of yelling and screaming and anger but also seems to be less than before. She also continued to comply with taking medications with no side effects of medications. The patient is taking Seroquel that was increased yesterday to 37.5 mg twice a day and she is also still taking Seroquel 100 mg at bedtime and with no side effect or sedation. We will continue monitoring her behavior and her condition and continue adjusting psychotropic medications and follow up closely. [facility]# [id number]
[2017-06-26] MEDS: Dextromethorphan/Quinidine 20mg/10mg Cap PO SCH ×2 (08:19)
[2017-06-26] MEDS: Lactobacillus Rhamnosus 10 Billion CFU Capsule PO SCH ×2 (08:19)
[2017-06-26] MEDS: Lidocaine 5% Patch TD SCH ×2 (08:20)
[2017-06-26] MEDS: Multivitamin Tab PO SCH ×2 (08:20)
--- NOTE | 2017-06-26 12:15 | Internal Medicine Prog Note ---
Internal Medicine Subjective - Subjective Service Date: 06/26/17 Patient is:: awake, verbal, interactive Per staff patient has:: no adverse event, poor appetite, agitated, noncompliant , tolerating meds Internal Medicine Objective - Physical Exam Vitals and I&O: Vital Signs Temp 98.4 F 06/26/17 06:27 Pulse 82 06/26/17 08:17 Resp 19 06/26/17 08:18 BP 114/63 06/26/17 06:27 Pulse Ox 98 06/26/17 08:17 Intake & Output 06/25/17 06/26/17 06/26/17 18:59 06:59 18:59 Intake Total 2620 Balance 2620 Weight (lbs) 213 lb 8 oz Intake: Oral 2620 Other: # Voids 3 # Bowel Movements 0 Stool Characteristics Liquid Liquid Active Medications: Current Medications Acetaminophen (Tylenol) 650 mg PO Q6H PRN PRN Reason: Mild Pain / Temp above 100 Stop: 08/12/17 15:54 Last Admin: 06/25/17 08:39 Dose: 650 mg Acetaminophen/Hydrocodone Bitart ([place] 5mg/325mg) 1 tab PO Q6H PRN PRN Reason: Pain (Moderate) Stop: 08/12/17 16:15 Al Hydrox/Mg Hydrox/Simethicone (Maalox) 30 ml PO Q4HR PRN PRN Reason: GI DISTRESS Stop: 08/12/17 15:54 Albuterol Sulfate (Albuterol 2.5mg/3ml Neb Ud) 2.5 mg HHN Q2HRT PRN PRN Reason: Shortness of Breath or Wheeze Stop: 08/12/17 16:14 Dextromethorphan/Quinidine (Nuedexta 20mg-10mg) 1 cap PO Q12HR CECILIA Stop: 08/12/17 20:59 Last Admin: 06/26/17 08:19 Dose: 1 cap Diazepam (Valium) 2 mg PO BID CECILIA PRN Reason: Protocol Stop: 08/13/17 16:59 Last Admin: 06/26/17 08:19 Dose: 2 mg Diphenhydramine HCl (Benadryl) 50 mg PO BID PRN PRN Reason: Agitation Stop: 08/13/17 14:34 Last Admin: 06/26/17 08:19 Dose: 50 mg Docusate Sodium (Colace) 100 mg PO BID CECILIA Stop: 08/12/17 16:59 Last Admin: 06/26/17 08:18 Dose: 100 mg Haloperidol (Haldol) 5 mg PO BID PRN; Protocol PRN Reason: Agitation Stop: 08/13/17 16:59 Last Admin: 06/23/17 20:20 Dose: 5 mg Ipratropium [place] (Atrovent Neb 0.5mg/2.5ml) 0.5 mg HHN Q2HRT PRN PRN Reason: Shortness of Breath or Wheeze Stop: 08/12/17 16:15 Lactobacillus Rhamnosus (Culturelle) 1 each PO DAILY CECILIA Stop: 08/14/17 08:59 Last Admin: 06/26/17 08:19 Dose: 1 each Lactulose (Cephulac) 20 gm PO BID PRN PRN Reason: Constipation Stop: 08/12/17 16:15 Last Admin: 06/15/17 08:04 Dose: 20 gm Lidocaine (Lidoderm 5% Patch) 1 patch TD Q24HR@0900 CECILIA Stop: 08/13/17 08:59 Last Admin: 06/26/17 08:20 Dose: 1 patch Lorazepam (Ativan) 2 mg PO BID PRN; Protocol PRN Reason: Agitation Stop: 08/13/17 14:32 Last Admin: 06/26/17 08:19 Dose: 2 mg Magnesium Hydroxide (Milk Of Magnesia) 30 ml PO HS PRN PRN Reason: Constipation Midodrine (Proamatine) 10 mg PO TID CECILIA Stop: 08/12/17 20:59 Last Admin: 06/26/17 08:18 Dose: 10 mg Mineral Oil (Mineral Oil 30 Ml) 30 ml PO BID CECILIA Stop: 08/12/17 16:59 Last Admin: 06/26/17 08:18 Dose: 30 ml Miscellaneous (Probiotic Screen) 1 ea MC PRN PRN PRN Reason: PROTOCOL Stop: 08/13/17 14:03 Multivitamins/Vitamin C (Theragran) 1 tab PO DAILY CECILIA Stop: 08/13/17 08:59 Last Admin: 06/26/17 08:20 Dose: 1 tab Quetiapine Fumarate (Seroquel) 100 mg PO HS CECILIA PRN Reason: Protocol Stop: 08/14/17 20:59 Last Admin: 06/25/17 20:52 Dose: 100 mg Quetiapine Fumarate (Seroquel) 37.5 mg PO BID CECILIA PRN Reason: Protocol Stop: 08/14/17 08:59 Last Admin: 06/25/17 16:26 Dose: 37.5 mg Zolpidem Tartrate (Ambien) 5 mg PO HS PRN PRN Reason: Insomnia Stop: 08/12/17 15:54 Last Admin: 06/22/17 20:39 Dose: 5 mg General: demented, obese, appears older HEENT: NC/AT, PERRLA, EOMI Neck: Supple, No JVD, No LAD Lungs: CTAB Cardiovascular: RRR, Normal S1, Normal S2, without murmur Abdomen: soft, non-tender, globular Extremities: excoriation, contracture Neurological: no change, disorganized, bedbound - Procedures Procedures: Procedures Procedure Code Date CONTINUOUS INVASIVE MECHANICAL VENTILATION =/>96 CONSEC HRS 96.72 01/08/15 EGD BIOPSY SINGLE/MULTIPLE 25707 07/27/15 EXCISION OF DUODENUM, ENDO, DIAGN [id number] 07/27/15 EXCISION OF STOMACH, PYLORUS, ENDO, DIAGN [id number] 07/27/15 GROUP PSYCHOTHERAPY 31915 08/02/15 GROUP PSYCHOTHERAPY [id number] 08/02/15 INSERT EMERGENCY AIRWAY 80774 01/08/15 INSERT ENDOTRACHEAL TUBE 96.04 01/08/15 INTRAOP COLON LAVAGE ADD-ON 27477 01/08/15 OPEN TOTAL INTRA-ABDOMINAL COLECTOMY 45.82 01/08/15 OTHER GROUP THERAPY 94.44 03/16/15 REMOVAL OF COLON 36124 01/08/15 TEMPORARY ILEOSTOMY 46.21 01/08/15 VENT MGMT INPAT INIT DAY 46293 01/08/15 VENT MGMT INPAT SUBQ DAY 94292 01/08/15 Internal Medicine Assmt/Plan - Assessment Assessment: abdominal pain-resolved intractable vomiting-resolved possible sbo- on prn laxatives acute renal failure hyponatremia morbid obesity schizoaffective s/p fall constipation-improved - Plan Plan: prn laxatives fall precautions daily stool softner increase fluid intake continue current plan of care Nutritional Asmnt/Malnutr-PDOC - Dietary Evaluation Malnutrition Findings (Please click <Entered> for more info): Nutritional Asmnt/Malnutrition Start: 06/18/17 14: 08 Text: Status: Complete Freq: Document 06/18/17 14:08 [email or web address] (Rec: 06/18/17 14:12 [email or web address]) Nutritional Asmnt/Malnutrition Patient General Information Nutritional Screening Moderate Risk Diagnosis psychosis Pertinent Medical Hx/Surgical Hx HLD, dementia Subjective Information Pt is A&O x 1. Per nursing has poor PO intake, but has been eating 75-100% of meals. Reports of constipation but pt has 2 BMs yesterday, 06/17, has bowel regimen ordered. Current Diet Order/ Nutrition Support fat controlled (50 gm) Patient / S.O Not Indicated Pertinent Medications colace, lactulose, culturelle, MOM, mineral oil, MVI Pertinent Labs no labs this admit. Labs from 06/13 WNL Nutritional Hx/Data Height 5 ft 4 in Height (Calculated Centimeters) 162.6 Current Weight (lbs) 221 lb Weight (Calculated Kilograms) 100.2 Weight (Calculated Grams) 980134.9 [place] Body Weight 140 lbs % [place] Body Weight 158 Weight Status Obese GI Symptoms GI Symptoms Constipation Food Allergies No Usual diet at home unable to obtain Skin Integrity/Comment: intact, caitlin: 16, no edema Current %PO Good (75-100%) Estimated Nutritional Goals BEE in Kcals: Adj wt of IBW Calories/Kcals/Kg 25-30 Kcals Calculated 4950-6972 kcals (maintenace) Protein: Adj wt of IBW Protein g/k Protein Calculated 73 g Fluid: ml 6725-6675 mL (1 mL/kcal) Nutritional Problem No current Nutrition Prob Problem n/a Etiology n/a Signs/Symptoms: n/a Malnutrition Alert Protein-Calorie Malnutrition N/A Is there a minimum of two criteria No selected? Query Text:Check all the applicable criteria. A minimum of two criteria are recommended for diagnosis of either severe or non-severe malnutrition. Malnutrition Related to Morbid Obesity Malnutrition related to morbid obesity No Intervention/Recommendation Comments 1. Change diet to regular as low fat diet not therapeutically beneficial for patient. Expected Outcomes/Goals Expected Outcomes/Goals goals: PO intake>75%, wt maintenance, labs: WNL, skin to remain intact, pt to have BM every 1-2 days
--- NOTE | 2017-06-26 12:15 | Internal Medicine Prog Note ---
Internal Medicine Subjective - Subjective Service Date: 06/26/17 Patient is:: awake, verbal, interactive Per staff patient has:: no adverse event, poor appetite, agitated, noncompliant , tolerating meds Internal Medicine Objective - Physical Exam Vitals and I&O: Vital Signs Temp 98.4 F 06/26/17 06:27 Pulse 82 06/26/17 08:17 Resp 19 06/26/17 08:18 BP 114/63 06/26/17 06:27 Pulse Ox 98 06/26/17 08:17 Intake & Output 06/25/17 06/26/17 06/26/17 18:59 06:59 18:59 Intake Total 2620 Balance 2620 Weight (lbs) 213 lb 8 oz Intake: Oral 2620 Other: # Voids 3 # Bowel Movements 0 Stool Characteristics Liquid Liquid Active Medications: Current Medications Acetaminophen (Tylenol) 650 mg PO Q6H PRN PRN Reason: Mild Pain / Temp above 100 Stop: 08/12/17 15:54 Last Admin: 06/25/17 08:39 Dose: 650 mg Acetaminophen/Hydrocodone Bitart ([place] 5mg/325mg) 1 tab PO Q6H PRN PRN Reason: Pain (Moderate) Stop: 08/12/17 16:15 Al Hydrox/Mg Hydrox/Simethicone (Maalox) 30 ml PO Q4HR PRN PRN Reason: GI DISTRESS Stop: 08/12/17 15:54 Albuterol Sulfate (Albuterol 2.5mg/3ml Neb Ud) 2.5 mg HHN Q2HRT PRN PRN Reason: Shortness of Breath or Wheeze Stop: 08/12/17 16:14 Dextromethorphan/Quinidine (Nuedexta 20mg-10mg) 1 cap PO Q12HR CECILIA Stop: 08/12/17 20:59 Last Admin: 06/26/17 08:19 Dose: 1 cap Diazepam (Valium) 2 mg PO BID CECILIA PRN Reason: Protocol Stop: 08/13/17 16:59 Last Admin: 06/26/17 08:19 Dose: 2 mg Diphenhydramine HCl (Benadryl) 50 mg PO BID PRN PRN Reason: Agitation Stop: 08/13/17 14:34 Last Admin: 06/26/17 08:19 Dose: 50 mg Docusate Sodium (Colace) 100 mg PO BID CECILIA Stop: 08/12/17 16:59 Last Admin: 06/26/17 08:18 Dose: 100 mg Haloperidol (Haldol) 5 mg PO BID PRN; Protocol PRN Reason: Agitation Stop: 08/13/17 16:59 Last Admin: 06/23/17 20:20 Dose: 5 mg Ipratropium [place] (Atrovent Neb 0.5mg/2.5ml) 0.5 mg HHN Q2HRT PRN PRN Reason: Shortness of Breath or Wheeze Stop: 08/12/17 16:15 Lactobacillus Rhamnosus (Culturelle) 1 each PO DAILY CECILIA Stop: 08/14/17 08:59 Last Admin: 06/26/17 08:19 Dose: 1 each Lactulose (Cephulac) 20 gm PO BID PRN PRN Reason: Constipation Stop: 08/12/17 16:15 Last Admin: 06/15/17 08:04 Dose: 20 gm Lidocaine (Lidoderm 5% Patch) 1 patch TD Q24HR@0900 CECILIA Stop: 08/13/17 08:59 Last Admin: 06/26/17 08:20 Dose: 1 patch Lorazepam (Ativan) 2 mg PO BID PRN; Protocol PRN Reason: Agitation Stop: 08/13/17 14:32 Last Admin: 06/26/17 08:19 Dose: 2 mg Magnesium Hydroxide (Milk Of Magnesia) 30 ml PO HS PRN PRN Reason: Constipation Midodrine (Proamatine) 10 mg PO TID CECILIA Stop: 08/12/17 20:59 Last Admin: 06/26/17 08:18 Dose: 10 mg Mineral Oil (Mineral Oil 30 Ml) 30 ml PO BID CECILIA Stop: 08/12/17 16:59 Last Admin: 06/26/17 08:18 Dose: 30 ml Miscellaneous (Probiotic Screen) 1 ea MC PRN PRN PRN Reason: PROTOCOL Stop: 08/13/17 14:03 Multivitamins/Vitamin C (Theragran) 1 tab PO DAILY CECILIA Stop: 08/13/17 08:59 Last Admin: 06/26/17 08:20 Dose: 1 tab Quetiapine Fumarate (Seroquel) 100 mg PO HS CECILIA PRN Reason: Protocol Stop: 08/14/17 20:59 Last Admin: 06/25/17 20:52 Dose: 100 mg Quetiapine Fumarate (Seroquel) 37.5 mg PO BID CECILIA PRN Reason: Protocol Stop: 08/14/17 08:59 Last Admin: 06/25/17 16:26 Dose: 37.5 mg Zolpidem Tartrate (Ambien) 5 mg PO HS PRN PRN Reason: Insomnia Stop: 08/12/17 15:54 Last Admin: 06/22/17 20:39 Dose: 5 mg General: demented, obese, appears older HEENT: NC/AT, PERRLA, EOMI Neck: Supple, No JVD, No LAD Lungs: CTAB Cardiovascular: RRR, Normal S1, Normal S2, without murmur Abdomen: soft, non-tender, globular Extremities: excoriation, contracture Neurological: no change, disorganized, bedbound - Procedures Procedures: Procedures Procedure Code Date CONTINUOUS INVASIVE MECHANICAL VENTILATION =/>96 CONSEC HRS 96.72 01/08/15 EGD BIOPSY SINGLE/MULTIPLE 25256 07/27/15 EXCISION OF DUODENUM, ENDO, DIAGN [id number] 07/27/15 EXCISION OF STOMACH, PYLORUS, ENDO, DIAGN [id number] 07/27/15 GROUP PSYCHOTHERAPY 66233 08/02/15 GROUP PSYCHOTHERAPY [id number] 08/02/15 INSERT EMERGENCY AIRWAY 81361 01/08/15 INSERT ENDOTRACHEAL TUBE 96.04 01/08/15 INTRAOP COLON LAVAGE ADD-ON 19913 01/08/15 OPEN TOTAL INTRA-ABDOMINAL COLECTOMY 45.82 01/08/15 OTHER GROUP THERAPY 94.44 03/16/15 REMOVAL OF COLON 50076 01/08/15 TEMPORARY ILEOSTOMY 46.21 01/08/15 VENT MGMT INPAT INIT DAY 54735 01/08/15 VENT MGMT INPAT SUBQ DAY 71350 01/08/15 Internal Medicine Assmt/Plan - Assessment Assessment: abdominal pain-resolved intractable vomiting-resolved possible sbo- on prn laxatives acute renal failure hyponatremia morbid obesity schizoaffective s/p fall constipation-improved - Plan Plan: prn laxatives fall precautions daily stool softner increase fluid intake continue current plan of care Nutritional Asmnt/Malnutr-PDOC - Dietary Evaluation Malnutrition Findings (Please click <Entered> for more info): Nutritional Asmnt/Malnutrition Start: 06/18/17 14: 08 Text: Status: Complete Freq: Document 06/18/17 14:08 [email or web address] (Rec: 06/18/17 14:12 [email or web address]) Nutritional Asmnt/Malnutrition Patient General Information Nutritional Screening Moderate Risk Diagnosis psychosis Pertinent Medical Hx/Surgical Hx HLD, dementia Subjective Information Pt is A&O x 1. Per nursing has poor PO intake, but has been eating 75-100% of meals. Reports of constipation but pt has 2 BMs yesterday, 06/17, has bowel regimen ordered. Current Diet Order/ Nutrition Support fat controlled (50 gm) Patient / S.O Not Indicated Pertinent Medications colace, lactulose, culturelle, MOM, mineral oil, MVI Pertinent Labs no labs this admit. Labs from 06/13 WNL Nutritional Hx/Data Height 5 ft 4 in Height (Calculated Centimeters) 162.6 Current Weight (lbs) 221 lb Weight (Calculated Kilograms) 100.2 Weight (Calculated Grams) 566793.9 [place] Body Weight 140 lbs % [place] Body Weight 158 Weight Status Obese GI Symptoms GI Symptoms Constipation Food Allergies No Usual diet at home unable to obtain Skin Integrity/Comment: intact, caitlin: 16, no edema Current %PO Good (75-100%) Estimated Nutritional Goals BEE in Kcals: Adj wt of IBW Calories/Kcals/Kg 25-30 Kcals Calculated 8099-3898 kcals (maintenace) Protein: Adj wt of IBW Protein g/k Protein Calculated 73 g Fluid: ml 9793-2286 mL (1 mL/kcal) Nutritional Problem No current Nutrition Prob Problem n/a Etiology n/a Signs/Symptoms: n/a Malnutrition Alert Protein-Calorie Malnutrition N/A Is there a minimum of two criteria No selected? Query Text:Check all the applicable criteria. A minimum of two criteria are recommended for diagnosis of either severe or non-severe malnutrition. Malnutrition Related to Morbid Obesity Malnutrition related to morbid obesity No Intervention/Recommendation Comments 1. Change diet to regular as low fat diet not therapeutically beneficial for patient. Expected Outcomes/Goals Expected Outcomes/Goals goals: PO intake>75%, wt maintenance, labs: WNL, skin to remain intact, pt to have BM every 1-2 days
--- NOTE | 2017-06-26 12:15 | Internal Medicine Prog Note ---
Internal Medicine Subjective - Subjective Service Date: 06/26/17 Patient is:: awake, verbal, interactive Per staff patient has:: no adverse event, poor appetite, agitated, noncompliant , tolerating meds Internal Medicine Objective - Physical Exam Vitals and I&O: Vital Signs Temp 98.4 F 06/26/17 06:27 Pulse 82 06/26/17 08:17 Resp 19 06/26/17 08:18 BP 114/63 06/26/17 06:27 Pulse Ox 98 06/26/17 08:17 Intake & Output 06/25/17 06/26/17 06/26/17 18:59 06:59 18:59 Intake Total 2620 Balance 2620 Weight (lbs) 213 lb 8 oz Intake: Oral 2620 Other: # Voids 3 # Bowel Movements 0 Stool Characteristics Liquid Liquid Active Medications: Current Medications Acetaminophen (Tylenol) 650 mg PO Q6H PRN PRN Reason: Mild Pain / Temp above 100 Stop: 08/12/17 15:54 Last Admin: 06/25/17 08:39 Dose: 650 mg Acetaminophen/Hydrocodone Bitart ([place] 5mg/325mg) 1 tab PO Q6H PRN PRN Reason: Pain (Moderate) Stop: 08/12/17 16:15 Al Hydrox/Mg Hydrox/Simethicone (Maalox) 30 ml PO Q4HR PRN PRN Reason: GI DISTRESS Stop: 08/12/17 15:54 Albuterol Sulfate (Albuterol 2.5mg/3ml Neb Ud) 2.5 mg HHN Q2HRT PRN PRN Reason: Shortness of Breath or Wheeze Stop: 08/12/17 16:14 Dextromethorphan/Quinidine (Nuedexta 20mg-10mg) 1 cap PO Q12HR CECILIA Stop: 08/12/17 20:59 Last Admin: 06/26/17 08:19 Dose: 1 cap Diazepam (Valium) 2 mg PO BID CECILIA PRN Reason: Protocol Stop: 08/13/17 16:59 Last Admin: 06/26/17 08:19 Dose: 2 mg Diphenhydramine HCl (Benadryl) 50 mg PO BID PRN PRN Reason: Agitation Stop: 08/13/17 14:34 Last Admin: 06/26/17 08:19 Dose: 50 mg Docusate Sodium (Colace) 100 mg PO BID CECILIA Stop: 08/12/17 16:59 Last Admin: 06/26/17 08:18 Dose: 100 mg Haloperidol (Haldol) 5 mg PO BID PRN; Protocol PRN Reason: Agitation Stop: 08/13/17 16:59 Last Admin: 06/23/17 20:20 Dose: 5 mg Ipratropium [place] (Atrovent Neb 0.5mg/2.5ml) 0.5 mg HHN Q2HRT PRN PRN Reason: Shortness of Breath or Wheeze Stop: 08/12/17 16:15 Lactobacillus Rhamnosus (Culturelle) 1 each PO DAILY CECILIA Stop: 08/14/17 08:59 Last Admin: 06/26/17 08:19 Dose: 1 each Lactulose (Cephulac) 20 gm PO BID PRN PRN Reason: Constipation Stop: 08/12/17 16:15 Last Admin: 06/15/17 08:04 Dose: 20 gm Lidocaine (Lidoderm 5% Patch) 1 patch TD Q24HR@0900 CECILIA Stop: 08/13/17 08:59 Last Admin: 06/26/17 08:20 Dose: 1 patch Lorazepam (Ativan) 2 mg PO BID PRN; Protocol PRN Reason: Agitation Stop: 08/13/17 14:32 Last Admin: 06/26/17 08:19 Dose: 2 mg Magnesium Hydroxide (Milk Of Magnesia) 30 ml PO HS PRN PRN Reason: Constipation Midodrine (Proamatine) 10 mg PO TID CECILIA Stop: 08/12/17 20:59 Last Admin: 06/26/17 08:18 Dose: 10 mg Mineral Oil (Mineral Oil 30 Ml) 30 ml PO BID CECILIA Stop: 08/12/17 16:59 Last Admin: 06/26/17 08:18 Dose: 30 ml Miscellaneous (Probiotic Screen) 1 ea MC PRN PRN PRN Reason: PROTOCOL Stop: 08/13/17 14:03 Multivitamins/Vitamin C (Theragran) 1 tab PO DAILY CECILIA Stop: 08/13/17 08:59 Last Admin: 06/26/17 08:20 Dose: 1 tab Quetiapine Fumarate (Seroquel) 100 mg PO HS CECILIA PRN Reason: Protocol Stop: 08/14/17 20:59 Last Admin: 06/25/17 20:52 Dose: 100 mg Quetiapine Fumarate (Seroquel) 37.5 mg PO BID CECILIA PRN Reason: Protocol Stop: 08/14/17 08:59 Last Admin: 06/25/17 16:26 Dose: 37.5 mg Zolpidem Tartrate (Ambien) 5 mg PO HS PRN PRN Reason: Insomnia Stop: 08/12/17 15:54 Last Admin: 06/22/17 20:39 Dose: 5 mg General: demented, obese, appears older HEENT: NC/AT, PERRLA, EOMI Neck: Supple, No JVD, No LAD Lungs: CTAB Cardiovascular: RRR, Normal S1, Normal S2, without murmur Abdomen: soft, non-tender, globular Extremities: excoriation, contracture Neurological: no change, disorganized, bedbound - Procedures Procedures: Procedures Procedure Code Date CONTINUOUS INVASIVE MECHANICAL VENTILATION =/>96 CONSEC HRS 96.72 01/08/15 EGD BIOPSY SINGLE/MULTIPLE 52367 07/27/15 EXCISION OF DUODENUM, ENDO, DIAGN [id number] 07/27/15 EXCISION OF STOMACH, PYLORUS, ENDO, DIAGN [id number] 07/27/15 GROUP PSYCHOTHERAPY 02661 08/02/15 GROUP PSYCHOTHERAPY [id number] 08/02/15 INSERT EMERGENCY AIRWAY 31383 01/08/15 INSERT ENDOTRACHEAL TUBE 96.04 01/08/15 INTRAOP COLON LAVAGE ADD-ON 61511 01/08/15 OPEN TOTAL INTRA-ABDOMINAL COLECTOMY 45.82 01/08/15 OTHER GROUP THERAPY 94.44 03/16/15 REMOVAL OF COLON 69633 01/08/15 TEMPORARY ILEOSTOMY 46.21 01/08/15 VENT MGMT INPAT INIT DAY 18483 01/08/15 VENT MGMT INPAT SUBQ DAY 26259 01/08/15 Internal Medicine Assmt/Plan - Assessment Assessment: abdominal pain-resolved intractable vomiting-resolved possible sbo- on prn laxatives acute renal failure hyponatremia morbid obesity schizoaffective s/p fall constipation-improved - Plan Plan: prn laxatives fall precautions daily stool softner increase fluid intake continue current plan of care Nutritional Asmnt/Malnutr-PDOC - Dietary Evaluation Malnutrition Findings (Please click <Entered> for more info): Nutritional Asmnt/Malnutrition Start: 06/18/17 14: 08 Text: Status: Complete Freq: Document 06/18/17 14:08 [email or web address] (Rec: 06/18/17 14:12 [email or web address]) Nutritional Asmnt/Malnutrition Patient General Information Nutritional Screening Moderate Risk Diagnosis psychosis Pertinent Medical Hx/Surgical Hx HLD, dementia Subjective Information Pt is A&O x 1. Per nursing has poor PO intake, but has been eating 75-100% of meals. Reports of constipation but pt has 2 BMs yesterday, 06/17, has bowel regimen ordered. Current Diet Order/ Nutrition Support fat controlled (50 gm) Patient / S.O Not Indicated Pertinent Medications colace, lactulose, culturelle, MOM, mineral oil, MVI Pertinent Labs no labs this admit. Labs from 06/13 WNL Nutritional Hx/Data Height 5 ft 4 in Height (Calculated Centimeters) 162.6 Current Weight (lbs) 221 lb Weight (Calculated Kilograms) 100.2 Weight (Calculated Grams) 657660.9 [place] Body Weight 140 lbs % [place] Body Weight 158 Weight Status Obese GI Symptoms GI Symptoms Constipation Food Allergies No Usual diet at home unable to obtain Skin Integrity/Comment: intact, caitlin: 16, no edema Current %PO Good (75-100%) Estimated Nutritional Goals BEE in Kcals: Adj wt of IBW Calories/Kcals/Kg 25-30 Kcals Calculated 2659-3122 kcals (maintenace) Protein: Adj wt of IBW Protein g/k Protein Calculated 73 g Fluid: ml 4451-6317 mL (1 mL/kcal) Nutritional Problem No current Nutrition Prob Problem n/a Etiology n/a Signs/Symptoms: n/a Malnutrition Alert Protein-Calorie Malnutrition N/A Is there a minimum of two criteria No selected? Query Text:Check all the applicable criteria. A minimum of two criteria are recommended for diagnosis of either severe or non-severe malnutrition. Malnutrition Related to Morbid Obesity Malnutrition related to morbid obesity No Intervention/Recommendation Comments 1. Change diet to regular as low fat diet not therapeutically beneficial for patient. Expected Outcomes/Goals Expected Outcomes/Goals goals: PO intake>75%, wt maintenance, labs: WNL, skin to remain intact, pt to have BM every 1-2 days
--- NOTE | 2017-06-27 19:21 | Discharge Summary ---
DATE OF DISCHARGE: 06/26/2017 FINAL DIAGNOSIS AND PRIMARY DIAGNOSIS: Unspecified psychosis. REASON FOR HOSPITALIZATION: The patient was admitted to the hospital because of increased agitation and irritability. The patient was pulling colostomy tube. HOSPITAL COURSE: The patient continued to be agitated and in irritable mood. The patient also was restless and she was unable to follow any directions. The patient was given Seroquel and the dose adjusted to 37.5 mg twice a day and 100 mg at bedtime. Gradually, the patient's affect became brighter. The patient was less agitated and less irritable. Also for 2 consecutive days, the patient was not pulling her colostomy tube and the patient was accepted back in [facility], and she was discharged there. While the patient was in the hospital, she had no major medical problems. AFTER DISCHARGE PLANS: The patient discharged from the hospital and returned to [facility], it was planned to follow her there. EXPECTED OUTCOME AFTER DISCHARGE: Fair if the patient continues to take her medications. [facility]# [id number]
--- NOTE | 2017-06-27 19:21 | Discharge Summary ---
DATE OF DISCHARGE: 06/26/2017 FINAL DIAGNOSIS AND PRIMARY DIAGNOSIS: Unspecified psychosis. REASON FOR HOSPITALIZATION: The patient was admitted to the hospital because of increased agitation and irritability. The patient was pulling colostomy tube. HOSPITAL COURSE: The patient continued to be agitated and in irritable mood. The patient also was restless and she was unable to follow any directions. The patient was given Seroquel and the dose adjusted to 37.5 mg twice a day and 100 mg at bedtime. Gradually, the patient's affect became brighter. The patient was less agitated and less irritable. Also for 2 consecutive days, the patient was not pulling her colostomy tube and the patient was accepted back in [facility], and she was discharged there. While the patient was in the hospital, she had no major medical problems. AFTER DISCHARGE PLANS: The patient discharged from the hospital and returned to [facility], it was planned to follow her there. EXPECTED OUTCOME AFTER DISCHARGE: Fair if the patient continues to take her medications. [facility]# [id number]
--- NOTE | 2017-06-28 03:28 | Progress Notes ---
DATE: SUBJECTIVE: Chart reviewed and the patient interviewed. Also discussed the patient's condition with the staff and reviewed records and labs. The patient continued to be extremely anxious and is still confused. The patient also needs redirections. The patient seems to be slightly easier to redirect her. The patient also has no incidence of pulling colostomy tube for the second day on the row. She is also compliant with taking her medications with no side effects of medications. ASSESSMENT: The patient is ____ psychotic. TREATMENT PLAN: Continue to monitor her behavior and work partial plans. JOB# [id number]
== END 2017-06-26 17:40 | disposition home or self-care (01) | DRG 885 ==
LOC: GERO 13:35
PROVIDERS: ADMIT Psychiatry & Neurology Psychiatry; ATTEND Psychiatry & Neurology Psychiatry
DX: F29 Unspecified psychosis not due to a substance or known physiological condition (principal); N17.9 Acute kidney failure, unspecified; E87.1 Hypo-osmolality and hyponatremia; F03.91 Unspecified dementia, unspecified severity, with behavioral disturbance; F25.9 Schizoaffective disorder, unspecified; E66.01 Morbid (severe) obesity due to excess calories; K59.00 Constipation, unspecified; Z68.32 Body mass index [BMI] 32.0-32.9, adult
CPT/HCPCS: 94760; J1200; J1630; J2060; Z7610

== ENCOUNTER 2018-05-23 19:11 | Inpatient (IN) | payer MEDICARE, MEDICAID ==
--- NOTE | 2018-05-23 19:30 | ED Physician Chart ---
ED Chief Complaint/HPI - Patient Information Date Seen:: 05/23/18 Time Seen:: 19:29 Chief Complaint:: increased agitation History of Present Illness:: 63 yr old female here from [facility] for agitation psychosis hx of schizophrenia Allergies:: Allergies Allergy/AdvReac Type Severity Reaction Status Date / Time meperidine [From Demerol] Allergy Verified 06/10/17 13:04 ED Past Medical History - Past Medical History Past Medical History: DM (renal failure), Other (schizoaffective disorder) Family Medical History - Family Member Mother History Unknown: Yes Ethnicity: Unknown Living Status: Still Living Hx Family Cancer: (unknown) ED Assessment - Assessment General Assessment: agitation ED Septic Shock - . Is Septic Shock (SBP<90, OR Lactate>4 mmol\L) present?: No ED Reassessment (Disposition) - Diagnosis Diagnosis:: agitation psychosis - Patient Disposition Discharge/Transfer:: Acute Care w/in this hosp Condition at Disposition:: Stable
[2018-05-23 20:00] LABS: % EOSINOPHILS 2.3 % (0.0-5.0); % LYMPHOCYTES 32.3 % (20.0-50.0); % MONOCYTES 5.3 % (2.0-10.0); % NEUTROPHILS 59.1 % (40.0-80.0); BASOPHILE ABSOLUTE 0.1 Th/cumm (0-0.2); EOSINOPHILE ABSOLUTE 0.1 Th/cmm (0.1-0.4); HEMOGLOBIN 15.4 gm/dL (12-16); MEAN CELL VOLUME 88.4 fl (81-100); MEAN CORPUSCULAR HEMOGLOBIN 29.6 pg (27.0-31.0); MEAN CORPUSCULAR HGB CONC 33.5 pg (28.0-36.0); MEAN PLATELET VOLUME 7.6 fl; MONOCYTE ABSOLUTE 0.3 Th/cmm (0.3-1.0); NEUTROPHILE ABSOLUTE 3.8 Th/cmm (1.8-8.0); PLATELET COUNT 287 Th/cmm (150-400); RED BLOOD COUNT 5.21 Mil/cmm (3.80-5.10); RED CELL DISTRIBUTION WIDTH 12.8 % (11.5-20.0); WHITE BLOOD COUNT 6.3 Th/cmm (4.8-10.8)
[2018-05-23 20:16] LABS: ALB/GLOB RATIO 1.4 (1.0-1.8); ALBUMIN 4.2 gm/dL (3.7-5.3); ANION GAP 9.9 (7.0-16.0); BILIRUBIN,TOTAL 0.5 mg/dL (0.3-1.0); CALCIUM SERUM 9.8 mg/dL (8.6-10.3); CARBON DIOXIDE 28.1 mEq/L (21.0-31.0); CREATININE - SERUM 1.3 mg/dL (0.6-1.2); GFR AFRICAN-AMERICAN 53.6 ml/min (>90); GFR NON AFRICAN-AMERICAN 44.3 ml/min; TOTAL PROTEIN,SERUM 7.3 gm/dL (6.0-8.3)
[2018-05-23] MEDS ORDERED: Magnesium Hydroxide (MOM) 30 mL UDC PO PRN (22:08)
[2018-05-23] MEDS ORDERED: Maalox 30 mL Cup PO PRN (22:08)
[2018-05-23 22:42] VITALS: BP 107/68
[2018-05-24 08:23] LABS: CHOLESTEROL 200 mg/dL (<200); HDL -HIGH DENSITY LIPOPROTEIN 66 mg/dL (23-92); TRIGLYCERIDES 113 mg/dL (<150)
[2018-05-24] MEDS: Lactobacillus Rhamnosus GG 15 Billion CFU CAP.SPRINK PO SCH (09:22)
[2018-05-24] MEDS: Multivitamin Tab PO SCH (09:23)
[2018-05-24] MEDS: Lactulose 10 Gm/15 mL 30mL UDC PO SCH (09:23)
--- NOTE | 2018-05-24 15:03 | Internal Medicine Prog Note ---
Internal Medicine Subjective - Subjective Service Date: 05/24/18 ([id number] hn) Internal Medicine Objective - Results Result Diagrams: 05/23/18 19:50 05/23/18 19:50 Recent Labs: Laboratory Last Values WBC 6.3 Th/cmm (4.8-10.8) 05/23/18 19:50 RBC 5.21 Mil/cmm (3.80-5.10) H 05/23/18 19:50 Hgb 15.4 gm/dL (12-16) 05/23/18 19:50 Hct 46.0 % (41.0-60) 05/23/18 19:50 MCV 88.4 fl (81-100) 05/23/18 19:50 MCH 29.6 pg (27.0-31.0) 05/23/18 19:50 MCHC Differential 33.5 pg (28.0-36.0) 05/23/18 19:50 RDW 12.8 % (11.5-20.0) 05/23/18 19:50 Plt Count 287 Th/cmm (150-400) 05/23/18 19:50 MPV 7.6 fl 05/23/18 19:50 Neutrophils % 59.1 % (40.0-80.0) 05/23/18 19:50 Lymphocytes % 32.3 % (20.0-50.0) 05/23/18 19:50 Monocytes % 5.3 % (2.0-10.0) 05/23/18 19:50 Eosinophils % 2.3 % (0.0-5.0) 05/23/18 19:50 Basophils % 1.0 % (0.0-2.0) 05/23/18 19:50 Sodium 140 mEq/L (136-145) 05/23/18 19:50 Potassium 4.0 mEq/L (3.5-5.1) 05/23/18 19:50 Chloride 106 mEq/L (98-107) 05/23/18 19:50 Carbon Dioxide 28.1 mEq/L (21.0-31.0) 05/23/18 19:50 Anion Gap 9.9 (7.0-16.0) 05/23/18 19:50 BUN 31 mg/dL (7-25) H 05/23/18 19:50 Creatinine 1.3 mg/dL (0.6-1.2) H 05/23/18 19:50 Est GFR ( Amer) 53.6 ml/min (>90) 05/23/18 19:50 Est GFR (Non-Af Amer) 44.3 ml/min 05/23/18 19:50 BUN/Creatinine Ratio 23.8 05/23/18 19:50 Glucose 99 mg/dL (70-105) 05/23/18 19:50 Calcium 9.8 mg/dL (8.6-10.3) 05/23/18 19:50 Total Bilirubin 0.5 mg/dL (0.3-1.0) 05/23/18 19:50 AST 20 U/L (13-39) 05/23/18 19:50 ALT 23 U/L (7-52) 05/23/18 19:50 Alkaline Phosphatase 83 U/L (34-104) 05/23/18 19:50 Total Protein 7.3 gm/dL (6.0-8.3) 05/23/18 19:50 Albumin 4.2 gm/dL (3.7-5.3) 05/23/18 19:50 Globulin 3.1 gm/dL 05/23/18 19:50 Albumin/Globulin Ratio 1.4 (1.0-1.8) 05/23/18 19:50 Triglycerides 113 mg/dL (<150) 05/24/18 07:41 Cholesterol 200 mg/dL (<200) 05/24/18 07:41 LDL Cholesterol Direct 94 mg/dL (75-193) 05/24/18 07:41 HDL Cholesterol 66 mg/dL (23-92) 05/24/18 07:41 - Physical Exam Vitals and I&O: Vital Signs Temp 98.1 F 05/23/18 22:50 Pulse 77 05/23/18 22:50 Resp 20 05/23/18 22:50 BP 107/68 05/23/18 22:50 Pulse Ox 96 05/23/18 22:50 Intake & Output 05/23/18 05/24/18 05/24/18 18:59 06:59 18:59 Weight (lbs) 225 lb Other: Stool Characteristics Soft Soft Weight Source Estimated Active Medications: Current Medications Acetaminophen (Tylenol) 650 mg PO Q4H PRN PRN Reason: Mild Pain Or Fever above 101 Stop: 07/22/18 22:09 Acetaminophen/Hydrocodone Bitart ([place] 5mg/325mg) 1 tab PO Q6H PRN PRN Reason: Pain (Moderate) Stop: 07/22/18 22:07 Al Hydrox/Mg Hydrox/Simethicone (Maalox) 30 ml PO Q6H PRN PRN Reason: Dyspepsia Stop: 07/22/18 22:07 Dextromethorphan/Quinidine (Nuedexta 20mg-10mg) 1 cap PO Q12HR [facility] Stop: 07/23/18 08:59 Diazepam (Valium) 2 mg PO BID CECILIA; Protocol Stop: 07/23/18 08:59 Last Admin: 05/24/18 09:23 Dose: 2 mg Docusate Sodium (Colace) 100 mg PO BID [facility] Stop: 07/23/18 08:59 Last Admin: 05/24/18 09:23 Dose: 100 mg Lactobacillus Rhamnosus (Culturelle 15b) 1 each PO DAILY [facility]IA Stop: 07/23/18 08:59 Last Admin: 05/24/18 09:22 Dose: 1 each Lactulose (Cephulac) 20 gm PO DAILY [facility] Stop: 07/23/18 08:59 Last Admin: 05/24/18 09:23 Dose: 20 gm Lorazepam (Ativan) 0.5 mg PO Q6HR PRN; Protocol PRN Reason: anxiety Stop: 07/22/18 21:44 Last Admin: 05/24/18 14:04 Dose: 0.5 mg Magnesium Hydroxide (Milk Of Magnesia) 30 ml PO HS PRN PRN Reason: Constipation Stop: 07/22/18 22:07 Midodrine (Proamatine) 10 mg PO TID [facility] Stop: 07/23/18 08:59 Last Admin: 05/24/18 14:04 Dose: 10 mg Multivitamins/Vitamin C (Theragran) 1 tab PO DAILY [facility] Stop: 07/23/18 08:59 Last Admin: 05/24/18 09:23 Dose: Not Given Nystatin (Nystop) 100 units TP BID [facility] Stop: 07/23/18 16:59 Quetiapine Fumarate (Seroquel) 50 mg PO BID [facility]IA; Protocol Stop: 07/23/18 08:59 Last Admin: 05/24/18 09:22 Dose: 50 mg Quetiapine Fumarate (Seroquel) 175 mg PO HS CECILIA; Protocol Stop: 07/23/18 20:59 Zolpidem Tartrate (Ambien) 5 mg PO HS PRN PRN Reason: Insomnia Stop: 07/22/18 22:45 - Procedures Procedures: Procedures Procedure Code Date CONTINUOUS INVASIVE MECHANICAL VENTILATION =/>96 CONSEC HRS 96.72 01/08/15 EGD BIOPSY SINGLE/MULTIPLE 89421 07/27/15 EXCISION OF DUODENUM, ENDO, DIAGN [id number] 07/27/15 EXCISION OF STOMACH, PYLORUS, ENDO, DIAGN [id number] 07/27/15 GROUP PSYCHOTHERAPY 90110 08/02/15 GROUP PSYCHOTHERAPY [id number] 08/02/15 INSERT EMERGENCY AIRWAY 15546 01/08/15 INSERT ENDOTRACHEAL TUBE 96.04 01/08/15 INTRAOP COLON LAVAGE ADD-ON 75052 01/08/15 OPEN TOTAL INTRA-ABDOMINAL COLECTOMY 45.82 01/08/15 OTHER GROUP THERAPY 94.44 03/16/15 REMOVAL OF COLON 89173 01/08/15 TEMPORARY ILEOSTOMY 46.21 01/08/15 VENT MGMT INPAT INIT DAY 24191 01/08/15 VENT MGMT INPAT SUBQ DAY 10919 01/08/15
[2018-05-24] MEDS: NYSTATIN 100000 UNITS/GM POWD TP SCH (17:06)
--- NOTE | 2018-05-24 17:56 | History & Physical ---
ADMIT DATE: 05/24/2018 COVERING FOR: Dr. Ganga Richards. CHIEF COMPLAINT: Agitation. HISTORY OF PRESENT ILLNESS: This is a 63-year-old female who is well known to me from [facility], admitted to the Geropsych Unit due to 1-day history of agitation towards nursing staff. PAST MEDICAL HISTORY: Morbid obesity, schizoaffective disorder, GERD, chronic constipation, hypertension. PAST SURGICAL HISTORY: Status post colostomy secondary to bowel obstruction in the past. ALLERGIES: To MEPERIDINE. MEDICATIONS: Ultram, omeprazole, Nuedexta, Colace, [place], lactulose, lidocaine patch, midodrine, and multivitamin. FAMILY HISTORY: Noncontributory. SOCIAL HISTORY: The patient is a [facility] resident requiring 24-hour nursing care. REVIEW OF SYSTEMS: Unable to obtain, patient is confused. PHYSICAL EXAMINATION: GENERAL: Obese female, awake, confused, agitated, in no apparent distress. VITAL SIGNS: Temperature 98.1, heart rate 77, blood pressure 107/68, respirations 20, O2 96%. HEENT: Head: Normocephalic, atraumatic. NECK: Supple. No mass. LUNGS: Clear bilaterally. HEART: Regular rate and rhythm. ABDOMEN: Soft, nontender. EXTREMITIES: Positive for excoriations. LABORATORY DATA: WBC 6.3, H and H 15.4/46.0, platelet of 287. Sodium 140, potassium 4.0, chloride 106, BUN 31, creatinine 1.3. ASSESSMENT: Acute renal insufficiency, morbid obesity, schizoaffective disorder, gastroesophageal reflux disease, chronic constipation, hypertension. PLAN: We will offer the patient's hydration. We will get a followup BUN and creatinine in 2 days. We will continue to follow this patient. JOB# [id number]
--- NOTE | 2018-05-24 19:15 | Psychiatric Evaluation ---
DATE OF SERVICE: 05/24/2018 AGE: 63. SEX: Female. PHYSICIAN: Dr. Wick. CHIEF COMPLAINT: Severe agitation and irritability. HISTORY OF PRESENT ILLNESS: The patient is a 63-year-old female with history of psychosis. The patient was transferred from [facility] because of increased agitation and because of increased irritability. The patient has been yelling and screaming constantly. She also has not been able to follow any of directions. The patient also has been restless and has been aggressive when staff tried to help her with her ADLs and when they tried to redirect her. Otherwise, the patient is taking her medications. PAST PSYCHIATRIC HISTORY: The patient has history of multiple psychiatric hospitalizations for treatment of psychosis and schizoaffective disorder. PAST MEDICAL HISTORY: The patient has diabetes mellitus and also the patient has a colonoscopy. SOCIAL HISTORY: The patient lives in [facility]. No known alcohol or drug abuse. ALLERGIES: No known allergies. MENTAL STATUS EXAMINATION: The patient appears her stated age. Anxious. Irritable mood. Disorganized thoughts. The patient did not answer questions regarding hallucinations, but actively responding to stimuli. The patient denies suicidal or homicidal ideations. The patient is alert and oriented to the situation and the place, but not to date. Impaired immediate and recent memory, but intact remote memory. Fair insight. Poor judgment. Seems to be of average intelligence based on verbal ability. ASSESSMENT: PRIMARY DIAGNOSIS: Schizoaffective disorder, mixed type, with psychotic features. MEDICAL DIAGNOSES: Diabetes mellitus. Colostomy. TREATMENT PLAN: Monitor the patient's behavior and her condition closely. We will start individual as well as milieu psychotherapy. Also, continue Seroquel and we will adjust the dose. ESTIMATED LENGTH OF STAY: 5-7 days. THE PATIENT'S STRENGTHS AND WEAKNESSES: The patient's strength is not clear at this time. Weaknesses is ineffective coping. AFTER DISCHARGE PLAN: Outpatient treatment and followup will continue as an outpatient. CRITERIA FOR DISCHARGE: The patient will not be psychotic and will stabilize psychotropic medications and will establish outpatient treatment plan and her return to [facility]. JOB# [id number]
[2018-05-25] MEDS: Multivitamin Tab PO SCH (08:17)
[2018-05-25] MEDS: Lactobacillus Rhamnosus GG 15 Billion CFU CAP.SPRINK PO SCH (08:18)
[2018-05-25] MEDS: Lactulose 10 Gm/15 mL 30mL UDC PO SCH (08:18)
[2018-05-25] MEDS: NYSTATIN 100000 UNITS/GM POWD TP SCH ×2 (08:26→16:46)
--- NOTE | 2018-05-25 11:25 | Progress Notes ---
DATE: 05/25/2018 SUBJECTIVE: Chart reviewed and the patient interviewed. Also discussed the patient's condition with the staff and reviewed records and labs. The patient continued to be angry and agitated with episodes of yelling and screaming. The patient also is still confused and restless and has difficulty following directions. She also is interacting minimally with others. The patient also needs lots of instructions and directions because of her agitation. Otherwise, the patient is compliant with taking her medications with no side effects of medications. ASSESSMENT: The patient is still agitated and psychotic. TREATMENT PLAN: Continue to monitor her behavior and her condition closely. Also, continue adjusting psychotropic medications and work on behavioral modification. JOB# [id number]
[2018-05-25] MEDS: Hydrocodone/APAP 5mg/325mg Tab PO PRN (12:49)
--- NOTE | 2018-05-25 15:22 | Internal Medicine Prog Note ---
Internal Medicine Subjective - Subjective Service Date: 05/25/18 Patient seen and examined:: with staff Patient is:: awake Per staff patient has:: tolerating meds Internal Medicine Objective - Results Result Diagrams: 05/23/18 19:50 05/23/18 19:50 Recent Labs: Laboratory Last Values WBC 6.3 Th/cmm (4.8-10.8) 05/23/18 19:50 RBC 5.21 Mil/cmm (3.80-5.10) H 05/23/18 19:50 Hgb 15.4 gm/dL (12-16) 05/23/18 19:50 Hct 46.0 % (41.0-60) 05/23/18 19:50 MCV 88.4 fl (81-100) 05/23/18 19:50 MCH 29.6 pg (27.0-31.0) 05/23/18 19:50 MCHC Differential 33.5 pg (28.0-36.0) 05/23/18 19:50 RDW 12.8 % (11.5-20.0) 05/23/18 19:50 Plt Count 287 Th/cmm (150-400) 05/23/18 19:50 MPV 7.6 fl 05/23/18 19:50 Neutrophils % 59.1 % (40.0-80.0) 05/23/18 19:50 Lymphocytes % 32.3 % (20.0-50.0) 05/23/18 19:50 Monocytes % 5.3 % (2.0-10.0) 05/23/18 19:50 Eosinophils % 2.3 % (0.0-5.0) 05/23/18 19:50 Basophils % 1.0 % (0.0-2.0) 05/23/18 19:50 Sodium 140 mEq/L (136-145) 05/23/18 19:50 Potassium 4.0 mEq/L (3.5-5.1) 05/23/18 19:50 Chloride 106 mEq/L (98-107) 05/23/18 19:50 Carbon Dioxide 28.1 mEq/L (21.0-31.0) 05/23/18 19:50 Anion Gap 9.9 (7.0-16.0) 05/23/18 19:50 BUN 31 mg/dL (7-25) H 05/23/18 19:50 Creatinine 1.3 mg/dL (0.6-1.2) H 05/23/18 19:50 Est GFR ( Amer) 53.6 ml/min (>90) 05/23/18 19:50 Est GFR (Non-Af Amer) 44.3 ml/min 05/23/18 19:50 BUN/Creatinine Ratio 23.8 05/23/18 19:50 Glucose 99 mg/dL (70-105) 05/23/18 19:50 Calcium 9.8 mg/dL (8.6-10.3) 05/23/18 19:50 Total Bilirubin 0.5 mg/dL (0.3-1.0) 05/23/18 19:50 AST 20 U/L (13-39) 05/23/18 19:50 ALT 23 U/L (7-52) 05/23/18 19:50 Alkaline Phosphatase 83 U/L (34-104) 05/23/18 19:50 Total Protein 7.3 gm/dL (6.0-8.3) 05/23/18 19:50 Albumin 4.2 gm/dL (3.7-5.3) 05/23/18 19:50 Globulin 3.1 gm/dL 05/23/18 19:50 Albumin/Globulin Ratio 1.4 (1.0-1.8) 05/23/18 19:50 Triglycerides 113 mg/dL (<150) 05/24/18 07:41 Cholesterol 200 mg/dL (<200) 05/24/18 07:41 LDL Cholesterol Direct 94 mg/dL (75-193) 05/24/18 07:41 HDL Cholesterol 66 mg/dL (23-92) 05/24/18 07:41 - Physical Exam Vitals and I&O: Vital Signs Temp 99.1 F 05/25/18 14:50 Pulse 87 05/25/18 14:50 Resp 18 05/25/18 14:50 BP 103/60 05/25/18 14:50 Pulse Ox 97 05/25/18 14:50 Intake & Output 05/24/18 05/25/18 05/25/18 18:59 06:59 18:59 Intake Total 800 120 Balance 800 120 Intake: Oral 800 120 Other: # Voids 3 3 # Bowel Movements 3 Stool Characteristics Soft Soft Liquid Active Medications: Current Medications Acetaminophen (Tylenol) 650 mg PO Q4H PRN PRN Reason: Mild Pain Or Fever above 101 Stop: 07/22/18 22:09 Acetaminophen/Hydrocodone Bitart ([place] 5mg/325mg) 1 tab PO Q6H PRN PRN Reason: Pain (Moderate) Stop: 07/22/18 22:07 Last Admin: 05/25/18 12:49 Dose: 1 tab Al Hydrox/Mg Hydrox/Simethicone (Maalox) 30 ml PO Q6H PRN PRN Reason: Dyspepsia Stop: 07/22/18 22:07 Dextromethorphan/Quinidine (Nuedexta 20mg-10mg) 1 cap PO Q12HR [facility] Stop: 07/23/18 08:59 Diazepam (Valium) 2 mg PO BID [facility]; Protocol Stop: 07/23/18 08:59 Last Admin: 05/25/18 08:18 Dose: 2 mg Docusate Sodium (Colace) 100 mg PO BID [facility] Stop: 07/23/18 08:59 Last Admin: 05/25/18 08:18 Dose: 100 mg Lactobacillus Rhamnosus (Culturelle 15b) 1 each PO DAILY [facility] Stop: 07/23/18 08:59 Last Admin: 05/25/18 08:18 Dose: 1 each Lactulose (Cephulac) 20 gm PO DAILY [facility] Stop: 07/23/18 08:59 Last Admin: 05/25/18 08:18 Dose: 20 gm Lorazepam (Ativan) 0.5 mg PO Q6HR PRN; Protocol PRN Reason: anxiety Stop: 07/22/18 21:44 Last Admin: 05/25/18 09:47 Dose: 0.5 mg Magnesium Hydroxide (Milk Of Magnesia) 30 ml PO HS PRN PRN Reason: Constipation Stop: 07/22/18 22:07 Midodrine (Proamatine) 10 mg PO TID [facility] Stop: 07/23/18 08:59 Last Admin: 05/25/18 13:39 Dose: 10 mg Multivitamins/Vitamin C (Theragran) 1 tab PO DAILY [facility] Stop: 07/23/18 08:59 Last Admin: 05/25/18 08:17 Dose: 1 tab Nystatin (Nystop) 100 units TP BID [facility] Stop: 07/23/18 16:59 Last Admin: 05/25/18 08:26 Dose: 100 units Quetiapine Fumarate (Seroquel) 50 mg PO BID [facility]; Protocol Stop: 07/23/18 08:59 Last Admin: 05/25/18 08:26 Dose: 50 mg Quetiapine Fumarate (Seroquel) 175 mg PO HS [facility]ECILIA; Protocol Stop: 07/23/18 20:59 Last Admin: 05/24/18 20:37 Dose: 175 mg Zolpidem Tartrate (Ambien) 5 mg PO HS PRN PRN Reason: Insomnia Stop: 07/22/18 22:45 Last Admin: 05/24/18 20:36 Dose: 5 mg General: alert HEENT: NC/AT, PERRLA Neck: Supple Lungs: CTAB Cardiovascular: RRR, Normal S1, Normal S2 Abdomen: soft, non-tender, non-distended Extremities: excoriation - Procedures Procedures: Procedures Procedure Code Date CONTINUOUS INVASIVE MECHANICAL VENTILATION =/>96 CONSEC HRS 96.72 01/08/15 EGD BIOPSY SINGLE/MULTIPLE 88600 07/27/15 EXCISION OF DUODENUM, ENDO, DIAGN [id number] 07/27/15 EXCISION OF STOMACH, PYLORUS, ENDO, DIAGN [id number] 07/27/15 GROUP PSYCHOTHERAPY 26938 08/02/15 GROUP PSYCHOTHERAPY [id number] 08/02/15 INSERT EMERGENCY AIRWAY 22427 01/08/15 INSERT ENDOTRACHEAL TUBE 96.04 01/08/15 INTRAOP COLON LAVAGE ADD-ON 68402 01/08/15 OPEN TOTAL INTRA-ABDOMINAL COLECTOMY 45.82 01/08/15 OTHER GROUP THERAPY 94.44 03/16/15 REMOVAL OF COLON 92053 01/08/15 TEMPORARY ILEOSTOMY 46.21 01/08/15 VENT MGMT INPAT INIT DAY 39354 01/08/15 VENT MGMT INPAT SUBQ DAY 31017 01/08/15 Internal Medicine Assmt/Plan - Assessment Assessment: acute renal insufficiency morbid obesity schizoaffective disorder herd chronic constipation htn - Plan Plan: encourage h20 bmp in am fall precautions continue current plan of care
[2018-05-26 08:12] LABS: ANION GAP 11.4 (7.0-16.0); BUN - UREA NITROGEN 25 mg/dL (7-25); CARBON DIOXIDE 25.6 mEq/L (21.0-31.0); CHLORIDE 104 mEq/L (98-107); GFR AFRICAN-AMERICAN > 60.0 ml/min (>90); GFR NON AFRICAN-AMERICAN 59.9 ml/min; GLUCOSE 86 mg/dL (70-105); SODIUM SERUM 137 mEq/L (136-145)
[2018-05-26] MEDS: Multivitamin Tab PO SCH (09:05)
[2018-05-26] MEDS: Lactobacillus Rhamnosus GG 15 Billion CFU CAP.SPRINK PO SCH (09:05)
[2018-05-26] MEDS: NYSTATIN 100000 UNITS/GM POWD TP SCH ×2 (09:06→16:26)
[2018-05-26] MEDS: Lactulose 10 Gm/15 mL 30mL UDC PO SCH (09:07)
--- NOTE | 2018-05-26 10:55 | Internal Medicine Prog Note ---
Internal Medicine Subjective - Subjective Service Date: 05/26/18 Patient is:: awake Per staff patient has:: tolerating meds Internal Medicine Objective - Results Result Diagrams: 05/23/18 19:50 05/26/18 07:40 Recent Labs: Laboratory Last Values WBC 6.3 Th/cmm (4.8-10.8) 05/23/18 19:50 RBC 5.21 Mil/cmm (3.80-5.10) H 05/23/18 19:50 Hgb 15.4 gm/dL (12-16) 05/23/18 19:50 Hct 46.0 % (41.0-60) 05/23/18 19:50 MCV 88.4 fl (81-100) 05/23/18 19:50 MCH 29.6 pg (27.0-31.0) 05/23/18 19:50 MCHC Differential 33.5 pg (28.0-36.0) 05/23/18 19:50 RDW 12.8 % (11.5-20.0) 05/23/18 19:50 Plt Count 287 Th/cmm (150-400) 05/23/18 19:50 MPV 7.6 fl 05/23/18 19:50 Neutrophils % 59.1 % (40.0-80.0) 05/23/18 19:50 Lymphocytes % 32.3 % (20.0-50.0) 05/23/18 19:50 Monocytes % 5.3 % (2.0-10.0) 05/23/18 19:50 Eosinophils % 2.3 % (0.0-5.0) 05/23/18 19:50 Basophils % 1.0 % (0.0-2.0) 05/23/18 19:50 Sodium 137 mEq/L (136-145) 05/26/18 07:40 Potassium 4.0 mEq/L (3.5-5.1) 05/26/18 07:40 Chloride 104 mEq/L (98-107) 05/26/18 07:40 Carbon Dioxide 25.6 mEq/L (21.0-31.0) 05/26/18 07:40 Anion Gap 11.4 (7.0-16.0) 05/26/18 07:40 BUN 25 mg/dL (7-25) 05/26/18 07:40 Creatinine 1.0 mg/dL (0.6-1.2) 05/26/18 07:40 Est GFR ( Amer) > 60.0 ml/min (>90) 05/26/18 07:40 Est GFR (Non-Af Amer) 59.9 ml/min 05/26/18 07:40 BUN/Creatinine Ratio 25.0 05/26/18 07:40 Glucose 86 mg/dL (70-105) 05/26/18 07:40 Calcium 10.0 mg/dL (8.6-10.3) 05/26/18 07:40 Total Bilirubin 0.5 mg/dL (0.3-1.0) 05/23/18 19:50 AST 20 U/L (13-39) 05/23/18 19:50 ALT 23 U/L (7-52) 05/23/18 19:50 Alkaline Phosphatase 83 U/L (34-104) 05/23/18 19:50 Total Protein 7.3 gm/dL (6.0-8.3) 05/23/18 19:50 Albumin 4.2 gm/dL (3.7-5.3) 05/23/18 19:50 Globulin 3.1 gm/dL 05/23/18 19:50 Albumin/Globulin Ratio 1.4 (1.0-1.8) 05/23/18 19:50 Triglycerides 113 mg/dL (<150) 05/24/18 07:41 Cholesterol 200 mg/dL (<200) 05/24/18 07:41 LDL Cholesterol Direct 94 mg/dL (75-193) 05/24/18 07:41 HDL Cholesterol 66 mg/dL (23-92) 05/24/18 07:41 - Physical Exam Vitals and I&O: Vital Signs Temp 97.9 F 05/25/18 20:00 Pulse 66 05/25/18 20:00 Resp 18 05/25/18 20:00 BP 109/74 05/25/18 20:00 Pulse Ox 97 05/25/18 20:00 Intake & Output 05/25/18 05/26/18 05/26/18 18:59 06:59 18:59 Intake Total 1600 120 Balance 1600 120 Intake: Oral 1600 120 Other: # Voids 4 3 # Bowel Movements 800 Stool Characteristics Liquid Soft Active Medications: Current Medications Acetaminophen (Tylenol) 650 mg PO Q4H PRN PRN Reason: Mild Pain Or Fever above 101 Stop: 07/22/18 22:09 Acetaminophen/Hydrocodone Bitart ([place] 5mg/325mg) 1 tab PO Q6H PRN PRN Reason: Pain (Moderate) Stop: 07/22/18 22:07 Last Admin: 05/25/18 12:49 Dose: 1 tab Al Hydrox/Mg Hydrox/Simethicone (Maalox) 30 ml PO Q6H PRN PRN Reason: Dyspepsia Stop: 07/22/18 22:07 Dextromethorphan/Quinidine (Nuedexta 20mg-10mg) 1 cap PO Q12HR CECILIA Stop: 07/23/18 08:59 Diazepam (Valium) 2 mg PO BID [facility]; Protocol Stop: 07/23/18 08:59 Last Admin: 05/26/18 09:05 Dose: 2 mg Docusate Sodium (Colace) 100 mg PO BID [facility] Stop: 07/23/18 08:59 Last Admin: 05/26/18 09:05 Dose: 100 mg Lactobacillus Rhamnosus (Culturelle 15b) 1 each PO DAILY [facility] Stop: 07/23/18 08:59 Last Admin: 05/26/18 09:05 Dose: 1 each Lactulose (Cephulac) 20 gm PO DAILY [facility] Stop: 07/23/18 08:59 Last Admin: 05/26/18 09:07 Dose: Not Given Lorazepam (Ativan) 0.5 mg PO Q6HR PRN; Protocol PRN Reason: anxiety Stop: 07/22/18 21:44 Last Admin: 05/26/18 09:06 Dose: 0.5 mg Magnesium Hydroxide (Milk Of Magnesia) 30 ml PO HS PRN PRN Reason: Constipation Stop: 07/22/18 22:07 Midodrine (Proamatine) 10 mg PO TID [facility] Stop: 07/23/18 08:59 Last Admin: 05/26/18 09:04 Dose: 10 mg Multivitamins/Vitamin C (Theragran) 1 tab PO DAILY [facility] Stop: 07/23/18 08:59 Last Admin: 05/26/18 09:05 Dose: 1 tab Nystatin (Nystop) 100 units TP BID [facility] Stop: 07/23/18 16:59 Last Admin: 05/26/18 09:06 Dose: 100 units Quetiapine Fumarate (Seroquel) 75 mg PO BID [facility]; Protocol Stop: 07/25/18 16:59 Quetiapine Fumarate (Seroquel) 200 mg PO HS CECILIA; Protocol Stop: 07/25/18 20:59 Zolpidem Tartrate (Ambien) 5 mg PO HS PRN PRN Reason: Insomnia Stop: 07/22/18 22:45 Last Admin: 05/25/18 21:49 Dose: 5 mg General: alert HEENT: NC/AT, PERRLA Neck: Supple Lungs: CTAB Cardiovascular: RRR, Normal S1, Normal S2 Abdomen: soft, non-tender, non-distended Extremities: excoriation - Procedures Procedures: Procedures Procedure Code Date CONTINUOUS INVASIVE MECHANICAL VENTILATION =/>96 CONSEC HRS 96.72 01/08/15 EGD BIOPSY SINGLE/MULTIPLE 75887 07/27/15 EXCISION OF DUODENUM, ENDO, DIAGN [id number] 07/27/15 EXCISION OF STOMACH, PYLORUS, ENDO, DIAGN [id number] 07/27/15 GROUP PSYCHOTHERAPY 08085 08/02/15 GROUP PSYCHOTHERAPY [id number] 08/02/15 INSERT EMERGENCY AIRWAY 47565 01/08/15 INSERT ENDOTRACHEAL TUBE 96.04 01/08/15 INTRAOP COLON LAVAGE ADD-ON 35834 01/08/15 OPEN TOTAL INTRA-ABDOMINAL COLECTOMY 45.82 01/08/15 OTHER GROUP THERAPY 94.44 03/16/15 REMOVAL OF COLON 85465 01/08/15 TEMPORARY ILEOSTOMY 46.21 01/08/15 VENT MGMT INPAT INIT DAY 86456 01/08/15 VENT MGMT INPAT SUBQ DAY 70244 01/08/15 Internal Medicine Assmt/Plan - Assessment Assessment: acute renal insufficiency-improved morbid obesity schizoaffective disorder herd chronic constipation htn - Plan Plan: encourage h20 fall precautions continue current plan of care
[2018-05-26] MEDS: Hydrocodone/APAP 5mg/325mg Tab PO PRN (12:45)
--- NOTE | 2018-05-27 01:48 | Progress Notes ---
DATE: 05/26/2018 PSYCHIATRIC PROGRESS NOTE SUBJECTIVE: Chart reviewed and the patient interviewed. Also discussed the patient's condition with the staff and reviewed records and labs. The patient continued to be extremely irritable and extremely agitated. The patient also is still yelling and screaming and she still needs lots of redirections. The patient also is still suspicious and is still paranoid. She also is interacting minimally with others and when she does she is extremely angry and agitated. Otherwise, the patient continued to comply with taking her medications with no side effects. ASSESSMENT: The patient is still irritable and still agitated. TREATMENT PLAN: We will continue to monitor behavior and condition closely. Also, we will increase Seroquel to 75 mg twice a day and 200 mg at bedtime. Also, continue to work on behavioral modification. Also discussed with senior case manager patient's condition and the patient will return to [facility] when she is medically stable. JOB# [id number]
[2018-05-27] MEDS: Multivitamin Tab PO SCH (08:35)
[2018-05-27] MEDS: Lactobacillus Rhamnosus GG 15 Billion CFU CAP.SPRINK PO SCH (08:35)
[2018-05-27] MEDS: NYSTATIN 100000 UNITS/GM POWD TP SCH ×2 (08:36→17:50)
[2018-05-27] MEDS: Lactulose 10 Gm/15 mL 30mL UDC PO SCH (08:36)
[2018-05-27] MEDS: Dextromethorphan/Quinidine 20mg/10mg Cap PO SCH ×2 (10:30→21:12)
--- NOTE | 2018-05-27 12:55 | Internal Medicine Prog Note ---
Internal Medicine Subjective - Subjective Service Date: 05/27/18 Patient is:: awake Per staff patient has:: tolerating meds Internal Medicine Objective - Results Result Diagrams: 05/23/18 19:50 05/26/18 07:40 Recent Labs: Laboratory Last Values WBC 6.3 Th/cmm (4.8-10.8) 05/23/18 19:50 RBC 5.21 Mil/cmm (3.80-5.10) H 05/23/18 19:50 Hgb 15.4 gm/dL (12-16) 05/23/18 19:50 Hct 46.0 % (41.0-60) 05/23/18 19:50 MCV 88.4 fl (81-100) 05/23/18 19:50 MCH 29.6 pg (27.0-31.0) 05/23/18 19:50 MCHC Differential 33.5 pg (28.0-36.0) 05/23/18 19:50 RDW 12.8 % (11.5-20.0) 05/23/18 19:50 Plt Count 287 Th/cmm (150-400) 05/23/18 19:50 MPV 7.6 fl 05/23/18 19:50 Neutrophils % 59.1 % (40.0-80.0) 05/23/18 19:50 Lymphocytes % 32.3 % (20.0-50.0) 05/23/18 19:50 Monocytes % 5.3 % (2.0-10.0) 05/23/18 19:50 Eosinophils % 2.3 % (0.0-5.0) 05/23/18 19:50 Basophils % 1.0 % (0.0-2.0) 05/23/18 19:50 Sodium 137 mEq/L (136-145) 05/26/18 07:40 Potassium 4.0 mEq/L (3.5-5.1) 05/26/18 07:40 Chloride 104 mEq/L (98-107) 05/26/18 07:40 Carbon Dioxide 25.6 mEq/L (21.0-31.0) 05/26/18 07:40 Anion Gap 11.4 (7.0-16.0) 05/26/18 07:40 BUN 25 mg/dL (7-25) 05/26/18 07:40 Creatinine 1.0 mg/dL (0.6-1.2) 05/26/18 07:40 Est GFR ( Amer) > 60.0 ml/min (>90) 05/26/18 07:40 Est GFR (Non-Af Amer) 59.9 ml/min 05/26/18 07:40 BUN/Creatinine Ratio 25.0 05/26/18 07:40 Glucose 86 mg/dL (70-105) 05/26/18 07:40 Calcium 10.0 mg/dL (8.6-10.3) 05/26/18 07:40 Total Bilirubin 0.5 mg/dL (0.3-1.0) 05/23/18 19:50 AST 20 U/L (13-39) 05/23/18 19:50 ALT 23 U/L (7-52) 05/23/18 19:50 Alkaline Phosphatase 83 U/L (34-104) 05/23/18 19:50 Total Protein 7.3 gm/dL (6.0-8.3) 05/23/18 19:50 Albumin 4.2 gm/dL (3.7-5.3) 05/23/18 19:50 Globulin 3.1 gm/dL 05/23/18 19:50 Albumin/Globulin Ratio 1.4 (1.0-1.8) 05/23/18 19:50 Triglycerides 113 mg/dL (<150) 05/24/18 07:41 Cholesterol 200 mg/dL (<200) 05/24/18 07:41 LDL Cholesterol Direct 94 mg/dL (75-193) 05/24/18 07:41 HDL Cholesterol 66 mg/dL (23-92) 05/24/18 07:41 - Physical Exam Vitals and I&O: Vital Signs Temp 97.9 F 05/26/18 14:00 Pulse 82 05/26/18 14:00 Resp 18 05/26/18 14:00 BP 136/68 05/26/18 14:00 Pulse Ox 95 05/26/18 14:00 Intake & Output 05/26/18 05/27/18 05/27/18 18:59 06:59 18:59 Intake Total 1070 Balance 1070 Intake: Oral 1070 Other: # Voids 4 # Bowel Movements 1 Stool Characteristics Soft Liquid Active Medications: Current Medications Acetaminophen (Tylenol) 650 mg PO Q4H PRN PRN Reason: Mild Pain Or Fever above 101 Stop: 07/22/18 22:09 Last Admin: 05/27/18 08:34 Dose: 650 mg Acetaminophen/Hydrocodone Bitart ([place] 5mg/325mg) 1 tab PO Q6H PRN PRN Reason: Pain (Moderate) Stop: 07/22/18 22:07 Last Admin: 05/26/18 12:45 Dose: 1 tab Al Hydrox/Mg Hydrox/Simethicone (Maalox) 30 ml PO Q6H PRN PRN Reason: Dyspepsia Stop: 07/22/18 22:07 Chlorpromazine (Thorazine) 25 mg PO TID [facility]; Protocol Stop: 07/25/18 20:59 Last Admin: 05/27/18 08:35 Dose: 25 mg Dextromethorphan/Quinidine (Nuedexta 20mg-10mg) 1 cap PO Q12HR [facility] Stop: 07/23/18 08:59 Last Admin: 05/27/18 10:30 Dose: 1 cap Diazepam (Valium) 2 mg PO BID [facility]; Protocol Stop: 07/23/18 08:59 Last Admin: 05/27/18 08:36 Dose: 2 mg Docusate Sodium (Colace) 100 mg PO BID [facility] Stop: 07/23/18 08:59 Last Admin: 05/27/18 08:36 Dose: 100 mg Lactobacillus Rhamnosus (Culturelle 15b) 1 each PO DAILY [facility] Stop: 07/23/18 08:59 Last Admin: 05/27/18 08:35 Dose: 1 each Lactulose (Cephulac) 20 gm PO DAILY [facility] Stop: 07/23/18 08:59 Last Admin: 05/27/18 08:36 Dose: Not Given Lorazepam (Ativan) 0.5 mg PO Q6HR PRN; Protocol PRN Reason: anxiety Stop: 07/22/18 21:44 Last Admin: 05/27/18 08:36 Dose: 0.5 mg Magnesium Hydroxide (Milk Of Magnesia) 30 ml PO HS PRN PRN Reason: Constipation Stop: 07/22/18 22:07 Midodrine (Proamatine) 10 mg PO TID [facility] Stop: 07/23/18 08:59 Last Admin: 05/27/18 08:35 Dose: 10 mg Multivitamins/Vitamin C (Theragran) 1 tab PO DAILY [facility] Stop: 07/23/18 08:59 Last Admin: 05/27/18 08:35 Dose: 1 tab Nystatin (Nystop) 100 units TP BID [facility] Stop: 07/23/18 16:59 Last Admin: 05/27/18 08:36 Dose: 100 units Quetiapine Fumarate (Seroquel) 75 mg PO BID [facility]; Protocol Stop: 07/25/18 16:59 Last Admin: 05/27/18 08:34 Dose: 75 mg Quetiapine Fumarate (Seroquel) 200 mg PO HS [facility]; Protocol Stop: 07/25/18 20:59 Last Admin: 05/26/18 21:28 Dose: 200 mg Zolpidem Tartrate (Ambien) 5 mg PO HS PRN PRN Reason: Insomnia Stop: 07/22/18 22:45 Last Admin: 05/26/18 21:28 Dose: 5 mg General: alert HEENT: NC/AT, PERRLA Neck: Supple Lungs: CTAB Cardiovascular: RRR, Normal S1, Normal S2 Abdomen: soft, non-tender, non-distended Extremities: excoriation - Procedures Procedures: Procedures Procedure Code Date CONTINUOUS INVASIVE MECHANICAL VENTILATION =/>96 CONSEC HRS 96.72 01/08/15 EGD BIOPSY SINGLE/MULTIPLE 09269 07/27/15 EXCISION OF DUODENUM, ENDO, DIAGN [id number] 07/27/15 EXCISION OF STOMACH, PYLORUS, ENDO, DIAGN [id number] 07/27/15 GROUP PSYCHOTHERAPY 14193 08/02/15 GROUP PSYCHOTHERAPY [id number] 08/02/15 INSERT EMERGENCY AIRWAY 78274 01/08/15 INSERT ENDOTRACHEAL TUBE 96.04 01/08/15 INTRAOP COLON LAVAGE ADD-ON 59568 01/08/15 OPEN TOTAL INTRA-ABDOMINAL COLECTOMY 45.82 01/08/15 OTHER GROUP THERAPY 94.44 03/16/15 REMOVAL OF COLON 74347 01/08/15 TEMPORARY ILEOSTOMY 46.21 01/08/15 VENT MGMT INPAT INIT DAY 50560 01/08/15 VENT MGMT INPAT SUBQ DAY 17599 01/08/15 Internal Medicine Assmt/Plan - Assessment Assessment: acute renal insufficiency-improved morbid obesity schizoaffective disorder herd chronic constipation htn - Plan Plan: encourage h20 fall precautions continue current plan of care
[2018-05-27] MEDS: Hydrocodone/APAP 5mg/325mg Tab PO PRN (18:02)
--- NOTE | 2018-05-27 21:47 | Progress Notes ---
DATE: PSYCHIATRIC PROGRESS NOTE SUBJECTIVE: Chart reviewed and the patient interviewed. Also discussed the patient's condition with the staff and reviewed records and labs. The patient is still extremely agitated and extremely irritable with yelling and screaming episodes. The patient also is still unable to follow any of staff directions. She was also angry and she is still disheveled. Otherwise, the patient is compliant with taking her medications. ASSESSMENT: The patient is still psychotic and is still agitated. TREATMENT PLAN: We will add Thorazine 25 mg 3 times a day and will continue to follow up closely. JOB# [id number]
--- NOTE | 2018-05-28 07:18 | Progress Notes ---
DATE: 05/28/2018 PSYCHIATRIC PROGRESS NOTE SUBJECTIVE: Chart reviewed and the patient interviewed. Also discussed the patient's condition with the staff and reviewed records and labs. The patient is still severely agitated and is still severely irritable and angry. The patient also is still confused and she is still yelling and screaming for no apparent reason. Although the patient is taking Seroquel, yet it seems it is not helping the patient's agitation and irritability. The patient also did not sleep almost all last night. Otherwise, the patient is taking her medications. At times, the patient is trying to take her G-tube out. ASSESSMENT: The patient is still irritable and still agitated. TREATMENT PLAN: We will continue monitoring her condition and her medications closely. Also, we will start the patient on Zyprexa and will gradually take her off the Seroquel and we will continue to follow up. The patient is already on Thorazine and also on adding Zyprexa, so we will stop Seroquel. Also, increase Thorazine and we will follow up closely. JOB# [id number]
[2018-05-28] MEDS: Lactobacillus Rhamnosus GG 15 Billion CFU CAP.SPRINK PO SCH (09:28)
[2018-05-28] MEDS: Dextromethorphan/Quinidine 20mg/10mg Cap PO SCH ×2 (09:28→21:46)
[2018-05-28] MEDS: OLANZapine 5 mg Oral Disintegrating Tab PO SCH ×2 (09:29→17:55)
[2018-05-28] MEDS: NYSTATIN 100000 UNITS/GM POWD TP SCH ×2 (09:31→17:52)
[2018-05-28] MEDS: Multivitamin Tab PO SCH (09:31)
[2018-05-28] MEDS: Lactulose 10 Gm/15 mL 30mL UDC PO SCH (09:31)
--- NOTE | 2018-05-28 11:10 | Internal Medicine Prog Note ---
Internal Medicine Subjective - Subjective Service Date: 05/28/18 Patient is:: awake Per staff patient has:: tolerating meds Internal Medicine Objective - Results Result Diagrams: 05/23/18 19:50 05/26/18 07:40 Recent Labs: Laboratory Last Values WBC 6.3 Th/cmm (4.8-10.8) 05/23/18 19:50 RBC 5.21 Mil/cmm (3.80-5.10) H 05/23/18 19:50 Hgb 15.4 gm/dL (12-16) 05/23/18 19:50 Hct 46.0 % (41.0-60) 05/23/18 19:50 MCV 88.4 fl (81-100) 05/23/18 19:50 MCH 29.6 pg (27.0-31.0) 05/23/18 19:50 MCHC Differential 33.5 pg (28.0-36.0) 05/23/18 19:50 RDW 12.8 % (11.5-20.0) 05/23/18 19:50 Plt Count 287 Th/cmm (150-400) 05/23/18 19:50 MPV 7.6 fl 05/23/18 19:50 Neutrophils % 59.1 % (40.0-80.0) 05/23/18 19:50 Lymphocytes % 32.3 % (20.0-50.0) 05/23/18 19:50 Monocytes % 5.3 % (2.0-10.0) 05/23/18 19:50 Eosinophils % 2.3 % (0.0-5.0) 05/23/18 19:50 Basophils % 1.0 % (0.0-2.0) 05/23/18 19:50 Sodium 137 mEq/L (136-145) 05/26/18 07:40 Potassium 4.0 mEq/L (3.5-5.1) 05/26/18 07:40 Chloride 104 mEq/L (98-107) 05/26/18 07:40 Carbon Dioxide 25.6 mEq/L (21.0-31.0) 05/26/18 07:40 Anion Gap 11.4 (7.0-16.0) 05/26/18 07:40 BUN 25 mg/dL (7-25) 05/26/18 07:40 Creatinine 1.0 mg/dL (0.6-1.2) 05/26/18 07:40 Est GFR ( Amer) > 60.0 ml/min (>90) 05/26/18 07:40 Est GFR (Non-Af Amer) 59.9 ml/min 05/26/18 07:40 BUN/Creatinine Ratio 25.0 05/26/18 07:40 Glucose 86 mg/dL (70-105) 05/26/18 07:40 Calcium 10.0 mg/dL (8.6-10.3) 05/26/18 07:40 Total Bilirubin 0.5 mg/dL (0.3-1.0) 05/23/18 19:50 AST 20 U/L (13-39) 05/23/18 19:50 ALT 23 U/L (7-52) 05/23/18 19:50 Alkaline Phosphatase 83 U/L (34-104) 05/23/18 19:50 Total Protein 7.3 gm/dL (6.0-8.3) 05/23/18 19:50 Albumin 4.2 gm/dL (3.7-5.3) 05/23/18 19:50 Globulin 3.1 gm/dL 05/23/18 19:50 Albumin/Globulin Ratio 1.4 (1.0-1.8) 05/23/18 19:50 Triglycerides 113 mg/dL (<150) 05/24/18 07:41 Cholesterol 200 mg/dL (<200) 05/24/18 07:41 LDL Cholesterol Direct 94 mg/dL (75-193) 05/24/18 07:41 HDL Cholesterol 66 mg/dL (23-92) 05/24/18 07:41 - Physical Exam Vitals and I&O: Vital Signs Temp 97.8 F 05/28/18 05:00 Pulse 84 05/28/18 05:00 Resp 18 05/28/18 05:00 BP 98/64 05/28/18 05:00 Pulse Ox 97 05/28/18 05:00 Intake & Output 05/27/18 05/28/18 05/28/18 18:59 06:59 18:59 Intake Total 800 60 Balance 800 60 Intake: Oral 800 60 Other: # Voids 3 2 # Bowel Movements 2 1 Stool Characteristics Liquid Liquid Brown Active Medications: Current Medications Acetaminophen (Tylenol) 650 mg PO Q4H PRN PRN Reason: Mild Pain Or Fever above 101 Stop: 07/22/18 22:09 Last Admin: 05/27/18 08:34 Dose: 650 mg Acetaminophen/Hydrocodone Bitart ([place] 5mg/325mg) 1 tab PO Q6H PRN PRN Reason: Pain (Moderate) Stop: 07/22/18 22:07 Last Admin: 05/27/18 18:02 Dose: 1 tab Al Hydrox/Mg Hydrox/Simethicone (Maalox) 30 ml PO Q6H PRN PRN Reason: Dyspepsia Stop: 07/22/18 22:07 Chlorpromazine (Thorazine) 50 mg PO TID [facility]; Protocol Stop: 07/27/18 08:59 Last Admin: 05/28/18 10:00 Dose: 50 mg Dextromethorphan/Quinidine (Nuedexta 20mg-10mg) 1 cap PO Q12HR [facility] Stop: 07/23/18 08:59 Last Admin: 05/28/18 09:28 Dose: 1 cap Diazepam (Valium) 2 mg PO BID [facility]; Protocol Stop: 07/23/18 08:59 Last Admin: 05/28/18 09:28 Dose: 2 mg Docusate Sodium (Colace) 100 mg PO BID [facility] Stop: 07/23/18 08:59 Last Admin: 05/28/18 09:31 Dose: 100 mg Lactobacillus Rhamnosus (Culturelle 15b) 1 each PO DAILY [facility] Stop: 07/23/18 08:59 Last Admin: 05/28/18 09:28 Dose: 1 each Lactulose (Cephulac) 20 gm PO DAILY [facility] Stop: 07/23/18 08:59 Last Admin: 05/28/18 09:31 Dose: Not Given Lorazepam (Ativan) 0.5 mg PO Q6HR PRN; Protocol PRN Reason: anxiety Stop: 07/22/18 21:44 Last Admin: 05/28/18 00:32 Dose: 0.5 mg Magnesium Hydroxide (Milk Of Magnesia) 30 ml PO HS PRN PRN Reason: Constipation Stop: 07/22/18 22:07 Midodrine (Proamatine) 10 mg PO TID [facility] Stop: 07/23/18 08:59 Last Admin: 05/28/18 09:28 Dose: 10 mg Multivitamins/Vitamin C (Theragran) 1 tab PO DAILY [facility] Stop: 07/23/18 08:59 Last Admin: 05/28/18 09:31 Dose: 1 tab Nystatin (Nystop) 100 units TP BID [facility] Stop: 07/23/18 16:59 Last Admin: 05/28/18 09:31 Dose: 100 units Olanzapine (Zyprexa Zydis) 5 mg PO BID [facility]; Protocol Stop: 07/27/18 08:59 Last Admin: 05/28/18 09:29 Dose: 5 mg Zolpidem Tartrate (Ambien) 5 mg PO HS PRN PRN Reason: Insomnia Stop: 07/22/18 22:45 Last Admin: 05/28/18 00:54 Dose: 5 mg General: alert HEENT: NC/AT, PERRLA Neck: Supple Lungs: CTAB Cardiovascular: RRR, Normal S1, Normal S2 Abdomen: soft, non-tender, non-distended Extremities: excoriation - Procedures Procedures: Procedures Procedure Code Date CONTINUOUS INVASIVE MECHANICAL VENTILATION =/>96 CONSEC HRS 96.72 01/08/15 EGD BIOPSY SINGLE/MULTIPLE 56667 07/27/15 EXCISION OF DUODENUM, ENDO, DIAGN [id number] 07/27/15 EXCISION OF STOMACH, PYLORUS, ENDO, DIAGN [id number] 07/27/15 GROUP PSYCHOTHERAPY 91956 08/02/15 GROUP PSYCHOTHERAPY [id number] 08/02/15 INSERT EMERGENCY AIRWAY 60583 01/08/15 INSERT ENDOTRACHEAL TUBE 96.04 01/08/15 INTRAOP COLON LAVAGE ADD-ON 21343 01/08/15 OPEN TOTAL INTRA-ABDOMINAL COLECTOMY 45.82 01/08/15 OTHER GROUP THERAPY 94.44 03/16/15 REMOVAL OF COLON 80757 01/08/15 TEMPORARY ILEOSTOMY 46.21 01/08/15 VENT MGMT INPAT INIT DAY 77565 01/08/15 VENT MGMT INPAT SUBQ DAY 42041 01/08/15 Internal Medicine Assmt/Plan - Assessment Assessment: acute renal insufficiency-improved morbid obesity schizoaffective disorder herd chronic constipation htn - Plan Plan: encourage h20 fall precautions continue current plan of care
[2018-05-29] MEDS ORDERED: OLANZapine 5 mg Oral Disintegrating Tab PO SCH (09:00)
--- NOTE | 2018-05-29 09:47 | Internal Medicine Prog Note ---
Internal Medicine Subjective - Subjective Service Date: 05/29/18 Patient is:: awake, in bed Per staff patient has:: tolerating meds Internal Medicine Objective - Results Result Diagrams: 05/23/18 19:50 05/26/18 07:40 Recent Labs: Laboratory Last Values WBC 6.3 Th/cmm (4.8-10.8) 05/23/18 19:50 RBC 5.21 Mil/cmm (3.80-5.10) H 05/23/18 19:50 Hgb 15.4 gm/dL (12-16) 05/23/18 19:50 Hct 46.0 % (41.0-60) 05/23/18 19:50 MCV 88.4 fl (81-100) 05/23/18 19:50 MCH 29.6 pg (27.0-31.0) 05/23/18 19:50 MCHC Differential 33.5 pg (28.0-36.0) 05/23/18 19:50 RDW 12.8 % (11.5-20.0) 05/23/18 19:50 Plt Count 287 Th/cmm (150-400) 05/23/18 19:50 MPV 7.6 fl 05/23/18 19:50 Neutrophils % 59.1 % (40.0-80.0) 05/23/18 19:50 Lymphocytes % 32.3 % (20.0-50.0) 05/23/18 19:50 Monocytes % 5.3 % (2.0-10.0) 05/23/18 19:50 Eosinophils % 2.3 % (0.0-5.0) 05/23/18 19:50 Basophils % 1.0 % (0.0-2.0) 05/23/18 19:50 Sodium 137 mEq/L (136-145) 05/26/18 07:40 Potassium 4.0 mEq/L (3.5-5.1) 05/26/18 07:40 Chloride 104 mEq/L (98-107) 05/26/18 07:40 Carbon Dioxide 25.6 mEq/L (21.0-31.0) 05/26/18 07:40 Anion Gap 11.4 (7.0-16.0) 05/26/18 07:40 BUN 25 mg/dL (7-25) 05/26/18 07:40 Creatinine 1.0 mg/dL (0.6-1.2) 05/26/18 07:40 Est GFR ( Amer) > 60.0 ml/min (>90) 05/26/18 07:40 Est GFR (Non-Af Amer) 59.9 ml/min 05/26/18 07:40 BUN/Creatinine Ratio 25.0 05/26/18 07:40 Glucose 86 mg/dL (70-105) 05/26/18 07:40 Calcium 10.0 mg/dL (8.6-10.3) 05/26/18 07:40 Total Bilirubin 0.5 mg/dL (0.3-1.0) 05/23/18 19:50 AST 20 U/L (13-39) 05/23/18 19:50 ALT 23 U/L (7-52) 05/23/18 19:50 Alkaline Phosphatase 83 U/L (34-104) 05/23/18 19:50 Total Protein 7.3 gm/dL (6.0-8.3) 05/23/18 19:50 Albumin 4.2 gm/dL (3.7-5.3) 05/23/18 19:50 Globulin 3.1 gm/dL 05/23/18 19:50 Albumin/Globulin Ratio 1.4 (1.0-1.8) 05/23/18 19:50 Triglycerides 113 mg/dL (<150) 05/24/18 07:41 Cholesterol 200 mg/dL (<200) 05/24/18 07:41 LDL Cholesterol Direct 94 mg/dL (75-193) 05/24/18 07:41 HDL Cholesterol 66 mg/dL (23-92) 05/24/18 07:41 - Physical Exam Vitals and I&O: Vital Signs Temp 97.6 F 05/29/18 05:46 Pulse 72 05/29/18 05:46 Resp 19 05/29/18 05:46 BP 100/67 05/29/18 05:46 Pulse Ox 96 05/29/18 05:46 Intake & Output 05/28/18 05/29/18 05/29/18 18:59 06:59 18:59 Intake Total 1400 120 Output Total 300 Balance 1100 120 Intake: Oral 1400 120 Output: Stool 300 Other: # Voids 4 3 Stool Characteristics Liquid Soft Active Medications: Current Medications Acetaminophen (Tylenol) 650 mg PO Q4H PRN PRN Reason: Mild Pain Or Fever above 101 Stop: 07/22/18 22:09 Last Admin: 05/27/18 08:34 Dose: 650 mg Acetaminophen/Hydrocodone Bitart ([place] 5mg/325mg) 1 tab PO Q6H PRN PRN Reason: Pain (Moderate) Stop: 07/22/18 22:07 Last Admin: 05/27/18 18:02 Dose: 1 tab Al Hydrox/Mg Hydrox/Simethicone (Maalox) 30 ml PO Q6H PRN PRN Reason: Dyspepsia Stop: 07/22/18 22:07 Chlorpromazine (Thorazine) 100 mg PO TID [facility]; Protocol Stop: 07/28/18 08:59 Dextromethorphan/Quinidine (Nuedexta 20mg-10mg) 1 cap PO Q12HR [facility] Stop: 07/23/18 08:59 Last Admin: 05/28/18 21:46 Dose: 1 cap Diazepam (Valium) 2 mg PO BID [facility]; Protocol Stop: 07/23/18 08:59 Last Admin: 05/28/18 17:50 Dose: 2 mg Docusate Sodium (Colace) 100 mg PO BID [facility] Stop: 07/23/18 08:59 Last Admin: 05/28/18 17:51 Dose: 100 mg Lactobacillus Rhamnosus (Culturelle 15b) 1 each PO DAILY [facility] Stop: 07/23/18 08:59 Last Admin: 05/28/18 09:28 Dose: 1 each Lactulose (Cephulac) 20 gm PO DAILY [facility] Stop: 07/23/18 08:59 Last Admin: 05/28/18 09:31 Dose: Not Given Lorazepam (Ativan) 0.5 mg PO Q6HR PRN; Protocol PRN Reason: anxiety Stop: 07/22/18 21:44 Last Admin: 05/28/18 00:32 Dose: 0.5 mg Magnesium Hydroxide (Milk Of Magnesia) 30 ml PO HS PRN PRN Reason: Constipation Stop: 07/22/18 22:07 Midodrine (Proamatine) 10 mg PO TID [facility] Stop: 07/23/18 08:59 Last Admin: 05/28/18 21:47 Dose: 10 mg Multivitamins/Vitamin C (Theragran) 1 tab PO DAILY [facility] Stop: 07/23/18 08:59 Last Admin: 05/28/18 09:31 Dose: 1 tab Nystatin (Nystop) 100 units TP BID [facility] Stop: 07/23/18 16:59 Last Admin: 05/28/18 17:52 Dose: 100 units Olanzapine (Zyprexa Zydis) 10 mg PO BID [facility]; Protocol Stop: 07/28/18 08:59 Zolpidem Tartrate (Ambien) 5 mg PO HS PRN PRN Reason: Insomnia Stop: 07/22/18 22:45 Last Admin: 05/28/18 21:47 Dose: 5 mg General: alert HEENT: NC/AT, PERRLA Neck: Supple Lungs: CTAB Cardiovascular: RRR, Normal S1, Normal S2 Abdomen: soft, non-tender, non-distended Extremities: excoriation - Procedures Procedures: Procedures Procedure Code Date CONTINUOUS INVASIVE MECHANICAL VENTILATION =/>96 CONSEC HRS 96.72 01/08/15 EGD BIOPSY SINGLE/MULTIPLE 09658 07/27/15 EXCISION OF DUODENUM, ENDO, DIAGN [id number] 07/27/15 EXCISION OF STOMACH, PYLORUS, ENDO, DIAGN [id number] 07/27/15 GROUP PSYCHOTHERAPY 66604 08/02/15 GROUP PSYCHOTHERAPY [id number] 08/02/15 INSERT EMERGENCY AIRWAY 35261 01/08/15 INSERT ENDOTRACHEAL TUBE 96.04 01/08/15 INTRAOP COLON LAVAGE ADD-ON 69512 01/08/15 OPEN TOTAL INTRA-ABDOMINAL COLECTOMY 45.82 01/08/15 OTHER GROUP THERAPY 94.44 03/16/15 REMOVAL OF COLON 14306 01/08/15 TEMPORARY ILEOSTOMY 46.21 01/08/15 VENT MGMT INPAT INIT DAY 84906 01/08/15 VENT MGMT INPAT SUBQ DAY 94072 01/08/15 Internal Medicine Assmt/Plan - Assessment Assessment: acute renal insufficiency-improved morbid obesity schizoaffective disorder herd chronic constipation htn - Plan Plan: encourage h20 fall precautions continue current plan of care Nutritional Asmnt/Malnutr-PDOC - Dietary Evaluation Malnutrition Findings (Please click <Entered> for more info): Nutritional Asmnt/Malnutrition Start: 05/28/18 13: 15 Text: Status: Complete Freq: Protocol: Document 10/10/18 13:15 DEEPIKA (Rec: 05/28/18 13:29 [email or web address] TOM) Nutritional Asmnt/Malnutrition Patient General Information Nutritional Screening Moderate Risk Diagnosis psychosis Pertinent Medical Hx/Surgical Hx morbid obesity, schizoaffective disorder, GERD , chronic constipation, HTN, DM, psychosis, renal failure Subjective Information Pt laying in bed, confused and alert to self only at time of visit. RD unable to communicate with pt. Nursing noted PO intake: 75-100%. Current Diet Order/ Nutrition Support Pureed, 2 gm Na Pertinent Medications colace, culturelle, theragran, MOM Pertinent Labs 05/26: BUN and Cr both WNL 05/23: BUN 31, Cr 1.3 Nutritional Hx/Data Height 5 ft 8 in Height (Calculated Centimeters) 172.7 Current Weight (lbs) 225 lb Weight (Calculated Kilograms) 102.1 Weight (Calculated Grams) 076995.3 [place] Body Weight 140 lb Body Mass Index (BMI) 34.2 Weight Status Obese GI Symptoms GI Symptoms None Last BM 05/27 Difficult in: None Food Allergies No Skin Integrity/Comment: colostomy, abrasion to abdomen , caitlin 14 Current %PO Good (75-100%) Estimated Nutritional Goals BEE in Kcals: Adj wt of IBW Calories/Kcals/Kg 25-30 (based on adj wt 73 kg) Kcals Calculated 9008-3413 Protein: Adj wt of IBW Protein g/k.8-1 (based on adj wt 73 kg) Protein Calculated 58-73 g Fluid: ml 2319-9218 (1 ml/kcal) Nutritional Problem No current Nutrition Prob Problem no nutrition dx at this time Malnutrition Alert Is there a minimum of two criteria No selected? Query Text:Check all the applicable criteria. A minimum of two criteria are recommended for diagnosis of either severe or non-severe malnutrition. Malnutrition Related to Morbid Obesity Malnutrition related to morbid obesity No Intervention/Recommendation Comments 1. Continue with pureed, 2 gm Na diet as ordered. 2. Monitor PO intake, wt, labs and skin integrity 3. F/U as low risk in 7 days, 06/04 Expected Outcomes/Goals Expected Outcomes/Goals 1. PO intake at least 75% of all meals. 2. Wt stability, skin to remain intact, labs to approach normal limits REviewed by Janice Gimenez RD
[2018-05-29] MEDS: Lactobacillus Rhamnosus GG 15 Billion CFU CAP.SPRINK PO SCH (09:48)
[2018-05-29] MEDS: Lactulose 10 Gm/15 mL 30mL UDC PO SCH (09:48)
[2018-05-29] MEDS: Dextromethorphan/Quinidine 20mg/10mg Cap PO SCH (09:48)
[2018-05-29] MEDS: Multivitamin Tab PO SCH (09:48)
[2018-05-29] MEDS: NYSTATIN 100000 UNITS/GM POWD TP SCH (10:04)
--- NOTE | 2018-05-29 23:16 | Discharge Summary ---
DATE OF DISCHARGE: 05/29/2018 PATIENT'S AGE: 63. SEX: Female. PHYSICIAN: Dr. Wick. FINAL DIAGNOSIS/PRIMARY DIAGNOSIS: Schizoaffective disorder, bipolar type, severe, with psychotic features. SECONDARY DIAGNOSIS: Dementia, severe, with psychotic features and behavioral disturbances. REASON FOR HOSPITALIZATION: The patient was admitted to the hospital from [facility] because of increased agitation, irritability, and difficulty following directions and episodes of yelling and screaming. HOSPITAL COURSE: The patient continued to be extremely agitated and irritable. The patient was still yelling and screaming. She also was having anger with difficulty following any directions. The patient was given Thorazine and also Zyprexa. Gradually, the patient was slightly calmer, brighter, and the patient was discharged back to [facility] with plan to continue working on behavior modification and adjusting medication there. Thorazine was increased up to 100 mg 3 times a day and Zyprexa to 10 mg twice a day. Physical exam of the patient showed that the patient has colostomy bag. No major medical problems while the patient was in the hospital. AFTER DISCHARGE PLANS: The patient discharged from the hospital to return to [facility] with plans for followup there. EXPECTED OUTCOME AFTER DISCHARGE: Fair if the patient continues to take her medications and follow up with discharge plans. [facility]# [id number]
== END 2018-05-29 12:00 | DRG 885 ==
LOC: ER 19:11 → GERO 21:05
PROVIDERS: ADMIT Psychiatry & Neurology Psychiatry; ATTEND Psychiatry & Neurology Psychiatry
DX: F25.0 Schizoaffective disorder, bipolar type (principal); Z93.3 Colostomy status; F03.91 Unspecified dementia, unspecified severity, with behavioral disturbance; E11.9 Type 2 diabetes mellitus without complications; K21.9 Gastro-esophageal reflux disease without esophagitis; N28.9 Disorder of kidney and ureter, unspecified; E66.01 Morbid (severe) obesity due to excess calories; I10 Essential (primary) hypertension; K59.09 Other constipation; Z88.8 Allergy status to other drugs, medicaments and biological substances; Z68.34 Body mass index [BMI] 34.0-34.9, adult
CPT/HCPCS: 36415-UA; 80048-TC; 80053-TC; 80061-TC; 83036-90; 85025-TC; Q0161; Z7610